=== PATIENT | female | born 1935 | race Caucasian/White ===

== ENCOUNTER → 2017-07-17 07:54 | Outpatient (CLI) | payer MEDICARE, OTHER, SELFPAY ==
[2017-07-17 09:22] LABS: AST(SGOT) 15 U/L (15-37); Alanine Aminotransfer ALT/SGPT 23 U/L (13-56); Albumin, Serum 3.5 g/dL (3.2-5.0); Alkaline Phosphatase 97 U/L (45-117); Bilirubin, Direct 0.11 mg/dL (0.00-0.30); Cholesterol 141 mg/dL (200); Globulin 4.2 g/dL (2.2-4.2); High Density Lipoprotein 44 mg/dL; Protein, Total 7.7 g/dL (6.4-8.2); Triglycerides 117 mg/dL; Very Low Density Lipoprotein 23 mg/dL (5-40)
== END ==
PROVIDERS: Family Provider Family Medicine; PCP Family Medicine; Visit Provider Internal Medicine Cardiovascular Disease
DX: E78.5 Hyperlipidemia, unspecified (principal); Z79.899 Other long term (current) drug therapy
CPT/HCPCS: 36415; 80061; 80076

== ENCOUNTER → 2018-01-14 09:11 | Outpatient (CLI) | payer MEDICARE, OTHER, SELFPAY ==
[2018-01-14 10:32] LABS: AST(SGOT) 14 U/L (15-37); Alanine Aminotransfer ALT/SGPT 19 U/L (13-56); Albumin, Serum 3.7 g/dL (3.2-5.0); Alkaline Phosphatase 87 U/L (45-117); Bilirubin, Direct 0.21 mg/dL (0.00-0.30); Cholesterol 135 mg/dL (200); Globulin 3.9 g/dL (2.2-4.2); High Density Lipoprotein 46 mg/dL; Protein, Total 7.6 g/dL (6.4-8.2); Triglycerides 104 mg/dL; Very Low Density Lipoprotein 21 mg/dL (5-40)
== END ==
PROVIDERS: Family Provider Family Medicine; PCP Family Medicine; Visit Provider Internal Medicine Cardiovascular Disease
DX: E78.5 Hyperlipidemia, unspecified (principal); Z79.899 Other long term (current) drug therapy
CPT/HCPCS: 36415; 80061; 80076

== ENCOUNTER → 2018-08-29 11:03 | Outpatient (CLI) | payer MEDICARE, SELFPAY ==
[2018-01-23 13:56] VITALS: BMI 26.5
[2018-08-29 12:27] LABS: AST(SGOT) 18 U/L (15-37); Alanine Aminotransfer ALT/SGPT 23 U/L (13-56); Albumin, Serum 3.7 g/dL (3.2-5.0); Alkaline Phosphatase 97 U/L (45-117); Bilirubin, Direct 0.11 mg/dL (0.00-0.30); Cholesterol 150 mg/dL (200); Globulin 4.1 g/dL (2.2-4.2); High Density Lipoprotein 47 mg/dL; Protein, Total 7.8 g/dL (6.4-8.2); Triglycerides 168 mg/dL; Very Low Density Lipoprotein 34 mg/dL (5-40)
== END ==
PROVIDERS: Family Provider Family Medicine; PCP Family Medicine; Referring Provider Internal Medicine Cardiovascular Disease; Visit Provider Internal Medicine Cardiovascular Disease
DX: E78.5 Hyperlipidemia, unspecified (principal)
CPT/HCPCS: 36415; 80061; 80076

== ENCOUNTER → 2019-02-07 10:40 | Outpatient (CLI) | payer MEDICARE, SELFPAY ==
[2018-10-07 07:50] VITALS: BMI 26.9
[2019-02-07 10:51] LABS: Bacteria 0 SEEN /hpf (None Seen); Mucous, Urine 0 SEEN /hpf (<or=2+); Red Blood Cells-Urine 0 SEEN /hpf (0-5); White Blood Cells 0 SEEN /hpf (0-5)
[2019-02-07 11:32] LABS: Color, Urine Yellow (Yellow); Glucose, Dipstick Normal (Normal); Ketone-Dipstick Negative (Negative); Leukocyte Esterase-Dipstick 100 /ul (Negative); Nitrite-Dipstick Negative (Negative); Occult Blood-Urine Negative /ul (Negative); Protein-Dipstick Negative (Negative); Urine Bilirubin Dipstick Negative (Negative); Urine Clarity Clear (Clear); Urine Urobilinogen Normal (Normal)
[2019-02-07 11:33] LABS: Hemoglobin 11.4 g/dL (12.0-15.0); Mean Corp Hgb Conc 32.6 g/dL (32-36); Mean Corpuscular Hgb 30.2 pg (27.0-32.0); Mean Corpuscular Volume 92.8 fL (81-99); Mean Platelet Vol. 9.6 fl (6.2-12.0); Platelet Count 281 K/mm3 (150-450); RBC Distribution Width CV 13.6 % (11.6-14.6); RBC Distribution Width SD 46.6 fl (35.1-43.9); Red Blood Count 3.77 M/mm3 (4.2-5.4); White Blood Count 6.1 K/mm3 (4.4-11.0)
[2019-02-07 11:39] LABS: Squamous Epithelial Cells - UA 0-5 SEEN /hpf (5-10)
[2019-02-07 11:50] LABS: Microalbumin,Random Urine 18.8 mg/L (NO RANGE EST.)
[2019-02-07 12:16] LABS: Hemoglobin A1c 6.5 % (4.2-6.3)
[2019-02-07 12:19] LABS: ALB/GLOB Ratio 0.9 RATIO (0.9-2.4); AST(SGOT) 15 U/L (15-37); Alanine Aminotransfer ALT/SGPT 18 U/L (13-56); Albumin, Serum 3.5 g/dL (3.2-5.0); Alkaline Phosphatase 93 U/L (45-117); Anion Gap 7 (5-15); BUN 11 mg/dL (7-18); BUN/Creat Ratio 11.9 RATIO (10-20); Calcium,Total 9.3 mg/dL (8.5-10.1); Chloride 105 mmol/L (98-107); Cholesterol 137 mg/dL (200); Creatinine, Serum 0.93 mg/dL (0.55-1.02); EST Glomerular Filtration Rate 61 mL/min (>60); Est Glom Filt Rate - Afr Amer 74 mL/min (>60); Glucose 105 mg/dL (74-106); High Density Lipoprotein 41 mg/dL; Potassium 4.1 mmol/L (3.5-5.1); Protein, Total 7.5 g/dL (6.4-8.2); Sodium Level 141 mmol/L (136-145); Thyroid Stim Hormone (TSH) 3.07 uIU/mL (0.358-3.74); Triglycerides 124 mg/dL; Very Low Density Lipoprotein 25 mg/dL (5-40)
== END ==
PROVIDERS: Family Provider Family Medicine; PCP Family Medicine; Referring Provider Student in an Organized Health Care Education/Training Program; Visit Provider Student in an Organized Health Care Education/Training Program
DX: E11.9 Type 2 diabetes mellitus without complications (principal); E78.5 Hyperlipidemia, unspecified
CPT/HCPCS: 36415; 80053; 80061; 81001; 82043; 82570; 83036; 84443; 85027

== ENCOUNTER → 2020-08-04 09:51 | Outpatient (CLI) | payer MEDICARE, SELFPAY ==
[2019-11-05 11:07] VITALS: BMI 25.6
--- NOTE | 2020-08-04 09:54 | ART_ITS ---
Reason For Study: Claudication Procedure A bilateral lower extremity continuous wave Doppler with analog waveform analysis,segmental pressures,and ankle brachial indexes without exercise. Left Segmental Pressures Left brachial= 141mmHg. Left posterior tibial artery = 185mmHg. Left dorsalis pedis artery = 187mmHg. Left digit = 96 mmHg. The left dorsalis pedis waveforms are triphasic. The left posterior tibial artery waveforms are triphasic. Right Segmental Pressures Right brachial= 140mmHg. Right posterior tibial artery = 181mmHg. Right dorsalis pedis artery = 180mmHg. Right digit = 94 mmHg. The right dorsalis pedis waveforms are triphasic. The right posterior tibial artery waveforms are triphasic. Indices The right ankle brachial index by the dorsalis pedis is 1.28. The right ankle brachial index by the posterior tibial artery is 1.28. The right digital-brachial index is 0.67. The left ankle brachial index by the dorsalis pedis is 1.33. The left ankle brachial index by the posterior tibial artery is 1.31. The left digital-brachial index is 0.68. Interpretation Summary Triphasic Doppler waveforms are noted at ankle level bilaterally. Pulse-volume recordings appear satisfactory at all levels bilaterally, including low-thigh, calf, ankle, and digital levels. Resting ankle-brachial indices are normal bilaterally. Digital-brachial indices are mildly diminished bilaterally. Arterial flow appears normal at ankle level bilaterally. There is evidence of mild, distal, small- vessel arterial occlusive disease at digital level bilaterally. Ordering Physician: Chuck Killian Referring Physician: Chuck Killian Performed By: Yuridia Bonilla RVT
== END ==
PROVIDERS: PCP Student in an Organized Health Care Education/Training Program; Referring Provider Student in an Organized Health Care Education/Training Program; Visit Provider Student in an Organized Health Care Education/Training Program
DX: I73.9 Peripheral vascular disease, unspecified (principal)
CPT/HCPCS: 93923

== ENCOUNTER 2023-05-02 14:35 | Emergency (ER) | payer MEDICARE, SELFPAY ==
[2023-05-02 14:36] VITALS: PULSE 67; RESP 18; TEMP 36; O2SAT 95; BMI 28.8
--- NOTE | 2023-05-02 14:59 | EKG12_ITS ---
Test Reason : Blood Pressure : / mmHG Vent. Rate : 066 BPM Atrial Rate : 066 BPM P-R Int : 190 ms QRS Dur : 144 ms QT Int : 432 ms P-R-T Axes : 054 -34 064 degrees QTc Int : 452 ms Normal sinus rhythm Left axis deviation Left bundle branch block Abnormal ECG Confirmed by WISAM EUGENE, BROCK ([id number]), general expeditor SHANTEL FUENTES ([id number]) on 05/03/2023 9:33:43 AM Referred By: HARRIETT Confirmed By:BROCK JOEL MD
[2023-05-02 15:13] LABS: Absolute Lymphocyte Count 3.07 X10^3/uL (0.83-4.51); Absolute Neutrophil Count 4.9 X10^3/uL (2.0-7.7); Basophil# 0.06 X10^3/uL; Basophil% 0.7 % (0-1); Eosinophil# 0.12 X10^3/uL; Eosinophils% 1.4 % (0-5); Hematocrit 33.5 % (37-47); Hemoglobin 10.4 g/dL (12.0-15.0); Lymphocyte # 3.07 X10^3/ul (0.83-4.51); Lymphocyte % 35.2 % (19-41); Mean Corpuscular Volume 93.3 fL (81-99); Mean Platelet Vol. 9.6 fl (6.2-12.0); Monocyte# 0.53 X10^3/uL; Monocyte% 6.1 % (0-10); NRBC Flagged by Analyzer 0 % (0-5); Neutrophil % 56.3 % (47-70); Platelet Count 400 K/mm3 (150-450); RBC Distribution Width CV 13.9 % (11.6-14.6); RBC Distribution Width SD 47.5 fl (35.1-43.9); Red Blood Count 3.59 M/mm3 (4.2-5.4); White Blood Count 8.7 K/mm3 (4.4-11.0)
--- NOTE | 2023-05-02 15:17 | EDS_ITS ---
HPI History of Present Illness Chief Complaint: Syncope Detail of Chief Complaint: Syncopal episode Informant: patient Onset/Context/Timing Onset: Hours Context: Sudden Onset Timing: Intermittent Quality: Passed out Location: Sitting at home Current Severity: Gone Maximum Severity: Moderate Worsened by: Head mild abdominal distention/discomfort prior to this happening Relieved by: Nothing Associated Symptoms Associated Symptoms: Sense of warmth Narrative Narrative: Patient is an 87-year-old woman with history of chronic anemia, atherosclerotic heart disease with stent placement, essential hypertension, hyperlipidemia and history of left bundle branch block who presents after syncopal episode. She was sitting when this occurred. She denied headache, visual, ocular auditory symptoms. She denies trouble with speech or swallowing. She denied chest discomfort. She denies shortness of breath. She denies nausea or vomiting. She denied paresthesia, anesthesia or motor weakness upper or lower extremity. She denied problems with balance. She denies black or maroon-colored stool. She denies fever, chills or night sweats. Prior similar symptoms: No Recent Illness/Hospitalization: No PFSH PFSH Medical History Abdominal aortic atherosclerosis Anxiety Atherosclerosis Atherosclerotic heart disease of [place] coronary artery without angina pectoris Back pain Bilateral leg weakness Bulging lumbar disc Chronic kidney disease, stage 3 Chronic low back pain Chronic neck pain CKD stage 3 secondary to diabetes Colonic stricture Constipation Coronary artery disease Cyst of skin Degenerative arthritis of lumbar spine Degenerative joint disease of left hip Dextroscoliosis of lumbar spine Diabetic neuropathy Diarrhea Diverticulosis of colon Elevated TSH Essential (primary) hypertension Eye pain GERD (gastroesophageal reflux disease) Hyperlipidemia Hypertension goal BP (blood pressure) < 150/90 Insomnia Intention tremor Intermittent claudication Iron deficiency anemia Left bundle branch block Left hip pain Leg pain Lumbar degenerative disc disease Lumbar facet arthropathy Microalbuminuria Microalbuminuric diabetic nephropathy Nausea Neck pain Neuropathy of thigh Normocytic anemia Old inferior wall myocardial infarction Overactive bladder Pancreatic cyst Pars defect of lumbar spine Pars defect with spondylolisthesis Peripheral edema Peripheral vascular disease Radiculopathy of arm Recurrent headache Restless leg Right foot pain Scarring of lung Scoliosis Secondary hyperparathyroidism Skin cancer Skin cancer of face Suprapubic mass Systolic ejection murmur Tremor of both hands Type 2 diabetes mellitus Vitamin D deficiency Weakness Weight loss Widened pulse pressure Home Medications aspirin 81 mg tablet,delayed release (Adult Low Dose Aspirin) 81 mg PO DAILY 10/07/18 [History Last Taken Unknown] cholecalciferol (vitamin D3) 50 mcg (2,000 unit) capsule 50 mcg PO DAILY 08/18/20 [History Last Taken Unknown] oxybutynin chloride 5 mg tablet 5 mg PO DAILY 08/18/20 [History Last Taken Unknown] gabapentin 300 mg capsule 300 mg PO TID 05/17/22 [History Last Taken Unknown] pravastatin 40 mg tablet 40 mg PO QHS #90 tabs 07/05/22 [Rx Last Taken Unknown] amlodipine 10 mg tablet 10 mg PO DAILY awaiting mail order RX, pt is out. #30 tabs 07/09/22 [Rx Last Taken Unknown] cyclobenzaprine 10 mg tablet 10 mg PO TID PRN muscle spasm 11/14/22 [History Last Taken Unknown] famotidine 40 mg tablet 40 mg PO BID PRN 11/20/22 [History Last Taken Unknown] pramipexole 0.5 mg tablet 0.5 mg PO QHS 11/20/22 [History Last Taken Unknown] trazodone 100 mg tablet 100 mg PO QHS PRN 11/20/22 [History Last Taken Unknown] metoprolol tartrate 25 mg tablet 25 mg PO BID #180 tabs 12/14/22 [Rx Last Taken Unknown] ramipril 10 mg capsule 10 mg PO DAILY #90 caps 04/29/23 [Rx Last Taken Unknown] Allergy/AdvReac Type Severity Reaction Status Date / Time acetaminophen Allergy NEEDS Verified 03/04/23 14:07 [From [facility] with Codeine] FOLLOW-UP codeine Allergy Other Verified 03/04/23 14:07 latex Allergy NEEDS Verified 03/04/23 14:07 FOLLOW-UP meperidine Allergy NEEDS Verified 03/04/23 14:07 FOLLOW-UP metoclopramide HCl Allergy Other Verified 03/04/23 14:07 [From Reglan] morphine Allergy Itching Verified 03/04/23 14:07 Penicillins [PCN] Allergy Hives Verified 03/04/23 14:07 prednisone Allergy Other Verified 03/04/23 14:07 ropinirole HCl [From Requip] Allergy Other Verified 03/04/23 14:07 shrimp Allergy NEEDS Verified 03/04/23 14:07 FOLLOW-UP amoxicillin AdvReac Other Verified 03/04/23 14:07 diazepam [From Valium] AdvReac Other Verified 03/04/23 14:07 pregabalin [From Lyrica] AdvReac Somnolence Verified 03/04/23 14:07 HCL Allergy NEEDS Uncoded 03/04/23 14:07 FOLLOW-UP Family History Father , age 62 Sudden cardiac CAD (coronary artery disease) Myocardial infarction Heart disease Son Heart disease Myocardial infarction Surgical History H/O heart surgery H/O: hysterectomy History of breast biopsy History of carpal tunnel repair History of colonoscopy History of coronary artery stent placement (06/23/99) History of endoscopy History of eye surgery History of left heart catheterization (08/17/03) History of partial colectomy History of surgical removal of skin lesion Hx of cholecystectomy Social History (Updated 05/02/23 @ 15:[address] Ashok Benz MD) household members: children Smoking Status: Never smoker alcohol intake: never substance use type: does not use caffeine: No ROS ROS ED Constitutional Constitutional ED: Denies chills, fever(s), subjective, sweats or weight loss Eyes Eyes: Denies blurry vision, change in vision or diplopia ENT ENT ED: Denies ear pain, rhinorrhea or sore throat Cardiovascular Cardiovascular: Denies chest pain, palpitations or racing heartbeat Respiratory/Chest Respiratory/Chest: Denies cough, dyspnea or dyspnea on exertion Gastrointestinal Gastrointestinal: Denies abdominal pain, constipation, nausea or vomiting Genitourinary Genitourinary ED: Denies dysuria, hematuria or urinary frequency Musculoskeletal Musculoskeletal: Denies arthralgias, back pain, myalgias or neck pain Integumentary Denies rash Neurologic Neurologic: Denies headache(s), paresthesias or weakness Psychiatric Psychiatric: Denies anxiety or depression Endocrine Endocrinology: Denies cold intolerance or heat intolerance Hematologic/Lymphatic Hematologic/Lymphatic: Reports systems reviewed and no addt'l complaints, except as documented EXAM Physical Exam Const Vital Signs: 05/02/23 14:36 05/02/23 14:36 05/02/23 14:36 Temperature 96.8 F L Temperature Source Temporal Pulse Rate 67 Respiratory Rate 18 Respiratory Effort Normal Respiratory Depth Normal Respiratory Pattern Normal Normal Pulse Ox 95 Oxygen Delivery Method Room Air Room Air Positive well nourished and well developed General Appearance ED: well developed and NAD; Negative for cyanotic, diaphoretic or pallor HEENT Reports moist mucous membranes HEENT Narrative: Head is atraumatic and normocephalic. Ears are normal. Nares are patent. Posterior pharynx is normal. Uvula is midline. There is no deviation tongue with protrusion. Eyes PERRL and EOMs intact bilaterally Eyes Narrative: There is no nystagmus. General Eye ED: Negative for pale conjunctiva or scleral icterus Neck no lymphadenopathy, supple and no JVD Chest Wall inspection of chest normal and palpation of chest normal Resp normal respiratory effort and clear to auscultation bilaterally Cardio regular rate, regular rhythm, S1 normal heart sound, S2 normal heart sound and no murmurs GI normal to inspection, nondistended, normoactive bowel sounds, non-tender, non- distended and no masses; Negative for hepatosplenomegaly Auscultation: normoactive bowel sounds Palpation: soft Back/Spine no CVA tenderness Thoracic Spine / Upper Back: Negative for thoracic spinal tenderness Lumbar Spine / Lower Back: Negative for lumbar spinal tenderness Extremity normal to inspection General Extremety ED: Negative for edema or tenderness General Extremity: Negative for edema Neuro oriented x3, CN's II-XII intact bilaterally and no sensory deficits noted Sensorium / Orientation: alert Motor Exam: strength 5/5 throughout Psych mental status grossly normal Mood & Affect: Negative for anxious or tearful Skin no rashes or lesions noted, no wounds and skin turgor normal General Skin Exam: Negative for jaundice or pallor MDM MDM MDM Narrative Medical decision making narrative: Diagnosis is cardiac dysrhythmia, vasovagal syncopal episode, orthostatic hypotension, GI bleed. History & Record Review Additional record(s) reviewed:: Prior outpatient record, Prior ED visit and Prior labs Lab Data Attestation: I reviewed the patient's lab results. Lab results narrative: CBC reveals mild anemia and patient is at baseline. Based about parables creatinine 1.19 which is an improvement from prior. Glucose is 198 with a normal CO2 and anion gap Labs: Laboratory Results - last 24 hr 05/02/23 14:42 WBC 8.7 RBC 3.59 L Hgb 10.4 L Hct 33.5 L MCV 93.3 MCH 29.0 MCHC 31.0 L RDW Std Deviation 47.5 H RDW Coeff of Franky 13.9 Plt Count 400 MPV 9.6 Immature Gran % (Auto) 0.300 Neut % (Auto) 56.3 Lymph % (Auto) 35.2 [place] % (Auto) 6.1 Eos % (Auto) 1.4 Baso % (Auto) 0.7 Absolute Neuts (auto) 4.9 Absolute Lymphs (auto) 3.07 Nucleated RBC % 0 Sodium 135 L Potassium 4.3 Chloride 103 Carbon Dioxide 30.0 Anion Gap 2 L BUN 16 Creatinine 1.19 H Estim Creat Clear Calc 26.34 Est GFR (MDRD) Af Amer 55 L Est GFR (MDRD) Non-Af 46 L BUN/Creatinine Ratio 13.4 Glucose 198 H Calcium 9.6 EKG Initial EKG: Attestation: I personally reviewed and interpreted this EKG as follows: Interpretation: Sinus Rhythm (Sinus rhythm rate of 66. There is left bundle branch block with left axis. HI interval is 190 ms. Cures duration 144 ms. QT duration 432 ms. There is no acute ischemic changes noted.) Discharge Plan Triage Chief Complaint: Syncope Other Complaint: Fall ED Provider: Ashok Benz Dx/Rx/DC Orders Clinical Impression: Syncope, vasovagal, Left bundle branch block, Atherosclerotic heart disease of [place] coronary artery without angina pectoris, Hyperlipidemia, Anemia, chronic disease, Essential (primary) hypertension Instructions: ED Fainting, Vagal Reaction Prescriptions: No Action aspirin [Adult Low Dose Aspirin] 81 mg tablet,delayed release (DR/EC) 81 mg PO DAILY oxybutynin chloride 5 mg tablet 5 mg PO DAILY cholecalciferol (vitamin D3) 50 mcg (2,000 unit) capsule 50 mcg PO DAILY gabapentin 300 mg capsule 300 mg PO TID cyclobenzaprine 10 mg tablet 10 mg PO TID PRN (Reason: muscle spasm) famotidine 40 mg tablet 40 mg PO BID PRN pramipexole 0.5 mg tablet 0.5 mg PO QHS trazodone 100 mg tablet 100 mg PO QHS PRN pravastatin 40 mg tablet 40 mg PO QHS Qty: 90 3RF amlodipine 10 mg tablet 10 mg PO DAILY Qty: 30 0RF metoprolol tartrate 25 mg tablet 25 mg PO BID Qty: 180 3RF ramipril 10 mg capsule 10 mg PO DAILY Qty: 90 3RF Primary Care Provider: Keshawn Koehler Referrals: Keshawn Koehler DO [Primary Care Provider] - 3-5 Days Disposition Disposition: Home, Self Care
[2023-05-02 15:24] LABS: Anion Gap 2 (5-15); BUN 16 mg/dL (7-18); BUN/Creat Ratio 13.4 RATIO (10-20); Calcium,Total 9.6 mg/dL (8.5-10.1); Chloride 103 mmol/L (98-107); Creatinine, Serum 1.19 mg/dL (0.55-1.02); EST Glomerular Filtration Rate 46 mL/min (>60); Est Glom Filt Rate - Afr Amer 55 mL/min (>60); Estimated Creatinine Clearance 26.34 ml/min; Glucose 198 mg/dL (74-106); Potassium 4.3 mmol/L (3.5-5.1); Sodium Level 135 mmol/L (136-145)
[2023-05-02 15:50] VITALS: BP 126/78; PULSE 64; RESP 14; TEMP 36.4; O2SAT 99
== END 2023-05-02 15:51 | disposition home or self-care (01) ==
PROVIDERS: Emergency Provider Emergency Medicine; PCP Student in an Organized Health Care Education/Training Program; Visit Provider Emergency Medicine
DX: R55 Syncope and collapse (principal); E11.22 Type 2 diabetes mellitus with diabetic chronic kidney disease; E11.40 Type 2 diabetes mellitus with diabetic neuropathy, unspecified; N18.30 Chronic kidney disease, stage 3 unspecified; I12.9 Hypertensive chronic kidney disease with stage 1 through stage 4 chronic kidney disease, or unspecified chronic kidney disease; I25.10 Atherosclerotic heart disease of native coronary artery without angina pectoris; E78.5 Hyperlipidemia, unspecified; D63.8 Anemia in other chronic diseases classified elsewhere; R14.0 Abdominal distension (gaseous); I44.7 Left bundle-branch block, unspecified; R05.9 Cough, unspecified; Z79.82 Long term (current) use of aspirin; Z79.899 Other long term (current) drug therapy; Z95.5 Presence of coronary angioplasty implant and graft
CPT/HCPCS: 80048; 85025; 93005; 99285

== ENCOUNTER 2024-02-06 07:10 | Inpatient (IN) | payer MEDICARE, SELFPAY ==
[2024-02-06] VITALS (22 sets, daily range): BP systolic 112–196; BP diastolic 30–108; PULSE 39–110; RESP 11–20; TEMP 36.2–36.6; O2SAT 86–100; BMI 13.8
--- NOTE | 2024-02-06 07:20 | EKG12_ITS ---
Test Reason : GEN ILLNESS Blood Pressure : / mmHG Vent. Rate : 065 BPM Atrial Rate : 000 BPM P-R Int : 000 ms QRS Dur : 140 ms QT Int : 426 ms P-R-T Axes : 000 019 144 degrees QTc Int : 443 ms ATRIAL TACHYCARDIA WITH VARIABLE BLOCK Non-specific intra-ventricular conduction block T wave abnormality, consider lateral ischemia Abnormal ECG Confirmed by WISAM EUGENE, BROCK ([id number]), newspaper editor SHANTEL FUENTES ([id number]) on 02/10/2024 6:52:35 AM Referred By: CLIF Confirmed By:BROCK JOEL MD
--- NOTE | 2024-02-06 07:20 | RAD_ITS ---
STUDY: X-RAY CHEST REASON FOR EXAM: Female, 88 years old. Hypertension. TECHNIQUE: Single AP portable view of the chest. COMPARISON: Comparison is made with prior study dated April 04, 2017. FINDINGS: Stable mild increased interstitial markings more prominent at the lung bases suggestive of scarring. There is no demonstrated pleural abnormality. Normal size heart. Normal mediastinum and [place]. Normal visualized pulmonary arteries. There is atherosclerotic calcification of the aortic arch with tortuosity. There are diffuse degenerative changes of the visualized thoracic spine. There is degenerative osteoarthritis of the bilateral shoulders. There is no demonstrated abnormality of the visualized soft tissue structures of the upper abdomen. RAD/Chest 1 View (Portable) IMPRESSION: Findings suggest minimal scarring. No acute infiltrate is seen. Electronically Signed: Manan Weston MD at 8:27 EDT ,
[2024-02-06 08:16] LABS: Absolute Neutrophil Count 6.1 X10^3/uL (2.0-7.7); Basophil# 0.04 X10^3/uL; Basophil% 0.3 % (0-1); Eosinophil# 0.04 X10^3/uL; Eosinophils% 0.3 % (0-5); Hemoglobin 11.4 g/dL (12.0-15.0); Lymphocyte % 42.1 % (19-41); Mean Corp Hgb Conc 33.5 g/dL (32-36); Mean Corpuscular Hgb 29.9 pg (27.0-32.0); Mean Corpuscular Volume 89.2 fL (81-99); Mean Platelet Vol. 9.3 fl (6.2-12.0); Monocyte# 0.77 X10^3/uL; Monocyte% 6.4 % (0-10); NRBC Flagged by Analyzer 0 % (0-5); Neutrophil # 6.14 X10^3/uL (2.7-7.7); Neutrophil % 50.7 % (47-70); POSITIVE DIFFERENTIAL YES; Platelet Count 268 K/mm3 (150-450); RBC Distribution Width CV 13.5 % (11.6-14.6); RBC Distribution Width SD 44.5 fl (35.1-43.9); Red Blood Count 3.81 M/mm3 (4.2-5.4); White Blood Count 12.1 K/mm3 (4.4-11.0)
--- NOTE | 2024-02-06 08:21 | EDS_ITS ---
HPI History of Present Illness Chief Complaint: Hypertension Narrative Narrative: Patient is a 88-year-old female with past medical history of intermittent claudication, type 2 diabetes, suprapubic mass, peripheral vascular disease, restless leg syndrome, neuropathy, hypertension, GERD, CAD, CKD who presented to the emergency department the chief complaint of high blood pressure and not feeling well. Patient states that her back and legs last night were bothering her and states that she noted that her blood pressure was high last night and then this morning again prompting her to come here for further evaluation management. Patient states that she did take a half of her pain pill medication that she is prescribed that did not help with her pain. Patient states that she has no other complaints. [facility] Medical History Systolic ejection murmur Scoliosis Intermittent claudication Degenerative arthritis of lumbar spine Bulging lumbar disc Widened pulse pressure Weight loss Weakness Vitamin D deficiency Type 2 diabetes mellitus Tremor of both hands Suprapubic mass Skin cancer of face Skin cancer Secondary hyperparathyroidism Scarring of lung Right foot pain Restless leg Recurrent headache Radiculopathy of arm Peripheral vascular disease Peripheral edema Pars defect with spondylolisthesis Pars defect of lumbar spine Pancreatic cyst Overactive bladder Normocytic anemia Neuropathy of thigh Neck pain Nausea Microalbuminuric diabetic nephropathy Microalbuminuria Lumbar facet arthropathy Lumbar degenerative disc disease Leg pain Left hip pain Iron deficiency anemia Intention tremor Insomnia Hypertension goal BP (blood pressure) < 150/90 GERD (gastroesophageal reflux disease) Eye pain Elevated TSH Diverticulosis of colon Diarrhea Diabetic neuropathy Dextroscoliosis of lumbar spine Degenerative joint disease of left hip Cyst of skin Constipation Colonic stricture CKD stage 3 secondary to diabetes Chronic neck pain Chronic low back pain Chronic kidney disease, stage 3 Coronary artery disease Bilateral leg weakness Back pain Atherosclerosis Anxiety Abdominal aortic atherosclerosis Old inferior wall myocardial infarction Essential (primary) hypertension Hyperlipidemia Atherosclerotic heart disease of [place] coronary artery without angina pectoris Left bundle branch block Home Medications ?Medication ?Instructions ?Recorded ?Last Taken ?Type aspirin 81 mg tablet,delayed 81 mg PO DAILY heart health 10/07/18 Unknown History release (Adult Low Dose Aspirin) cholecalciferol (vitamin D3) 50 50 mcg PO DAILY supplement 08/18/20 Unknown History mcg (2,000 unit) capsule oxybutynin chloride 5 mg tablet 5 mg PO DAILY overactive bladder 08/18/20 Unknown History pramipexole 0.5 mg tablet 0.5 mg PO QHS tremors 11/20/22 Unknown History trazodone 100 mg tablet 100 mg PO QHS PRN sleep 11/20/22 Unknown History ramipril 10 mg capsule 10 mg PO DAILY blood pressure #90 04/29/23 Unknown Rx caps amlodipine 5 mg tablet 5 mg PO DAILY blood pressure #90 08/20/23 Unknown Rx tabs famotidine 40 mg tablet 40 mg PO BID PRN gerd 08/20/23 Unknown History metoprolol tartrate 25 mg tablet 25 mg PO BID blood pressure #180 08/20/23 02/06/24 Rx tabs pravastatin 40 mg tablet 40 mg PO QHS cholesterol 08/20/23 02/05/24 History gabapentin 300 mg capsule 300 mg PO TID neuropathy #90 caps 12/25/23 02/06/24 Rx cyanocobalamin (vitamin B-12) 500 500 mcg PO DAILY supplement 02/06/24 Unknown History mcg tablet Allergy/AdvReac Type Severity Reaction Status Date / Time acetaminophen (From [facility] Allergy NEEDS Verified 12/25/23 15:42 with Codeine) FOLLOW-UP codeine Allergy Other Verified 12/25/23 15:42 latex Allergy NEEDS Verified 12/25/23 15:42 FOLLOW-UP meperidine Allergy NEEDS Verified 12/25/23 15:42 FOLLOW-UP metoclopramide HCl (From Allergy Other Verified 12/25/23 15:42 Reglan) morphine Allergy Itching Verified 12/25/23 15:42 Penicillins (PCN) Allergy Hives Verified 12/25/23 15:42 prednisone Allergy Other Verified 12/25/23 15:42 ropinirole HCl (From Requip) Allergy Other Verified 12/25/23 15:42 shrimp Allergy NEEDS Verified 12/25/23 15:42 FOLLOW-UP amoxicillin AdvReac Other Verified 12/25/23 15:42 diazepam (From Valium) AdvReac Other Verified 12/25/23 15:42 pregabalin (From Lyrica) AdvReac Somnolence Verified 12/25/23 15:42 HCL Allergy NEEDS Uncoded 12/25/23 15:42 FOLLOW-UP Family History Father , age 62 Sudden cardiac CAD (coronary artery disease) Myocardial infarction Heart disease Son Heart disease Myocardial infarction Surgical History History of surgical removal of skin lesion History of breast biopsy History of colonoscopy History of endoscopy History of eye surgery History of carpal tunnel repair History of partial colectomy Hx of cholecystectomy H/O heart surgery H/O: hysterectomy History of left heart catheterization (08/17/03) History of coronary artery stent placement (06/23/99) Social History household members: children Smoking Status: Never smoker alcohol intake: never substance use type: does not use caffeine: No ROS ROS ED ROS Narrative Constitutional: Denies any fevers, chills, headaches, lightheadedness, dizziness Eyes: Denies changes double vision blurry vision Cardiovascular: Denies chest pain or palpitations Respiratory: Denies coughing wheezing shortness of breath Abdomen: Denies abdominal pain nausea vomit diarrhea : Denies any urinary symptoms Neurological: Denies numbness, weakness, tingling states that she has a chronic shake in her bilateral upper extremities from her neuropathy Musculoskeletal: States that she has chronic back pain Skin: Denies rashes or lesions EXAM Physical Exam Narrative Exam Narrative: General: Patient was lying in bed rest comfortably did not appear to be in acute distress Head: Atraumatic, normocephalic Eyes: PERRL bilateral, EOMI bilateral, no conjunctival injection noted Neck: Soft, supple, trachea midline Cardiovascular: Regular rate and rhythm no murmurs gallops rubs noted Respiratory: Clear to auscultation bilaterally no rales rhonchi or wheeze noted Abdomen: Soft, nondistended, nontender to palpation, bowel sounds present x 4 Extremities: +4/5 strength noted in the bilateral upper and lower extremities, radial pulses +2/4 in the bilateral upper extremities, no pedal edema on exam Neurological: Patient following commands knew that she was at [facility] years 2023. NIH is 0 GCS 15 Skin: Warm, dry, intact Const Vital Signs: 02/06/24 07:11 02/06/24 07:11 02/06/24 07:11 Temperature 98 F Temperature Source Temporal Pulse Rate 77 80 Respiratory Rate 14 14 Respiratory Effort Normal Non-Labored Respiratory Pattern Normal Blood Pressure 194/58 H 196/68 H Blood Pressure Mean 103 110 Pulse Ox 98 100 Oxygen Delivery Method Room Air Room Air 02/06/24 09:11 Temperature Temperature Source Pulse Rate Respiratory Rate Respiratory Effort Respiratory Pattern Blood Pressure 160/100 H Blood Pressure Mean 120 Pulse Ox Oxygen Delivery Method MDM MDM MDM Narrative Medical decision making narrative: Patient is a 88-year-old female who presented to the emergency department chief complaint of hypertension and generalized not feeling well. Patient will have a workup performed here on the differential diagnose includes but not limited to ACS, hypertensive emergency, essential hypertension, chronic pain. Once workup is obtained reviewed she will be reevaluated. Patient CBC showed a white blood cell count of 12,000, hemoglobin is 11.4, platelet count was noted to be normal at 268. Patient sodium was noted 134, creatinine was 1.19 she has underlying chronic kidney disease this is around her baseline according to previous blood draws. Patient's glucose noted be normal 194. Patient's AST and ALT were 32 and 33 respectively. Patient's troponin was notably 19 with a delta troponin of 21. Patient's EKG showed a heart rate of 65 bpm was read as atrial fibrillation however there are P waves noted therefore this is sinus bradycardia with possibly PVCs. Patient urinalysis still pending. Patient's chest x-ray was reviewed as well which showed no acute cardiopulmonary processes this was reviewed by radiologist and independently by myself. The patient was noted to be come more bradycardic while here I had a repeat EKG and showed a heart rate of 40 bpm with P waves once again however I am concerned about heart block therefore I sent this to the director of community center Dr. Lang who reviewed the images I sent him and called him back and notified me that he believes that she is in heart block and needs a pacemaker. I called and discussed case for admission with hospitalist Dr. Morris as well as family numbers at bedside she will be made n.p.o. They are agreeable with this plan all quadrant concerns answered who accept patient for admission. Patient was notified she will be admitted for further evaluation management Lab Data Labs: Laboratory Results - last 24 hr 02/06/24 08:01 WBC 12.1 H RBC 3.81 L Hgb 11.4 L Hct 34.0 L MCV 89.2 MCH 29.9 MCHC 33.5 RDW Std Deviation 44.5 H RDW Coeff of Franky 13.5 Plt Count 268 MPV 9.3 Immature Gran % (Auto) 0.200 Neut % (Auto) 50.7 Lymph % (Auto) 42.1 H [place] % (Auto) 6.4 Eos % (Auto) 0.3 Baso % (Auto) 0.3 Absolute Neuts (auto) 6.1 Absolute Lymphs (auto) 5.10 H Nucleated RBC % 0 Sodium 134 L Potassium 4.6 Chloride 103 Carbon Dioxide 25.0 Anion Gap 6 BUN 22 H Creatinine 1.19 H Est GFR (MDRD) Af Amer 55 L Est GFR (MDRD) Non-Af 45 L BUN/Creatinine Ratio 18.5 Glucose 195 H Calcium 9.8 Total Bilirubin 0.80 AST 32 ALT 33 Alkaline Phosphatase 129 H Troponin I High Sens 19 Total Protein 7.6 Albumin 3.3 Globulin 4.3 H Albumin/Globulin Ratio 0.8 L Radiography Diagnostic Testing: Clinical Impression(s) from Imaging Studies Chest X-Ray 02/06/24 07:20 IMPRESSION: Findings suggest minimal scarring. No acute infiltrate is seen. Electronically Signed: Manan Weston MD at 8:27 EDT , Discharge Plan Triage Chief Complaint: Hypertension ED Provider: Roger Coronado Dx/Rx/DC Orders Clinical Impression: Bradycardia, AV heart block Prescriptions: No Action aspirin [Adult Low Dose Aspirin] 81 mg tablet,delayed release (DR/EC) 81 mg PO DAILY oxybutynin chloride 5 mg tablet 5 mg PO DAILY cholecalciferol (vitamin D3) 50 mcg (2,000 unit) capsule 50 mcg PO DAILY pramipexole 0.5 mg tablet 0.5 mg PO QHS famotidine 40 mg tablet 40 mg PO BID PRN (Reason: gerd ) pravastatin 40 mg tablet 40 mg PO QHS amlodipine 5 mg tablet 5 mg PO DAILY Qty: 90 3RF metoprolol tartrate 25 mg tablet 25 mg PO BID Qty: 180 3RF gabapentin 300 mg capsule 300 mg PO TID Qty: 90 0RF trazodone 100 mg tablet 100 mg PO QHS PRN (Reason: sleep ) cyanocobalamin (vitamin B-12) 500 mcg tablet 500 mcg PO DAILY ramipril 10 mg capsule 10 mg PO DAILY Qty: 90 3RF Primary Care Provider: Care Physician,No Primary Referrals: Care Physician,No Primary [Primary Care Provider] - Print Language: Kinyarwanda Disposition Disposition: Acute Care Hospital [facility]
[2024-02-06 08:37] LABS: Differential Indicated SCAN CRITERIA MET
[2024-02-06 08:39] LABS: ALB/GLOB Ratio 0.8 RATIO (0.9-2.4); AST(SGOT) 32 U/L (15-37); Alanine Aminotransfer ALT/SGPT 33 U/L (13-56); Albumin, Serum 3.3 g/dL (3.2-5.0); Alkaline Phosphatase 129 U/L (45-117); Anion Gap 6 (5-15); BUN 22 mg/dL (7-18); BUN/Creat Ratio 18.5 RATIO (10-20); Calcium,Total 9.8 mg/dL (8.5-10.1); Chloride 103 mmol/L (98-107); Creatinine, Serum 1.19 mg/dL (0.55-1.02); EST Glomerular Filtration Rate 45 mL/min (>60); Est Glom Filt Rate - Afr Amer 55 mL/min (>60); Globulin 4.3 g/dL (2.2-4.2); Glucose 195 mg/dL (74-106); Potassium 4.6 mmol/L (3.5-5.1); Protein, Total 7.6 g/dL (6.4-8.2); Sodium Level 134 mmol/L (136-145); Troponin-I HS 19 pg/mL (3.0-54.0)
--- NOTE | 2024-02-06 10:20 | EKG12_ITS ---
Test Reason : REPEAT EKG Blood Pressure : / mmHG Vent. Rate : 040 BPM Atrial Rate : 040 BPM P-R Int : 234 ms QRS Dur : 142 ms QT Int : 466 ms P-R-T Axes : 067 041 107 degrees QTc Int : 379 ms Critical Test Result: Low HR AV DISSOCIATION Left bundle branch block Abnormal ECG Confirmed by WISAM EUGENE, BROCK ([id number]), editor news SHANTEL FUENTES ([id number]) on 02/10/2024 6:53:42 AM Referred By: CLIF Confirmed By:BROCK JOEL MD
[2024-02-06] MEDS: Ondansetron ODT 4 MG Tablet PO (10:38)
[2024-02-06] MEDS: oxyCODONE 5 MG Tablet PO (10:38)
--- NOTE | 2024-02-06 10:39 | ED.RN ---
pt states to this rn while ambulating to restroom my blood pressure was high this morning so i took my meds... i am only supposed to take it once a day but i needed it. pt originally in the 70s HR but noted to become bradycardic in the 40s.
[2024-02-06 10:57] LABS: Troponin-I HS 21 pg/mL (3.0-54.0)
[2024-02-06 11:02] LABS: Differential Comment SCANNED; Platelet Estimate ADEQUATE (ADEQ); Red Cell Morphology NORM C+C NORMAL (NORM C&C)
[2024-02-06 11:24] LABS: Bacteria 0 SEEN /hpf (None Seen); Mucous, Urine 0 SEEN /hpf (<or=2+); Red Blood Cells-Urine 0 SEEN /hpf (0-5)
[2024-02-06 11:26] LABS: Color, Urine Yellow (Yellow); Glucose, Dipstick Normal (Normal); Ketone-Dipstick Negative (Negative); Leukocyte Esterase-Dipstick 100 /ul (Negative); Nitrite-Dipstick Negative (Negative); Occult Blood-Urine Negative /ul (Negative); Protein-Dipstick 30 mg/dl (Negative); Urine Bilirubin Dipstick Negative (Negative); Urine Clarity Sl. Cloudy (Clear); Urine Urobilinogen Normal (Normal)
[2024-02-06 11:32] LABS: Squamous Epithelial Cells - UA 0-5 SEEN /hpf (5-10); White Blood Cells 10-25 SEEN /hpf (0-5)
--- NOTE | 2024-02-06 11:39 | CON.PCM.CA_ITS ---
Assessment & Plan Assessment/Plan (1) AV heart block: PLAN: She does have what appears to be AV dissociated rhythm. She has an underlying left bundle branch block. My recommendation at this time will be to consider her for permanent pacemaker implantation and depending on the findings further recommendations will be made. (2) History of coronary artery stent placement: PLAN: She does have a history of coronary disease status post angioplasty and stent placement. At this time I would not suspect that we make any changes. (3) Essential (primary) hypertension: PLAN: Her blood pressure appears to be elevated at this particular time probably related to her AV dissociated rhythm. We will continue to follow it up. Thank you for allowing me to participate in the care of your patient. Please don't hesitate to call if any issues arise. HPI Consult Data Date of Consult: 02/06/24 HPI Narrative HPI Narrative: NASH ASTORGA, is a 88 F who presents to the emergency room complaining of weakness this morning after taking her blood pressure pill. She does have a history of hypertension, hyperlipidemia, coronary artery disease status post PCI of the right coronary artery remotely. She has been seen in the office and has been stable in the past. In the emergency room she was evaluated and she had an abnormal cardiac rhythm and cardiology was asked to render an opinion. It appears that she is in A-V dissociation. Her heart rate occasionally goes to the low 40s. [facility] Medical History Systolic ejection murmur Scoliosis Intermittent claudication Degenerative arthritis of lumbar spine Bulging lumbar disc Widened pulse pressure Weight loss Weakness Vitamin D deficiency Type 2 diabetes mellitus Tremor of both hands Suprapubic mass Skin cancer of face Skin cancer Secondary hyperparathyroidism Scarring of lung Right foot pain Restless leg Recurrent headache Radiculopathy of arm Peripheral vascular disease Peripheral edema Pars defect with spondylolisthesis Pars defect of lumbar spine Pancreatic cyst Overactive bladder Normocytic anemia Neuropathy of thigh Neck pain Nausea Microalbuminuric diabetic nephropathy Microalbuminuria Lumbar facet arthropathy Lumbar degenerative disc disease Leg pain Left hip pain Iron deficiency anemia Intention tremor Insomnia Hypertension goal BP (blood pressure) < 150/90 GERD (gastroesophageal reflux disease) Eye pain Elevated TSH Diverticulosis of colon Diarrhea Diabetic neuropathy Dextroscoliosis of lumbar spine Degenerative joint disease of left hip Cyst of skin Constipation Colonic stricture CKD stage 3 secondary to diabetes Chronic neck pain Chronic low back pain Chronic kidney disease, stage 3 Coronary artery disease Bilateral leg weakness Back pain Atherosclerosis Anxiety Abdominal aortic atherosclerosis Old inferior wall myocardial infarction Essential (primary) hypertension Hyperlipidemia Atherosclerotic heart disease of [place] coronary artery without angina pectoris Left bundle branch block Home Medications ?Medication ?Instructions ?Recorded ?Last Taken ?Type aspirin 81 mg tablet,delayed 81 mg PO DAILY heart health 10/07/18 Unknown History release (Adult Low Dose Aspirin) cholecalciferol (vitamin D3) 50 50 mcg PO DAILY supplement 08/18/20 Unknown History mcg (2,000 unit) capsule oxybutynin chloride 5 mg tablet 5 mg PO DAILY overactive bladder 08/18/20 Unknown History pramipexole 0.5 mg tablet 0.5 mg PO QHS tremors 11/20/22 Unknown History trazodone 100 mg tablet 100 mg PO QHS PRN sleep 11/20/22 Unknown History ramipril 10 mg capsule 10 mg PO DAILY blood pressure #90 04/29/23 Unknown Rx caps amlodipine 5 mg tablet 5 mg PO DAILY blood pressure #90 08/20/23 Unknown Rx tabs famotidine 40 mg tablet 40 mg PO BID PRN gerd 08/20/23 Unknown History metoprolol tartrate 25 mg tablet 25 mg PO BID blood pressure #180 08/20/23 02/06/24 Rx tabs pravastatin 40 mg tablet 40 mg PO QHS cholesterol 08/20/23 02/05/24 History gabapentin 300 mg capsule 300 mg PO TID neuropathy #90 caps 12/25/23 02/06/24 Rx cyanocobalamin (vitamin B-12) 500 500 mcg PO DAILY supplement 02/06/24 Unknown History mcg tablet Allergy/AdvReac Type Severity Reaction Status Date / Time acetaminophen (From [facility] Allergy NEEDS Verified 12/25/23 15:42 with Codeine) FOLLOW-UP codeine Allergy Other Verified 12/25/23 15:42 latex Allergy NEEDS Verified 12/25/23 15:42 FOLLOW-UP meperidine Allergy NEEDS Verified 12/25/23 15:42 FOLLOW-UP metoclopramide HCl (From Allergy Other Verified 12/25/23 15:42 Reglan) morphine Allergy Itching Verified 12/25/23 15:42 Penicillins (PCN) Allergy Hives Verified 12/25/23 15:42 prednisone Allergy Other Verified 12/25/23 15:42 ropinirole HCl (From Requip) Allergy Other Verified 12/25/23 15:42 shrimp Allergy NEEDS Verified 12/25/23 15:42 FOLLOW-UP amoxicillin AdvReac Other Verified 12/25/23 15:42 diazepam (From Valium) AdvReac Other Verified 12/25/23 15:42 pregabalin (From Lyrica) AdvReac Somnolence Verified 12/25/23 15:42 HCL Allergy NEEDS Uncoded 12/25/23 15:42 FOLLOW-UP Family History Father , age 62 Sudden cardiac CAD (coronary artery disease) Myocardial infarction Heart disease Son Heart disease Myocardial infarction Surgical History History of surgical removal of skin lesion History of breast biopsy History of colonoscopy History of endoscopy History of eye surgery History of carpal tunnel repair History of partial colectomy Hx of cholecystectomy H/O heart surgery H/O: hysterectomy History of left heart catheterization (08/17/03) History of coronary artery stent placement (06/23/99) Social History household members: children Smoking Status: Never smoker alcohol intake: never substance use type: does not use caffeine: No ROS Constitutional Constitutional: Denies fever(s) or weight loss Eyes Eyes: Reports systems reviewed and no addt'l complaints, except as documented ENT HEENT: Reports systems reviewed and no addt'l complaints, except as documented Cardiovascular Cardiovascular: Reports dyspnea at rest and dyspnea on exertion; Denies chest pain at rest, chest pain with activity, edema, palpitations or paroxysmal nocturnal dyspnea Respiratory/Chest Respiratory/Chest: Denies dyspnea on exertion, productive cough, shortness of breath at rest or shortness of breath with exertion Gastrointestinal Gastrointestinal: Denies change in bowel habits, nausea, vomiting or weight changes Genitourinary Genitourinary: Denies difficulty urinating Musculoskeletal Musculoskeletal: Denies joint stiffness or muscle weakness Integumentary Integumentary: Denies lesions Neurologic Neurologic: Denies dizziness or syncope Psychiatric Psychiatric: Denies anxiety Endocrine Endocrinology: Denies excessive sweating or fatigue Hematologic/Lymphatic Hematologic/Lymphatic: Denies anemia Allergic/Immunologic Allergic/Immunologic: Denies seasonal rhinorrhea Risk Stratification Risk Stratification Applicable: No Objective Data Vital Signs: Vital Signs Temp Pulse Resp BP Pulse Ox O2 Del Method 97.8 F 47 L 19 H 150/51 H 94 Room Air 02/06/24 11:00 02/06/24 11:00 02/06/24 11:00 02/06/24 11:00 02/06/24 11:00 02/06/24 07:11 Oxygen Delivery Method Room Air Lab / Micro Data 02/06/24 08:01 02/06/24 08:01 Labs: Laboratory Results - last 24 hr 02/06/24 08:01: WBC 12.1 H, RBC 3.81 L, Hgb 11.4 L, Hct 34.0 L, MCV 89.2, MCH 29.9, MCHC 33.5, RDW Std Deviation 44.5 H, RDW Coeff of Franky 13.5, Plt Count 268, MPV 9.3, Immature Gran % (Auto) 0.200, Neut % (Auto) 50.7, Lymph % (Auto) 42.1 H , [place] % (Auto) 6.4, Eos % (Auto) 0.3, Baso % (Auto) 0.3, Absolute Neuts (auto) 6.1, Absolute Lymphs (auto) 5.10 H, Nucleated RBC % 0, Differential Comment SCANNED, Platelet Estimate ADEQUATE, RBC Morphology NORM C+C, Sodium 134 L, Potassium 4.6, Chloride 103, Carbon Dioxide 25.0, Anion Gap 6, BUN 22 H, C reatinine 1.19 H, Est GFR (MDRD) Af Amer 55 L, Est GFR (MDRD) Non-Af 45 L, BUN/Creatinine Ratio 18.5, Glucose 195 H, Calcium 9.8, Total Bilirubin 0.80, AST 32, ALT 33, Alkaline Phosphatase 129 H, Troponin I High Sens 19, Total Protein 7.6, Albumin 3.3, Globulin 4.3 H, Albumin/Globulin Ratio 0.8 L 02/06/24 10:32: Troponin I High Sens 21 02/06/24 11:20: Urine Color Yellow, Urine Clarity Sl. Cloudy, Urine pH 6.0, Ur Specific [place] 1.010, Urine Protein 30 H, Urine Glucose (UA) Normal, Urine Ketones Negative, Urine Occult Blood Negative, Urine Nitrite Negative, Urine Bilirubin Negative, Urine Urobilinogen Normal, Ur Leukocyte Esterase 100 H, Urine RBC 0 SEEN, Urine WBC 10-25 SEEN, Ur Squamous Epith Cells 0-5 SEEN, Urine Bacteria 0 SEEN, Urine Mucus 0 SEEN Cardiology Labs/Tests 02/06/24 08:01: WBC 12.1 H, RBC 3.81 L, Hgb 11.4 L, Hct 34.0 L, MCV 89.2, MCH 29.9, MCHC 33.5, Plt Count 268, MPV 9.3, Immature Gran % (Auto) 0.200, Neut % (Auto) 50.7, Lymph % (Auto) 42.1 H, [place] % (Auto) 6.4, Eos % (Auto) 0.3, Baso % (Auto) 0.3, Absolute Neuts (auto) 6.1, Nucleated RBC % 0, Sodium 134 L, Potassium 4.6, Chloride 103, Carbon Dioxide 25.0, Anion Gap 6, BUN 22 H, C reatinine 1.19 H, Est GFR (MDRD) Af Amer 55 L, Est GFR (MDRD) Non-Af 45 L, BUN/Creatinine Ratio 18.5, Glucose 195 H, Calcium 9.8, Total Bilirubin 0.80 02/06/24 11:20: Urine Color Yellow, Urine Clarity Sl. Cloudy, Urine pH 6.0, Ur Specific [place] 1.010, Urine Protein 30 H, Urine Glucose (UA) Normal, Urine Ketones Negative, Urine Occult Blood Negative, Urine Nitrite Negative, Urine Bilirubin Negative, Urine Urobilinogen Normal, Ur Leukocyte Esterase 100 H, Urine RBC 0 SEEN, Urine WBC 10-25 SEEN Rhythm: EKG: ECHO: Stress Test: Cardiac Cath: PCI: CT Surgery: Holter monitor: EPS: PPM: CXR: Chest CT Scan: Radiography Diagnostic Testing: Radiology Impression Chest X-Ray 02/06/24 07:20 IMPRESSION: Findings suggest minimal scarring. No acute infiltrate is seen. Electronically Signed: Manan Weston MD at 8:27 EDT ,
[2024-02-06 11:42] LABS: Magnesium 2.5 mg/dL (1.6-2.6); Phosphorus 3.1 mg/dL (2.5-4.9)
--- NOTE | 2024-02-06 12:36 | HP.PCM.HOS_ITS ---
HPI - General General Date of Admission: 02/06/24 Date of Service: 02/06/24 Chief Complaint: Generalized weakness and fatigue for 2 to 3 weeks HPI Narrative NASH ASTORGA, is a 88 F came to ED with multiple complaints. She said she feels so tired and weak that she does not want to move. She has not gone out of her home for a long time. Dyspnea on exertion. Her other complaints were she could not sleep all night, her legs were restless and jumping. She also has high blood pressure at home. She had not moved bowel for 3 to 4 days. Earlier she went to [facility] and she said they do not accept her insurance [employer] therefore discharged her. In ED, her BP was high 194/58 x 2 and heart rate was in 70s. During the ED course, her heart rate decreased. First EKG at 727 showed second-degree with every third P wave not conducted then A-V dissociation with complete heart block. At times, her heart rate is below 40 partnered. Patient denies history of slow heartbeat, syncope, dizziness but she had nausea yesterday but no vomiting. No chest pain pressure or tightness. No headache. Philosophy Faculty was consulted and patient is going for permanent pacemaker. [facility] Medical History Systolic ejection murmur Scoliosis Intermittent claudication Degenerative arthritis of lumbar spine Bulging lumbar disc Widened pulse pressure Weight loss Weakness Vitamin D deficiency Type 2 diabetes mellitus Tremor of both hands Suprapubic mass Skin cancer of face Skin cancer Secondary hyperparathyroidism Scarring of lung Right foot pain Restless leg Recurrent headache Radiculopathy of arm Peripheral vascular disease Peripheral edema Pars defect with spondylolisthesis Pars defect of lumbar spine Pancreatic cyst Overactive bladder Normocytic anemia Neuropathy of thigh Neck pain Nausea Microalbuminuric diabetic nephropathy Microalbuminuria Lumbar facet arthropathy Lumbar degenerative disc disease Leg pain Left hip pain Iron deficiency anemia Intention tremor Insomnia Hypertension goal BP (blood pressure) < 150/90 GERD (gastroesophageal reflux disease) Eye pain Elevated TSH Diverticulosis of colon Diarrhea Diabetic neuropathy Dextroscoliosis of lumbar spine Degenerative joint disease of left hip Cyst of skin Constipation Colonic stricture CKD stage 3 secondary to diabetes Chronic neck pain Chronic low back pain Chronic kidney disease, stage 3 Coronary artery disease Bilateral leg weakness Back pain Atherosclerosis Anxiety Abdominal aortic atherosclerosis Old inferior wall myocardial infarction Essential (primary) hypertension Hyperlipidemia Atherosclerotic heart disease of [place] coronary artery without angina pectoris Left bundle branch block Home Medications ?Medication ?Instructions ?Recorded ?Last Taken ?Type aspirin 81 mg tablet,delayed 81 mg PO DAILY heart health 10/07/18 Unknown History release (Adult Low Dose Aspirin) cholecalciferol (vitamin D3) 50 50 mcg PO DAILY supplement 08/18/20 Unknown History mcg (2,000 unit) capsule oxybutynin chloride 5 mg tablet 5 mg PO DAILY overactive bladder 08/18/20 Unknown History pramipexole 0.5 mg tablet 0.5 mg PO QHS tremors 11/20/22 Unknown History trazodone 100 mg tablet 100 mg PO QHS PRN sleep 11/20/22 Unknown History ramipril 10 mg capsule 10 mg PO DAILY blood pressure #90 04/29/23 Unknown Rx caps amlodipine 5 mg tablet 5 mg PO DAILY blood pressure #90 08/20/23 Unknown Rx tabs famotidine 40 mg tablet 40 mg PO BID PRN gerd 08/20/23 Unknown History metoprolol tartrate 25 mg tablet 25 mg PO BID blood pressure #180 08/20/23 02/06/24 Rx tabs pravastatin 40 mg tablet 40 mg PO QHS cholesterol 08/20/23 02/05/24 History gabapentin 300 mg capsule 300 mg PO TID neuropathy #90 caps 12/25/23 02/06/24 Rx cyanocobalamin (vitamin B-12) 500 500 mcg PO DAILY supplement 02/06/24 Unknown History mcg tablet Allergy/AdvReac Type Severity Reaction Status Date / Time acetaminophen (From [facility] Allergy NEEDS Verified 12/25/23 15:42 with Codeine) FOLLOW-UP codeine Allergy Other Verified 12/25/23 15:42 latex Allergy NEEDS Verified 12/25/23 15:42 FOLLOW-UP meperidine Allergy NEEDS Verified 12/25/23 15:42 FOLLOW-UP metoclopramide HCl (From Allergy Other Verified 12/25/23 15:42 Reglan) morphine Allergy Itching Verified 12/25/23 15:42 Penicillins (PCN) Allergy Hives Verified 12/25/23 15:42 prednisone Allergy Other Verified 12/25/23 15:42 ropinirole HCl (From Requip) Allergy Other Verified 12/25/23 15:42 shrimp Allergy NEEDS Verified 12/25/23 15:42 FOLLOW-UP amoxicillin AdvReac Other Verified 12/25/23 15:42 diazepam (From Valium) AdvReac Other Verified 12/25/23 15:42 pregabalin (From Lyrica) AdvReac Somnolence Verified 12/25/23 15:42 HCL Allergy NEEDS Uncoded 12/25/23 15:42 FOLLOW-UP Family History Father , age 62 Sudden cardiac CAD (coronary artery disease) Myocardial infarction Heart disease Son Heart disease Myocardial infarction Surgical History History of surgical removal of skin lesion History of breast biopsy History of colonoscopy History of endoscopy History of eye surgery History of carpal tunnel repair History of partial colectomy Hx of cholecystectomy H/O heart surgery H/O: hysterectomy History of left heart catheterization (08/17/03) History of coronary artery stent placement (06/23/99) Social History household members: children Smoking Status: Never smoker alcohol intake: never substance use type: does not use caffeine: No ROS ROS Narrative Constitutional: Reports fatigue and weakness. No fever. HEENT: Reports systems reviewed and no addt'l complaints, except as documented Respiratory/Chest: No acute shortness of breath or respiratory distress or wheezing. I described in HPI CVS: As described in HPI Gastrointestinal: Nausea. Denies coffee ground emesis, hematemesis or vomiting. Constipation. Genitourinary: Denies burning urination or new urinary tract symptoms Musculoskeletal: Not very ambulatory. Stays within the home. Denies acute joint pain or limited range of motion. No acute injury Neurologic: Denies seizure-like symptoms. Chronic peripheral neuropathy. skin: No ulcer. No rash Endocrinology: Reports systems reviewed and no addt'l complaints, except as documented Hematologic/Lymphatic: Reports systems reviewed and no addt'l complaints, except as documented Rest 14 ROS are negative except as mentioned in HPI Vital Signs Vital Signs Vital Signs: 02/06/24 07:11 02/06/24 07:11 02/06/24 07:11 Temperature 98 F Temperature Source Temporal Pulse Rate 77 80 Respiratory Rate 14 14 Respiratory Effort Normal Non-Labored Respiratory Pattern Normal Blood Pressure 194/58 H 196/68 H Blood Pressure Mean 103 110 Pulse Ox 98 100 Oxygen Delivery Method Room Air Room Air 02/06/24 09:11 02/06/24 11:00 Temperature 97.8 F Temperature Source Pulse Rate 47 L Respiratory Rate 19 H Respiratory Effort Respiratory Pattern Blood Pressure 160/100 H 150/51 H Blood Pressure Mean 120 84 Pulse Ox 94 Oxygen Delivery Method Physical Exam Narrative General: Alert, Oriented x3, Cooperative HEENT: Atraumatic, PERRLA, EOMI, Normocephalic Oral: Oral mucosa dry. Feeling thirsty. No Gingival or Mucosal Lesions/ Ulcerations Neck: Supple, No JVD, Negative Carotid Bruits Chest wall/Lungs: Air entry diminished in bilateral lung bases. No crepitation/rhonchi Cardiovascular: Severe bradycardia, sinus rhythm. Systolic ejection murmur. Abdomen: Bowel Sounds Present, Soft, Non Tender, Non-Distended : No dysuria. No renal angle tenderness. No suprapubic tenderness. Extremities: No edema, Capillary Refill Less than 3 Seconds Skin: No rashes, No breakdown Musculoskeletal: Degenerative arthritis of hips and knee joints. Mild muscle atrophy of extremities. No Tenderness to Palpation of Joints or Extremities Neurological: Cranial nerves II-XII grossly intact, DTR 2+/4. No acute focal neurological deficit. Psych/Mental Status: Flat affect. Results Lab / Micro Data 02/06/24 08:01 02/06/24 08:01 Labs: Laboratory Results - last 24 hr 02/06/24 08:01: WBC 12.1 H, RBC 3.81 L, Hgb 11.4 L, Hct 34.0 L, MCV 89.2, MCH 29.9, MCHC 33.5, RDW Std Deviation 44.5 H, RDW Coeff of Franky 13.5, Plt Count 268, MPV 9.3, Immature Gran % (Auto) 0.200, Neut % (Auto) 50.7, Lymph % (Auto) 42.1 H , Ashley % (Auto) 6.4, Eos % (Auto) 0.3, Baso % (Auto) 0.3, Absolute Neuts (auto) 6.1, Absolute Lymphs (auto) 5.10 H, Nucleated RBC % 0, Differential Comment SCANNED, Platelet Estimate ADEQUATE, RBC Morphology NORM C+C, Sodium 134 L, Potassium 4.6, Chloride 103, Carbon Dioxide 25.0, Anion Gap 6, BUN 22 H, C reatinine 1.19 H, Est GFR (MDRD) Af Amer 55 L, Est GFR (MDRD) Non-Af 45 L, BUN/Creatinine Ratio 18.5, Glucose 195 H, Calcium 9.8, Total Bilirubin 0.80, AST 32, ALT 33, Alkaline Phosphatase 129 H, Troponin I High Sens 19, Total Protein 7.6, Albumin 3.3, Globulin 4.3 H, Albumin/Globulin Ratio 0.8 L 02/06/24 10:32: Phosphorus 3.1, Magnesium 2.5, Troponin I High Sens 21 02/06/24 11:20: Urine Color Yellow, Urine Clarity Sl. Cloudy, Urine pH 6.0, Ur Specific [place] 1.010, Urine Protein 30 H, Urine Glucose (UA) Normal, Urine Ketones Negative, Urine Occult Blood Negative, Urine Nitrite Negative, Urine Bilirubin Negative, Urine Urobilinogen Normal, Ur Leukocyte Esterase 100 H, Urine RBC 0 SEEN, Urine WBC 10-25 SEEN, Ur Squamous Epith Cells 0-5 SEEN, Urine Bacteria 0 SEEN, Urine Mucus 0 SEEN Imaging Radiology Impression Chest X-Ray 02/06/24 07:20 IMPRESSION: Findings suggest minimal scarring. No acute infiltrate is seen. Electronically Signed: Manan Weston MD at 8:27 EDT , Assessment & Plan Assessment/Plan (1) AV heart block: (2) Bradycardia: PLAN: Plan This is a 88-year-old female came to ED for generalized weakness fatigue not able to sleep and high blood pressure. Twelve-lead EKG shows severe bradycardia as mentioned below. 1. Severe bradycardia with AV heart block/third-degree AV block: Twelve-lead EKGs reviewed. EKG shows severe bradycardia with 40/min, A-V dissociation consistent with the daily AV block. Chronic LBBB. Philosophy Faculty consulted. Plan for permanent pacemaker at 2 PM. Electrolytes potassium magnesium and phosphorus in normal range. No beta-payton or other heart block medications. 2. CAD status post stent and chronic LBBB: Troponin normal. Patient had MT and stent long time ago. Has been stable so far. No acute chest pain/pressure or tightness or shortness of breath. 3. Hypertension: Blood pressure was very high about 194 in ED. Most recent 160/100. IV enalapril 1.25 mg every 6 hourly as needed for SBP more than 180 mmHg. IV hydralazine as needed ordered. On amlodipine 5 mg at home, increased to 10 mg daily. 3. Constipation: Stool softener/laxative ordered. 4. Chronic iron deficiency anemia and anemia of chronic disease: Follows Dr. Goodrich. She also has increased IgM monoclonal gammopathy. 5. Dyslipidemia: Fasting profile ordered for tomorrow AM 6. DVT prophylaxis: Lovenox 40 mill subcu daily from tomorrow a.m. as patient is going for procedure today. Bilateral SCDs 7. Chronic fatigue due to degenerative arthritis, anemia and heart block: PT and OT ordered Living will/advanced directive/end of life care: Patient does have living will or advanced directive. Her son is POA. After discussion of benefits/risks procedures involved with full code, DNR CC arrest and DNR CC, the patient opted for DNR CC arrest with no intubation Patient doesn't want artificial life support including intubation, tube feed, ventilator and/chest compression, central venous catheter, vasopressor and DC shock if needed Total time spent in [id number] encounter in discussion of advanced directive 17 minutes. Laboratory Results 02/06/24 08:01: WBC 12.1 H, RBC 3.81 L, Hgb 11.4 L, Hct 34.0 L, MCV 89.2, MCH 29.9, MCHC 33.5, RDW Std Deviation 44.5 H, RDW Coeff of Franky 13.5, Plt Count 268, MPV 9.3, Immature Gran % (Auto) 0.200, Neut % (Auto) 50.7, Lymph % (Auto) 42.1 H , Ashley % (Auto) 6.4, Eos % (Auto) 0.3, Baso % (Auto) 0.3, Absolute Neuts (auto) 6.1, Absolute Lymphs (auto) 5.10 H, Nucleated RBC % 0, Differential Comment SCANNED, Platelet Estimate ADEQUATE, RBC Morphology NORM C+C, Sodium 134 L, Potassium 4.6, Chloride 103, Carbon Dioxide 25.0, Anion Gap 6, BUN 22 H, C reatinine 1.19 H, Est GFR (MDRD) Af Amer 55 L, Est GFR (MDRD) Non-Af 45 L, BUN/Creatinine Ratio 18.5, Glucose 195 H, Calcium 9.8, Total Bilirubin 0.80, AST 32, ALT 33, Alkaline Phosphatase 129 H, Troponin I High Sens 19, Total Protein 7.6, Albumin 3.3, Globulin 4.3 H, Albumin/Globulin Ratio 0.8 L 02/06/24 10:32: Phosphorus 3.1, Magnesium 2.5, Troponin I High Sens 21 02/06/24 11:20: Urine Color Yellow, Urine Clarity Sl. Cloudy, Urine pH 6.0, Ur Specific [place] 1.010, Urine Protein 30 H, Urine Glucose (UA) Normal, Urine Ketones Negative, Urine Occult Blood Negative, Urine Nitrite Negative, Urine Bilirubin Negative, Urine Urobilinogen Normal, Ur Leukocyte Esterase 100 H, Urine RBC 0 SEEN, Urine WBC 10-25 SEEN, Ur Squamous Epith Cells 0-5 SEEN, Urine Bacteria 0 SEEN, Urine Mucus 0 SEEN Charges/Coding Visit Charges Inpatient E&M: 00409 Init Hosp L3 Procedures Hospitalists Procedures: 82026 Advncd Care Plan 30 Min
--- NOTE | 2024-02-06 13:06 | ED.RN ---
Per pharmacy, research laboratory manager to administer antibiotics.
--- NOTE | 2024-02-06 15:29 | CL.IE_ITS ---
Patient: NASH ASTORGA Study Date: 02/06/2024 Performing: Don Lang MD : [id number] Age: 88 Gender: female PROCEDURES PERFORMED LP04-([id number])INITIAL PACER INSERT+DUAL LEADS INDICATIONS complete heart block PROCEDURE DETAILS The patient was brought to the Catheterization Lab in the postabsorptive nonsedated state. Informed consent was obtained prior to the procedure. Local anesthetic was given subcutaneously to the left subclavian region with Lidocaine 2%. Access was achieved and a guidewire was advanced into the left subclavian vein. Incision was made to the left subclavicular area. A peel-away sheath was inserted into the left subclavian vein. PPM ventricular lead was inserted / positioned to right ventricular septal wall. PPM ventricular lead testing performed. PPM ventricular lead testing performed. A peel-away sheath was inserted into the left subclavian vein. PPM atrial lead was inserted / positioned to the right atrial appendage. PPM atrial lead testing performed. The Atrial and ventricular lead sutured in place with 2-0 Silk. PPM generator was attached to the lead(s) and inserted into the pocket. PPM generator was then interrogated by the cnc mill programmer. Device pocket was irrigated with antibiotic. Subcutaneous closure was completed with 3-0 Vicryl. Skin closure was completed with 4-0 Vicryl. Instrument, sponge, and needle counts were noted to be normal. The patient tolerated the procedure well. Estimated Blood Loss: 15 ml's IMPLANTED / EX-PLANTED DEVICES IMPLANTED DEVICE(S): PPM Ventricular lead - Shipping Checker: [employer], Model # Ingevity + 7841 , Serial # [id number] PPM Ventricular lead - Shipping Checker: [employer], Model # Ingevity + 7840, Serial # [id number] PPM Generator - Shipping Checker: [employer], Model # [employer] MRI DR Model L111 , Serial # [id number] DEVICE PARAMETERS ATRIAL LEAD PARAMETERS: P wave- 5.3 (mV) Current- 1.1 (mA) threshold- 3.5 (V) impedence- 756 (OHMS) VENTRICULAR LEAD PARAMETERS: R wave- 16.3 (mV) Current- 0.9 (mA) impedence- 859 (OHMS) DEVICE PARAMETERS: DDD Lower rate- 60 Upper rate- 110 CONCLUSIONS / RECOMMENDATIONS Device Conclusions: Successful implantation of a dual chamber pacemaker Device Recommendations: Follow up with Primary Care Physician PROCEDURE MEDICATIONS Versed 1 mg IV Oxygen: 2 L/min via nasal cannula Antibiotic given in appropriate timeframe. Benadryl 25 mg IV @ 02/06/2024 14:07:45 Clindamycin 900 mg IV 02/06/2024 14:07:37 Solu-medrol 125 mg IV 02/06/2024 14:35:18 Signed By Don Lang MD On 02/06/2024 15:28:35 Don Lang MD
--- NOTE | 2024-02-06 16:35 | ECHOD_ITS ---
Reason For Study: Arrhythmia Procedure This was a 2D Doppler, Color Flow transthoracic echocardiogram. Patient scanned sitting upright due to recent pacemaker placement. Exam performed portable in patient room. Left Ventricle Normal LV size. Left ventricular systolic function is normal. The left ventricular ejection fraction is 50 %. Paced septal motion. No regional wall motion abnormalities noted. Right Ventricle Normal RV size. ICD or pacer leads identified within the right ventricle. Normal systolic function. Atria Normal left atrium. Normal right atrium. Mitral Valve Normal mitral valve. Mild (1+) eccentric mitral valve insufficiency. Tricuspid Valve Normal tricuspid valve. Mild (1+) tricuspid valve insufficiency. Pulmonary artery systolic pressure is 40 mmHg. Aortic Valve Trisinus/trileaflet aortic valve. Mild (1+) aortic valve insufficiency. Pulmonic Valve Normal pulmonic valve. Great Vessels Normal aortic root. The pulmonary artery is normal size. Normal inferior vena cava. Pericardium/Pleural Epicardial fat. MMode/2D Measurements & Calculations LVIDd: 4.1 cm IVSd: 1.2 cm LVOT diam: 1.9 cm LVIDs: 3.1 cm LVPWd: 1.2 cm LVOT area: 2.8 cm2 RVDd: 2.7 cm FS: 24.3 % LA dimension: 2.9 cm LAV(MOD-bp): 35.2 ml LA A4 area: 13.0 cm2 LAV(MOD-bp) Indexed: 27.2 ml/m2 LAV(MOD-sp2): 38.9 ml LAV(MOD-sp4): 24.7 ml TAPSE: 2.0 cm RA A4 area: 11.3 cm2 Time Measurements MV dec time: 0.17 sec Doppler Measurements & Calculations MV E max eamon: 55.8 cm/sec Lat Peak E' Eamon: 5.4 cm/sec Med Peak E' Eamon: 5.9 cm/sec MV A max eamon: 104.2 cm/sec E/E' lat: 10.3 E/E' med: 9.5 MV E/A: 0.54 MV V2 max: 133.1 cm/sec MV P1/2t max eamon: 83.8 cm/sec Ao V2 max: 117.6 cm/sec MV max P.1 mmHg MV P1/2t: 59.9 msec Ao max P.5 mmHg MV V2 mean: 75.3 cm/sec MV dec slope: 409.6 cm/sec2 Ao V2 mean: 78.9 cm/sec MV mean P.7 mmHg Ao mean P.9 mmHg MV V2 VTI: 22.3 cm MVA(P1/2t): 3.7 cm2 Ao V2 VTI: 23.1 cm MVA(VTI): 2.7 cm2 AV (velocity ratio): 0.91 GERONIMO(I,D): 2.6 cm2 GERONIMO(V,D): 2.7 cm2 AI max eamon: 330.3 cm/sec LV V1 max: 112.7 cm/sec SV(LVOT): 59.7 ml AI max P.6 mmHg LV V1 max P.1 mmHg LV V1 mean P.7 mmHg AI dec slope: 159.8 cm/sec2 LV V1 mean: 74.8 cm/sec AI P1/2t: 605.3 msec LV V1 VTI: 21.0 cm PA V2 max: 154.9 cm/sec PI end-d eamon: 103.6 cm/sec TR max eamon: 297.2 cm/sec PA max PG (full): 4.5 mmHg TR max P.3 mmHg ECHO/Echo Complete Interpretation Summary Normal LV size. Left ventricular systolic function is normal. The left ventricular ejection fraction is 50 %. Pulmonary artery systolic pressure is 40 mmHg. Paced septal motion. Mild (1+) aortic valve insufficiency. Mild (1+) tricuspid valve insufficiency. Ordering Physician: Fred John Performed By: Venkat Collado and Student
[2024-02-06 17:00] LABS: BNP,B-Type NATRIURETIC PEPTIDE 209.2 pg/mL (0-100)
[2024-02-06 18:17] LABS: Troponin-I HS 210 pg/mL (3.0-54.0)
[2024-02-06] MEDS: CLINDAMYCIN IRRIGATION (18:35)
[2024-02-06] MEDS: [UNRECOGNIZED DRUG - OTHER] IRRIGATION (18:35)
[2024-02-06] MEDS: Clindamycin 900 MG/50 ML BAG 75 MG IV (18:38)
[2024-02-06] MEDS: Gabapentin 300 MG Capsule PO ×2 (18:46→20:42)
[2024-02-06] MEDS: amLODIPine 10 MG Tablet PO (18:46)
[2024-02-06] MEDS: Pramipexole Di-HCl 0.5 MG Tablet PO (20:42)
[2024-02-06] MEDS: Atorvastatin Calcium 40 MG Tablet PO (20:42)
[2024-02-06] MEDS: Metoprolol Tartrate 25 MG Tablet PO (20:43)
[2024-02-07 03:00] VITALS: BP 134/60; PULSE 75; RESP 18; TEMP 36; O2SAT 92
[2024-02-07] MEDS: Gabapentin 300 MG Capsule PO ×2 (05:08→14:58)
--- NOTE | 2024-02-07 05:55 | RAD_ITS ---
EXAM: XR CHEST, 3 VIEWS CLINICAL INDICATION: Post permanant ICD/Pacemaker -- inspiration/expiration. Arms Down. Wet read to MD Post permanant ICD/Pacemaker -- inspiration/expiration. Arms Down. Wet read to MD TECHNIQUE: Frontal, lateral and one additional view of the chest. COMPARISON: Chest x-ray 02/06/2024 and 03/16/2012 FINDINGS: LUNGS AND PLEURAL SPACES: Lungs are underexpanded on both inspiratory and expiratory views. There is mild bilateral basilar atelectasis. There is mild diffuse interstitial prominence, which appears to be chronic. There is no visualized pulmonary consolidation. No pneumothorax. No effusion. HEART: Unremarkable. Cardiac silhouette not enlarged. MEDIASTINUM: Central airways and mediastinal contour are unremarkable. BONES/JOINTS: There are multilevel degenerative changes in the visualized spine. No acute fracture. SOFT TISSUES: Unremarkable. VASCULATURE: There is atherosclerotic calcification of the aortic arch. TUBES, LINES AND DEVICES: There is an atrioventricular pacemaker. RAD/Chest 3 View IMPRESSION: 1. Mild chronic interstitial changes. No visualized acute pulmonary infiltrate. No visualized pneumothorax. 2. Pacemaker. Electronically Signed: Alton Soriano MD at 5:43 EDT Reading Location ID and State: [facility] / [place] , Service support ,
--- NOTE | 2024-02-07 05:55 | EKG12_ITS ---
Test Reason : AM EKG Blood Pressure : / mmHG Vent. Rate : 071 BPM Atrial Rate : 071 BPM P-R Int : 190 ms QRS Dur : 164 ms QT Int : 458 ms P-R-T Axes : 050 -70 082 degrees QTc Int : 497 ms Atrial-sensed ventricular-paced rhythm Abnormal ECG When compared with ECG of 06-FEB-2024 10:27, MANUAL COMPARISON REQUIRED, DATA IS UNCONFIRMED Confirmed by WISAM EUGENE, BROCK ([id number]), associate entertainment editor CLYDE RUIZ ([id number]) on 02/10/2024 8:26:51 AM Referred By: KERRI Confirmed By:BROCK JOEL MD
[2024-02-07 06:18] LABS: Basophil# 0.03 X10^3/uL; Basophil% 0.3 % (0-1); Eosinophil# 0.04 X10^3/uL; Eosinophils% 0.4 % (0-5); Hematocrit 35.5 % (37-47); Hemoglobin 11.4 g/dL (12.0-15.0); Lymphocyte % 32.6 % (19-41); Mean Corp Hgb Conc 32.1 g/dL (32-36); Mean Corpuscular Hgb 29.2 pg (27.0-32.0); Monocyte# 0.77 X10^3/uL; Monocyte% 7.6 % (0-10); NRBC Flagged by Analyzer 0 % (0-5); Neutrophil # 5.95 X10^3/uL (2.7-7.7); Neutrophil % 58.8 % (47-70); Platelet Count 268 K/mm3 (150-450); RBC Distribution Width SD 46.6 fl (35.1-43.9); White Blood Count 10.1 K/mm3 (4.4-11.0)
[2024-02-07 09:00] VITALS: BP 128/71; PULSE 79; RESP 16; TEMP 36.7; O2SAT 92
[2024-02-07 10:21] LABS: Anion Gap 6 (5-15); BUN 24 mg/dL (7-18); BUN/Creat Ratio 21.1 RATIO (10-20); Calcium,Total 9.8 mg/dL (8.5-10.1); Chloride 105 mmol/L (98-107); Cholesterol 141 mg/dL (200); Creatinine, Serum 1.14 mg/dL (0.55-1.02); EST Glomerular Filtration Rate 48 mL/min (>60); Est Glom Filt Rate - Afr Amer 58 mL/min (>60); Estimated Creatinine Clearance 19.17 ml/min; Glucose 161 mg/dL (74-106); High Density Lipoprotein 42 mg/dL; Potassium 4.5 mmol/L (3.5-5.1); Sodium Level 135 mmol/L (136-145); Triglycerides 99 mg/dL; Very Low Density Lipoprotein 20 mg/dL (5-40)
[2024-02-07] MEDS: Enoxaparin 40 MG/0.4 ML Syringe SC (10:41)
[2024-02-07] MEDS: Aspirin E.C. 81 MG Tablet PO (10:41)
[2024-02-07 10:42] VITALS: PULSE 79
[2024-02-07] MEDS: Metoprolol Tartrate 25 MG Tablet PO (10:42)
--- NOTE | 2024-02-07 11:13 | DCINST_ITS ---
Discharge Instructions Diet Discharge Diet: 2000 mg Sodium Diet Activity Discharge Activity: Return to Normal Activity Weight Bearing Status: Weight bearing as tolerated Dressing / Incision Call your doctor if you observe: Fever of 101 or Higher, Coldness, Increased Pain, Numbness or Tingling, Change in Color, Inability to urinate, Inability to have a bowel movement, Shortness of breath, Dizziness, Fainting spells, Swelling in the ankles, Chest pain, Prolonged hiccupping, Increased palpitations (irregular heartbeat) and Calf discomfort Follow Up Care When: IN 2 WEEKS Test Results: Test results from this visit will be discussed in further detail at your follow- up appointment, if applicable. Discharge Plan Admission Admit Date/Time: 02/06/24 11:14 Primary Reason for Your Visit: Complete heart block/A-V dissociation Attending Provider: Fred John Primary Care Provider: Care Physician,Daniella Primary Consulting Providers: Don Lang; Osmel Morris Discharge Orders/Prescriptions Prescriptions: Continued aspirin [Adult Low Dose Aspirin] 81 mg tablet,delayed release (DR/EC) 81 mg PO DAILY oxybutynin chloride 5 mg tablet 5 mg PO DAILY cholecalciferol (vitamin D3) 50 mcg (2,000 unit) capsule 50 mcg PO DAILY pramipexole 0.5 mg tablet 0.5 mg PO QHS famotidine 40 mg tablet 40 mg PO BID PRN (Reason: gerd ) pravastatin 40 mg tablet 40 mg PO QHS amlodipine 5 mg tablet 5 mg PO DAILY Qty: 90 3RF gabapentin 300 mg capsule 300 mg PO TID Qty: 90 0RF trazodone 100 mg tablet 100 mg PO QHS PRN (Reason: sleep ) cyanocobalamin (vitamin B-12) 500 mcg tablet 500 mcg PO DAILY ramipril 10 mg capsule 10 mg PO DAILY Qty: 90 3RF Changed metoprolol tartrate 25 mg tablet 50 mg PO BID Qty: 180 3RF Referrals / Follow Up: Don Lang MD [Med Staff - Active Staff] - 02/13/24 11:00 am Care Physician,No Primary [Primary Care Provider] - Maura Vasques NP, REGISTRATION SCHEDULING SPECIALIST-C [Non-Staff -Ordering Privileges] - 03/16/24 10:00 am (PLEASE ARRIVE 15 MINUTES BEFORE YOUR APPOINTMENT TIME. ) Disposition Disposition (needs filled in before D/C Order can be placed): Home, Self Care
--- NOTE | 2024-02-07 12:16 | CASEMGMT ---
RN DEEPTI Assessment Face to Face with patient for initial transition planning/care coordination assessment. RN CM introduced self and role at [facility], pt voices understanding. Pt is A&Ox4 and is resting comfortably in bed and is calm. Care providers, pharmacy, and demographics verified. Admitting dx: Bradycardia/ 2ND HB LACE Strata: 2 PCP: Pt is not established with a PCP at this time. however, she has her first PCP appt with Dr. Berger on 02/26. Specialists: M[facility] ([facility]) Preferred Pharmacy: [facility] Insurance: [facility] Prescription Benefit: Yes LNOK: Sheryl Westfall (Daughter), Ever Abernathy (), Miranda Abernathy (Kristi) Living Arrangements: Pt lives with her daughter Miranda in a ranch style home with a basement and 2 steps to enter ADLs/IADLs: States ind Transportation: Self, family. Denies concerns DME: BGM and supplies. Cane. FWW. Sling (pt has a pacer placed yesterday 02/05) HHC/SNF: Denies Hx Pt?s goal: Home Plan: Pt plans to DC home once medically ready. Pt states that she would like HHC. However, the pt is not established with a doctor who would follow the HH orders. PT/OT is pending at this time. CM to follow up with the pt subsequently. Report given to STONE ENGRAVER CM. Rory Maynard RN, CM
--- NOTE | 2024-02-07 12:20 | DS.PCM_ITS ---
Providers Date of Admission: 02/06/24 Date of Discharge: 02/07/24 Primary Care Physician: Daniella Primary Care Phys Consultations 02/06/24 16:35 Consult: Cardiology Routine Consulting Provider: Don Lang Reason for Consult: bradycardia, 2nd degree EMERGENT Consult: No MD Notified: Yes Date Notified: 02/06/24 Time Notified: 11:23 Method of Notification: ED Physician Initiated Reason For Visit: BRADYCARDIA/2ND HB Diagnosis Discharge Diagnosis (1) AV heart block: Status: Acute Code(s): I44.30 - Unspecified atrioventricular block (2) Bradycardia: Status: Acute Code(s): R00.1 - Bradycardia, unspecified Plan This is a 88-year-old female came to ED for generalized weakness fatigue not able to sleep and high blood pressure. Twelve-lead EKG shows severe bradycardia as mentioned below. 1. Severe bradycardia with AV heart block/third-degree AV block: Twelve-lead EKGs reviewed. EKG shows severe bradycardia with 40/min, A-V dissociation consistent with the daily AV block. Chronic LBBB. Clerical Receptionist consulted. Plan for permanent pacemaker at 2 PM. Electrolytes potassium magnesium and phosphorus in normal range. No beta-payton or other heart block medications. 02/06: compliance monitor reviewed. Well captured pacemaker rhythm. Patient had dual-chamber permanent pacemaker yesterday on 02/05. Subsequently patient heart rate went up 110 and was restarted on 25 twice daily yesterday night. Patient was seen by vector control specialist and advised to increase metoprolol 50 mg twice daily and follow-up with Dr. Lang in the office as scheduled. 2. CAD status post stent and chronic LBBB: Troponin normal. Patient had DE and stent long time ago. Has been stable so far. No acute chest pain/pressure or tightness or shortness of breath. 3. Hypertension: Blood pressure was very high about 194 in ED. Most recent 160/100. IV enalapril 1.25 mg every 6 hourly as needed for SBP more than 180 mmHg. IV hydralazine as needed ordered. On amlodipine 5 mg at home, increased to 10 mg daily. 02/06: Blood pressure is in normal range 128/71 actually lower than her expected blood pressure as per her age. It was in 150s to 160s yesterday evening. Continue home antihypertensive medications. 3. Constipation: Stool softener/laxative ordered. 4. Chronic iron deficiency anemia and anemia of chronic disease: Follows Dr. Goodrich. She also has increased IgM monoclonal gammopathy. 5. Dyslipidemia: Fasting profile ordered was done and shows LDL 79, TG 99 total cholesterol 141 normal 88. TSH 2.9. 6. DVT prophylaxis: Lovenox 40 mg subcu daily from tomorrow a.m. as patient is going for procedure today. Bilateral SCDs 7. Chronic fatigue due to degenerative arthritis, anemia and heart block: PT and OT ordered Discharge medication reconciliation done. Discharge follow-up instructions completed. Discharge process discussed with the patient and all questions were answered to patient's satisfaction. Follow with PCP in 1 to 2 weeks Total time spent, exact 35 minutes on discharge meds reconciliation, examination, coordination of care with nurses and ancillary staff, review of imaging and blood test and discussion with the patient on follow-up instructions. Living will/advanced directive/end of life care: Patient does have living will or advanced directive. Her son is POA. After discussion of benefits/risks procedures involved with full code, DNR CC arrest and DNR CC, the patient opted for DNR CC arrest with no intubation Patient doesn't want artificial life support including intubation, tube feed, ventilator and/chest compression, central venous catheter, vasopressor and DC shock if needed Laboratory Results 02/06/24 08:01: B-Natriuretic Peptide 209.2 H 02/06/24 17:06: Troponin I High Sens 210 H* 02/07/24 05:29: WBC 10.1, RBC 3.90 L, Hgb 11.4 L, Hct 35.5 L, MCV 91.0, MCH 29.2, MCHC 32.1, RDW Std Deviation 46.6 H, RDW Coeff of Franky 14.0, Plt Count 268, MPV 10.0, Immature Gran % (Auto) 0.300, Neut % (Auto) 58.8, Lymph % (Auto) 32.6, [place] % (Auto) 7.6, Eos % (Auto) 0.4, Baso % (Auto) 0.3, Absolute Neuts (auto) 6.0, Absolute Lymphs (auto) 3.30, Nucleated RBC % 0, Sodium 135 L, Potassium 4.5, Chloride 105, Carbon Dioxide 24.0, Anion Gap 6, BUN 24 H, Creatinine 1.14 H , Estim Creat Clear Calc 19.17, Est GFR (MDRD) Af Amer 58 L, Est GFR (MDRD) Non- Af 48 L, BUN/Creatinine Ratio 21.1 H, Glucose 161 H, Calcium 9.8, Triglycerides 99, Cholesterol 141, LDL Cholesterol 79, VLDL Cholesterol 20, HDL Cholesterol 42, TSH 2.950 Clinical Impression(s) from Imaging Studies Chest X-Ray 02/06/24 07:20 IMPRESSION: Findings suggest minimal scarring. No acute infiltrate is seen. Electronically Signed: Manan Weston MD at 8:27 EDT , Chest X-Ray 02/07/24 05:55 IMPRESSION: 1. Mild chronic interstitial changes. No visualized acute pulmonary infiltrate. No visualized pneumothorax. Medications at Discharge Home Medications aspirin 81 mg tablet,delayed release (Adult Low Dose Aspirin) 81 mg PO DAILY [facility] 10/07/18 cholecalciferol (vitamin D3) 50 mcg (2,000 unit) capsule 50 mcg PO DAILY supplement 08/18/20 oxybutynin chloride 5 mg tablet 5 mg PO DAILY overactive bladder 08/18/20 pramipexole 0.5 mg tablet 0.5 mg PO QHS tremors 11/20/22 trazodone 100 mg tablet 100 mg PO QHS PRN sleep 11/20/22 ramipril 10 mg capsule 10 mg PO DAILY blood pressure #90 caps 04/29/23 amlodipine 5 mg tablet 5 mg PO DAILY blood pressure #90 tabs 08/20/23 famotidine 40 mg tablet 40 mg PO BID PRN gerd 08/20/23 pravastatin 40 mg tablet 40 mg PO QHS cholesterol 08/20/23 gabapentin 300 mg capsule 300 mg PO TID neuropathy #90 caps 12/25/23 cyanocobalamin (vitamin B-12) 500 mcg tablet 500 mcg PO DAILY supplement 02/06/24 metoprolol tartrate 25 mg tablet 50 mg (2 x 25 mg) PO BID blood pressure #180 tabs 02/07/24 Weight / BMI Weight Weight: 78 lb 7.753 oz Body Mass Index (BMI) 13.8 ABG / Lab / Microbiology Data 02/07/24 05:29 02/07/24 05:29 Laboratory: Laboratory Results - last 24 hr 02/06/24 08:01: B-Natriuretic Peptide 209.2 H 02/06/24 17:06: Troponin I High Sens 210 H* 02/07/24 05:29: WBC 10.1, RBC 3.90 L, Hgb 11.4 L, Hct 35.5 L, MCV 91.0, MCH 29.2, MCHC 32.1, RDW Std Deviation 46.6 H, RDW Coeff of Franky 14.0, Plt Count 268, MPV 10.0, Immature Gran % (Auto) 0.300, Neut % (Auto) 58.8, Lymph % (Auto) 32.6, [place] % (Auto) 7.6, Eos % (Auto) 0.4, Baso % (Auto) 0.3, Absolute Neuts (auto) 6.0, Absolute Lymphs (auto) 3.30, Nucleated RBC % 0, Sodium 135 L, Potassium 4.5, Chloride 105, Carbon Dioxide 24.0, Anion Gap 6, BUN 24 H, Creatinine 1.14 H , Estim Creat Clear Calc 19.17, Est GFR (MDRD) Af Amer 58 L, Est GFR (MDRD) Non- Af 48 L, BUN/Creatinine Ratio 21.1 H, Glucose 161 H, Calcium 9.8, Triglycerides 99, Cholesterol 141, LDL Cholesterol 79, VLDL Cholesterol 20, HDL Cholesterol 42, TSH 2.950 Radiography Diagnostic Testing: Radiology Impression Chest X-Ray 02/07/24 05:55 IMPRESSION: 1. Mild chronic interstitial changes. No visualized acute pulmonary infiltrate. No visualized pneumothorax. 2. Pacemaker. Electronically Signed: Alton Soriano MD at 5:43 EDT Reading Location ID and State: [facility] / [place] , Service support , D/C Instructions Discharge Diet: 2000 mg Sodium Diet Weight Bearing Status: Weight bearing as tolerated Call your doctor if you observe: Fever of 101 or Higher, Coldness, Increased Pain, Numbness or Tingling, Change in Color, Inability to urinate, Inability to have a bowel movement, Shortness of breath, Dizziness, Fainting spells, Swelling in the ankles, Chest pain, Prolonged hiccupping, Increased palpitations (irregular heartbeat) and Calf discomfort When: IN 2 WEEKS Meaningful Use Info Meaningful Use Meaningful Use Diagnoses (Choose all that apply): None applicable Ischemic Stroke Statin Dosing Therapy Reference: STATIN DOSE THERAPY REFERENCE: * Patients > 75 years receive moderate or high dose statin therapy. * Patients 75 years or YOUNGER should receive HIGH intensity statin dose unless contraindicated. You will be required to document reason for non-treatment if statin daily dose does not meet guidelines. HIGH DOSE STATIN THERAPY DAILY Atorvastatin > than or = to 40 mg Rosuvastatin > than or = to 20 mg Amlodipine + Atorvastatin > than or = to 2.5/40 mg Ezetimibe + Simvastatin 10/80 mg Simvastatin 80mg Discharge Plan Admission Admit Date/Time: 02/06/24 11:14 Primary Reason for Your Visit: Complete heart block/A-V dissociation Attending Provider: Fred John Primary Care Provider: Care Physician,Daniella Primary Consulting Providers: Don Lang; Osmel Morris Discharge Orders/Prescriptions Prescriptions: Continued aspirin [Adult Low Dose Aspirin] 81 mg tablet,delayed release (DR/EC) 81 mg PO DAILY oxybutynin chloride 5 mg tablet 5 mg PO DAILY cholecalciferol (vitamin D3) 50 mcg (2,000 unit) capsule 50 mcg PO DAILY pramipexole 0.5 mg tablet 0.5 mg PO QHS famotidine 40 mg tablet 40 mg PO BID PRN (Reason: gerd ) pravastatin 40 mg tablet 40 mg PO QHS amlodipine 5 mg tablet 5 mg PO DAILY Qty: 90 3RF gabapentin 300 mg capsule 300 mg PO TID Qty: 90 0RF trazodone 100 mg tablet 100 mg PO QHS PRN (Reason: sleep ) cyanocobalamin (vitamin B-12) 500 mcg tablet 500 mcg PO DAILY ramipril 10 mg capsule 10 mg PO DAILY Qty: 90 3RF Changed metoprolol tartrate 25 mg tablet 50 mg PO BID Qty: 180 3RF Referrals / Follow Up: Don Lang MD [Med Staff - Active Staff] - 02/13/24 11:00 am Care Physician,No Primary [Primary Care Provider] - Maura Vasques SCU[employer] DIVING INSTRUCTOR, LUIS ANTONIO-C [Non-Staff -Ordering Privileges] - 10/14/24 10:00 am (PLEASE ARRIVE 15 MINUTES BEFORE YOUR APPOINTMENT TIME. ) Disposition Disposition (needs filled in before D/C Order can be placed): Home, Self Care Charges/Coding Visit Charges Inpatient E&M: 79963 Disch Hosp >30min
--- NOTE | 2024-02-07 14:31 | CASEMGMT ---
Therapy working with patient at this time. Patient did well and did recommend additional therapy at discharge. BONIFACIO TATUM updated patient that HHC cannot be setup without PCP and offered outpatient therapy. Patient declined outpatient therapy, therapy states they will provide exercises for patient at discharge. BONIFACIO TATUM informed patient once she attends new PCP appt on 02/26, they are able to setup HHC if she would still like HHC. Patient voiced understanding, grandson at bedside. Patient denied further needs or help at discharge.
[2024-02-07 15:00] VITALS: BP 130/68; PULSE 81; RESP 16; TEMP 36.6; O2SAT 92
--- NOTE | 2024-02-07 15:13 | CHAPLAIN ---
Type of Pastoral Visit _x__ Initial Visit ___ Follow-up Visit ___ On-call Visit ___ General Patient Visit ___ Spiritual Assessment ___ Family Conference ___ Bereavement ___ Rapid Response ___ Code Blue ___ Other (describe below) Pastoral Care Referral From _x__ Patient ___ Family ___ Nurse ___ Physician ___ Rn New Grad ___ Manager Package ___ Other (describe below) Sacrament/Intervention _x__ Active listening ___ Anointing ___ Druze ___ Bereavement ___ Communion ___ Taylor exploration ___ ___ Life review _x__ Prayer ___ Reconciliation ___ Sacrament of Sick _x__ Supportive presence ___ Wedding ___ Other (describe below) Pastoral Comments patient states that she is doing well and is just waiting for the doctor to decide if she can go home; grandson is with her and the patient brags on him and how helpful he is to her; pt says that she has no worries but would accept a prayer
== END 2024-02-07 16:00 | disposition home or self-care (01) | DRG 242 ==
LOC: ED 11:30 → CLSP 15:35 → PCU 16:13 → CLSP 16:36 → PCU 16:37
PROVIDERS: Admitting Provider Internal Medicine; Emergency Provider Emergency Medicine; Visit Provider Internal Medicine
DX: I44.2 Atrioventricular block, complete (principal); E43 Unspecified severe protein-calorie malnutrition; Z68.1 Body mass index [BMI] 19.9 or less, adult; D63.8 Anemia in other chronic diseases classified elsewhere; K21.9 Gastro-esophageal reflux disease without esophagitis; D47.2 Monoclonal gammopathy; D50.9 Iron deficiency anemia, unspecified; E11.22 Type 2 diabetes mellitus with diabetic chronic kidney disease; N18.30 Chronic kidney disease, stage 3 unspecified; I12.9 Hypertensive chronic kidney disease with stage 1 through stage 4 chronic kidney disease, or unspecified chronic kidney disease; G25.81 Restless legs syndrome; E11.40 Type 2 diabetes mellitus with diabetic neuropathy, unspecified; E11.51 Type 2 diabetes mellitus with diabetic peripheral angiopathy without gangrene; I25.10 Atherosclerotic heart disease of native coronary artery without angina pectoris; E78.5 Hyperlipidemia, unspecified; K59.00 Constipation, unspecified; M19.90 Unspecified osteoarthritis, unspecified site; R00.1 Bradycardia, unspecified; I16.0 Hypertensive urgency; Z66 Do not resuscitate; R53.82 Chronic fatigue, unspecified; Z95.0 Presence of cardiac pacemaker; Z95.5 Presence of coronary angioplasty implant and graft; Z79.899 Other long term (current) drug therapy
CPT/HCPCS: 33208; 36415; 71045; 71047; 80048; 80053; 80061; 81001; 83735; 83880; 84100; 84443; 84484; 85025; 93005; 93306; 97162; 97166; 99152; 99153; 99284; J7030; J7050; Q9957; A4216; C1894

== ENCOUNTER 2024-02-13 23:05 | Observation (INO) | payer MEDICARE, SELFPAY ==
[2024-02-13 23:06] VITALS: BP 188/70; PULSE 87; RESP 17; TEMP 36.8; O2SAT 93
[2024-02-13 23:19] VITALS: BP 182/62; PULSE 81; RESP 20; O2SAT 96
--- NOTE | 2024-02-13 23:57 | EKG12_ITS ---
Test Reason : DYSRHYTHMIA Blood Pressure : / mmHG Vent. Rate : 087 BPM Atrial Rate : 086 BPM P-R Int : 000 ms QRS Dur : 166 ms QT Int : 416 ms P-R-T Axes : 000 -72 085 degrees QTc Int : 500 ms Ventricular-paced rhythm Abnormal ECG Possible Normal Sinus Rhythm with First Degree AV Block and ventricular pacer tracking atrial rate Confirmed by Chuck Shelton ([id number]), rewrite editor CLYDE RUIZ ([id number]) on 02/18/2024 6:44:15 AM Referred By: TRA Confirmed By:Chuck Shelton
--- NOTE | 2024-02-13 23:59 | EDS_ITS ---
HPI History of Present Illness Chief Complaint: Hypertension Informant: patient and family Narrative Narrative: Patient is an 88-year-old female with history of hypertension, coronary artery disease, left bundle branch block, AV disassociation with recent pacemaker placed 1 week ago presenting with generalized weakness. Patient states that she checked her blood pressure this evening and was between 170 980 systolic. She spoke to cardiology on-call, Dr. Lang, who recommended she take an additional metoprolol. Patient did not realize that when she was discharged she is post to increase her metoprolol from 25 mg twice daily to 50 mg twice daily. She states she did take her regular dose today. She notes that since being home from the hospital she just been feeling very weak. She has had some lightheadedness today. She notes she is also a mild cough today. She denies any chest pain, shortness of breath or difficulty breathing. Daughter notes has been having a hard time sleeping. She states has been chronic trouble with her bladder and did have some constipation on the hospital but has had a bowel movement since being home. She notes today she has had some increased reflux symptoms and burning all day. Called EMS tonight and they recommend she come to the ER for further evaluation. Patient states she feels cold but states she always feels cold. No other acute complaints at this time. [facility] Medical History Systolic ejection murmur Scoliosis Intermittent claudication Degenerative arthritis of lumbar spine Bulging lumbar disc Widened pulse pressure Weight loss Weakness Vitamin D deficiency Type 2 diabetes mellitus Tremor of both hands Suprapubic mass Skin cancer of face Skin cancer Secondary hyperparathyroidism Scarring of lung Right foot pain Restless leg Recurrent headache Radiculopathy of arm Peripheral vascular disease Peripheral edema Pars defect with spondylolisthesis Pars defect of lumbar spine Pancreatic cyst Overactive bladder Normocytic anemia Neuropathy of thigh Neck pain Nausea Microalbuminuric diabetic nephropathy Microalbuminuria Lumbar facet arthropathy Lumbar degenerative disc disease Leg pain Left hip pain Iron deficiency anemia Intention tremor Insomnia Hypertension goal BP (blood pressure) < 150/90 GERD (gastroesophageal reflux disease) Eye pain Elevated TSH Diverticulosis of colon Diarrhea Diabetic neuropathy Dextroscoliosis of lumbar spine Degenerative joint disease of left hip Cyst of skin Constipation Colonic stricture CKD stage 3 secondary to diabetes Chronic neck pain Chronic low back pain Chronic kidney disease, stage 3 Coronary artery disease Bilateral leg weakness Back pain Atherosclerosis Anxiety Abdominal aortic atherosclerosis Old inferior wall myocardial infarction Essential (primary) hypertension Hyperlipidemia Atherosclerotic heart disease of [place] coronary artery without angina pectoris Left bundle branch block Home Medications ?Medication ?Instructions ?Recorded ?Last Taken ?Type aspirin 81 mg tablet,delayed 81 mg PO DAILY [facility] 10/07/18 Unknown History release (Adult Low Dose Aspirin) cholecalciferol (vitamin D3) 50 50 mcg PO DAILY supplement 08/18/20 Unknown History mcg (2,000 unit) capsule oxybutynin chloride 5 mg tablet 5 mg PO DAILY overactive bladder 08/18/20 Unknown History pramipexole 0.5 mg tablet 0.5 mg PO QHS tremors 11/20/22 Unknown History trazodone 100 mg tablet 100 mg PO QHS PRN sleep 11/20/22 Unknown History ramipril 10 mg capsule 10 mg PO DAILY blood pressure #90 04/29/23 Unknown Rx caps amlodipine 5 mg tablet 5 mg PO DAILY blood pressure #90 08/20/23 Unknown Rx tabs famotidine 40 mg tablet 40 mg PO BID PRN gerd 08/20/23 Unknown History pravastatin 40 mg tablet 40 mg PO QHS cholesterol 08/20/23 02/05/24 History gabapentin 300 mg capsule 300 mg PO TID neuropathy #90 caps 12/25/23 02/06/24 Rx cyanocobalamin (vitamin B-12) 500 500 mcg PO DAILY supplement 02/06/24 Unknown History mcg tablet metoprolol tartrate 25 mg tablet 50 mg (2 x 25 mg) PO BID blood 02/07/24 02/06/24 Rx pressure #180 tabs polyethylene glycol 3350 17 17 g PO DAILY #238 grams 02/07/24 Unknown Rx gram/dose oral powder (Miralax) sennosides 8.6 mg-docusate sodium 2 tab-cap (2 x 8.6-50 mg) PO BID 02/07/24 Unknown Rx 50 mg tablet (Senna-S) PRN constipation #30 tabs Allergy/AdvReac Type Severity Reaction Status Date / Time acetaminophen (From [employer] Allergy NEEDS Verified 02/13/24 23:06 with Codeine) FOLLOW-UP codeine Allergy Other Verified 02/13/24 23:06 latex Allergy NEEDS Verified 02/13/24 23:06 FOLLOW-UP meperidine Allergy NEEDS Verified 02/13/24 23:06 FOLLOW-UP metoclopramide HCl (From Allergy Other Verified 02/13/24 23:06 Reglan) morphine Allergy Itching Verified 02/13/24 23:06 Penicillins (PCN) Allergy Hives Verified 02/13/24 23:06 prednisone Allergy Other Verified 02/13/24 23:06 ropinirole HCl (From Requip) Allergy Other Verified 02/13/24 23:06 shrimp Allergy NEEDS Verified 02/13/24 23:06 FOLLOW-UP amoxicillin AdvReac Other Verified 02/13/24 23:06 diazepam (From Valium) AdvReac Other Verified 02/13/24 23:06 pregabalin (From Lyrica) AdvReac Somnolence Verified 02/13/24 23:06 HCL Allergy NEEDS Uncoded 12/25/23 15:42 FOLLOW-UP Family History Father , age 62 Sudden cardiac CAD (coronary artery disease) Myocardial infarction Heart disease Son Heart disease Myocardial infarction Surgical History History of surgical removal of skin lesion History of breast biopsy History of colonoscopy History of endoscopy History of eye surgery History of carpal tunnel repair History of partial colectomy Hx of cholecystectomy H/O heart surgery H/O: hysterectomy History of left heart catheterization (08/17/03) History of coronary artery stent placement (06/23/99) Social History household members: children Smoking Status: Never smoker alcohol intake: never substance use type: does not use caffeine: No ROS ROS ED Constitutional Constitutional ED: Reports chills and other Details: Generalized weakness ; Denies fever(s) Eyes Eyes: Denies change in vision Cardiovascular Cardiovascular: Denies chest pain Respiratory/Chest Respiratory/Chest: Reports cough; Denies dyspnea Gastrointestinal Gastrointestinal: Reports constipation and other Details: Reports increased acid reflux today ; Denies abdominal pain, nausea or vomiting Musculoskeletal Musculoskeletal: Denies arthralgias or myalgias Integumentary Denies rash Neurologic Neurologic: Reports weakness; Denies headache(s) or paresthesias Hematologic/Lymphatic Hematologic/Lymphatic: Denies easy bleeding or easy bruising EXAM Physical Exam Const Vital Signs: 02/13/24 23:06 02/13/24 23:09 02/13/24 23:19 Temperature 98.2 F Temperature Source Oral Pulse Rate 87 81 Respiratory Rate 17 20 H Respiratory Effort Normal Respiratory Pattern Normal Blood Pressure 188/70 H 182/62 H Blood Pressure Mean 109 102 Pulse Ox 93 96 Oxygen Delivery Method Room Air Room Air Positive well nourished and well developed General Appearance ED: well developed and NAD HEENT Reports dry mucous membranes Mouth ED: Yes dry mucous membranes Mouth: dry mucous membranes Eyes PERRL Neck supple Chest Wall palpation of chest normal Chest Narrative: Healing incision from recent pacemaker placement of the left anterior chest wall. No active bleeding or drainage. No surrounding erythema. Resp normal respiratory effort and clear to auscultation bilaterally Auscultation: Negative for rhonchi or wheezes Cardio regular rate and regular rhythm GI normal to inspection, nondistended, normoactive bowel sounds, non-tender and non-distended Extremity normal to inspection General Extremety ED: Negative for edema or tenderness General Extremity: Negative for edema Neuro oriented x3 Sensorium / Orientation: alert Motor Exam: general weakness Psych mental status grossly normal Skin no rashes or lesions noted and no wounds Discharge Plan Triage Chief Complaint: Hypertension ED Provider: Mai Medina Dx/Rx/DC Orders Prescriptions: No Action aspirin [Adult Low Dose Aspirin] 81 mg tablet,delayed release (DR/EC) 81 mg PO DAILY oxybutynin chloride 5 mg tablet 5 mg PO DAILY cholecalciferol (vitamin D3) 50 mcg (2,000 unit) capsule 50 mcg PO DAILY pramipexole 0.5 mg tablet 0.5 mg PO QHS famotidine 40 mg tablet 40 mg PO BID PRN (Reason: gerd ) pravastatin 40 mg tablet 40 mg PO QHS amlodipine 5 mg tablet 5 mg PO DAILY Qty: 90 3RF gabapentin 300 mg capsule 300 mg PO TID Qty: 90 0RF trazodone 100 mg tablet 100 mg PO QHS PRN (Reason: sleep ) cyanocobalamin (vitamin B-12) 500 mcg tablet 500 mcg PO DAILY metoprolol tartrate 25 mg tablet 50 mg PO BID Qty: 180 3RF sennosides-docusate sodium [Senna-S] 8.6-50 mg tablet 2 tab-cap PO BID PRN (Reason: constipation) Qty: 30 2RF polyethylene glycol 3350 [Miralax] 17 gram/dose powder 17 g PO DAILY Qty: 238 0RF ramipril 10 mg capsule 10 mg PO DAILY Qty: 90 3RF Primary Care Provider: Care Physician,No Primary Referrals: Care Physician,No Primary [Primary Care Provider] - Print Language: Spanish
[2024-02-14] VITALS (25 sets, daily range): BP systolic 131–188; BP diastolic 46–170; PULSE 70–102; RESP 15–22; TEMP 36.3–36.8; O2SAT 93–98; BMI 24.1
--- NOTE | 2024-02-14 | RAD_ITS ---
EXAM: XR CHEST, 2 VIEWS CLINICAL INDICATION: WEAKNESS TECHNIQUE: Frontal and lateral views of the chest. COMPARISON: February 07, 2024 FINDINGS: LUNGS AND PLEURAL SPACES: Unremarkable. No consolidation. No pleural effusions or pneumothorax. HEART: Unremarkable. Cardiac silhouette not enlarged. MEDIASTINUM: Central airways and mediastinal contour are unremarkable. BONES/JOINTS: Diffuse osteopenia. Degenerative changes of the spine. Degenerative changes of the spine and acromioclavicular joints. No acute fracture. SOFT TISSUES: Unremarkable. VASCULATURE: Atherosclerotic calcifications of the nonenlarged thoracic aortic arch. TUBES, LINES AND DEVICES: Left-sided AICD/pacer with intact wires/leads. RAD/Chest PA and Lateral IMPRESSION: No acute disease. Electronically Signed: John Espinoza MD at 1:06 EDT ,
[2024-02-14] MEDS: 0.9% Normal Saline (500mL Bag) 500 ML 999 ML IV (00:09)
[2024-02-14 00:12] LABS: Mucous, Urine 0 SEEN /hpf (<or=2+); Red Blood Cells-Urine 0 SEEN /hpf (0-5); Squamous Epithelial Cells - UA 0 SEEN /hpf (5-10)
[2024-02-14 00:17] LABS: Color, Urine Yellow (Yellow); Glucose, Dipstick 50 mg/dl (Normal); Ketone-Dipstick Negative (Negative); Leukocyte Esterase-Dipstick 25 /ul (Negative); Nitrite-Dipstick Negative (Negative); Occult Blood-Urine Negative /ul (Negative); Protein-Dipstick 30 mg/dl (Negative); Urine Bilirubin Dipstick Negative (Negative); Urine Clarity Clear (Clear); Urine Urobilinogen Normal (Normal)
[2024-02-14 00:32] LABS: Absolute Lymphocyte Count 4.83 X10^3/uL (0.83-4.51); Absolute Neutrophil Count 5.5 X10^3/uL (2.0-7.7); Basophil# 0.05 X10^3/uL; Basophil% 0.4 % (0-1); Eosinophil# 0.21 X10^3/uL; Eosinophils% 1.8 % (0-5); Hemoglobin 11.9 g/dL (12.0-15.0); Lymphocyte # 4.83 X10^3/ul (0.83-4.51); Lymphocyte % 41.6 % (19-41); Mean Corp Hgb Conc 33.1 g/dL (32-36); Mean Corpuscular Hgb 30.1 pg (27.0-32.0); Mean Corpuscular Volume 90.9 fL (81-99); Mean Platelet Vol. 10.7 fl (6.2-12.0); Monocyte# 1.01 X10^3/uL; Monocyte% 8.7 % (0-10); NRBC Flagged by Analyzer 0 % (0-5); Neutrophil # 5.47 X10^3/uL (2.7-7.7); Neutrophil % 47.2 % (47-70); Platelet Count 306 K/mm3 (150-450); RBC Distribution Width CV 13.7 % (11.6-14.6); RBC Distribution Width SD 45.8 fl (35.1-43.9); Red Blood Count 3.96 M/mm3 (4.2-5.4); White Blood Count 11.6 K/mm3 (4.4-11.0)
[2024-02-14 00:33] LABS: Anion Gap 7 (5-15); BUN 24 mg/dL (7-18); Calcium,Total 10.2 mg/dL (8.5-10.1); Chloride 101 mmol/L (98-107); Creatinine, Serum 1.26 mg/dL (0.55-1.02); EST Glomerular Filtration Rate 43 mL/min (>60); Est Glom Filt Rate - Afr Amer 52 mL/min (>60); Glucose 202 mg/dL (74-106); Potassium 4.3 mmol/L (3.5-5.1); Sodium Level 133 mmol/L (136-145); Troponin-I HS 13 pg/mL (3.0-54.0)
[2024-02-14 00:48] LABS: Bacteria RARE /hpf (None Seen); White Blood Cells 25-50 SEEN /hpf (0-5)
[2024-02-14] MEDS: Labetalol (Prefilled) 20 MG/4 ML 10 MG IV (03:17)
--- NOTE | 2024-02-14 03:34 | HP.PCM.HOS_ITS ---
[facility] - General General Date of Admission: 02/14/24 Date of Service: 02/14/24 Chief Complaint: Elevated Blood Pressure, Generalized Weakness and Insomnia. HPI Narrative NASH ASTORGA, is a 88 F with a past medical history of essential hypertension, hyperlipidemia, DM-2; of unknown control, diabetic neuropathy, CKD; stage III, CAD; s/p inferior wall [place] with RCA SHARMILA (1999), history of LBBB; s/p PPM last week by Dr. Lang of [facility], dextroscoliosis & DDD; of lumbar spine with Chronic Back Pain, history of intermittent claudication, PVD, RLS, intention tremor of both hands, overactive bladder, CATALINO, GERD, generalized anxiety and chronic insomnia who presents to [facility] ER complaining of elevated blood pressure in the ~170 mmHg systolic range, generalized weakness and chronic insomnia. Ms. Astorga reports her symptoms began a few days ago with her blood pressure being uncontrolled in the 170-180 mmHg systolic range so she contacted her dividend clerk who instructed her to increase her dose of Metoprolol from 25 mg BID up to 50 mg PO BID. Unfortunately, she did not actually increase her Metoprolol as instructed until late in the evening on 02/13/2024 with her blood pressure remaining elevated so she activated EMS. She also admits to associated generalized weakness that has persisted since she was discharged from the hospital along with intermittent lightheadedness, mild nonproductive cough and heartburn with inability to sleep. She denies related fever, chills, nausea, vomiting, chest pain, palpitations or SOB. In the ER she was given one dose of IV Labetalol to decrease her blood pressure into the ~140 mmHg systolic range with a UA positive for early signs of Acute Cystitis; without hematuria with Leukocytosis of 11.6K present on admission and she was then admitted to the PCU under observation status for ongoing care for a stay that is expected to be less than 2 midnights. [facility] Medical History Systolic ejection murmur Scoliosis Intermittent claudication Degenerative arthritis of lumbar spine Bulging lumbar disc Widened pulse pressure Weight loss Weakness Vitamin D deficiency Type 2 diabetes mellitus Tremor of both hands Suprapubic mass Skin cancer of face Skin cancer Secondary hyperparathyroidism Scarring of lung Right foot pain Restless leg Recurrent headache Radiculopathy of arm Peripheral vascular disease Peripheral edema Pars defect with spondylolisthesis Pars defect of lumbar spine Pancreatic cyst Overactive bladder Normocytic anemia Neuropathy of thigh Neck pain Nausea Microalbuminuric diabetic nephropathy Microalbuminuria Lumbar facet arthropathy Lumbar degenerative disc disease Leg pain Left hip pain Iron deficiency anemia Intention tremor Insomnia Hypertension goal BP (blood pressure) < 150/90 GERD (gastroesophageal reflux disease) Eye pain Elevated TSH Diverticulosis of colon Diarrhea Diabetic neuropathy Dextroscoliosis of lumbar spine Degenerative joint disease of left hip Cyst of skin Constipation Colonic stricture CKD stage 3 secondary to diabetes Chronic neck pain Chronic low back pain Chronic kidney disease, stage 3 Coronary artery disease Bilateral leg weakness Back pain Atherosclerosis Anxiety Abdominal aortic atherosclerosis Old inferior wall myocardial infarction Essential (primary) hypertension Hyperlipidemia Atherosclerotic heart disease of [place] coronary artery without angina pectoris Left bundle branch block Home Medications ?Medication ?Instructions ?Recorded ?Last Taken ?Type aspirin 81 mg tablet,delayed 81 mg PO DAILY heart health 10/07/18 Unknown History release (Adult Low Dose Aspirin) cholecalciferol (vitamin D3) 50 50 mcg PO DAILY supplement 08/18/20 Unknown History mcg (2,000 unit) capsule oxybutynin chloride 5 mg tablet 5 mg PO DAILY overactive bladder 08/18/20 Unknown History pramipexole 0.5 mg tablet 0.5 mg PO QHS tremors 11/20/22 Unknown History trazodone 100 mg tablet 100 mg PO QHS PRN sleep 11/20/22 Unknown History ramipril 10 mg capsule 10 mg PO DAILY blood pressure #90 04/29/23 Unknown Rx caps amlodipine 5 mg tablet 5 mg PO DAILY blood pressure #90 08/20/23 Unknown Rx tabs famotidine 40 mg tablet 40 mg PO BID PRN gerd 08/20/23 Unknown History pravastatin 40 mg tablet 40 mg PO QHS cholesterol 08/20/23 02/05/24 History gabapentin 300 mg capsule 300 mg PO TID neuropathy #90 caps 12/25/23 02/06/24 Rx cyanocobalamin (vitamin B-12) 500 500 mcg PO DAILY supplement 02/06/24 Unknown History mcg tablet metoprolol tartrate 25 mg tablet 50 mg (2 x 25 mg) PO BID blood 02/07/24 02/06/24 Rx pressure #180 tabs polyethylene glycol 3350 17 17 g PO DAILY #238 grams 02/07/24 Unknown Rx gram/dose oral powder (Miralax) sennosides 8.6 mg-docusate sodium 2 tab-cap (2 x 8.6-50 mg) PO BID 02/07/24 Unknown Rx 50 mg tablet (Senna-S) PRN constipation #30 tabs nystatin 100,000 unit/gram topical 1 applic topical BID 02/14/24 Unknown History cream nystatin 100,000 unit/gram topical 1 applic topical BID 02/14/24 Unknown History powder (Nyamyc) Allergy/AdvReac Type Severity Reaction Status Date / Time acetaminophen (From [facility] Allergy NEEDS Verified 02/13/24 23:06 with Codeine) FOLLOW-UP codeine Allergy Other Verified 02/13/24 23:06 latex Allergy NEEDS Verified 02/13/24 23:06 FOLLOW-UP meperidine Allergy NEEDS Verified 02/13/24 23:06 FOLLOW-UP metoclopramide HCl (From Allergy Other Verified 02/13/24 23:06 Reglan) morphine Allergy Itching Verified 02/13/24 23:06 Penicillins (PCN) Allergy Hives Verified 02/13/24 23:06 prednisone Allergy Other Verified 02/13/24 23:06 ropinirole HCl (From Requip) Allergy Other Verified 02/13/24 23:06 shrimp Allergy NEEDS Verified 02/13/24 23:06 FOLLOW-UP amoxicillin AdvReac Other Verified 02/13/24 23:06 diazepam (From Valium) AdvReac Other Verified 02/13/24 23:06 pregabalin (From Lyrica) AdvReac Somnolence Verified 02/13/24 23:06 HCL Allergy NEEDS Uncoded 12/25/23 15:42 FOLLOW-UP Family History Father , age 62 Sudden cardiac CAD (coronary artery disease) Myocardial infarction Heart disease Son Heart disease Myocardial infarction Surgical History History of surgical removal of skin lesion History of breast biopsy History of colonoscopy History of endoscopy History of eye surgery History of carpal tunnel repair History of partial colectomy Hx of cholecystectomy H/O heart surgery H/O: hysterectomy History of left heart catheterization (08/17/03) History of coronary artery stent placement (06/23/99) Social History (Updated 02/14/24 @ 05:09 by Bridgette Chiu) household members: children housing: house current occupational status: retired Smoking Status: Never smoker alcohol intake: never substance use type: does not use caffeine: No ROS ROS Narrative Review of Systems: Constitutional: Patient admits to chills and generalized weakness. She denies fever. Eyes: Patient denies changes in vision or discharge from eyes. ENT: Patient denies runny nose, sore throat or ear pain. Resp: Patient denies SOB or cough. CV: Patient admits to mild chest pain but she denies palpitations or heart racing. GI: Patient admits to heartburn and constipation. : Patient denies dysuria, hematuria or urinary hesitancy/frequency. MSK: Patient admits to generalized weakness but she denies arthralgias or myalgias. Skin: Patient has no evidence of jaundice. Psych: Patient denies symptoms of uncontrolled depression or anxiety. Neuro: Patient denies headache, paresthesias or focal neurologic deficits. Allergy: Patient denies lip swelling or tongue swelling. Hematology: Patient denies easy bleeding or easy bruisability. Endocrinology: Patient denies polyuria, polydipsia or polyphagia. 14 point ROS otherwise negative except for positives noted above in HPI. Vital Signs Vital Signs Vital Signs: 02/13/24 23:06 02/13/24 23:09 02/13/24 23:19 Temperature 98.2 F Temperature Source Oral Pulse Rate 87 81 Respiratory Rate 17 20 H Respiratory Effort Normal Respiratory Pattern Normal Blood Pressure 188/70 H 182/62 H Blood Pressure Mean 109 102 Pulse Ox 93 96 Oxygen Delivery Method Room Air Room Air 02/14/24 00:24 02/14/24 00:30 02/14/24 00:31 Temperature Temperature Source Pulse Rate 85 Respiratory Rate 18 Respiratory Effort Respiratory Pattern Blood Pressure 181/66 H Blood Pressure Mean 99 Pulse Ox 96 94 Oxygen Delivery Method 02/14/24 00:45 02/14/24 01:00 02/14/24 01:15 Temperature Temperature Source Pulse Rate 82 84 90 Respiratory Rate 18 19 H 15 Respiratory Effort Respiratory Pattern Blood Pressure 166/56 H 176/73 H 184/72 H Blood Pressure Mean 89 104 105 Pulse Ox 93 95 Oxygen Delivery Method Room Air Room Air 02/14/24 01:30 02/14/24 01:45 02/14/24 02:00 Temperature Temperature Source Pulse Rate 87 89 91 Respiratory Rate 18 17 20 H Respiratory Effort Respiratory Pattern Blood Pressure 170/149 H 164/61 H 172/71 H Blood Pressure Mean 158 88 100 Pulse Ox 94 94 94 Oxygen Delivery Method Room Air 02/14/24 02:15 02/14/24 02:16 02/14/24 02:30 Temperature Temperature Source Pulse Rate 90 91 89 Respiratory Rate 19 H 20 H 16 Respiratory Effort Respiratory Pattern Blood Pressure 185/69 H 162/76 H Blood Pressure Mean 103 95 Pulse Ox 94 94 95 Oxygen Delivery Method Room Air Room Air 02/14/24 02:45 02/14/24 02:46 02/14/24 03:00 Temperature Temperature Source Pulse Rate 102 H 91 91 Respiratory Rate 22 H 20 H 16 Respiratory Effort Respiratory Pattern Blood Pressure 188/170 H Blood Pressure Mean 178 Pulse Ox 95 96 95 Oxygen Delivery Method Room Air 02/14/24 03:15 02/14/24 03:22 Temperature 98.2 F Temperature Source Pulse Rate 87 89 Respiratory Rate 16 16 Respiratory Effort Respiratory Pattern Blood Pressure 155/63 H 141/67 H Blood Pressure Mean 93 91 Pulse Ox 95 94 Oxygen Delivery Method Physical Exam Const alert, oriented x3, no apparent distress, average body habitus and healthy appearing General Appearance: cooperative HEENT normocephalic, head/scalp atraumatic, hearing grossly normal bilaterally and moist oral mucous membranes Eyes PERRL and EOMs intact bilaterally Neck no lymphadenopathy and supple Resp normal respiratory effort, no retractions, no use of accessory muscles and clear to auscultation bilaterally Cardio regular rate and regular rhythm GI normal to inspection, nondistended, normoactive bowel sounds, soft to palpation, non-tender and non-distended Extremity normal to inspection, full ROM and no clubbing, cyanosis or edema Skin Skin Narrative: Patient has no evidence of rash, abscess and jaundice. Neuro oriented x3, CN's II-XII intact bilaterally, moves all extremities and no focal motor deficits Sensorium / Orientation: awake, alert, oriented to person, oriented to place and oriented to time Speech: speech normal Psych affect normal Results Medical Records Data Attestation: I reviewed the patient's medical records Lab / Micro Data Attestation: I reviewed the patient's lab results. 02/13/24 23:21 02/13/24 23:21 Labs: Laboratory Results - last 24 hr 02/13/24 23:21: WBC 11.6 H, RBC 3.96 L, Hgb 11.9 L, Hct 36.0 L, MCV 90.9, MCH 30.1, MCHC 33.1, RDW Std Deviation 45.8 H, RDW Coeff of [place] 13.7, Plt Count 306, MPV 10.7, Immature Gran % (Auto) 0.300, Neut % (Auto) 47.2, Lymph % (Auto) 41.6 H, [place] % (Auto) 8.7, Eos % (Auto) 1.8, Baso % (Auto) 0.4, Absolute Neuts (auto) 5.5, Absolute Lymphs (auto) 4.83 H, Nucleated RBC % 0, Sodium 133 L, Potassium 4.3, Chloride 101, Carbon Dioxide 25.0, Anion Gap 7, BUN 24 H, Creatinine 1.26 H , Est GFR (MDRD) Af Amer 52 L, Est GFR (MDRD) Non-Af 43 L, BUN/Creatinine Ratio 19.0, Glucose 202 H, Calcium 10.2 H, Troponin I High Sens 13 02/14/24 00:05: Urine Color Yellow, Urine Clarity Clear, Urine pH 7.0, Ur Specific [place] 1.010, Urine Protein 30 H, Urine Glucose (UA) 50 H, Urine Ketones Negative, Urine Occult Blood Negative, Urine Nitrite Negative, Urine Bilirubin Negative, Urine Urobilinogen Normal, Ur Leukocyte Esterase 25 H, Urine RBC 0 SEEN, Urine WBC 25-50 SEEN, Ur Squamous Epith Cells 0 SEEN, Urine Bacteria RARE, Urine Mucus 0 SEEN Micro: Microbiology 02/14/24 00:09 Mucosa - Nose SARS-CoV-2, Influenza & RSV (PCR) - Final Imaging Radiology Impression Chest X-Ray 02/14/24 00:00 IMPRESSION: No acute disease. Electronically Signed: John Espinoza MD at 1:06 EDT , Assessment & Plan Assessment/Plan (1) Uncontrolled hypertension: (2) Acute cystitis without hematuria: (3) Generalized weakness: (4) History of pacemaker: PLAN: Plan 1. Uncontrolled Hypertension with systolic blood pressure ~180 mmHg present on admission after delay in increasing dose of Metoprolol - Admit to PCU under observation status. Increase Metoprolol to recommended increased dose and monitor for improvement. 2. Acute Cystitis; without hematuria with Leukocytosis of 11.6K present on admission complicating #1 - Start Levaquin IV daily and await culture and sensitivity data. Give Tylenol prn for pain or fever. 3. Generalized Weakness, Malaise, heightened Generalized Anxiety and Chronic Insomnia attributable to #1 & #2 - Continue supportive care as outlined above and monitor for improvement. Otherwise, we will consult PT/OT and Case Management to consult and treat on-rounds in the AM for further recommendation with help appreciated in advance. 4. History of LBBB; s/p PPM last week by Dr. Lang of [facility] adding to the medical complexity of #1 - #3 - Noted. 5. Hyperlipidemia - Resume statin. 6. DM-2; of unknown control and diabetic neuropathy - ADA diet. FSBS q. AC/HS plus SSI. 7. CKD; stage III - Stable. 8. CAD; s/p inferior wall [place] with RCA SHARMILA (1999) - Noted. 9. Dextroscoliosis & DDD; of lumbar spine with Chronic Back Pain - Give Tylenol prn. 10. History of intermittent claudication - Stable. 11. PVD - Noted. 12. RLS - Resume Pramipexole as previous. 13. Intention tremor of both hands - Noted. 14. Overactive bladder - Stable. 15. CATALINO - Stable. 16. GERD - Continue H2-payton. 17. DVT prophylaxis - Lovenox 30 mg sq daily. Total time: Approximately 70 minutes. Charges/Coding Visit Charges OBSV E&M: 23991 Observ/hosp same date L2
[2024-02-14] MEDS: levoFLOXacin IV 500 MG/100 ML BAG 100 MG IV (05:37)
[2024-02-14] MEDS: Gabapentin 300 MG Capsule PO ×3 (05:40→21:48)
[2024-02-14] MEDS: Oxybutynin 5 MG Tablet PO (08:31)
[2024-02-14] MEDS: Aspirin E.C. 81 MG Tablet PO (08:32)
[2024-02-14] MEDS: Metoprolol Tartrate 50 MG Tablet PO ×2 (08:32→21:48)
[2024-02-14] MEDS: Ramipril 10 MG Capsule PO (08:32)
[2024-02-14] MEDS: Polyethylene Glycol 3350 17 GM PACKET PO (08:32)
[2024-02-14] MEDS: Cholecalciferol (VIT D3) 25 MCG TABLET (1,000 UNITS) 50 MCG PO (08:33)
[2024-02-14] MEDS: amLODIPine 5 MG Tablet PO (08:33)
[2024-02-14] MEDS: Cyanocobalamin 500 MCG Tablet PO (08:33)
[2024-02-14] MEDS: Nystatin Ointment 1 APPLIC TOPICAL ×2 (08:33→21:52)
--- NOTE | 2024-02-14 09:42 | PCM.PN.HOSP ---
Reason for Visit Reason for Visit: Diagnoses Essential (primary) hypertension (02/14/24) Acute cystitis without hematuria (02/14/24) Weakness (02/14/24) Presence of cardiac pacemaker (02/14/24) Subjective Subjective having pain going down both legs. States that she has been using oxycodone which she had a prescription filled in October 2022. States that she has been pressing out the pills over that time using perhaps a half or quarter tab to keep her pain under control. Objective Data Objective Data Vital Signs: Vital Signs Temp Pulse Resp BP Pulse Ox O2 Del Method 36.3 C L 88 16 143/63 H 98 Room Air 02/14/24 08:29 02/14/24 08:32 02/14/24 08:29 02/14/24 08:32 02/14/24 08:29 02/14/24 08:29 Oxygen Delivery Method Room Air Weight: 61.9 kg Body Mass Index (BMI) 24.1 Intake & Output: Intake and Output for Last 24 Hours 02/12/24 02/13/24 02/14/24 23:59 23:59 23:59 Intake Total 600 / 600 Balance 600 / 600 Lab / Micro Data 02/13/24 23:21 02/13/24 23:21 Labs: Laboratory Results - last 24 hr 02/13/24 23:21: WBC 11.6 H, RBC 3.96 L, Hgb 11.9 L, Hct 36.0 L, MCV 90.9, MCH 30.1, MCHC 33.1, RDW Std Deviation 45.8 H, RDW Coeff of Franky 13.7, Plt Count 306, MPV 10.7, Immature Gran % (Auto) 0.300, Neut % (Auto) 47.2, Lymph % (Auto) 41.6 H, [place] % (Auto) 8.7, Eos % (Auto) 1.8, Baso % (Auto) 0.4, Absolute Neuts (auto) 5.5, Absolute Lymphs (auto) 4.83 H, Nucleated RBC % 0, Sodium 133 L, Potassium 4.3, Chloride 101, Carbon Dioxide 25.0, Anion Gap 7, BUN 24 H, Creatinine 1.26 H, Est GFR (MDRD) Af Amer 52 L, Est GFR (MDRD) Non-Af 43 L, BUN/Creatinine Ratio 19.0, Glucose 202 H, Calcium 10.2 H, Troponin I High Sens 13 02/14/24 00:05: Urine Color Yellow, Urine Clarity Clear, Urine pH 7.0, Ur Specific [place] 1.010, Urine Protein 30 H, Urine Glucose (UA) 50 H, Urine Ketones Negative, Urine Occult Blood Negative, Urine Nitrite Negative, Urine Bilirubin Negative, Urine Urobilinogen Normal, Ur Leukocyte Esterase 25 H, Urine RBC 0 SEEN, Urine WBC 25-50 SEEN, Ur Squamous Epith Cells 0 SEEN, Urine Bacteria RARE, Urine Mucus 0 SEEN Micro: Microbiology 02/14/24 00:09 Mucosa - Nose SARS-CoV-2, Influenza & RSV (PCR) - Final Radiography Diagnostic Testing: Radiology Impression Chest X-Ray 02/14/24 00:00 IMPRESSION: No acute disease. Electronically Signed: John Espinoza MD at 1:06 EDT Reading Location ID and State: [address] [place] [address] Tel , Service support , Physical Exam Const alert and no apparent distress HEENT head/scalp atraumatic and moist oral mucous membranes Resp normal respiratory effort, no retractions, no use of accessory muscles and clear to auscultation bilaterally Cardio regular rate, regular rhythm, S1 normal heart sound and S2 normal heart sound GI normal to inspection, nondistended, normoactive bowel sounds, soft to palpation, non-tender and non-distended Assessment & Plan Assessment/Plan (1) Uncontrolled hypertension: (2) Acute cystitis without hematuria: (3) Generalized weakness: (4) History of pacemaker: PLAN: Plan Hypertension, accelerated Improved overall. Continue with amlodipine 5 mg, metoprolol tartrate 50 mg twice daily ramipril 10 mg daily. Abnormal urinalysis Urinalysis is rather benign. 25 leuk esterase and only 25-50 white blood cells. Rare bacteria noted. Started on levofloxacin, but will discontinue for now and observe.. Back pain Chronic Has been using a prescription for oxycodone that she had filled in October 2022 where she received 120 tablets at that time. Sounds radicular per her description. Will restart oxycodone. Patient has numerous medication allergies listed (whether these are true allergies is uncertain) Debility PT OT evaluate and treat Chronic additions History of LBBB; s/p PPM last week Hyperlipidemia: Continue with statin DM-2: of unknown control and diabetic neuropathy - ADA diet. FSBS q. AC/HS plus SSI. VTE prophylaxis held given current observation status Charges/Coding Procedures Hospitalists Procedures: Other Procedure - See Report (Nonbillable rounding as patient was admitted after midnight.)
[2024-02-14] MEDS: oxyCODONE 5 MG Tablet PO (12:03)
[2024-02-14] MEDS: Insulin Lispro 100 UNIT/ML INSULN.PEN SC ×2 (12:20→16:54)
[2024-02-14 13:20] LABS: Bedside Glucose 174 mg/dL (74-106)
[2024-02-14] MEDS: Famotidine 20 MG Tablet PO (14:38)
[2024-02-14] MEDS: Senna/Docusate Sodium 1 Tablet 2 TABLET PO (14:38)
--- NOTE | 2024-02-14 15:04 | CASEMGMT ---
BONIFACIO CM to pt room at this time to discuss DC planning. Pt daughters at bedside. This RN CM reviewed how the pt did with therapy, however the pt states that she does not need or want HHC or OP therapy and states that she feel safe discharging home with her daughters once she is medically ready. Pt states that she has a walker and cane at home. Pt states that her daughters drive her. Pt states that she has a new PCP that she will be seeing on Saturday. Pt is aware that if she changes her mind about OP Tx or HHC that she can get this set up through her PCP. Pt states understanding and denies further questions or concerns at this time.
--- NOTE | 2024-02-14 15:10 | CASEMGMT ---
Met with patient to complete RODRIGUEZ form. RODRIGUEZ form explained to patient who voiced understanding and signed form. Original form placed in pt?s chart and copy provided to patient. Jacki Kwan, Discharge Planning Asst
[2024-02-14 18:06] LABS: Bedside Glucose 195 mg/dL (74-106)
[2024-02-14] MEDS: Pramipexole Di-HCl 0.5 MG Tablet PO (21:48)
[2024-02-14] MEDS: Pravastatin 40 MG Tablet PO (21:48)
[2024-02-14] MEDS: traZODone 100 MG Tablet PO (21:52)
[2024-02-14] MEDS: 0.9% Saline Lock 10 ML Syringe IV (21:52)
[2024-02-14 22:01] LABS: Bedside Glucose 216 mg/dL (74-106)
[2024-02-15 04:06] VITALS: BP 130/48; PULSE 70; RESP 18; TEMP 36.6; O2SAT 95
[2024-02-15] MEDS: Senna/Docusate Sodium 1 Tablet 2 TABLET PO (06:04)
[2024-02-15] MEDS: Gabapentin 300 MG Capsule PO ×2 (06:04→13:35)
[2024-02-15] MEDS: oxyCODONE 5 MG Tablet PO (06:08)
[2024-02-15] MEDS: Insulin Lispro 100 UNIT/ML INSULN.PEN SC ×2 (06:09→11:28)
[2024-02-15 06:24] LABS: Bedside Glucose 158 mg/dL (74-106)
--- NOTE | 2024-02-15 08:06 | PN.HOSP_ITS ---
Reason for Visit Reason for Visit: Diagnoses Essential (primary) hypertension (02/14/24) Acute cystitis without hematuria (02/14/24) Weakness (02/14/24) Presence of cardiac pacemaker (02/14/24) Subjective Subjective Feeling better. Objective Data Objective Data Vital Signs: Vital Signs Temp Pulse Resp BP Pulse Ox O2 Del Method 36.6 C 70 18 130/48 H 95 Room Air 02/15/24 04:06 02/15/24 04:06 02/15/24 04:06 02/15/24 04:06 02/15/24 04:06 02/15/24 07:56 Oxygen Delivery Method Room Air Weight: 61.9 kg Body Mass Index (BMI) 24.1 Intake & Output: Intake and Output for Last 24 Hours 02/13/24 02/14/24 02/15/24 23:59 23:59 23:59 Intake Total 1400 / 1400 250 / 250 Balance 1400 / 1400 250 / 250 Lab / Micro Data 02/13/24 23:21 02/13/24 23:21 Labs: Laboratory Results - last 24 hr 02/14/24 12:16: POC Glucose 174 H 02/14/24 16:53: POC Glucose 195 H 02/14/24 21:39: POC Glucose 216 H 02/15/24 06:02: POC Glucose 158 H Micro: Microbiology 02/14/24 00:09 Mucosa - Nose SARS-CoV-2, Influenza & RSV (PCR) - Final Physical Exam Const alert and no apparent distress HEENT head/scalp atraumatic and moist oral mucous membranes Resp normal respiratory effort and no retractions Cardio regular rate, regular rhythm, S1 normal heart sound and S2 normal heart sound GI normal to inspection, nondistended, normoactive bowel sounds and soft to palpation Neuro oriented x3 Sensorium / Orientation: awake and alert Assessment & Plan Assessment/Plan (1) Uncontrolled hypertension: (2) Acute cystitis without hematuria: (3) Generalized weakness: (4) History of pacemaker: PLAN: Plan Hypertension, accelerated * Improved overall. Continue with amlodipine 5 mg, metoprolol tartrate 50 mg twice daily ramipril 10 mg daily. Abnormal urinalysis * Urinalysis is rather benign. 25 leuk esterase and only 25-50 white blood cells. Rare bacteria noted. Started on levofloxacin, but will discontinue for now and observe.. Back pain * Chronic * Has been using a prescription for oxycodone that she had filled in October 2022 where she received 120 tablets at that time. * Sounds radicular per her description. Will restart oxycodone. Patient has numerous medication allergies listed (whether these are true allergies is uncertain) Debility * Patient not interested in senior living facility. Though is open to home health care. Chronic additions * History of LBBB; s/p PPM last week * Hyperlipidemia: Continue with statin * DM-2: of unknown control and diabetic neuropathy - ADA diet. FSBS q. AC/HS plus SSI. VTE prophylaxis held given current observation status
[2024-02-15 08:52] VITALS: BP 123/48; PULSE 75; RESP 14; TEMP 36.3; O2SAT 93
[2024-02-15 08:54] VITALS: PULSE 75
[2024-02-15] MEDS: Cholecalciferol (VIT D3) 25 MCG TABLET (1,000 UNITS) 50 MCG PO (08:54)
[2024-02-15] MEDS: Metoprolol Tartrate 50 MG Tablet PO (08:54)
[2024-02-15] MEDS: Ramipril 10 MG Capsule PO (08:54)
[2024-02-15] MEDS: amLODIPine 5 MG Tablet PO (08:54)
[2024-02-15] MEDS: Oxybutynin 5 MG Tablet PO (08:55)
[2024-02-15] MEDS: Polyethylene Glycol 3350 17 GM PACKET PO (08:55)
[2024-02-15] MEDS: Aspirin E.C. 81 MG Tablet PO (08:55)
[2024-02-15] MEDS: Nystatin Ointment 1 APPLIC TOPICAL (08:55)
[2024-02-15] MEDS: Cyanocobalamin 500 MCG Tablet PO (08:55)
[2024-02-15 11:26] VITALS: BP 112/56; PULSE 66; RESP 16; TEMP 36.6; O2SAT 92
[2024-02-15 11:48] LABS: Bedside Glucose 165 mg/dL (74-106)
--- NOTE | 2024-02-15 12:42 | PCM.DC.SUM ---
Providers Date of Admission: 02/14/24 Primary Care Physician: No Primary Care Phys Reason For Visit: UNCONTROLLED HTN UTI W/O HEMATURIA & GENERALIZED Diagnosis Discharge Diagnosis (1) Uncontrolled hypertension: Status: Acute Code(s): I10 - Essential (primary) hypertension (2) Acute cystitis without hematuria: Status: Acute Code(s): N30.00 - Acute cystitis without hematuria (3) Generalized weakness: Status: Acute Code(s): R53.1 - Weakness (4) History of pacemaker: Status: Acute Code(s): Z95.0 - Presence of cardiac pacemaker Plan Hypertension, accelerated Improved overall. Continue with amlodipine 5 mg, metoprolol tartrate 50 mg twice daily ramipril 10 mg daily. Abnormal urinalysis Urinalysis is rather benign. 25 leuk esterase and only 25-50 white blood cells. Rare bacteria noted. Started on levofloxacin, but will discontinue for now and observe.. Back pain Acute on chronic. Patient will have short course of oxycodone. Has been using a prescription for oxycodone that she had filled in October 2022 where she received 120 tablets at that time. Debility Patient not interested in long term facility. Though is open to home health care. Chronic additions History of LBBB; s/p PPM last week Hyperlipidemia: Continue with statin DM-2: of unknown control and diabetic neuropathy - ADA diet. FSBS q. AC/HS plus SSI. VTE prophylaxis held given current observation status Medications at Discharge Home Medications aspirin 81 mg tablet,delayed release (Adult Low Dose Aspirin) 81 mg PO DAILY [facility] 10/07/18 cholecalciferol (vitamin D3) 50 mcg (2,000 unit) capsule 50 mcg PO DAILY supplement 08/18/20 oxybutynin chloride 5 mg tablet 5 mg PO DAILY overactive bladder 08/18/20 pramipexole 0.5 mg tablet 0.5 mg PO QHS tremors 11/20/22 trazodone 100 mg tablet 100 mg PO QHS PRN sleep 11/20/22 ramipril 10 mg capsule 10 mg PO DAILY blood pressure #90 caps 04/29/23 amlodipine 5 mg tablet 5 mg PO DAILY blood pressure #90 tabs 08/20/23 famotidine 40 mg tablet 40 mg PO BID PRN gerd 08/20/23 pravastatin 40 mg tablet 40 mg PO QHS cholesterol 08/20/23 gabapentin 300 mg capsule 300 mg PO TID neuropathy #90 caps 12/25/23 cyanocobalamin (vitamin B-12) 500 mcg tablet 500 mcg PO DAILY supplement 02/06/24 metoprolol tartrate 25 mg tablet 50 mg (2 x 25 mg) PO BID blood pressure #180 tabs 02/07/24 polyethylene glycol 3350 17 gram/dose oral powder (Miralax) 17 g PO DAILY #238 grams 02/07/24 sennosides 8.6 mg-docusate sodium 50 mg tablet (Senna-S) 2 tab-cap (2 x 8.6-50 mg) PO BID PRN constipation #30 tabs 02/07/24 nystatin 100,000 unit/gram topical cream 1 applic topical BID 02/14/24 oxycodone 5 mg tablet 5 mg PO Q6H PRN PRN Pain Score 6-10 Or Pre Pt/Ot 3 days #12 tabs 02/15/24 Weight / BMI Weight Weight: 61.9 kg Body Mass Index (BMI) 24.1 ABG / Lab / Microbiology Data 02/13/24 23:21 02/13/24 23:21 Laboratory: Laboratory Results - last 24 hr 02/14/24 12:16: POC Glucose 174 H 02/14/24 16:53: POC Glucose 195 H 02/14/24 21:39: POC Glucose 216 H 02/15/24 06:02: POC Glucose 158 H 02/15/24 11:26: POC Glucose 165 H Microbiology: Microbiology 02/14/24 00:09 Mucosa - Nose SARS-CoV-2, Influenza & RSV (PCR) - Final D/C Instructions Discharge Diet: No restrictions Meaningful Use Info Meaningful Use Meaningful Use Diagnoses (Choose all that apply): None applicable Ischemic Stroke Statin Dosing Therapy Reference: STATIN DOSE THERAPY REFERENCE: * Patients > 75 years receive moderate or high dose statin therapy. * Patients 75 years or YOUNGER should receive HIGH intensity statin dose unless contraindicated. You will be required to document reason for non-treatment if statin daily dose does not meet guidelines. HIGH DOSE STATIN THERAPY DAILY Atorvastatin > than or = to 40 mg Rosuvastatin > than or = to 20 mg Amlodipine + Atorvastatin > than or = to 2.5/40 mg Ezetimibe + Simvastatin 10/80 mg Simvastatin 80mg Discharge Plan Admission Admit Date/Time: 02/14/24 04:13 Primary Reason for Your Visit: Debility. Back pain Attending Provider: Rusty Tijerina Primary Care Provider: Care Physician,No Primary Consulting Providers: Osmel Rodriguez Instructions Additional Instructions / Restrictions: Follow up with pain management. Discharge Orders/Prescriptions Prescriptions: New oxycodone 5 mg Tablet 5 mg PO Q6H PRN PRN (Reason: Pain Score 6-10 Or Pre Pt/Ot) 3 Days Qty: 12 0RF Continued aspirin [Adult Low Dose Aspirin] 81 mg tablet,delayed release (DR/EC) 81 mg PO DAILY oxybutynin chloride 5 mg tablet 5 mg PO DAILY cholecalciferol (vitamin D3) 50 mcg (2,000 unit) capsule 50 mcg PO DAILY pramipexole 0.5 mg tablet 0.5 mg PO QHS famotidine 40 mg tablet 40 mg PO BID PRN (Reason: gerd ) pravastatin 40 mg tablet 40 mg PO QHS amlodipine 5 mg tablet 5 mg PO DAILY Qty: 90 3RF gabapentin 300 mg capsule 300 mg PO TID Qty: 90 0RF trazodone 100 mg tablet 100 mg PO QHS PRN (Reason: sleep ) nystatin 100,000 unit/gram cream 1 applic topical BID cyanocobalamin (vitamin B-12) 500 mcg tablet 500 mcg PO DAILY metoprolol tartrate 25 mg tablet 50 mg PO BID Qty: 180 3RF sennosides-docusate sodium [Senna-S] 8.6-50 mg tablet 2 tab-cap PO BID PRN (Reason: constipation) Qty: 30 2RF polyethylene glycol 3350 [Miralax] 17 gram/dose powder 17 g PO DAILY Qty: 238 0RF ramipril 10 mg capsule 10 mg PO DAILY Qty: 90 3RF Discontinued nystatin [Nyamyc] 100,000 unit/gram powder 1 applic topical BID Referrals / Follow Up: Care Physician,No Primary [Primary Care Provider] - Disposition Disposition (needs filled in before D/C Order can be placed): Home Health Service Charges/Coding Visit Charges Inpatient E&M: 83682 Disch Hosp
== END 2024-02-15 12:48 | disposition home health service (06) ==
LOC: ED 02-14 03:52 → PCU 02-14 03:57
PROVIDERS: Admitting Provider Internal Medicine; Emergency Provider Emergency Medicine
DX: I12.9 Hypertensive chronic kidney disease with stage 1 through stage 4 chronic kidney disease, or unspecified chronic kidney disease (principal); E11.51 Type 2 diabetes mellitus with diabetic peripheral angiopathy without gangrene; E11.40 Type 2 diabetes mellitus with diabetic neuropathy, unspecified; E11.22 Type 2 diabetes mellitus with diabetic chronic kidney disease; N18.30 Chronic kidney disease, stage 3 unspecified; M41.9 Scoliosis, unspecified; E78.5 Hyperlipidemia, unspecified; K21.9 Gastro-esophageal reflux disease without esophagitis; Z95.0 Presence of cardiac pacemaker; I25.10 Atherosclerotic heart disease of native coronary artery without angina pectoris; N30.00 Acute cystitis without hematuria; G47.00 Insomnia, unspecified; G89.29 Other chronic pain; M51.36 Other intervertebral disc degeneration, lumbar region; R53.81 Other malaise; Z79.899 Other long term (current) drug therapy; R53.1 Weakness; Z79.82 Long term (current) use of aspirin
CPT/HCPCS: 71046; 80048; 81001; 82962; 84484; 85025; 87631; 93005; 96361; 96365; 96366; 96375; 97162; 97166; 97802; 99221; 99285; J7030; J7040; A4216; G0378

== ENCOUNTER → 2024-03-06 | Outpatient (CLI) | payer MEDICARE, SELFPAY ==
--- NOTE | 2024-03-06 11:29 | BD_ITS ---
STUDY: DUAL ENERGY X-RAY ABSORPTIOMETRY / DXA REASON FOR EXAM: Female, 88 years old. Post Menopausal TECHNIQUE: Bone Mineral Density (BMD) measurements of lumbar spine and bilateral hips were obtained. COMPARISON: Comparison is made with prior study of April 19, 2016. FINDINGS: Lumbar Spine (L1-L4): g/cm2 (0.930) / T-score (-1.1) / Z-score (1.8) Findings are suggestive of osteopenia with a low fracture risk. Left Femur Total: g/cm2 (0.609) / T-score (-2.7) / Z-score (-0.4) Left Femoral Neck: g/cm2 (0.549) / T-score (-2.7) / Z-score (-0.2) Right Femur Total: g/cm2 (0.667) / T-score (-2.3) / Z-score (0.1) Right Femoral Neck: g/cm2 (0.521) / T-score (-3.0) / Z-score (-0.4) The T-Scores on the most recent prior examination were: Lumbar Spine (L1-L4): There has been worsening of bone density since the previous examination. Left Femur Total: which represents a worsening of 15.7%. Right Femur Total: which represents a worsening of 10%. BD/Dexa Bone Density Study IMPRESSION: The patient is considered osteoporotic as outlined below according to World [place] Organization (WHO) criteria with a high fracture risk. There has been worsening of bone density since the previous examination. Reference Information: The T-score is the number of standard deviations above or below the standard which is normal for young adults at their peak bone mineral density. The World Health Organization (WHO) interprets the T-scores as follows: Above -1 Normal bone density Between -1 and -2.5 Osteopenia Equal to / or below -2.5 Osteoporosis As a practical clinical guideline, osteopenia may be graded as follows: Mild -1 through -1.5 Moderate -1.6 through -2.0 Severe -2.1 through -2.4 The Z-score is the number of standard deviations above or below age-matched controls. A Z-score of less than -1.5 would be considered abnormal. References: 1. NIH Osteoporosis and Related Bone Diseases www osteo.org 2. International Society for Clinical Densitometry www iscd.org 3. National Osteoporosis Foundation www nof.org Electronically Signed: Manan Weston MD at 12:30 EDT ,
== END | disposition home or self-care (01) ==
LOC: OPBD 11:12
PROVIDERS: PCP Internal Medicine; Referring Provider Internal Medicine; Visit Provider Internal Medicine
DX: Z13.820 Encounter for screening for osteoporosis (principal); Z78.0 Asymptomatic menopausal state
CPT/HCPCS: 77080

== ENCOUNTER 2024-04-19 11:41 | Emergency (ER) | payer MEDICARE, SELFPAY ==
[2024-04-19 11:42] VITALS: BP 167/145; PULSE 60; RESP 18; TEMP 36.8; O2SAT 99; BMI 23.2
--- NOTE | 2024-04-19 11:56 | EDS_ITS ---
HPI HPI - GI History of Present Illness Chief Complaint: Diarrhea Informant: patient and family Nausea/Vomiting/Emesis GI Symptom: Negative for Nausea or Vomiting Diarrhea/Melena/Hematochezia GI Symptom: Positive for Diarrhea; Negative for Melena or Hematochezia Onset: Today and Yesterday Stool Quality: Positive for Loose Severity: Mild Associated Symptoms Associated Symptoms: Negative for Dysuria, Frequency, Hematuria or Urgency Narrative Narrative: 88-year-old female history of diabetes, heart block, pacemaker, chronic kidney disease, CAD prior appendectomy, cholecystectomy and hysterectomy. States she has had diarrhea both yesterday and today about 2-3 episodes per day. No fever. No vomiting. No abdominal pain. No dysuria. She lives at home with another family member. Neither of them have been around the imbalances been sick lately. She denies any melena or gross blood. She was on an antibiotic within the last month due to a dog bite but since she did not have diarrhea at that time. Prior similar symptoms: Yes Recent Illness/Hospitalization: Yes PFSH [facility] Medical History History of complete heart block Postmenopausal History of pacemaker Pacemaker Systolic ejection murmur Scoliosis Intermittent claudication Degenerative arthritis of lumbar spine Bulging lumbar disc Widened pulse pressure Weight loss Weakness Vitamin D deficiency Type 2 diabetes mellitus Tremor of both hands Suprapubic mass Skin cancer of face Skin cancer Secondary hyperparathyroidism Scarring of lung Right foot pain Restless leg Recurrent headache Radiculopathy of arm Peripheral vascular disease Peripheral edema Pars defect with spondylolisthesis Pars defect of lumbar spine Pancreatic cyst Overactive bladder Normocytic anemia Neuropathy of thigh Neck pain Nausea Microalbuminuric diabetic nephropathy Microalbuminuria Lumbar facet arthropathy Lumbar degenerative disc disease Leg pain Left hip pain Iron deficiency anemia Intention tremor Insomnia Hypertension goal BP (blood pressure) < 150/90 GERD (gastroesophageal reflux disease) Eye pain Elevated TSH Diverticulosis of colon Diarrhea Diabetic neuropathy Dextroscoliosis of lumbar spine Degenerative joint disease of left hip Cyst of skin Constipation Colonic stricture CKD stage 3 secondary to diabetes Chronic neck pain Chronic low back pain Chronic kidney disease, stage 3 Coronary artery disease Bilateral leg weakness Back pain Atherosclerosis Anxiety Abdominal aortic atherosclerosis Old inferior wall myocardial infarction Essential (primary) hypertension Hyperlipidemia Atherosclerotic heart disease of [place] coronary artery without angina pectoris Left bundle branch block Home Medications ?Medication ?Instructions ?Recorded ?Last Taken ?Type famotidine 40 mg tablet 40 mg PO BID PRN gerd 08/20/23 Unknown History polyethylene glycol 3350 17 17 g PO DAILY #238 grams 02/07/24 Unknown Rx gram/dose oral powder (Miralax) sennosides 8.6 mg-docusate sodium 2 tab-cap (2 x 8.6-50 mg) PO BID 02/07/24 Unknown Rx 50 mg tablet (Senna-S) PRN constipation #30 tabs nystatin 100,000 unit/gram topical 1 applic topical BID 02/14/24 Unknown History cream oxycodone 5 mg tablet 5 mg PO Q6H PRN PRN Pain Score 02/15/24 Unknown Rx 6-10 Or Pre Pt/Ot 3 days #12 tabs amlodipine 5 mg tablet 5 mg PO DAILY blood pressure #90 02/17/24 Unknown Rx tabs aspirin 81 mg tablet,delayed 81 mg PO DAILY heart health #90 02/17/24 Unknown Rx release (Adult Low Dose Aspirin) tabs blood sugar diagnostic (Accu-Chek #100 ea 02/17/24 Unknown Rx Guide test strips) blood-glucose meter (Accu-Chek #1 ea 02/17/24 Unknown Rx Guide Glucose Meter) lancets 26 gauge (CareTouch Safety #100 ea 02/17/24 Unknown Rx Lancets) metoprolol tartrate 25 mg tablet 50 mg (2 x 25 mg) PO BID blood 02/17/24 Unknown Rx pressure #180 tabs oxybutynin chloride 5 mg tablet 5 mg PO DAILY overactive bladder 02/17/24 Unknown Rx #90 tabs pramipexole 0.5 mg tablet 0.5 mg PO QHS tremors #90 tabs 02/17/24 Unknown Rx pravastatin 40 mg tablet 40 mg PO QHS cholesterol #90 tabs 02/17/24 Unknown Rx ramipril 10 mg capsule 10 mg PO DAILY blood pressure #90 02/17/24 Unknown Rx caps trazodone 100 mg tablet 100 mg PO QHS PRN sleep #90 tabs 02/17/24 Unknown Rx omeprazole 40 mg capsule,delayed 40 mg PO QDAY #90 caps 02/27/24 Unknown Rx release cholecalciferol (vitamin D3) 50 50 mcg PO DAILY supplement #90 03/11/24 Unknown Rx mcg (2,000 unit) capsule caps cyanocobalamin (vitamin B-12) 500 500 mcg PO DAILY supplement #90 03/11/24 Unknown Rx mcg tablet tabs gabapentin 300 mg capsule 300 mg PO TID neuropathy 3 months 03/19/24 Unknown Rx #270 caps alogliptin 6.25 mg tablet 6.25 mg PO QAM #30 tabs 04/17/24 Unknown Rx Allergy/AdvReac Type Severity Reaction Status Date / Time acetaminophen (From [employer] Allergy NEEDS Verified 04/19/24 11:42 with Codeine) FOLLOW-UP codeine Allergy Other Verified 04/19/24 11:42 latex Allergy NEEDS Verified 04/19/24 11:42 FOLLOW-UP meperidine Allergy NEEDS Verified 04/19/24 11:42 FOLLOW-UP metoclopramide HCl (From Allergy Other Verified 04/19/24 11:42 Reglan) morphine Allergy Itching Verified 04/19/24 11:42 Penicillins (PCN) Allergy Hives Verified 04/19/24 11:42 prednisone Allergy Other Verified 04/19/24 11:42 ropinirole HCl (From Requip) Allergy Other Verified 04/19/24 11:42 shrimp Allergy NEEDS Verified 04/19/24 11:42 FOLLOW-UP amoxicillin AdvReac Other Verified 04/19/24 11:42 diazepam (From Valium) AdvReac Other Verified 04/19/24 11:42 pregabalin (From Lyrica) AdvReac Somnolence Verified 04/19/24 11:42 Family History Father , age 62 Sudden cardiac CAD (coronary artery disease) Myocardial infarction Heart disease Son Heart disease Myocardial infarction Surgical History History of surgical removal of skin lesion History of breast biopsy History of colonoscopy History of endoscopy History of eye surgery History of carpal tunnel repair History of partial colectomy Hx of cholecystectomy H/O heart surgery H/O: hysterectomy History of left heart catheterization (08/17/03) History of coronary artery stent placement (06/23/99) Social History adopted: No household members: children housing: house current occupational status: retired Smoking Status: Never smoker alcohol intake: never substance use type: does not use caffeine: No ROS ROS ED ROS Narrative Diarrhea. Constitutional Constitutional ED: Denies chills or fever(s) ENT ENT ED: Denies ear pain Cardiovascular Cardiovascular: Denies chest pain Respiratory/Chest Respiratory/Chest: Denies cough or dyspnea Gastrointestinal Gastrointestinal: Reports diarrhea; Denies abdominal pain, constipation, melena, nausea or vomiting Genitourinary Genitourinary ED: Denies dysuria or hematuria Musculoskeletal Musculoskeletal: Denies arthralgias Integumentary Denies abscess Neurologic Neurologic: Denies headache(s) Psychiatric Psychiatric: Denies anxiety Endocrine Endocrinology: Denies polydipsia Hematologic/Lymphatic Hematologic/Lymphatic: Denies easy bleeding Allergic/Immunologic Allergic/Immunologic ED: Denies mouth swelling, tongue swelling or urticaria EXAM Physical Exam Narrative Exam Narrative: Well-appearing 88-year-old female. Vital signs stable afebrile. She does not look septic toxic any distress. Initial blood pressure 167 and 145 out of be rechecked. She is afebrile. H EENT exam pupils round reactive light. Moist rings members. Neck nontender no lymphadenopathy. Lungs clear to auscultation bilaterally. Heart regular rate and rhythm rate about 60 no murmur. Chest wall and ribs nontender. Left-sided pacemaker. Abdomen soft, nontender, nondistended, normal bowel sounds without peritoneal signs. Moving all 4 extremities. Nontender no edema. No deformity. Normal range of motion. Normal strength. Back nontender. Neurologically patient is awake alert no f ocal motor deficits. Answering questions and following commands. Const Vital Signs: 04/19/24 11:42 Temperature 98.3 F Temperature Source Oral Pulse Rate 60 Respiratory Rate 18 Blood Pressure 167/145 H Blood Pressure Mean 152 Pulse Ox 99 Oxygen Delivery Method Room Air Positive well nourished and well developed; Negative for obese, cachectic, contractures or unkempt General Appearance ED: well developed and NAD; Negative for unkempt, cachectic, contractures or pallor Nutritional Appearance: Negative for cachectic or obese HEENT Reports moist mucous membranes normocephalic and atraumatic; Negative for trauma Eyes PERRL and EOMs intact bilaterally General Eye ED: Negative for pale conjunctiva or scleral icterus Neck no lymphadenopathy and supple General: Negative for tenderness Carotids: Negative for other Lymph Lymphatic: Negative for other Resp normal respiratory effort and clear to auscultation bilaterally Effort and Inspection: Negative for respiratory distress Auscultation: Negative for rales, rhonchi, wheezes or diminished lung sounds Cardio regular rate, regular rhythm, S1 normal heart sound, S2 normal heart sound and no murmurs Rate: Negative for bradycardia or tachycardic Rhythm: Negative for abnormal rhythm GI non-tender, non-distended and no masses Inspection: Negative for abdominal distention Auscultation: normoactive bowel sounds Palpation: soft; Negative for tender, guarding, hernia, mass, pulsatile mass or rebound tenderness present Back/Spine no CVA tenderness General Back: Negative for CVA tenderness Cervical Spine: Negative for cervical spine tenderness Thoracic Spine / Upper Back: Negative for thoracic spinal tenderness Lumbar Spine / Lower Back: Negative for lumbar spinal tenderness Extremity full ROM General Extremety ED: Negative for edema or tenderness General Extremity: Negative for edema Neuro CN's II-XII intact bilaterally and moves all extremities Sensorium / Orientation: alert, oriented to person, oriented to place and oriented to time; Negative for orientation impaired, confused, lethargic or stuporous Motor Exam: strength 5/5 throughout Psych mental status grossly normal and thought process normal Appearance: Negative for unkempt Attitude: No agitated Mood & Affect: Negative for depressed, anxious or tearful Skin no wounds General Skin Exam: Negative for jaundice or pallor Lesions: no lesions Rashes: no rashes Trauma: Negative for abrasion Nails: Negative for discolored MDM MDM MDM Narrative Medical decision making narrative: 88-year-old female with 2 days of diarrhea about 3 episodes per day. Clinically does not look bad. Screening labs and she will be given half a liter normal saline bolus. Repeat exam patient doing well at 1:53 PM. We discussed all of her test results which are her baseline. Patient cannot remain discharged home. Fluids and rest. Increase diet slowly. If diarrhea not improving start Imodium. If diarrhea not improving follow-up with her doctor if much worse return to the emergency department. She and family are comfortable with the plan. History & Record Review Discussion w/independent historian: Patient and Family Additional record(s) reviewed:: Prior inpatient record, Prior outpatient record, Prior ED visit and Prior labs Lab Data Attestation: I reviewed the patient's lab results. Lab results narrative: Chemistries show gap of 5. BUN and creatinine 22 and 1.23. Glucose 128. Liver enzymes normal. CBC shows white count of 14. H&H 11.5 and 35.7. Platelets 295. Consistent with prior blood counts. Labs: Laboratory Results - last 24 hr 04/19/24 12:06 WBC 14.0 H RBC 3.89 L Hgb 11.5 L Hct 35.7 L MCV 91.8 MCH 29.6 MCHC 32.2 RDW Std Deviation 48.4 H RDW Coeff of Franky 14.4 Plt Count 295 MPV 9.8 Immature Gran % (Auto) 0.300 Neut % (Auto) 69.1 Lymph % (Auto) 25.0 [place] % (Auto) 4.9 Eos % (Auto) 0.6 Baso % (Auto) 0.1 Absolute Neuts (auto) 9.7 H Absolute Lymphs (auto) 3.50 Nucleated RBC % 0 Sodium 137 Potassium 4.3 Chloride 107 Carbon Dioxide 25.0 Anion Gap 5 BUN 22 H Creatinine 1.23 H Estim Creat Clear Calc 26.15 Est GFR (MDRD) Af Amer 53 L Est GFR (MDRD) Non-Af 44 L BUN/Creatinine Ratio 17.9 Glucose 128 H Calcium 9.5 Total Bilirubin 0.80 AST 26 ALT 20 Alkaline Phosphatase 93 Total Protein 8.2 Albumin 3.8 Globulin 4.4 H Albumin/Globulin Ratio 0.9 Discharge Plan Triage Chief Complaint: Diarrhea ED Provider: Micky Alcala Dx/Rx/DC Orders Clinical Impression: Diarrhea, Viral syndrome Instructions: ED Diarrhea, Viral (Adult) Prescriptions: No Action famotidine 40 mg tablet 40 mg PO BID PRN (Reason: gerd ) omeprazole 40 mg capsule,delayed release(DR/EC) 40 mg PO QDAY Qty: 90 1RF Rx Instructions: Take 30 minutes before breakfast pramipexole 0.5 mg tablet 0.5 mg PO QHS Qty: 90 0RF ramipril 10 mg capsule 10 mg PO DAILY Qty: 90 3RF amlodipine 5 mg tablet 5 mg PO DAILY Qty: 90 3RF metoprolol tartrate 25 mg tablet 50 mg PO BID Qty: 180 0RF pravastatin 40 mg tablet 40 mg PO QHS Qty: 90 0RF oxybutynin chloride 5 mg tablet 5 mg PO DAILY Qty: 90 0RF trazodone 100 mg tablet 100 mg PO QHS PRN (Reason: sleep ) Qty: 90 0RF (DME) blood-glucose meter [[facility]u-Chek Guide Glucose Meter] [facility] See Rx Instructions .Route Qty: 1 0RF Rx Instructions: As directed (DME) lancets [CareTouch Safety Lancets] 26 gauge misc See Rx Instructions .Route Qty: 100 0RF Rx Instructions: Check blood glucose once per day in the am (DME) Accu-Chek Guide test strips Strip See Rx Instructions .Route Qty: 100 0RF Rx Instructions: check blood glucose once a day in the am aspirin [Adult Low Dose Aspirin] 81 mg tablet,delayed release (DR/EC) 81 mg PO DAILY Qty: 90 0RF gabapentin 300 mg capsule 300 mg PO TID 90 Days Qty: 270 1RF Rx Instructions: 600 mg in the morning, 300 mg in the afternoon, 600 mg at night nystatin 100,000 unit/gram cream 1 applic topical BID oxycodone 5 mg Tablet 5 mg PO Q6H PRN PRN (Reason: Pain Score 6-10 Or Pre Pt/Ot) 3 Days Qty: 12 0RF sennosides-docusate sodium [Senna-S] 8.6-50 mg tablet 2 tab-cap PO BID PRN (Reason: constipation) Qty: 30 2RF polyethylene glycol 3350 [Miralax] 17 gram/dose powder 17 g PO DAILY Qty: 238 0RF cholecalciferol (vitamin D3) 50 mcg (2,000 unit) capsule 50 mcg PO DAILY Qty: 90 1RF cyanocobalamin (vitamin B-12) 500 mcg tablet 500 mcg PO DAILY Qty: 90 1RF alogliptin 6.25 mg tablet 6.25 mg PO QAM Qty: 30 1RF Primary Care Provider: Tita Berger Referrals: Tita Berger MD [Primary Care Provider] - 3-5 Days if not improving Activity Restrictions/Additional Instructions: Plenty of fluids and rest. Increase your water intake, 7-Up and Gatorade. Slowly increase your diet as tolerated. Start with yogurt some soup and increase from there. Follow-up with your doctor if not improving. If the diarrhea continues you can start using Imodium. If you are feeling worse and it is getting worse or you have an 10+ episodes of diarrhea a day. Return to the emergency department. Print Language: [place] Disposition Disposition: Home, Self Care
[2024-04-19 12:18] LABS: Absolute Neutrophil Count 9.7 X10^3/uL (2.0-7.7); Basophil# 0.02 X10^3/uL; Basophil% 0.1 % (0-1); Eosinophil# 0.08 X10^3/uL; Eosinophils% 0.6 % (0-5); Hematocrit 35.7 % (37-47); Hemoglobin 11.5 g/dL (12.0-15.0); Mean Corp Hgb Conc 32.2 g/dL (32-36); Mean Corpuscular Hgb 29.6 pg (27.0-32.0); Mean Corpuscular Volume 91.8 fL (81-99); Mean Platelet Vol. 9.8 fl (6.2-12.0); Monocyte# 0.69 X10^3/uL; Monocyte% 4.9 % (0-10); NRBC Flagged by Analyzer 0 % (0-5); Neutrophil # 9.66 X10^3/uL (2.7-7.7); Neutrophil % 69.1 % (47-70); Platelet Count 295 K/mm3 (150-450); RBC Distribution Width CV 14.4 % (11.6-14.6); RBC Distribution Width SD 48.4 fl (35.1-43.9); Red Blood Count 3.89 M/mm3 (4.2-5.4)
[2024-04-19] MEDS: 0.9% Normal Saline (500mL Bag) 500 ML 999 ML IV (12:25)
[2024-04-19 13:22] LABS: ALB/GLOB Ratio 0.9 RATIO (0.9-2.4); AST(SGOT) 26 U/L (15-37); Alanine Aminotransfer ALT/SGPT 20 U/L (13-56); Albumin, Serum 3.8 g/dL (3.2-5.0); Alkaline Phosphatase 93 U/L (45-117); Anion Gap 5 (5-15); BUN 22 mg/dL (7-18); BUN/Creat Ratio 17.9 RATIO (10-20); Calcium,Total 9.5 mg/dL (8.5-10.1); Chloride 107 mmol/L (98-107); Creatinine, Serum 1.23 mg/dL (0.55-1.02); EST Glomerular Filtration Rate 44 mL/min (>60); Est Glom Filt Rate - Afr Amer 53 mL/min (>60); Estimated Creatinine Clearance 26.15 ml/min; Globulin 4.4 g/dL (2.2-4.2); Glucose 128 mg/dL (74-106); Potassium 4.3 mmol/L (3.5-5.1); Protein, Total 8.2 g/dL (6.4-8.2); Sodium Level 137 mmol/L (136-145)
[2024-04-19 13:55] VITALS: BP 154/78; PULSE 77; RESP 18; TEMP 36.8; O2SAT 97
== END 2024-04-19 14:04 | disposition home or self-care (01) ==
PROVIDERS: Emergency Provider Emergency Medicine; PCP Internal Medicine; Visit Provider Emergency Medicine
DX: B34.9 Viral infection, unspecified (principal); E11.22 Type 2 diabetes mellitus with diabetic chronic kidney disease; E11.40 Type 2 diabetes mellitus with diabetic neuropathy, unspecified; N18.30 Chronic kidney disease, stage 3 unspecified; R19.7 Diarrhea, unspecified; I25.10 Atherosclerotic heart disease of native coronary artery without angina pectoris; E78.5 Hyperlipidemia, unspecified; I12.9 Hypertensive chronic kidney disease with stage 1 through stage 4 chronic kidney disease, or unspecified chronic kidney disease; I25.2 Old myocardial infarction; Z95.5 Presence of coronary angioplasty implant and graft; Z79.82 Long term (current) use of aspirin; Z79.84 Long term (current) use of oral hypoglycemic drugs; Z79.899 Other long term (current) drug therapy
CPT/HCPCS: 80053; 85025; 99283

== ENCOUNTER 2024-07-24 10:12 | Observation (INO) | payer MEDICARE, SELFPAY ==
[2024-07-24] VITALS (11 sets, daily range): BP systolic 168–199; BP diastolic 53–99; PULSE 70–84; RESP 14–20; TEMP 36.6–38; O2SAT 90–97; BMI 25.5
--- NOTE | 2024-07-24 10:27 | EKG12_ITS ---
Test Reason : Blood Pressure : */* mmHG Vent. Rate : 76 BPM Atrial Rate : 76 BPM P-R Int : 236 ms QRS Dur : 140 ms QT Int : 380 ms P-R-T Axes : 65 -39 110 degrees QTcB Int : 427 ms Sinus rhythm with 1st degree A-V block Left axis deviation Left bundle branch block Abnormal ECG Confirmed by Chuck Shelton ([id number]), editor newspaper SHANTEL FUENTES ([id number]) on 07/27/2024 9:51:45 AM Referred By: Harshal Raymond Confirmed By: Chuck Shelton
--- NOTE | 2024-07-24 10:28 | EX.ED.DYSGE1 ---
HPI History of Present Illness Chief Complaint: Weakness Informant: patient, family and EMS Narrative Narrative: 89-year-old female presenting for generalized weakness. She states she has been like this all week, which is 4 or 5 days, but worse today to the point where she had trouble getting up due to weakness although she states she was able. She has not been confused. She has had a cough, family states that she complained of some trouble breathing yesterday but the patient denies having any trouble breathing. She has had a mild sore throat. She denies any vomiting diarrhea abdominal pain or chest pain. She admits that she feels weaker today than she has for the rest of the week. [facility] Medical History Osteoporosis History of complete heart block Postmenopausal History of pacemaker Pacemaker Systolic ejection murmur Scoliosis Intermittent claudication Degenerative arthritis of lumbar spine Bulging lumbar disc Widened pulse pressure Weight loss Weakness Vitamin D deficiency Type 2 diabetes mellitus Tremor of both hands Suprapubic mass Skin cancer of face Skin cancer Secondary hyperparathyroidism Scarring of lung Right foot pain Restless leg Recurrent headache Radiculopathy of arm Peripheral vascular disease Peripheral edema Pars defect with spondylolisthesis Pars defect of lumbar spine Pancreatic cyst Overactive bladder Normocytic anemia Neuropathy of thigh Neck pain Nausea Microalbuminuric diabetic nephropathy Microalbuminuria Lumbar facet arthropathy Lumbar degenerative disc disease Leg pain Left hip pain Iron deficiency anemia Intention tremor Insomnia Hypertension goal BP (blood pressure) < 150/90 GERD (gastroesophageal reflux disease) Eye pain Elevated TSH Diverticulosis of colon Diarrhea Diabetic neuropathy Dextroscoliosis of lumbar spine Degenerative joint disease of left hip Cyst of skin Constipation Colonic stricture CKD stage 3 secondary to diabetes Chronic neck pain Chronic low back pain Chronic kidney disease, stage 3 Coronary artery disease Bilateral leg weakness Back pain Atherosclerosis Anxiety Abdominal aortic atherosclerosis Old inferior wall myocardial infarction Essential (primary) hypertension Hyperlipidemia Atherosclerotic heart disease of [place] coronary artery without angina pectoris Left bundle branch block Home Medications ?Medication ?Instructions ?Recorded ?Last Taken ?Type famotidine 40 mg tablet 40 mg PO BID PRN gerd 08/20/23 Unknown History Held on 02/17/24. Instructions: pt states not sure if taking polyethylene glycol 3350 17 17 g PO DAILY #238 grams 02/07/24 Unknown Rx gram/dose oral powder (Miralax) sennosides 8.6 mg-docusate sodium 2 tab-cap (2 x 8.6-50 mg) PO BID 02/07/24 Unknown Rx 50 mg tablet (Senna-S) PRN constipation #30 tabs nystatin 100,000 unit/gram topical 1 applic topical BID 02/14/24 Unknown History cream oxycodone 5 mg tablet 5 mg PO Q6H PRN PRN Pain Score 02/15/24 Unknown Rx 6-10 Or Pre Pt/Ot 3 days #12 tabs aspirin 81 mg tablet,delayed 81 mg PO DAILY heart health #90 02/17/24 Unknown Rx release (Adult Low Dose Aspirin) tabs omeprazole 40 mg capsule,delayed 40 mg PO QDAY #90 caps 02/27/24 Unknown Rx release cholecalciferol (vitamin D3) 50 50 mcg PO DAILY supplement #90 03/11/24 Unknown Rx mcg (2,000 unit) capsule caps cyanocobalamin (vitamin B-12) 500 500 mcg PO DAILY supplement #90 03/11/24 Unknown Rx mcg tablet tabs gabapentin 300 mg capsule 300 mg PO TID neuropathy 3 months 03/19/24 Unknown Rx #270 caps blood sugar diagnostic (Accu-Chek #100 ea 04/27/24 Unknown Rx Guide test strips) blood-glucose meter (Accu-Chek #1 ea 04/27/24 Unknown Rx Guide Glucose Meter) pramipexole 0.5 mg tablet 0.5 mg PO QHS tremors #90 tabs 05/22/24 Unknown Rx denosumab 60 mg/mL subcutaneous 60 mg subcut [id number] #1 mL 05/29/24 Unknown Rx syringe (Prolia) glimepiride 1 mg tablet 1 mg PO QAM #90 tabs 06/15/24 Unknown Rx pravastatin 40 mg tablet 40 mg PO QHS cholesterol #90 tabs 06/15/24 Unknown Rx trazodone 100 mg tablet 100 mg PO QHS PRN sleep #90 tabs 06/15/24 Unknown Rx lancets 26 gauge (CareTouch Safety #100 ea 07/07/24 Unknown Rx Lancets) amlodipine 5 mg tablet 5 mg PO DAILY blood pressure #90 07/22/24 Unknown Rx tabs metoprolol tartrate 25 mg tablet 50 mg (2 x 25 mg) PO BID blood 07/22/24 Unknown Rx pressure #180 tabs oxybutynin chloride 5 mg tablet 5 mg PO DAILY overactive bladder 07/22/24 Unknown Rx #90 tabs ramipril 10 mg capsule 10 mg PO DAILY blood pressure #90 07/22/24 Unknown Rx caps Allergy/AdvReac Type Severity Reaction Status Date / Time acetaminophen (From [facility] Allergy NEEDS Verified 07/24/24 10:12 with Codeine) FOLLOW-UP codeine Allergy Other Verified 07/24/24 10:12 latex Allergy NEEDS Verified 07/24/24 10:12 FOLLOW-UP meperidine Allergy NEEDS Verified 07/24/24 10:12 FOLLOW-UP metoclopramide HCl (From Allergy Other Verified 07/24/24 10:12 Reglan) morphine Allergy Itching Verified 07/24/24 10:12 Penicillins (PCN) Allergy Hives Verified 07/24/24 10:12 prednisone Allergy Other Verified 07/24/24 10:12 ropinirole HCl (From Requip) Allergy Other Verified 07/24/24 10:12 shrimp Allergy NEEDS Verified 07/24/24 10:12 FOLLOW-UP amoxicillin AdvReac Other Verified 07/24/24 10:12 diazepam (From Valium) AdvReac Other Verified 07/24/24 10:12 pregabalin (From Lyrica) AdvReac Somnolence Verified 07/24/24 10:12 Family History Father , age 62 Sudden cardiac CAD (coronary artery disease) Myocardial infarction Heart disease Son Heart disease Myocardial infarction Surgical History History of surgical removal of skin lesion History of breast biopsy History of colonoscopy History of endoscopy History of eye surgery History of carpal tunnel repair History of partial colectomy Hx of cholecystectomy H/O heart surgery H/O: hysterectomy History of left heart catheterization (08/17/03) History of coronary artery stent placement (06/23/99) Social History adopted: No household members: children housing: house current occupational status: retired Smoking Status: Never smoker alcohol intake: never substance use type: does not use caffeine: No ROS ROS ED Constitutional Constitutional ED: Reports as per HPI, fatigue and weakness; Denies chills or fever(s) Eyes Eyes: Denies change in vision or diplopia ENT ENT ED: Reports sore throat; Denies ear pain Cardiovascular Cardiovascular: Denies chest pain or palpitations Respiratory/Chest Respiratory/Chest: Reports cough and other Details: Possible dyspnea see HPI; denies currently Gastrointestinal Gastrointestinal: Denies abdominal pain, diarrhea, nausea or vomiting Genitourinary Genitourinary ED: Denies dysuria or hematuria Musculoskeletal Musculoskeletal: Denies back pain or neck pain Integumentary Denies abscess or rash Neurologic Neurologic: Denies headache(s), paresthesias or weakness Psychiatric Psychiatric: Denies anxiety or suicidal thoughts EXAM Physical Exam Const Vital Signs: 07/24/24 10:12 07/24/24 10:12 07/24/24 11:38 Temperature 98 F Temperature Source Temporal Pulse Rate 72 70 Respiratory Rate 14 14 Respiratory Effort Normal Non-Labored Blood Pressure 196/64 H 199/71 H Blood Pressure Mean 108 113 Pulse Ox 95 96 Oxygen Delivery Method Room Air Room Air 07/24/24 12:23 Temperature Temperature Source Pulse Rate 84 Respiratory Rate 20 H Respiratory Effort Blood Pressure 182/99 H Blood Pressure Mean 126 Pulse Ox 91 Oxygen Delivery Method Room Air Positive well nourished and well developed Constitutional Narrative: Keenly alert no distress follows commands. Nonfocal neurologic exam. General Appearance ED: well developed and NAD HEENT Reports moist mucous membranes normocephalic and atraumatic Eyes PERRL and EOMs intact bilaterally Neck full ROM and supple Resp normal respiratory effort and clear to auscultation bilaterally Cardio regular rate and regular rhythm Heart Sounds: murmur systolic II/ soft left sternal border GI non-tender and non-distended Auscultation: normoactive bowel sounds Palpation: soft Back/Spine no CVA tenderness General Back: other FROM Extremity normal to inspection General Extremety ED: Negative for edema, pulses abnormal or tenderness General Extremity: Negative for edema or pulses abnormal Neuro oriented x3, CN's II-XII intact bilaterally and no sensory deficits noted Neuro Narrative: Oriented, except states the year is 1924 instead 2024. Is redirectable. Sensorium / Orientation: awake and alert Motor Exam: general weakness Skin no rashes or lesions noted and no wounds MDM MDM MDM Narrative Medical decision making narrative: Patient's workup is consistent with positive COVID swab and everything else is basically unremarkable. Urine shows no infection. Chest x-ray 1 view shows no acute pneumonia on my interpretation radiology in agreement. Her EKG shows a stable left bundle branch block, her troponin is within normal limits. She states she is too weak and ill to go home family is in agreement they are having trouble caring for this morning. She is asking for admission to the hospital. I am going to have nursing place her on some oxygen as she is 90-91% on room air. Lab Data Attestation: I reviewed the patient's lab results. Labs: Laboratory Results - last 24 hr 07/24/24 07/24/24 10:37 11:30 WBC 9.9 RBC 3.64 L Hgb 11.0 L Hct 33.6 L MCV 92.3 MCH 30.2 MCHC 32.7 RDW Std Deviation 50.7 H RDW Coeff of Franky 15.0 H Plt Count 233 MPV 9.9 Immature Gran % (Auto) 0.300 Neut % (Auto) 42.4 L Lymph % (Auto) 47.5 H [place] % (Auto) 9.5 Eos % (Auto) 0.1 Baso % (Auto) 0.2 Absolute Neuts (auto) 4.2 Absolute Lymphs (auto) 4.69 H Nucleated RBC % 0 Sodium 133 L Potassium 4.4 Chloride 100 Carbon Dioxide 22.0 Anion Gap 11 BUN 15 Creatinine 1.05 H Est GFR (MDRD) Af Amer 64 Est GFR (MDRD) Non-Af 52 L BUN/Creatinine Ratio 14.3 Glucose 94 Calcium 9.5 Total Bilirubin 0.70 AST 40 H ALT 33 Alkaline Phosphatase 109 Troponin I High Sens 39 Total Protein 7.9 Albumin 3.4 Globulin 4.5 H Albumin/Globulin Ratio 0.8 L Urine Color Yellow Urine Clarity Clear Urine pH 8.0 Ur Specific [place] 1.010 Urine Protein 100 H Urine Glucose (UA) Normal Urine Ketones Negative Urine Occult Blood 25 H Urine Nitrite Negative Urine Bilirubin Negative Urine Urobilinogen Normal Ur Leukocyte Esterase 25 H Urine RBC 0-5 SEEN Urine WBC 0-5 SEEN Ur Squamous Epith Cells 0-5 SEEN Urine Bacteria 0 SEEN Urine Mucus 0 SEEN Radiography Diagnostic Testing: Clinical Impression(s) from Imaging Studies Chest X-Ray 07/24/24 11:00 IMPRESSION: Mild increased markings at the lung bases. This is suggestive of scarring. Reading Location: [place] [id number] Rhythm Strip Rate: 75 Ectopy: None EKG Initial EKG: Attestation: I personally reviewed and interpreted this EKG as follows: Interpretation: Sinus Rhythm, No Acute Injury Pattern and LBBB Management Discussion w/another healthcare provider: Hospitalist Discharge Plan Dx/Rx/DC Orders Clinical Impression: COVID-19, Generalized weakness Disposition Disposition: Acute Care Hospital [facility]
[2024-07-24 10:46] LABS: Absolute Lymphocyte Count 4.69 X10^3/uL (0.83-4.51); Absolute Neutrophil Count 4.2 X10^3/uL (2.0-7.7); Basophil# 0.02 X10^3/uL; Basophil% 0.2 % (0-1); Eosinophil# 0.01 X10^3/uL; Eosinophils% 0.1 % (0-5); Hematocrit 33.6 % (37-47); Lymphocyte # 4.69 X10^3/ul (0.83-4.51); Lymphocyte % 47.5 % (19-41); Mean Corp Hgb Conc 32.7 g/dL (32-36); Mean Corpuscular Hgb 30.2 pg (27.0-32.0); Mean Corpuscular Volume 92.3 fL (81-99); Mean Platelet Vol. 9.9 fl (6.2-12.0); Monocyte# 0.94 X10^3/uL; Monocyte% 9.5 % (0-10); NRBC Flagged by Analyzer 0 % (0-5); Neutrophil # 4.19 X10^3/uL (2.7-7.7); Neutrophil % 42.4 % (47-70); Platelet Count 233 K/mm3 (150-450); RBC Distribution Width SD 50.7 fl (35.1-43.9); Red Blood Count 3.64 M/mm3 (4.2-5.4); White Blood Count 9.9 K/mm3 (4.4-11.0)
--- NOTE | 2024-07-24 11:00 | RAD_ITS ---
PROCEDURE: CHEST 1 VIEW (PORTABLE) REASON FOR EXAM: Weakness, cough and shortness of breath. TECHNIQUE: Single frontal image including the chest and abdomen. COMPARISON: Comparison is made with prior study dated February 14, 2024. FINDINGS: EKG electrodes are seen. Stable mild increased markings at the lung bases suggestive of bibasilar scarring. A left-sided dual-chamber pacemaker is seen. The heart measures upper limits of normal. Atherosclerotic calcification of the aortic arch. Degenerative changes of the thoracic spine. No radiopaque foreign body is identified. RAD/Chest 1 View (Portable) IMPRESSION: Mild increased markings at the lung bases. This is suggestive of scarring. Reading Location: [facility]
[2024-07-24 11:08] LABS: ALB/GLOB Ratio 0.8 RATIO (0.9-2.4); AST(SGOT) 40 U/L (15-37); Alanine Aminotransfer ALT/SGPT 33 U/L (13-56); Albumin, Serum 3.4 g/dL (3.2-5.0); Alkaline Phosphatase 109 U/L (45-117); Anion Gap 11 (5-15); BUN 15 mg/dL (7-18); BUN/Creat Ratio 14.3 RATIO (10-20); Calcium,Total 9.5 mg/dL (8.5-10.1); Chloride 100 mmol/L (98-107); Creatinine, Serum 1.05 mg/dL (0.55-1.02); EST Glomerular Filtration Rate 52 mL/min (>60); Est Glom Filt Rate - Afr Amer 64 mL/min (>60); Globulin 4.5 g/dL (2.2-4.2); Glucose 94 mg/dL (74-106); Potassium 4.4 mmol/L (3.5-5.1); Protein, Total 7.9 g/dL (6.4-8.2); Sodium Level 133 mmol/L (136-145); Troponin-I HS 39 pg/mL (3.0-54.0)
[2024-07-24 11:34] LABS: Bacteria 0 SEEN /hpf (None Seen); Mucous, Urine 0 SEEN /hpf (<or=2+)
[2024-07-24] MEDS: 0.9% Normal Saline (500mL Bag) 500 ML 1000 ML IV (11:37)
[2024-07-24 11:49] LABS: Color, Urine Yellow (Yellow); Glucose, Dipstick Normal (Normal); Ketone-Dipstick Negative (Negative); Leukocyte Esterase-Dipstick 25 /ul (Negative); Nitrite-Dipstick Negative (Negative); Occult Blood-Urine 25 /ul (Negative); Protein-Dipstick 100 mg/dl (Negative); Urine Bilirubin Dipstick Negative (Negative); Urine Clarity Clear (Clear); Urine Urobilinogen Normal (Normal)
[2024-07-24 12:04] LABS: Red Blood Cells-Urine 0-5 SEEN /hpf (0-5); Squamous Epithelial Cells - UA 0-5 SEEN /hpf (5-10); White Blood Cells 0-5 SEEN /hpf (0-5)
--- NOTE | 2024-07-24 12:44 | HP.PCM_ITS ---
HPI - General General Date of Admission: 07/24/24 Date of Service: 07/24/24 Chief Complaint: weakness HPI Narrative NASH ASTORGA, is a 89 F with a PMH as outlined who presents via the ED on 07/24/2024 with a complaint of generalised weakness which had bene going on for about 4-5 days prior to admission.S he had an associated cough but denied any shortness of breath. She denied any nausea, vomiting, palpitations, dizziness or any other symptoms. Review of systems is otherwise negative. Vitals on admission were BP of 178/82, WA of 82, RR of 17 and temp of 98.4F. She was saturating at 94% on room air. CBC shwoed wbc of 9.9, Hb of 11 and platelets of 233. Chemistry showed sodium of 133, potassium of 4.4 and cr of 1.05. Urinalysis showed no evidence of UTI. CXR showed mild increased markings at the lung basis suggestive of scarring. She is being admitted to managed for debility due to COVID 19 infection. [facility] Medical History Osteoporosis History of complete heart block Postmenopausal History of pacemaker Pacemaker Systolic ejection murmur Scoliosis Intermittent claudication Degenerative arthritis of lumbar spine Bulging lumbar disc Widened pulse pressure Weight loss Weakness Vitamin D deficiency Type 2 diabetes mellitus Tremor of both hands Suprapubic mass Skin cancer of face Skin cancer Secondary hyperparathyroidism Scarring of lung Right foot pain Restless leg Recurrent headache Radiculopathy of arm Peripheral vascular disease Peripheral edema Pars defect with spondylolisthesis Pars defect of lumbar spine Pancreatic cyst Overactive bladder Normocytic anemia Neuropathy of thigh Neck pain Nausea Microalbuminuric diabetic nephropathy Microalbuminuria Lumbar facet arthropathy Lumbar degenerative disc disease Leg pain Left hip pain Iron deficiency anemia Intention tremor Insomnia Hypertension goal BP (blood pressure) < 150/90 GERD (gastroesophageal reflux disease) Eye pain Elevated TSH Diverticulosis of colon Diarrhea Diabetic neuropathy Dextroscoliosis of lumbar spine Degenerative joint disease of left hip Cyst of skin Constipation Colonic stricture CKD stage 3 secondary to diabetes Chronic neck pain Chronic low back pain Chronic kidney disease, stage 3 Coronary artery disease Bilateral leg weakness Back pain Atherosclerosis Anxiety Abdominal aortic atherosclerosis Old inferior wall myocardial infarction Essential (primary) hypertension Hyperlipidemia Atherosclerotic heart disease of [place] coronary artery without angina pectoris Left bundle branch block Home Medications ?Medication ?Instructions ?Recorded ?Last Taken ?Type famotidine 40 mg tablet 40 mg PO BID PRN gerd Unknown History Held on 07/24/24. Instructions: . aspirin 81 mg tablet,delayed 81 mg PO DAILY heart heal th #90 02/17/24 Unknown Rx release (Adult Low Dose Aspirin) tabs omeprazole 40 mg capsule,delayed 40 mg PO QDAY #90 cap s 02/27/24 Unknown Rx release cholecalciferol (vitamin D3) 50 50 mcg PO DAILY supple ment #90 03/11/24 Unknown Rx mcg (2,000 unit) capsule caps cyanocobalamin (vitamin B-12) 500 500 mcg PO DAILY sup plement #90 03/11/24 Unknown Rx mcg tablet tabs blood sugar diagnostic (Accu-Chek #100 ea 04/27/24 Unk nown Rx Guide test strips) blood-glucose meter (Accu-Chek #1 ea 04/27/24 Unknown Rx Guide Glucose Meter) pramipexole 0.5 mg tablet 0.5 mg PO QHS tremors #90 t abs 05/22/24 Unknown Rx denosumab 60 mg/mL subcutaneous 60 mg subcut [id number] #1 mL 05/29/24 Unknown Rx syringe (Prolia) glimepiride 1 mg tablet 1 mg PO QAM #90 tabs 5 Unknown Rx pravastatin 40 mg tablet 40 mg PO QHS cholesterol #9 0 tabs 06/15/24 Unknown Rx trazodone 100 mg tablet 100 mg PO QHS PRN sleep #90 tabs 06/15/24 Unknown Rx lancets 26 gauge (CareTouch Safety #100 ea 07/07/24 Un known Rx Lancets) amlodipine 5 mg tablet 5 mg PO DAILY blood pressure #90 07/22/24 Unknown Rx tabs metoprolol tartrate 25 mg tablet 50 mg (2 x 25 mg) PO BID blood 07/22/24 Unknown Rx pressure #180 tabs oxybutynin chloride 5 mg tablet 5 mg PO DAILY overacti ve bladder 07/22/24 Unknown Rx #90 tabs ramipril 10 mg capsule 10 mg PO DAILY blood pressur e #90 07/22/24 Unknown Rx caps gabapentin 300 mg capsule 300 mg PO TID neuropathy Unknown History lancets (Accu-Chek Softclix 07/24/24 Unknown History Lancets) Allergy/AdvReac Type Severity Reaction Status Date / Time acetaminophen (From [facility] Allergy NEEDS Verified 07/24/24 10:12 with Codeine) FOLLOW-UP codeine Allergy Other Verified 07/24/24 10:12 latex Allergy NEEDS Verified 07/24/24 10:12 FOLLOW-UP meperidine Allergy NEEDS Verified 07/24/24 10:12 FOLLOW-UP metoclopramide HCl (From Allergy Other Verified 07/24/24 10:12 Reglan) morphine Allergy Itching Verified 07/24/24 10:12 Penicillins (PCN) Allergy Hives Verified 07/24/24 10:12 prednisone Allergy Other Verified 07/24/24 10:12 ropinirole HCl (From Requip) Allergy Other Verified 07/24/24 10:12 shrimp Allergy NEEDS Verified 07/24/24 10:12 FOLLOW-UP amoxicillin AdvReac Other Verified 07/24/24 10:12 diazepam (From Valium) AdvReac Other Verified 07/24/24 10:12 pregabalin (From Lyrica) AdvReac Somnolence Verified 07/24/24 10:12 Family History Father , age 62 Sudden cardiac CAD (coronary artery disease) Myocardial infarction Heart disease Son Heart disease Myocardial infarction Surgical History History of surgical removal of skin lesion History of breast biopsy History of colonoscopy History of endoscopy History of eye surgery History of carpal tunnel repair History of partial colectomy Hx of cholecystectomy H/O heart surgery H/O: hysterectomy History of left heart catheterization (08/17/03) History of coronary artery stent placement (06/23/99) Social History adopted: No household members: children housing: house current occupational status: retired Smoking Status: Never smoker alcohol intake: never substance use type: does not use caffeine: No ROS Constitutional Constitutional: Reports fatigue, malaise and weakness; Denies anorexia, change in weight, chills or fever(s) Eyes Eyes: Denies change in vision ENT HEENT: Denies dysphagia, headache(s) or sore throat Cardiovascular Cardiovascular: Denies chest pain, edema, orthopnea, palpitations, paroxysmal nocturnal dyspnea or syncope Respiratory/Chest Respiratory/Chest: Reports cough and shortness of breath at rest; Denies shortness of breath with exertion or wheezing Gastrointestinal Gastrointestinal: Denies abdominal pain, constipation, nausea or vomiting Genitourinary Genitourinary: Denies dysuria or nocturia Musculoskeletal Musculoskeletal: Denies muscle weakness Neurologic Neurologic: Denies confusion, dizziness, focal weakness, headache(s), numbness or seizures Psychiatric Psychiatric: Denies anxiety or depression Vital Signs Vital Signs Vital Signs: 07/24/24 10:12 07/24/24 10:12 07/24/24 11:38 Temperature 98 F Temperature Source Temporal Pulse Rate 72 70 Respiratory Rate 14 14 Respiratory Effort Normal Non-Labored Blood Pressure 196/64 H 199/71 H Blood Pressure Mean 108 113 Pulse Ox 95 96 Oxygen Delivery Method Room Air Room Air 07/24/24 12:23 Temperature Temperature Source Pulse Rate 84 Respiratory Rate 20 H Respiratory Effort Blood Pressure 182/99 H Blood Pressure Mean 126 Pulse Ox 91 Oxygen Delivery Method Room Air Weight Weight: 144 lb 6.444 oz Body Mass Index (BMI) 25.5 Physical Exam Const alert, oriented x3, no apparent distress and well nourished General Appearance: cooperative and well developed HEENT normocephalic, head/scalp atraumatic, moist oral mucous membranes and oropharynx normal Eyes PERRL and EOMs intact bilaterally Neck no lymphadenopathy and supple Lymph Lymphatic: no lymphadenopathy noted Resp Resp Narrative: mildly diminished breath sounds bibasally, no wheezes or crackles. On room air. Cardio regular rate, regular rhythm, S1 normal heart sound, S2 normal heart sound and no murmurs GI normal to inspection, nondistended, normoactive bowel sounds, soft to palpation, non-tender and non-distended Extremity normal capillary refill, no clubbing, cyanosis or edema and no calf tenderness General Extremity: no tenderness to palpation of joints or extremities Skin General Skin Exam: no breakdown Neuro CN's II-XII intact bilaterally, no focal motor deficits and no sensory deficits noted Motor Exam: general weakness Psych thought process normal and cooperative Appearance: appropriate Results Lab / Micro Data 07/24/24 10:37 07/24/24 10:37 Labs: Laboratory Results - last 24 hr 07/24/24 10:37: WBC 9.9, RBC 3.64 L, Hgb 11.0 L, Hct 33.6 L, MCV 92.3, MCH 30.2, MCHC 32.7, RDW Std Deviation 50.7 H, RDW Coeff of Franky 15.0 H, Plt Count 233, MPV 9.9, Immature Gran % (Auto) 0.300, Neut % (Auto) 42.4 L, Lymph % (Auto) 47.5 H, [place] % (Auto) 9.5, Eos % (Auto) 0.1, Baso % (Auto) 0.2, Absolute Neuts (auto) 4.2, Absolute Lymphs (auto) 4.69 H, Nucleated RBC % 0, Sodium 133 L, Potassium 4.4, Chloride 100, Carbon Dioxide 22.0, Anion Gap 11, BUN 15, Creatinine 1.05 H, Est GFR (MDRD) Af Amer 64, Est GFR (MDRD) Non-Af 52 L, BUN/Creatinine Ratio 14.3, Glucose 94, Calcium 9.5, Total Bilirubin 0.70, AST 40 H, ALT 33, Alkaline Phosphatase 109, Troponin I High Sens 39, Total Protein 7.9, Albumin 3.4, G lobulin 4.5 H, Albumin/Globulin Ratio 0.8 L 07/24/24 11:30: Urine Color Yellow, Urine Clarity Clear, Urine pH 8.0, Ur Specific [place] 1.010, Urine Protein 100 H, Urine Glucose (UA) Normal, Urine Ketones Negative, Urine Occult Blood 25 H, Urine Nitrite Negative, Urine Bilirubin Negative, Urine Urobilinogen Normal, Ur Leukocyte Esterase 25 H, Urine RBC 0-5 SEEN, Urine WBC 0-5 SEEN, Ur Squamous Epith Cells 0-5 SEEN, Urine Bacteria 0 SEEN, Urine Mucus 0 SEEN Micro: Microbiology 07/24/24 10:58 Mucosa - Nose SARS-CoV-2, Influenza & RSV (PCR) - Final SARS-CoV-2 (COVID 19 PCR) Rhythm Strip Rate: 75 Ectopy: None Imaging Radiology Impression Chest X-Ray 07/24/24 11:00 IMPRESSION: Mild increased markings at the lung bases. This is suggestive of scarring. [facility] Assessment & Plan Assessment/Plan (1) COVID-19: (2) Generalized weakness: PLAN: Plan #Debility and weakness due to COVID 19 infection * admitted with a complaint of weakness. * tested positive for COVID. Flu and RSV tests negative * breathing treatment with bronchodilators * start on PO dexamethasone 6mg daily * titrate oxygen to maintain sats >90% * PT/OT consult * fall precautions * # Hypertension: On amlodipine and metoprolol as well as ramipril #Osteoporosis: On denosumab shots every 6 monthly. #Hyperlipidemia: On pravastatin #TYpe 2 diabetes mellitus * on glimepiride. * ISS. Accuchecks ACHS #History of tremors: Pramipexole DVT prophylaxis: Lovenox CODE STATUS: DNR CCA no intubation * Patient counseled extensively about different types of CODE STATUS including full code, DNR CCA and DNR CCA. Patient elects to be DNRCCA no intubation. Total [id number]-mo-emko time 16 minutes. Charges/Coding Visit Charges Inpatient E&M: 79378 Init Hosp L3 Procedures Hospitalists Procedures: 50719 Advncd Care Plan 30 Min
[2024-07-24] MEDS: Gabapentin 300 MG Capsule PO (21:55)
[2024-07-24] MEDS: Pravastatin 40 MG Tablet PO (21:55)
[2024-07-24] MEDS: Metoprolol Tartrate 50 MG Tablet PO (21:55)
[2024-07-24] MEDS: Pramipexole Di-HCl 0.5 MG Tablet PO (21:55)
[2024-07-24] MEDS: 0.9% Saline Lock 10 ML Syringe IV (21:56)
[2024-07-24] MEDS: traZODone 100 MG Tablet PO (22:13)
[2024-07-25] VITALS (8 sets, daily range): BP systolic 113–126; BP diastolic 41–89; PULSE 60–83; RESP 16–20; TEMP 36.5–37.2; O2SAT 92–98
[2024-07-25] MEDS: Ondansetron 4 MG/2 ML Vial IV (00:37)
[2024-07-25] MEDS: 0.9% Saline Lock 10 ML Syringe IV (00:37)
[2024-07-25 01:09] LABS: Bedside Glucose 117 mg/dL (74-106)
[2024-07-25] MEDS: Gabapentin 300 MG Capsule PO ×3 (06:39→23:31)
[2024-07-25 07:19] LABS: Absolute Lymphocyte Count 2.79 X10^3/uL (0.83-4.51); Absolute Neutrophil Count 3.3 X10^3/uL (2.0-7.7); Basophil# 0.02 X10^3/uL; Basophil% 0.3 % (0-1); Eosinophil# 0.11 X10^3/uL; Eosinophils% 1.6 % (0-5); Hematocrit 33.6 % (37-47); Hemoglobin 11.3 g/dL (12.0-15.0); Lymphocyte # 2.79 X10^3/ul (0.83-4.51); Mean Corp Hgb Conc 33.6 g/dL (32-36); Mean Corpuscular Hgb 30.5 pg (27.0-32.0); Mean Corpuscular Volume 90.6 fL (81-99); Mean Platelet Vol. 9.8 fl (6.2-12.0); Monocyte# 0.58 X10^3/uL; Monocyte% 8.5 % (0-10); NRBC Flagged by Analyzer 0 % (0-5); Neutrophil # 3.27 X10^3/uL (2.7-7.7); Neutrophil % 48.2 % (47-70); Platelet Count 212 K/mm3 (150-450); RBC Distribution Width CV 14.7 % (11.6-14.6); RBC Distribution Width SD 49.3 fl (35.1-43.9); Red Blood Count 3.71 M/mm3 (4.2-5.4); White Blood Count 6.8 K/mm3 (4.4-11.0)
[2024-07-25 07:25] LABS: Bedside Glucose 102 mg/dL (74-106)
[2024-07-25 07:50] LABS: Anion Gap 9 (5-15); BUN 23 mg/dL (7-18); Chloride 99 mmol/L (98-107); Creatinine, Serum 1.21 mg/dL (0.55-1.02); EST Glomerular Filtration Rate 45 mL/min (>60); Est Glom Filt Rate - Afr Amer 54 mL/min (>60); Estimated Creatinine Clearance 28.68 ml/min; Glucose 118 mg/dL (74-106); Potassium 4.3 mmol/L (3.5-5.1); Sodium Level 130 mmol/L (136-145)
[2024-07-25] MEDS: Aspirin E.C. 81 MG Tablet PO (09:26)
[2024-07-25] MEDS: dexAMETHasone 4 MG Tablet 6 MG PO (09:26)
[2024-07-25] MEDS: Cholecalciferol (VIT D3) 25 MCG TABLET (1,000 UNITS) 50 MCG PO (09:26)
[2024-07-25] MEDS: Oxybutynin 5 MG Tablet PO (09:26)
[2024-07-25] MEDS: Glimepiride 1 MG Tablet PO (09:26)
[2024-07-25] MEDS: Ramipril 10 MG Capsule PO (09:26)
[2024-07-25] MEDS: Cyanocobalamin 500 MCG Tablet PO (09:27)
[2024-07-25] MEDS: Pantoprazole Sodium 40 MG Tablet PO (09:27)
[2024-07-25] MEDS: Enoxaparin 40 MG/0.4 ML Syringe SC (09:27)
[2024-07-25] MEDS: amLODIPine 5 MG Tablet PO (09:27)
[2024-07-25] MEDS: Metoprolol Tartrate 50 MG Tablet PO ×2 (09:27→23:30)
[2024-07-25] MEDS: Phenol/Sodium Phenolate 180ML 3 SPRAY MUCOUS MEM ×2 (10:41→15:11)
[2024-07-25 11:14] LABS: Bedside Glucose 107 mg/dL (74-106)
--- NOTE | 2024-07-25 12:25 | PN_ITS ---
Subjective Subjective Patient seen and examined. She was lying comfortably in bed. She denied any cough, chest pain, palpitations, dizziness, nausea, vomiting or any other symptoms. REview of systems is otherwise negative. She remains on room air. Objective Data Objective Data Vital Signs: Vital Signs Temp Pulse Resp BP Pulse Ox O2 Del Method O2 Flow Rate 98.6 F 60 18 120/44 L 93 Room Air 2 07/25/24 09:22 07/25/24 09:27 07/25/24 09:22 07/25/24 09:22 07/25/24 09:22 07/25/24 09:26 07/25/24 00:41 Oxygen Flow Rate (L/min) 2 Oxygen Delivery Method Room Air Weight: 144 lb 6.444 oz Body Mass Index (BMI) 25.5 Intake & Output: Intake and Output for Last 24 Hours 07/23/24 07/24/24 07/25/24 23:59 23:59 23:59 Intake Total 500 / 500 Output Total 220 / 220 Balance 500 / 480 -220 / -220 Lab / Micro Data 07/25/24 07:10 07/25/24 07:10 Labs: Laboratory Results - last 24 hr 07/24/24 22:15: POC Glucose 117 H 07/25/24 06:45: POC Glucose 102 07/25/24 07:10: WBC 6.8, RBC 3.71 L, Hgb 11.3 L, Hct 33.6 L, MCV 90.6, MCH 30.5, MCHC 33.6, RDW Std Deviation 49.3 H, RDW Coeff of Franky 14.7 H, Plt Count 212, MPV 9.8, Immature Gran % (Auto) 0.400, Neut % (Auto) 48.2, Lymph % (Auto) 41.0, Collin % (Auto) 8.5, Eos % (Auto) 1.6, Baso % (Auto) 0.3, Absolute Neuts (auto) 3.3, Absolute Lymphs (auto) 2.79, Nucleated RBC % 0, Sodium 130 L, Potassium 4.3, Chloride 99, Carbon Dioxide 23.0, Anion Gap 9, BUN 23 H, Creatinine 1.21 H, Estim Creat Clear Calc 28.68, Est GFR (MDRD) Af Amer 54 L, Est GFR (MDRD) Non-Af 45 L, BUN/Creatinine Ratio 19.0, Glucose 118 H, Calcium 9.0 07/25/24 10:46: POC Glucose 107 H Micro: Microbiology 07/24/24 10:58 Mucosa - Nose SARS-CoV-2, Influenza & RSV (PCR) - Final SARS-CoV-2 (COVID 19 PCR) Rhythm Strip Rate: 75 Ectopy: None Physical Exam Const alert, oriented x3 and no apparent distress Constitutional Narrative: frail General Appearance: cooperative HEENT normocephalic, head/scalp atraumatic, moist oral mucous membranes and oropharynx normal Eyes PERRL and EOMs intact bilaterally Neck no lymphadenopathy and supple Lymph Lymphatic: no lymphadenopathy noted Resp Resp Narrative: mildly diminished breath sounds bibasally, no wheezes or crackles. On room air. Cardio regular rate, regular rhythm, S1 normal heart sound, S2 normal heart sound and no murmurs GI normal to inspection, nondistended, normoactive bowel sounds, soft to palpation, non-tender and non-distended Extremity normal capillary refill, no clubbing, cyanosis or edema and no calf tenderness General Extremity: no tenderness to palpation of joints or extremities Skin General Skin Exam: no breakdown Neuro CN's II-XII intact bilaterally, no focal motor deficits and no sensory deficits noted Motor Exam: general weakness Psych thought process normal and cooperative Appearance: appropriate Assessment & Plan Assessment/Plan (1) COVID-19: (2) Generalized weakness: PLAN: Plan #Debility and weakness due to COVID 19 infection * admitted with a complaint of weakness. * tested positive for COVID. Flu and RSV tests negative * breathing treatment with bronchodilators * start on PO dexamethasone 6mg daily * titrate oxygen to maintain sats >90% * PT/OT consult * fall precautions * # Hypertension: On amlodipine and metoprolol as well as ramipril #Osteoporosis: On denosumab shots every 6 monthly. #Hyperlipidemia: On pravastatin #TYpe 2 diabetes mellitus * on glimepiride. * ISS. Accuchecks ACHS #History of tremors: Pramipexole DVT prophylaxis: Lovenox CODE STATUS: DNR CCA no intubation * Charges/Coding Visit Charges Inpatient E&M: 43535 Subs Hosp L2
--- NOTE | 2024-07-25 12:54 | CASEMGMT ---
BONIFACIO CM in to discuss RODRIGUEZ form with patient. RN CM explained RODRIGUEZ form, patient voiced understanding. Pt signed form and filed in chart. Pt provided with a copy of signed RODRIGUEZ form. Patient had no further questions or concerns at this time.
--- NOTE | 2024-07-25 13:33 | CASEMGMT ---
Addendum entered by Lali Santos 07/27/24 13:50: BONIFACIO TATUM called pt to inform of [facility] acceptance. Pt grateful and states she is still feeling weak. Denies additional questions at this time. Addendum entered by Lali Santos 07/27/24 13:45: BONIFACIO TATUM received a call from [facility] that they are able to accept patient and the SOC date is 07/29/24. Original Note: BONIFACIO TATUM into pt room, two daughters sitting at bedside. Pt in chair in no distress. BONIFACIO TATUM discussed therapy with patient, discussed [facility] services. Pt would like [facility] for SN, PT and OT. BONIFACIO TATUM placed order and sent referral to [facility]. Pt also discussed wanting private duty [facility], provided list to patient. Pt denies additional questions or concerns at this time.
[2024-07-25 16:14] LABS: Bedside Glucose 142 mg/dL (74-106)
[2024-07-25] MEDS: Pramipexole Di-HCl 0.5 MG Tablet PO (23:30)
[2024-07-25] MEDS: Pravastatin 40 MG Tablet PO (23:30)
[2024-07-25 23:55] LABS: Bedside Glucose 154 mg/dL (74-106)
[2024-07-26 02:30] VITALS: BP 124/48; PULSE 64; RESP 18; TEMP 36.7; O2SAT 92
[2024-07-26] MEDS: Gabapentin 300 MG Capsule PO ×2 (06:07→15:21)
[2024-07-26 06:29] LABS: Bedside Glucose 80 mg/dL (74-106)
[2024-07-26 06:51] LABS: Absolute Lymphocyte Count 2.67 X10^3/uL (0.83-4.51); Absolute Neutrophil Count 3.2 X10^3/uL (2.0-7.7); Hematocrit 32.3 % (37-47); Hemoglobin 10.7 g/dL (12.0-15.0); Lymphocyte # 2.67 X10^3/ul (0.83-4.51); Lymphocyte % 41.7 % (19-41); Mean Corp Hgb Conc 33.1 g/dL (32-36); Mean Corpuscular Hgb 30.1 pg (27.0-32.0); Mean Corpuscular Volume 90.7 fL (81-99); Mean Platelet Vol. 9.8 fl (6.2-12.0); Monocyte# 0.53 X10^3/uL; Monocyte% 8.3 % (0-10); NRBC Flagged by Analyzer 0 % (0-5); Neutrophil # 3.19 X10^3/uL (2.7-7.7); Neutrophil % 49.7 % (47-70); Platelet Count 221 K/mm3 (150-450); RBC Distribution Width CV 14.5 % (11.6-14.6); RBC Distribution Width SD 48.5 fl (35.1-43.9); Red Blood Count 3.56 M/mm3 (4.2-5.4); White Blood Count 6.4 K/mm3 (4.4-11.0)
[2024-07-26 07:30] LABS: Anion Gap 9 (5-15); BUN 49 mg/dL (7-18); BUN/Creat Ratio 24.4 RATIO (10-20); Calcium,Total 8.8 mg/dL (8.5-10.1); Chloride 100 mmol/L (98-107); Creatinine, Serum 2.01 mg/dL (0.55-1.02); EST Glomerular Filtration Rate 25 mL/min (>60); Est Glom Filt Rate - Afr Amer 30 mL/min (>60); Estimated Creatinine Clearance 17.27 ml/min; Glucose 77 mg/dL (74-106); Potassium 4.4 mmol/L (3.5-5.1); Sodium Level 131 mmol/L (136-145)
[2024-07-26 10:52] VITALS: BP 118/42; PULSE 63; RESP 18; TEMP 36.4; O2SAT 93
[2024-07-26] MEDS: Enoxaparin 40 MG/0.4 ML Syringe SC (10:58)
[2024-07-26 10:59] VITALS: PULSE 63
[2024-07-26] MEDS: Ramipril 10 MG Capsule PO (10:59)
[2024-07-26] MEDS: Cholecalciferol (VIT D3) 25 MCG TABLET (1,000 UNITS) 50 MCG PO (10:59)
[2024-07-26] MEDS: dexAMETHasone 4 MG Tablet 6 MG PO (10:59)
[2024-07-26] MEDS: Aspirin E.C. 81 MG Tablet PO (10:59)
[2024-07-26] MEDS: Metoprolol Tartrate 50 MG Tablet PO (10:59)
[2024-07-26] MEDS: Cyanocobalamin 500 MCG Tablet PO (11:00)
[2024-07-26] MEDS: Glimepiride 1 MG Tablet PO (11:00)
[2024-07-26] MEDS: Oxybutynin 5 MG Tablet PO (11:00)
[2024-07-26] MEDS: amLODIPine 5 MG Tablet PO (11:00)
[2024-07-26] MEDS: Pantoprazole Sodium 40 MG Tablet PO (11:00)
[2024-07-26 11:31] LABS: Bedside Glucose 118 mg/dL (74-106)
--- NOTE | 2024-07-26 15:18 | DS.PCM_ITS ---
Providers Date of Admission: 07/24/24 Date of Discharge: 07/26/24 Primary Care Physician: Dr. Tita Berger MD Reason For Visit: HYPOXIA, WEAKNESS DUE TO COVID Diagnosis Discharge Diagnosis (1) COVID-19: Status: Acute Code(s): U07.1 - COVID-19 (2) Generalized weakness: Status: Acute Code(s): R53.1 - Weakness Plan #Debility and weakness due to COVID 19 infection * admitted with a complaint of weakness. * tested positive for COVID. Flu and RSV tests negative * breathing treatment with bronchodilators * start on PO dexamethasone 6mg daily * titrate oxygen to maintain sats >90% * PT/OT consult * fall precautions * # Hypertension: On amlodipine and metoprolol as well as ramipril #Osteoporosis: On denosumab shots every 6 monthly. #Hyperlipidemia: On pravastatin #TYpe 2 diabetes mellitus * on glimepiride. * ISS. Accuchecks ACHS #History of tremors: Pramipexole DVT prophylaxis: Lovenox CODE STATUS: DNR CCA no intubation * Medications at Discharge Home Medications famotidine 40 mg tablet 40 mg PO BID PRN gerd 08/20/23 aspirin 81 mg tablet,delayed release (Adult Low Dose Aspirin) 81 mg PO DAILY heart health #90 tabs 02/17/24 omeprazole 40 mg capsule,delayed release 40 mg PO QDAY #90 caps 02/27/24 cholecalciferol (vitamin D3) 50 mcg (2,000 unit) capsule 50 mcg PO DAILY supplement #90 caps 03/11/24 cyanocobalamin (vitamin B-12) 500 mcg tablet 500 mcg PO DAILY supplement #90 tabs 03/11/24 blood sugar diagnostic (Accu-Chek Guide test strips) #100 ea 04/27/24 blood-glucose meter (Accu-Chek Guide Glucose Meter) #1 ea 04/27/24 pramipexole 0.5 mg tablet 0.5 mg PO QHS tremors #90 tabs 05/22/24 denosumab 60 mg/mL subcutaneous syringe (Prolia) 60 mg subcut [id number] #1 mL 05/29/24 glimepiride 1 mg tablet 1 mg PO QAM #90 tabs 06/15/24 pravastatin 40 mg tablet 40 mg PO QHS cholesterol #90 tabs 06/15/24 trazodone 100 mg tablet 100 mg PO QHS PRN sleep #90 tabs 06/15/24 lancets 26 gauge (CareTouch Safety Lancets) #100 ea 07/07/24 amlodipine 5 mg tablet 5 mg PO DAILY blood pressure #90 tabs 07/22/24 metoprolol tartrate 25 mg tablet 50 mg (2 x 25 mg) PO BID blood pressure #180 tabs 07/22/24 oxybutynin chloride 5 mg tablet 5 mg PO DAILY overactive bladder #90 tabs 07/22/24 ramipril 10 mg capsule 10 mg PO DAILY blood pressure #90 caps 07/22/24 gabapentin 300 mg capsule 300 mg PO TID neuropathy 07/24/24 lancets (Accu-Chek Softclix Lancets) 07/24/24 dexamethasone 6 mg tablet 6 mg PO DAILY #7 tabs 07/26/24 Hospital Course Operations None Procedures None Summary of Care Provided Minutes Spent on Discharge: 55 Hospital Course: NASH ASTORGA, is a 89 F with a PMH as outlined who presents via the ED on 07/24/2024 with a complaint of generalised weakness which had been going on for about 4-5 days prior to admission.S he had an associated cough but denied any shortness of breath. She denied any nausea, vomiting, palpitations, dizziness or any other symptoms. Review of systems was otherwise negative. Vitals on admission were BP of 178/82, GA of 82, RR of 17 and temp of 98.4F. She was saturating at 94% on room air. CBC showed wbc of 9.9, Hb of 11 and platelets of 233. Chemistry showed sodium of 133, potassium of 4.4 and cr of 1.05. Urinalysis showed no evidence of UTI. CXR showed mild increased markings at the lung basis suggestive of scarring. She was admitted to be managed for debility due to COVID 19 infection. She was started on p.o. dexamethasone and breathing treatments bronchodilators. Physical therapy worked with her. Patient felt much better subsequently and did well with physical therapy. She was receptive to having home health care. She was discharged home on 07/06/2024 on p.o. dexamethasone 6 mg daily for 7 days. She is to follow-up with her primary care doctor within 1 to 2 weeks. She was discharged home with home health. Patient seen and examined prior to discharge. She felt well and was eager to be discharged home. She had no complaints. Review of symptoms otherwise negative. Labs and vitals reviewed. Home medication reviewed and reconciled. Physical Exam Const alert, oriented x3, no apparent distress and well nourished Constitutional Narrative: frail General Appearance: cooperative, comfortable, well kempt and well developed Orientation / Consciousness: awake HEENT normocephalic, head/scalp atraumatic, hearing grossly normal bilaterally, moist oral mucous membranes and oropharynx normal Mouth: oral and palatal mucosa normal Eyes PERRL, EOMs intact bilaterally and conjunctivae normal Neck no lymphadenopathy, supple and no JVD Lymph Lymphatic: no lymphadenopathy noted Resp Resp Narrative: mildly diminished breath sounds bibasally, no wheezes or crackles. On room air. Cardio regular rate, regular rhythm, S1 normal heart sound, S2 normal heart sound and no murmurs GI normal to inspection, nondistended, normoactive bowel sounds, soft to palpation, non-tender and non-distended Extremity normal to inspection, full ROM, normal capillary refill, no clubbing, cyanosis or edema and no calf tenderness General Extremity: no tenderness to palpation of joints or extremities Skin no rashes or lesions noted General Skin Exam: no breakdown Neuro oriented x3, CN's II-XII intact bilaterally, moves all extremities, no focal motor deficits and no sensory deficits noted Sensorium / Orientation: awake and alert Motor Exam: strength 5/5 throughout and general weakness Psych thought process normal and cooperative Appearance: appropriate Weight / BMI Weight Weight: 144 lb 6.444 oz Body Mass Index (BMI) 25.5 ABG / Lab / Microbiology Data 07/26/24 06:10 07/26/24 06:10 Laboratory: Laboratory Results - last 24 hr 07/25/24 15:53: POC Glucose 142 H 07/25/24 23:35: POC Glucose 154 H 07/26/24 06:09: POC Glucose 80 07/26/24 06:10: WBC 6.4, RBC 3.56 L, Hgb 10.7 L, Hct 32.3 L, MCV 90.7, MCH 30.1, MCHC 33.1, RDW Std Deviation 48.5 H, RDW Coeff of Franky 14.5, Plt Count 221, MPV 9.8, Immature Gran % (Auto) 0.300, Neut % (Auto) 49.7, Lymph % (Auto) 41.7 H, [place] % (Auto) 8.3, Eos % (Auto) 0.0, Baso % (Auto) 0.0, Absolute Neuts (auto) 3.2, Absolute Lymphs (auto) 2.67, Nucleated RBC % 0, Sodium 131 L, Potassium 4.4, Chloride 100, Carbon Dioxide 22.0, Anion Gap 9, BUN 49 H, Creatinine 2.01 H , Estim Creat Clear Calc 17.27, Est GFR (MDRD) Af Amer 30 L, Est GFR (MDRD) Non- Af 25 L, BUN/Creatinine Ratio 24.4 H, Glucose 77, Calcium 8.8 07/26/24 10:56: POC Glucose 118 H Microbiology: Microbiology 07/24/24 10:58 Mucosa - Nose SARS-CoV-2, Influenza & RSV (PCR) - Final SARS-CoV-2 (COVID 19 PCR) D/C Instructions Discharge Diet: Low fat / Low cholesterol Discharge Activity: Return to Normal Activity Weight Bearing Status: Weight bearing as tolerated Call your doctor if you observe: Fever of 101 or Higher, Shortness of breath, Dizziness, Swelling in the ankles and Chest pain DC O2, CPAP, BIPAP Needs Home O2 Discharge instructions: No DC home with Oxygen: No Meaningful Use Info Meaningful Use Meaningful Use Diagnoses (Choose all that apply): None applicable Ischemic Stroke Statin Dosing Therapy Reference: STATIN DOSE THERAPY REFERENCE: * Patients > 75 years receive moderate or high dose statin therapy. * Patients 75 years or YOUNGER should receive HIGH intensity statin dose unless contraindicated. You will be required to document reason for non-treatment if statin daily dose does not meet guidelines. HIGH DOSE STATIN THERAPY DAILY Atorvastatin > than or = to 40 mg Rosuvastatin > than or = to 20 mg Amlodipine + Atorvastatin > than or = to 2.5/40 mg Ezetimibe + Simvastatin 10/80 mg Simvastatin 80mg Discharge Plan Admission Admit Date/Time: 07/24/24 13:03 Primary Reason for Your Visit: debility and weakness. covid Attending Provider: Harper Wang Primary Care Provider: Tita Berger Instructions Patient Instructions: Coronavirus Disease 2019 (COVID-19): Caring for Yourself or Others, ED Weakness (Uncertain Cause) Discharge Orders/Prescriptions Prescriptions: New dexamethasone 6 mg tablet 6 mg PO DAILY Qty: 7 0RF Continued famotidine 40 mg tablet 40 mg PO BID PRN (Reason: gerd ) omeprazole 40 mg capsule,delayed release(DR/EC) 40 mg PO QDAY Qty: 90 1RF Rx Instructions: Take 30 minutes before breakfast aspirin [Adult Low Dose Aspirin] 81 mg tablet,delayed release (DR/EC) 81 mg PO DAILY Qty: 90 0RF Prolia 60 mg/mL syringe 60 mg subcut [id number] Qty: 1 2RF (DME) lancets [Accu-Chek Softclix Lancets] [facility] [place]abap[place] 300 mg capsule 300 mg PO TID cholecalciferol (vitamin D3) 50 mcg (2,000 unit) capsule 50 mcg PO DAILY Qty: 90 1RF cyanocobalamin (vitamin B-12) 500 mcg tablet 500 mcg PO DAILY Qty: 90 1RF (DME) Accu-Chek Guide test strips Strip See Rx Instructions .Route Qty: 100 2RF Rx Instructions: check blood glucose once a day in the am (DME) blood-glucose meter [Accu-Chek Guide Glucose Meter] [facility] [place] .Route Qty: 1 0RF Rx Instructions: As directed pramipexole 0.5 mg tablet 0.5 mg PO QHS Qty: 90 1RF glimepiride 1 mg tablet 1 mg PO QAM Qty: 90 1RF trazodone 100 mg tablet 100 mg PO QHS PRN (Reason: sleep ) Qty: 90 0RF pravastatin 40 mg tablet 40 mg PO QHS Qty: 90 0RF (DME) lancets [CareTouch Safety Lancets] 26 [place] [facility] [place] Rx Instructions .Route Qty: 100 3RF Rx Instructions: Check blood glucose once per day in the am amlodipine 5 mg tablet 5 mg PO DAILY Qty: 90 0RF metoprolol tartrate 25 mg tablet 50 mg PO BID Qty: 180 1RF oxybutynin chloride 5 mg tablet 5 mg PO DAILY Qty: 90 0RF ramipril 10 mg capsule 10 mg PO DAILY Qty: 90 0RF Referrals / Follow Up: Tita Berger MD [Primary Care Provider] - Within 1 Week Disposition Disposition (needs filled in before D/C Order can be placed): Home Health Service Charges/Coding Visit Charges Inpatient E&M: 30471 Disch Hosp >30min
[2024-07-26 15:22] VITALS: BP 137/53; PULSE 61; RESP 18; TEMP 36.7; O2SAT 92
== END 2024-07-26 16:00 | disposition home health service (06) ==
LOC: ED 13:39 → MS3 14:13
PROVIDERS: Admitting Provider Student in an Organized Health Care Education/Training Program; Emergency Provider Emergency Medicine; PCP Internal Medicine; Referring Provider Emergency Medicine; Visit Provider Student in an Organized Health Care Education/Training Program
DX: U07.1 COVID-19 (principal); E11.40 Type 2 diabetes mellitus with diabetic neuropathy, unspecified; E11.22 Type 2 diabetes mellitus with diabetic chronic kidney disease; N18.30 Chronic kidney disease, stage 3 unspecified; I44.7 Left bundle-branch block, unspecified; R53.1 Weakness; Z79.84 Long term (current) use of oral hypoglycemic drugs; I25.10 Atherosclerotic heart disease of native coronary artery without angina pectoris; R09.02 Hypoxemia; E78.5 Hyperlipidemia, unspecified; R53.81 Other malaise; I12.9 Hypertensive chronic kidney disease with stage 1 through stage 4 chronic kidney disease, or unspecified chronic kidney disease; M81.0 Age-related osteoporosis without current pathological fracture; Z66 Do not resuscitate; Z79.899 Other long term (current) drug therapy; Z79.82 Long term (current) use of aspirin
CPT/HCPCS: 36415; 71045; 80048; 80053; 81001; 82962; 84484; 85025; 87631; 93005; 96361; 96372; 96374; 97162; 97165; 99221; 99285; A4216; G0378; J2405

== ENCOUNTER 2024-07-30 20:17 | Emergency (ER) | payer MEDICARE, SELFPAY ==
[2024-07-30] VITALS (7 sets, daily range): BP systolic 173–189; BP diastolic 56–64; PULSE 73–120; RESP 17–29; TEMP 36.8–37.3; O2SAT 94–97; BMI 25.1
[2024-07-30 20:50] LABS: Bedside Glucose 211 mg/dL (74-106)
[2024-07-30] MEDS: LORazepam 0.5 MG Tablet PO (21:09)
--- NOTE | 2024-07-30 22:33 | EX.ED.DYSGE1 ---
HPI History of Present Illness Chief Complaint: General Illness Detail of Chief Complaint: Presents because of restlessness Informant: patient and family Onset/Context/Timing Onset: Days Context: - (Worse today) Timing: Continuous Quality: Unable to remain still. Location: Generalized Current Severity: Moderate Maximum Severity: Moderate Worsened by: Nothing, history of restless leg syndrome Relieved by: Nothing Associated Symptoms Associated Symptoms: Nothing Narrative Narrative: Patient is a 89-year-old woman. She has history of generalized weakness, restless leg syndrome, debility, complete heart block with pacemaker, GERD, type 2 diabetes, degenerative arthritis of lumbar spine, IgA Gammopathy, coronary disease, essential primary hypertension, hyperlipidemia who presents because she cannot remain still. She states she is restless and anxious. She denies headache, double vision blurry vision loss of vision. Eyes ringers decreased hearing. No trouble speech or swallowing. Denies neck pain. She denies chest pain, shortness of breath, difficulty breathing. She denies pain with breathing. She denies abdominal pain, nausea, vomiting or diarrhea. She denies dysuria, frequency, urgency or hematuria. She denies myalgias or arthralgias. She denies rash. Prior similar symptoms: Yes (Per family) Recent Illness/Hospitalization: No PFSH PFSH Medical History Osteoporosis History of complete heart block Postmenopausal History of pacemaker Pacemaker Systolic ejection murmur Scoliosis Intermittent claudication Degenerative arthritis of lumbar spine Bulging lumbar disc Widened pulse pressure Weight loss Weakness Vitamin D deficiency Type 2 diabetes mellitus Tremor of both hands Suprapubic mass Skin cancer of face Skin cancer Secondary hyperparathyroidism Scarring of lung Right foot pain Restless leg Recurrent headache Radiculopathy of arm Peripheral vascular disease Peripheral edema Pars defect with spondylolisthesis Pars defect of lumbar spine Pancreatic cyst Overactive bladder Normocytic anemia Neuropathy of thigh Neck pain Nausea Microalbuminuric diabetic nephropathy Microalbuminuria Lumbar facet arthropathy Lumbar degenerative disc disease Leg pain Left hip pain Iron deficiency anemia Intention tremor Insomnia Hypertension goal BP (blood pressure) < 150/90 GERD (gastroesophageal reflux disease) Eye pain Elevated TSH Diverticulosis of colon Diarrhea Diabetic neuropathy Dextroscoliosis of lumbar spine Degenerative joint disease of left hip Cyst of skin Constipation Colonic stricture CKD stage 3 secondary to diabetes Chronic neck pain Chronic low back pain Chronic kidney disease, stage 3 Coronary artery disease Bilateral leg weakness Back pain Atherosclerosis Anxiety Abdominal aortic atherosclerosis Old inferior wall myocardial infarction Essential (primary) hypertension Hyperlipidemia Atherosclerotic heart disease of [place] coronary artery without angina pectoris Left bundle branch block Home Medications ?Medication ?Instructions ?Recorded ?Last Taken ?Type famotidine 40 mg tablet 40 mg PO BID PRN gerd 08/20/23 Unknown History aspirin 81 mg tablet,delayed 81 mg PO DAILY heart health #90 02/17/24 Unknown Rx release (Adult Low Dose Aspirin) tabs omeprazole 40 mg capsule,delayed 40 mg PO QDAY #90 caps 02/27/24 Unknown Rx release cholecalciferol (vitamin D3) 50 50 mcg PO DAILY supplement #90 03/11/24 Unknown Rx mcg (2,000 unit) capsule caps cyanocobalamin (vitamin B-12) 500 500 mcg PO DAILY supplement #90 03/11/24 Unknown Rx mcg tablet tabs blood sugar diagnostic (Accu-Chek #100 ea 04/27/24 Unknown Rx Guide test strips) blood-glucose meter (Accu-Chek #1 ea 04/27/24 Unknown Rx Guide Glucose Meter) pramipexole 0.5 mg tablet 0.5 mg PO QHS tremors #90 tabs 05/22/24 Unknown Rx denosumab 60 mg/mL subcutaneous 60 mg subcut [id number] #1 mL 05/29/24 Unknown Rx syringe (Prolia) glimepiride 1 mg tablet 1 mg PO QAM #90 tabs 06/15/24 Unknown Rx trazodone 100 mg tablet 100 mg PO QHS PRN sleep #90 tabs 06/15/24 Unknown Rx lancets 26 gauge (CareTouch Safety #100 ea 07/07/24 Unknown Rx Lancets) amlodipine 5 mg tablet 5 mg PO DAILY blood pressure #90 07/22/24 Unknown Rx tabs metoprolol tartrate 25 mg tablet 50 mg (2 x 25 mg) PO BID blood 07/22/24 Unknown Rx pressure #180 tabs oxybutynin chloride 5 mg tablet 5 mg PO DAILY overactive bladder 07/22/24 Unknown Rx #90 tabs ramipril 10 mg capsule 10 mg PO DAILY blood pressure #90 07/22/24 Unknown Rx caps gabapentin 300 mg capsule 300 mg PO TID neuropathy 07/24/24 Unknown History lancets (Accu-Chek Softclix 07/24/24 Unknown History Lancets) dexamethasone 6 mg tablet 6 mg PO DAILY #7 tabs 07/26/24 Unknown Rx Allergy/AdvReac Type Severity Reaction Status Date / Time acetaminophen (From [facility] Allergy NEEDS Verified 07/30/24 20:19 with Codeine) FOLLOW-UP codeine Allergy Other Verified 07/30/24 20:19 latex Allergy NEEDS Verified 07/30/24 20:19 FOLLOW-UP meperidine Allergy NEEDS Verified 07/30/24 20:19 FOLLOW-UP metoclopramide HCl (From Allergy Other Verified 07/30/24 20:19 Reglan) morphine Allergy Itching Verified 07/30/24 20:19 Penicillins (PCN) Allergy Hives Verified 07/30/24 20:19 prednisone Allergy Other Verified 07/30/24 20:19 ropinirole HCl (From Requip) Allergy Other Verified 07/30/24 20:19 shrimp Allergy NEEDS Verified 07/30/24 20:19 FOLLOW-UP amoxicillin AdvReac Other Verified 07/30/24 20:19 diazepam (From Valium) AdvReac Other Verified 07/30/24 20:19 pregabalin (From Lyrica) AdvReac Somnolence Verified 07/30/24 20:19 Family History Father , age 62 Sudden cardiac CAD (coronary artery disease) Myocardial infarction Heart disease Son Heart disease Myocardial infarction Surgical History History of surgical removal of skin lesion History of breast biopsy History of colonoscopy History of endoscopy History of eye surgery History of carpal tunnel repair History of partial colectomy Hx of cholecystectomy H/O heart surgery H/O: hysterectomy History of left heart catheterization (08/17/03) History of coronary artery stent placement (06/23/99) Social History adopted: No household members: children housing: house current occupational status: retired Smoking Status: Never smoker alcohol intake: never substance use type: does not use caffeine: No ROS ROS ED Constitutional Constitutional ED: Denies chills, fever(s), subjective or sweats Eyes Eyes: Denies blurry vision, change in vision or diplopia ENT ENT ED: Denies ear pain, rhinorrhea or sore throat Cardiovascular Cardiovascular: Denies chest pain, orthopnea, palpitations, paroxysmal nocturnal dyspnea or racing heartbeat Respiratory/Chest Respiratory/Chest: Denies cough, dyspnea, dyspnea on exertion, orthopnea or paroxysmal nocturnal dyspnea Gastrointestinal Gastrointestinal: Denies abdominal pain, constipation, nausea or vomiting Genitourinary Genitourinary ED: Denies dysuria, hematuria or urinary frequency Musculoskeletal Musculoskeletal: Denies arthralgias, back pain, myalgias or neck pain Integumentary Denies rash Neurologic Neurologic: Reports weakness; Denies headache(s) or paresthesias Psychiatric Psychiatric: Reports anxiety and depression; Denies suicidal ideation Endocrine Endocrinology: Denies cold intolerance or heat intolerance Hematologic/Lymphatic Hematologic/Lymphatic: Reports systems reviewed and no addt'l complaints, except as documented EXAM Physical Exam Const Vital Signs: 07/30/24 20:19 Temperature 99.1 F Temperature Source Temporal Pulse Rate 74 Respiratory Rate 18 Blood Pressure 189/56 H Blood Pressure Mean 100 Pulse Ox 94 Oxygen Delivery Method Room Air Vital signs are remarkable for widened pulse pressure and elevated systolic pressure. Positive well nourished and well developed Constitutional Narrative: Patient is fidgety. General Appearance ED: well developed; Negative for cyanotic or diaphoretic HEENT Reports moist mucous membranes HEENT Narrative: Head is atraumatic normocephalic. Ears normal. Nares patent. Uvula midline. No deviation of tongue with protrusion. Eyes PERRL and EOMs intact bilaterally General Eye ED: Negative for pale conjunctiva or scleral icterus Neck no lymphadenopathy, supple and no JVD Resp normal respiratory effort and clear to auscultation bilaterally Cardio regular rate, regular rhythm, S1 normal heart sound, S2 normal heart sound and no murmurs GI normal to inspection, nondistended, normoactive bowel sounds, non-tender, non-distended and no masses; Negative for hepatosplenomegaly Back/Spine no CVA tenderness Extremity normal to inspection General Extremety ED: Negative for edema or tenderness General Extremity: Negative for edema Neuro oriented x3, CN's II-XII intact bilaterally and no sensory deficits noted Neuro Narrative: Patient is difficult to understand because she is not wearing her dentures and her mouth is dry and she slurs her words. Sensorium / Orientation: alert Sensory Exam: No sensory level loss detected Motor Exam: strength 5/5 throughout Psych Mood & Affect: depressed MDM MDM MDM Narrative Medical decision making narrative: Patient has history of restless leg syndrome. Since he is diabetic we will obtain BGT to rule out hypoglycemia. Patient was given Ativan to see if this with make her less fidgety. When she was reassessed at 2231 she was less fidgety but now she is complaining of pain. In light of her allergies she was given Tylenol. One of the daughters is in the room now states she is always like this. In light of this she will be discharged to home History & Record Review Additional record(s) reviewed:: Prior inpatient record (She was admitted less than a week ago for COVID-19. She was admitted February 2024 for complicated urinary tract infection. Beginning of February 2024 she was admitted for heart block.) and Prior outpatient record (Office visit June 2024 for hypertension and GI for GERD) Lab Data Labs: Laboratory Results - last 24 hr 07/30/24 20:24 POC Glucose 211 H Discharge Plan Triage Chief Complaint: General Illness ED Provider: Ashok Benz Dx/Rx/DC Orders Clinical Impression: Motor restlessness, Debility, Atherosclerotic heart disease of [place] coronary artery without angina pectoris, Type 2 diabetes mellitus, Hyperlipidemia, Essential (primary) hypertension, History of pacemaker Instructions: RLS, RLS What to Do Prescriptions: No Action famotidine 40 mg tablet 40 mg PO BID PRN (Reason: gerd ) omeprazole 40 mg capsule,delayed release(DR/EC) 40 mg PO QDAY Qty: 90 1RF Rx Instructions: Take 30 minutes before breakfast aspirin [Adult Low Dose Aspirin] 81 mg tablet,delayed release (DR/EC) 81 mg PO DAILY Qty: 90 0RF Prolia 60 mg/mL syringe 60 mg subcut [id number] Qty: 1 2RF (DME) lancets [Accu-Chek Softclix Lancets] Misc MISCELLANEOUS gabapentin 300 mg capsule 300 mg PO TID dexamethasone 6 mg tablet 6 mg PO DAILY Qty: 7 0RF cholecalciferol (vitamin D3) 50 mcg (2,000 unit) capsule 50 mcg PO DAILY Qty: 90 1RF cyanocobalamin (vitamin B-12) 500 mcg tablet 500 mcg PO DAILY Qty: 90 1RF (DME) Accu-Chek Guide test strips Strip See Rx Instructions .Route Qty: 100 2RF Rx Instructions: check blood glucose once a day in the am (DME) blood-glucose meter [Accu-Chek Guide Glucose Meter] [facility] – [place], [place] See Rx Instructions .Route Qty: 1 0RF Rx Instructions: As directed pramipexole 0.5 mg tablet 0.5 mg PO QHS Qty: 90 1RF glimepiride 1 mg tablet 1 mg PO QAM Qty: 90 1RF trazodone 100 mg tablet 100 mg PO QHS PRN (Reason: sleep ) Qty: 90 0RF (DME) lancets [CareTouch Safety Lancets] [facility] See Rx Instructions .Route Qty: 100 3RF Rx Instructions: Check blood glucose once per day in the am amlodipine 5 mg tablet 5 mg PO DAILY Qty: 90 0RF metoprolol tartrate 25 mg tablet 50 mg PO BID Qty: 180 1RF oxybutynin chloride 5 mg tablet 5 mg PO DAILY Qty: 90 0RF ramipril 10 mg capsule 10 mg PO DAILY Qty: 90 0RF Primary Care Provider: Tita Berger Referrals: Tita Berger MD [Primary Care Provider] - 3-5 Days if not improving Print Language: Turkmen Disposition Disposition: Home, Self Care
--- NOTE | 2024-07-30 22:46 | ED.RN ---
2019 While triaging the pt,this nurse did not understand what the pt said and reiterated what was percieved and the pt's daughter got mad and stated what she said. The pt stated,That is my mean daughter. The daughter agreed.
== END 2024-07-30 23:00 | disposition home or self-care (01) ==
PROVIDERS: Emergency Provider Emergency Medicine; PCP Internal Medicine; Visit Provider Emergency Medicine
DX: R45.1 Restlessness and agitation (principal); E11.22 Type 2 diabetes mellitus with diabetic chronic kidney disease; N18.30 Chronic kidney disease, stage 3 unspecified; R53.81 Other malaise; I25.10 Atherosclerotic heart disease of native coronary artery without angina pectoris; E78.5 Hyperlipidemia, unspecified; I12.9 Hypertensive chronic kidney disease with stage 1 through stage 4 chronic kidney disease, or unspecified chronic kidney disease; K21.9 Gastro-esophageal reflux disease without esophagitis; Z95.0 Presence of cardiac pacemaker; Z79.899 Other long term (current) drug therapy; Z79.82 Long term (current) use of aspirin; Z79.84 Long term (current) use of oral hypoglycemic drugs; Z90.49 Acquired absence of other specified parts of digestive tract; Z90.710 Acquired absence of both cervix and uterus; Z95.5 Presence of coronary angioplasty implant and graft
CPT/HCPCS: 82962; 99283

== ENCOUNTER 2024-09-08 20:17 | Inpatient (IN) | payer MEDICARE, SELFPAY ==
[2024-09-08 20:18] VITALS: BP 190/43; PULSE 65; RESP 18; TEMP 36.6; O2SAT 97
[2024-09-08 20:20] VITALS: BMI 23.8
--- NOTE | 2024-09-08 20:56 | EX.ED.DYSGE1 ---
HPI <Dr. Sami Nick DO - Last Filed: 09/11/24 22:28> History of Present Illness Chief Complaint: [facility] <Dr. Sami Nick DO - Last Filed: 09/11/24 22:28> [facility] Medical History Hoarseness COVID-19 Osteoporosis History of complete heart block Postmenopausal History of pacemaker Pacemaker Systolic ejection murmur Scoliosis Intermittent claudication Degenerative arthritis of lumbar spine Bulging lumbar disc Widened pulse pressure Weight loss Weakness Vitamin D deficiency Type 2 diabetes mellitus Tremor of both hands Suprapubic mass Skin cancer of face Skin cancer Secondary hyperparathyroidism Scarring of lung Right foot pain Restless leg Recurrent headache Radiculopathy of arm Peripheral vascular disease Peripheral edema Pars defect with spondylolisthesis Pars defect of lumbar spine Pancreatic cyst Overactive bladder Normocytic anemia Neuropathy of thigh Neck pain Nausea Microalbuminuric diabetic nephropathy Microalbuminuria Lumbar facet arthropathy Lumbar degenerative disc disease Leg pain Left hip pain Iron deficiency anemia Intention tremor Insomnia Hypertension goal BP (blood pressure) < 150/90 GERD (gastroesophageal reflux disease) Eye pain Elevated TSH Diverticulosis of colon Diarrhea Diabetic neuropathy Dextroscoliosis of lumbar spine Degenerative joint disease of left hip Cyst of skin Constipation Colonic stricture CKD stage 3 secondary to diabetes Chronic neck pain Chronic low back pain Chronic kidney disease, stage 3 Coronary artery disease Bilateral leg weakness Back pain Atherosclerosis Anxiety Abdominal aortic atherosclerosis Old inferior wall myocardial infarction Essential (primary) hypertension Hyperlipidemia Atherosclerotic heart disease of [place] coronary artery without angina pectoris Left bundle branch block Home Medications ?Medication ?Instructions ?Recorded ?Last Taken ?Type famotidine 40 mg tablet 40 mg PO BID PRN gerd 08/20/23 Unknown History aspirin 81 mg tablet,delayed 81 mg PO DAILY heart health #90 02/17/24 Unknown Rx release (Adult Low Dose Aspirin) tabs blood-glucose meter (Accu-Chek #1 ea 04/27/24 Unknown Rx Guide Glucose Meter) pramipexole 0.5 mg tablet 0.5 mg PO QHS tremors #90 tabs 05/22/24 Unknown Rx denosumab 60 mg/mL subcutaneous 60 mg subcut [id number] #1 mL 05/29/24 Unknown Rx syringe (Prolia) glimepiride 1 mg tablet 1 mg PO QAM #90 tabs 06/15/24 Unknown Rx trazodone 100 mg tablet 100 mg PO QHS PRN sleep #90 tabs 06/15/24 Unknown Rx lancets 26 gauge (CareTouch Safety #100 ea 07/07/24 Unknown Rx Lancets) amlodipine 5 mg tablet 5 mg PO DAILY blood pressure #90 07/22/24 Unknown Rx tabs metoprolol tartrate 25 mg tablet 50 mg (2 x 25 mg) PO BID blood 07/22/24 Unknown Rx pressure #180 tabs oxybutynin chloride 5 mg tablet 5 mg PO DAILY overactive bladder 07/22/24 Unknown Rx #90 tabs ramipril 10 mg capsule 10 mg PO DAILY blood pressure #90 07/22/24 Unknown Rx caps lancets (Accu-Chek Softclix 07/24/24 Unknown History Lancets) blood sugar diagnostic (Accu-Chek #100 ea 08/27/24 Unknown Rx Guide test strips) pravastatin 40 mg tablet 40 mg PO QHS #90 tabs 09/03/24 Unknown Rx cholecalciferol (vitamin D3) 50 50 mcg PO DAILY 09/08/24 Unknown History mcg (2,000 unit) tablet amitriptyline 10 mg tablet 10 mg PO DAILY #14 tabs 09/10/24 Unknown Rx ciprofloxacin HCl 250 mg tablet 250 mg PO BID #4 tabs 09/10/24 Unknown Rx (Cipro) gabapentin 300 mg capsule 300 mg PO TID neuropathy #270 caps 09/11/24 Unknown Rx Allergy/AdvReac Type Severity Reaction Status Date / Time codeine Allergy Other Verified 09/08/24 20:21 latex Allergy NEEDS Verified 09/08/24 20:21 FOLLOW-UP meperidine Allergy NEEDS Verified 09/08/24 20:21 FOLLOW-UP metoclopramide HCl (From Allergy Other Verified 09/08/24 20:21 Reglan) morphine Allergy Itching Verified 09/08/24 20:21 Penicillins (PCN) Allergy Hives Verified 09/08/24 20:21 prednisone Allergy Other Verified 09/08/24 20:21 ropinirole HCl (From Requip) Allergy Other Verified 09/08/24 20:21 shrimp Allergy NEEDS Verified 09/08/24 20:21 FOLLOW-UP amoxicillin AdvReac Other Verified 09/08/24 20:21 diazepam (From Valium) AdvReac Other Verified 09/08/24 20:21 pregabalin (From Lyrica) AdvReac Somnolence Verified 09/08/24 20:21 Family History Father , age 62 Sudden cardiac CAD (coronary artery disease) Myocardial infarction Heart disease Son Heart disease Myocardial infarction Surgical History History of surgical removal of skin lesion History of breast biopsy History of colonoscopy History of endoscopy History of eye surgery History of carpal tunnel repair History of partial colectomy Hx of cholecystectomy H/O heart surgery H/O: hysterectomy History of left heart catheterization (08/17/03) History of coronary artery stent placement (06/23/99) Social History adopted: No household members: children housing: house current occupational status: retired Smoking Status: Never smoker alcohol intake: never substance use type: does not use caffeine: No EXAM <Dr. Sami Nick DO - Last Filed: 09/11/24 22:28> Physical Exam Const Vital Signs: 09/08/24 20:18 09/08/24 22:17 09/09/24 00:00 Temperature 97.8 F Temperature Source Oral Pulse Rate 65 65 67 Respiratory Rate 18 19 H 19 H Blood Pressure 190/43 H 169/54 H 160/51 H Blood Pressure Mean 92 92 87 Pulse Ox 97 97 97 Oxygen Delivery Method Room Air Room Air Room Air 09/09/24 00:28 09/09/24 00:29 Temperature 97.9 F 97.9 F Temperature Source Oral Pulse Rate 70 70 Respiratory Rate 21 H 18 Blood Pressure 160/51 H 157/63 H Blood Pressure Mean 87 94 Pulse Ox 94 93 Oxygen Delivery Method Room Air <Dr. Ashok Benz MD - Last Filed: 09/09/24 01:22> Physical Exam Const Vital Signs: 09/08/24 20:18 09/08/24 22:17 09/09/24 00:00 Temperature 97.8 F Temperature Source Oral Pulse Rate 65 65 67 Respiratory Rate 18 19 H 19 H Blood Pressure 190/43 H 169/54 H 160/51 H Blood Pressure Mean 92 92 87 Pulse Ox 97 97 97 Oxygen Delivery Method Room Air Room Air Room Air 09/09/24 00:28 09/09/24 00:29 Temperature 97.9 F 97.9 F Temperature Source Oral Pulse Rate 70 70 Respiratory Rate 21 H 18 Blood Pressure 160/51 H 157/63 H Blood Pressure Mean 87 94 Pulse Ox 94 93 Oxygen Delivery Method Room Air [facility] <Dr. Sami Nick, DO - Last Filed: 09/11/24 22:28> [facility] Narrative Medical decision making narrative: HISTORY OF PRESENT ILLNESS: Chief complaint: Difficulty speaking 89-year-old female history of complete heart block status post pacemaker, GERD, type 2 diabetes, CAD, hypertension, hyperlipidemia they are concerned about patient's speech. No for last 2 weeks has had speech difficulties. Difficulty with expression. Difficulty with comprehension. They note her last known well was on around 08/25/2024 no falls or trauma noted. Patient also infers she may have stomach cancer. She states her head no when asked if she has chest pain or shortness of breath. REVIEW OF SYSTEMS: Pertinent positives: Speech difficulty, abdominal discomfort Pertinent negatives: Headache, chest pain PHYSICAL EXAM: Nursing triage notes reviewed, Vital signs reviewed Constitutional: please see [facility] HENT: MMM Eyes: Pupils equal round and reactive to light, Extraocular muscles intact Neck: No stridor, no JVD, full neck ROM Lungs: Clear to auscultation, No wheezing or rales. No increased work of breathing, no conversational dyspnea, no accessory muscle use, no nasal flaring. No respiratory distress noted Heart: Regular rate and rhythm, No murmurs, No rubs and No gallops, 2+ distal pulses (radial, femoral, posterior tibial) in all extremities Abdomen: Soft, there is no tenderness, rigidity, rebound or guarding, no obvious peritoneal signs, no palpable pulsatile abdominal masses, no auscultated abdominal bruit : No CVAT Extremities: No edema Neuro: Alert, follows commands, answers month and age, has dysmetric bilateral upper extremities, has dysarthria and aphasia. No obvious facial drooping. NIH of 5. Skin: No rash or lesions noted MEDICAL DECISION MAKING: Chief Complaint: please see [facility] External records reviewed: Reviewed prior imaging studies Factors affecting care: as per [facility] Social determinants of health: none History obtained from others: none Consults: none [facility] Narrative: The patient was hypertensive with a blood pressure 190/43 otherwise hemodynamically stable afebrile and nontoxic-appearing. Exam with dysarthria. Dysmetria. NIH of 5 for dysmetria, dysarthria and aphasia. Her last known well was greater than 24 hours prior to arrival which makes her not a candidate for TNK or thrombectomy. I considered the following differential diagnosis: ICH, mass, CVA, intra-abdominal mass. I obtained a broad lab and imaging workup to further elucidate etiology of the patient's complaints. Given concern for GI show did obtain a CT scan abdomen pelvis as well as her usual CVA workup ALL IMAGES (IF OBTAINED) HAVE BEEN PERSONALLY REVIEWED AND INTERPRETED BY MYSELF. EKG with normal sinus and rate of 68, left exudation, left bundle branch block, no obvious similar morphology to previous EKG from July 2024 CBC with leukocytosis suggestive of systemic inflammation, no anemia or thrombocytopenia Urinalysis consistent with UTI with nitrates, leuk esterase CT scan of the brain, CT of the head and neck, CT scan of the abdomen pelvis pending Serum alcohol negative CMP with hemolyzed potassium, no KRYSTIAN, no hepatobiliary pathology Signed out to Dr. Benz pending imaging and admission. The patient and/or family, caregivers express understanding. The patient and/or family, caregivers agrees with the plan. Shared decision making: I will have a discussion with the patient and or visitors regarding risk/benefits of further testing or admission. They will be made aware of of the risk/benefits inherent in this decision they will be given the opportunity to voice understanding. Total critical care time today provided was at least 0 minutes. This excludes separately billable procedures. Critical care time (if documented) is secondary to the patient having high probability of clinically significant/life threatening deterioration in the patient's condition which required my urgent intervention. Impression: 1. Subacute CVA 2. UTI 3. Hypertension Dispo: Admit after CT scans This note was generated with [employer] dictation software. It may contain incorrect words, spelling, and punctuation that were not noted in review of the chart prior to signing. Lab Data Labs: Laboratory Results - last 24 hr 09/08/24 09/08/24 21:11 21:20 WBC 11.7 H RBC 4.00 L Hgb 12.2 Hct 36.4 L MCV 91.0 MCH 30.5 MCHC 33.5 RDW Std Deviation 48.1 H RDW Coeff of Franky 14.3 Plt Count 305 MPV 9.7 Sodium 134 Potassium 5.9 H Chloride 101 Carbon Dioxide 17.4 L Anion Gap 15 BUN 21 H Creatinine 1.15 Estim Creat Clear Calc 27.43 L Est GFR (MDRD) Non-Af 46 L BUN/Creatinine Ratio 18.2 Glucose 127 H Calcium 9.9 Total Bilirubin 0.51 AST 44 H ALT 14 Alkaline Phosphatase 97 Total Protein 8.0 Albumin 4.2 Globulin 3.8 Albumin/Globulin Ratio 1.1 Urine Color Straw Urine Clarity Clear Urine pH 6.5 Ur Specific [place] 1.010 Urine Protein 30 H Urine Glucose (UA) Normal Urine Ketones Negative Urine Occult Blood 10 H Urine Nitrite Positive H Urine Bilirubin Negative Urine Urobilinogen Normal Ur Leukocyte Esterase 100 H Ethyl Alcohol < 10.1 Radiography Diagnostic Testing: Clinical Impression(s) from Imaging Studies Chest X-Ray 09/08/24 21:31 IMPRESSION: No Acute Findings. Reading Location: [facility] Abdomen/Pelvis CT 09/08/24 22:00 IMPRESSION: No acute findings in the abdomen and pelvis. Large colonic stool. Reading Location: [facility] Head/Neck CTA 09/08/24 22:00 IMPRESSION: Atherosclerotic calcification of the anterior and posterior intracranial circulation without hemodynamically significant stenosis. 20% right and 10% left ICA stenosis by NASCET criteria. Reading Location: [facility] <Dr. Ashok Benz MD - Last Filed: 09/09/24 01:22> [facility] Lab Data Attestation: I reviewed the patient's lab results. Lab results narrative: White count is slightly elevated 11.7 thousand. Urinalysis is positive for leukoesterase and nitrites. Micro apparently is pending. Electrolyte panel is unremarkable. Alcohol is less than 10.1. Labs: Laboratory Results - last 24 hr 09/08/24 09/08/24 21:11 21:20 WBC 11.7 H RBC 4.00 L Hgb 12.2 Hct 36.4 L MCV 91.0 MCH 30.5 MCHC 33.5 RDW Std Deviation 48.1 H RDW Coeff of Franky 14.3 Plt Count 305 MPV 9.7 Sodium 134 Potassium 5.9 H Chloride 101 Carbon Dioxide 17.4 L Anion Gap 15 BUN 21 H Creatinine 1.15 Estim Creat Clear Calc 27.43 L Est GFR (MDRD) Non-Af 46 L BUN/Creatinine Ratio 18.2 Glucose 127 H Calcium 9.9 Total Bilirubin 0.51 AST 44 H ALT 14 Alkaline Phosphatase 97 Total Protein 8.0 Albumin 4.2 Globulin 3.8 Albumin/Globulin Ratio 1.1 Urine Color Straw Urine Clarity Clear Urine pH 6.5 Ur Specific [place] 1.010 Urine Protein 30 H Urine Glucose (UA) Normal Urine Ketones Negative Urine Occult Blood 10 H Urine Nitrite Positive H Urine Bilirubin Negative Urine Urobilinogen Normal Ur Leukocyte Esterase 100 H Ethyl Alcohol < 10.1 Radiography Diagnostic Testing: Clinical Impression(s) from Imaging Studies Chest X-Ray 09/08/24 21:31 IMPRESSION: No Acute Findings. Reading Location[facility] [place] Abdomen/Pelvis CT 09/08/24 22:00 IMPRESSION: No acute findings in the abdomen and pelvis. Large colonic stool. Reading Location[facility] Head/Neck CTA 09/08/24 22:00 IMPRESSION: Atherosclerotic calcification of the anterior and posterior intracranial circulation without hemodynamically significant stenosis. 20% right and 10% left ICA stenosis by NASCET criteria. Reading Location: [facility] [place] CT of the head neck reveals no acute abnormality. Radiologist noted sequelae of prior left lentiform nucleus and patchy supratentorial hypodensity, nonspecific, but likely secondary to chronic microvascular ischemia. CT of the abdomen pelvis reveals no acute findings per my review and the interpretation by radiologist. Management Discussion w/another healthcare provider: Hospitalist (Spoke with hospitalist at approximately 0115. Patient will be a full admit to PCU.) Discharge Plan Dx/Rx/DC Orders Clinical Impression: Cerebrovascular accident (CVA) involving left cerebral hemisphere, GERD (gastroesophageal reflux disease), Hyperlipidemia, Urinary tract infection, Elevated blood pressure reading with diagnosis of hypertension, High anion gap metabolic acidosis Disposition Disposition: Acute Care Hospital [facility] Discharge Date/Time: 09/09/24 02:13
--- NOTE | 2024-09-08 20:59 | EKG12_ITS ---
Test Reason : DYSRHYTHMIA Blood Pressure : */* mmHG Vent. Rate : 68 BPM Atrial Rate : 68 BPM P-R Int : 200 ms QRS Dur : 142 ms QT Int : 408 ms P-R-T Axes : 37 -24 170 degrees QTcB Int : 433 ms Normal sinus rhythm Left bundle branch block Abnormal ECG Confirmed by WISAM EUGENE, BROCK ([id number]), newspaper editor managing CLYDE RUIZ ([id number]) on 09/10/2024 8:34:35 AM Referred By: Confirmed By: BROCK JOEL MD
[2024-09-08 21:26] LABS: Color, Urine Straw (Yellow); Glucose, Dipstick Normal (Normal); Ketone-Dipstick Negative (Negative); Leukocyte Esterase-Dipstick 100 /ul (Negative); Nitrite-Dipstick Positive (Negative); Occult Blood-Urine 10 /ul (Negative); Protein-Dipstick 30 mg/dl (Negative); Urine Bilirubin Dipstick Negative (Negative); Urine Clarity Clear (Clear); Urine Urobilinogen Normal (Normal); Urine pH 6.5 (5.0 - 8.0)
[2024-09-08 21:30] LABS: Hematocrit 36.4 % (37-47); Hemoglobin 12.2 g/dL (12.0-15.0); Mean Corp Hgb Conc 33.5 g/dL (32-36); Mean Corpuscular Hgb 30.5 pg (27.0-32.0); Mean Platelet Vol. 9.7 fl (6.2-12.0); Platelet Count 305 K/mm3 (150-450); RBC Distribution Width CV 14.3 % (11.6-14.6); RBC Distribution Width SD 48.1 fl (35.1-43.9); White Blood Count 11.7 K/mm3 (4.4-11.0)
--- NOTE | 2024-09-08 21:31 | RAD_ITS ---
PROCEDURE: CHEST 1 VIEW (PORTABLE) 09/08/2024 REASON FOR EXAM: DIFFICULTY WITH SPEECH TECHNIQUE: Frontal view of the chest. COMPARISON: 07/24/2024 FINDINGS: Hardware: Stable left-sided ICD. Heart: The heart size is normal. Atherosclerotic calcification of the aortic arch. Lungs: Mild bibasilar atelectasis. No focal consolidation. No pneumothorax. No pleural effusion. Bones: Degenerative changes are identified within the thoracic spine. Other: RAD/Chest 1 View (Portable) IMPRESSION: No Acute Findings. [facility]
[2024-09-08 21:46] LABS: Alcohol, Blood (Medical)-Serum < 10.1 mg/dL (<=10.0)
[2024-09-08 21:50] LABS: ALB/GLOB Ratio 1.1 RATIO (0.9-2.4); AST(SGOT) 44 U/L (<=31); Alanine Aminotransfer ALT/SGPT 14 U/L (<=34); Albumin, Serum 4.2 g/dL (3.4-4.8); Alkaline Phosphatase 97 U/L (35-104); Anion Gap 15 (5-15); BUN 21 mg/dL (4-19); BUN/Creat Ratio 18.2 RATIO (10-20); Calcium,Total 9.9 mg/dL (7.6-11.0); Carbon Dioxide 17.4 mmol/L (21.0-32.0); Chloride 101 mmol/L (98-108); Creatinine, Serum 1.15 mg/dL (0.70-1.20); EST Glomerular Filtration Rate 46 (>60); Estimated Creatinine Clearance 27.43 ml/min (50-250); Globulin 3.8 g/dL (2.2-4.2); Glucose 127 mg/dL (70-99); Potassium 5.9 mmol/L (3.3-5.1); Sodium Level 134 mmol/L (133-145); Total Bilirubin 0.51 mg/dL (0.00-1.30)
--- NOTE | 2024-09-08 22:00 | CT_ITS ---
PROCEDURE: ABDOMEN/PELVIS W IV CONT ONLY 09/08/2024 REASON FOR EXAM: ABDOMINAL PAIN/FULLNESS TECHNIQUE: Abdomen and pelvis CT with intravenous contrast. Coronal and Sagittal reconstruction series were provided. PATIENT PREPARATION: Per protocol ORAL CONTRAST TYPE: None. AMOUNT: mL CONTRAST: Omnipaque 350 VOLUME: 100 mL Not Provided Gauge IV One or more dose reduction techniques were used (e.g., Automated exposure control, adjustment of the mA and/or kV according to patient size, use of iterative reconstruction technique. COMPARISON: None FINDINGS: Lung bases: Bibasilar atelectasis. Mild cardiomegaly. Severe coronary artery calcifications. Liver: Normal size. No mass. Gallbladder: No intrahepatic ductal dilation. Common bile duct measures 12 mm. Status post cholecystectomy. Spleen: Normal size. Pancreas: Normal size without evidence of mass surrounding inflammation or ductal dilation. Adrenals: Unremarkable Kidneys: Right inferior pole simple cysts. No calculi or hydronephrosis. Bladder: Unremarkable Reproductive Organs: No pelvic mass. Bowel: Small hiatal hernia. The stomach is otherwise unremarkable. Postoperative changes partial bowel resection with colocolic anastomosis. No bowel dilation or wall thickening. Large amount of colonic stool. Appendix: The appendix is not identified. There is no inflammatory process identified in the right lower quadrant to suggest appendicitis. Lymph nodes: No suspicious lymph node enlargement. Vasculature: Severe diffuse diffuse atherosclerotic calcifications are noted. Peritoneum / Retroperitoneum: No ascites. No pneumoperitoneum. Bones: Degenerative changes of the spine. Grade 1 anterolisthesis L5 on S1 and bilateral L5-S1 pars defect. Moderate L2 compression deformity. CT/Abdomen/Pelvis W IV Cont ONLY IMPRESSION: No acute findings in the abdomen and pelvis. Large colonic stool. Reading [facility]
--- NOTE | 2024-09-08 22:00 | CT_ITS ---
PROCEDURE: CTA HEAD AND NECK W/ CONTRAST 09/08/2024 REASON FOR EXAM: DIFFICULTY SPEAKING TECHNIQUE: CTA imaging of the head and neck from the aortic arch to the skull vertex with intravenous contrast. Coronal and Sagittal reconstruction series were provided. 3D, 3D post processing, 3D reconstructions, Maximum intensity projection (MIPs) Volume rendering and Shaded surface rendering was provided. CONTRAST: Omnipaque 350 VOLUME: 100 mL Not Provided Gauge IV One or more dose reduction techniques were used (e.g., Automated exposure control, adjustment of the mA and/or kV according to patient size, use of iterative reconstruction technique). # of known CTs in the past 12 months: 0 # of known Cardiac Nuclear Medicine Studies in the past 12 months: 0 COMPARISON: None FINDINGS: Aortic Arch: Atherosclerotic calcification of the aortic arch without hemodynamically significant stenosis Brachiocephalic and Subclavians: Diffuse atherosclerotic calcification of the proximal brachiocephalic vessels, without hemodynamically significant stenosis. RIGHT Carotid: Right CCA: Mild calcified and soft plaque. Right ICA: Retropharyngeal course of the right ICA. [id number] atherosclerotic calcification most prominent at the bifurcation with resultant luminal narrowing Maximum stenosis (NASCET): 20 % Right ECA: Unremarkable. LEFT Carotid: Left CCA: Mild calcified and soft plaque. Left ICA: Retropharyngeal course of the right ICA. Mild atherosclerotic calcification without hemodynamically significant stenosis Maximum stenosis (NASCET): 10 % Left ECA: Unremarkable. Vertebrals: Codominant. Arise from the subclavians. Both vertebrals form the basilar. RIGHT Vertebral: Unremarkable. LEFT Vertebral: Unremarkable. Anatomy: [place] anatomy is normal. Aneurysm or avm: No intracranial aneurysms or large vascular malformations are identified. Anterior cerebral arteries: Unremarkable: Middle cerebral arteries: Atherosclerotic calcification of the bilateral carotid siphons, without hemodynamically significant stenosis. Basilar artery: Unremarkable. Posterior cerebral arteries: Unremarkable. Other major branches of the posterior circulation: Unremarkable. Major venous structures: Unremarkable. Other findings: Neck: Several thyroid lobe low-attenuation nodules, the largest in the right thyroid lobe measures 10 mm. Lungs: Lung apices are clear. Bones: Moderate degenerative changes of the thoracic spine. CT/CTA Head AND Neck W/ Contrast IMPRESSION: Atherosclerotic calcification of the anterior and posterior intracranial circul ation without hemodynamically significant stenosis. 20% right and 10% left ICA stenosis by NASCET criteria. Reading Location: [facility]
[2024-09-08 22:17] VITALS: BP 169/54; PULSE 65; RESP 19; O2SAT 97
[2024-09-08] MEDS: Ciprofloxacin 400 MG/200 ML BAG 200 MG IV (23:24)
[2024-09-09] VITALS (16 sets, daily range): BP systolic 142–193; BP diastolic 48–102; PULSE 61–80; RESP 14–21; TEMP 36.2–36.8; O2SAT 92–98; BMI 23.3
[2024-09-09] MEDS: Pramipexole Di-HCl 0.5 MG Tablet PO ×2 (01:15→21:08)
--- NOTE | 2024-09-09 01:15 | PCM.HP.STD ---
[facility] - General General Date of Admission: 09/09/24 Date of Service: 09/09/24 Chief Complaint: Expressive Aphasia and Dysmetria. [facility] Narrative NASH ASTORGA, is a 89 F with a past medical history of essential hypertension; on amlodipine, metoprolol and ramipril, hyperlipidemia; on pravastatin, DM-2; of unknown control on glimepiride, diabetic neuropathy, history of CAD; s/p inferior wall SC with subsequent proximal RCA stent (1999) on baby aspirin daily, history of CHB; s/p PPM (02/2024), history of syncope, CKD; stage IIIa, history of IgA gammopathy, anemia of chronic disease, history of COVID-19, history of vitamin D deficiency; on replacement, history of intention tremor, RLS; on pramipexole, depression; on trazodone, history of skin cancer of the face; s/p excision, history of suprapubic mass, OAB; on oxybutynin, remote history of hysterectomy (1973), history of colonic diverticulosis, history of colonic stricture; s/p partial colectomy (2006), history of cholecystectomy (2004), GERD; on famotidine twice daily as needed, osteoporosis; on denosumab and OA; history of dextroscoliosis and DDD of the lumbar spine with chronic back pain who presents to [facility] ER complaining of difficulty speaking. Ms. Astorga is not a fully-reliable historian but she reports her symptoms began approximately 1 week prior to admission with the apparent sudden onset of expressive aphasia and dysmetria. Her family informed initial ER provider that she was last known well on August 25, 2024 with no falls or trauma noted. She admits to abdominal pain but is obviously having difficulty expressing herself and comprehending speech at this time. In the ER she was diagnosed with suspected Subacute CVA; causing her to have persistent dysmetria and dysarthria for the past ~7 days complicated by Leukocytosis of 11.7 K present on admission with a corresponding UA suggestive of Acute Cystitis; without hematuria compounded by laboratory evidence of Hyperkalemia of 5.9 mmol/L present on admission with nonenhanced CT of the brain demonstrated no evidence of acute infarct, ICH or extra-axial collection but positive for sequela of prior Left lentiform nucleus with patchy hypodensity, nonspecific but likely secondary to chronic microvascular ischemia with mild generalized volume loss along with CT scan of the abdomen and pelvis with IV contrast that revealed no acute findings in the abdomen or pelvis with large colonic stool. She was then admitted to the PCU for ongoing care for a stay that is expected to extend beyond 2 midnights. [facility], LATER [facility] Medical History Hoarseness COVID-19 Osteoporosis History of complete heart block Postmenopausal History of pacemaker Pacemaker Systolic ejection murmur Scoliosis Intermittent claudication Degenerative arthritis of lumbar spine Bulging lumbar disc Widened pulse pressure Weight loss Weakness Vitamin D deficiency Type 2 diabetes mellitus Tremor of both hands Suprapubic mass Skin cancer of face Skin cancer Secondary hyperparathyroidism Scarring of lung Right foot pain Restless leg Recurrent headache Radiculopathy of arm Peripheral vascular disease Peripheral edema Pars defect with spondylolisthesis Pars defect of lumbar spine Pancreatic cyst Overactive bladder Normocytic anemia Neuropathy of thigh Neck pain Nausea Microalbuminuric diabetic nephropathy Microalbuminuria Lumbar facet arthropathy Lumbar degenerative disc disease Leg pain Left hip pain Iron deficiency anemia Intention tremor Insomnia Hypertension goal BP (blood pressure) < 150/90 GERD (gastroesophageal reflux disease) Eye pain Elevated TSH Diverticulosis of colon Diarrhea Diabetic neuropathy Dextroscoliosis of lumbar spine Degenerative joint disease of left hip Cyst of skin Constipation Colonic stricture CKD stage 3 secondary to diabetes Chronic neck pain Chronic low back pain Chronic kidney disease, stage 3 Coronary artery disease Bilateral leg weakness Back pain Atherosclerosis Anxiety Abdominal aortic atherosclerosis Old inferior wall myocardial infarction Essential (primary) hypertension Hyperlipidemia Atherosclerotic heart disease of [place] coronary artery without angina pectoris Left bundle branch block Home Medications ?Medication ?Instructions ?Recorded ?Last Taken ?Type famotidine 40 mg tablet 40 mg PO BID PRN gerd 08/20/23 Unknown History aspirin 81 mg tablet,delayed 81 mg PO DAILY heart health #90 02/17/24 Unknown Rx release (Adult Low Dose Aspirin) tabs cyanocobalamin (vitamin B-12) 500 500 mcg PO DAILY supplement #90 03/11/24 Unknown Rx mcg tablet tabs blood-glucose meter (Accu-Chek #1 ea 04/27/24 Unknown Rx Guide Glucose Meter) pramipexole 0.5 mg tablet 0.5 mg PO QHS tremors #90 tabs 05/22/24 Unknown Rx denosumab 60 mg/mL subcutaneous 60 mg subcut [id number] #1 mL 05/29/24 Unknown Rx syringe (Prolia) glimepiride 1 mg tablet 1 mg PO QAM #90 tabs 06/15/24 Unknown Rx trazodone 100 mg tablet 100 mg PO QHS PRN sleep #90 tabs 06/15/24 Unknown Rx lancets 26 gauge (CareTouch Safety #100 ea 07/07/24 Unknown Rx Lancets) amlodipine 5 mg tablet 5 mg PO DAILY blood pressure #90 07/22/24 Unknown Rx tabs metoprolol tartrate 25 mg tablet 50 mg (2 x 25 mg) PO BID blood 07/22/24 Unknown Rx pressure #180 tabs oxybutynin chloride 5 mg tablet 5 mg PO DAILY overactive bladder 07/22/24 Unknown Rx #90 tabs ramipril 10 mg capsule 10 mg PO DAILY blood pressure #90 07/22/24 Unknown Rx caps lancets (Accu-Chek Softclix 07/24/24 Unknown History Lancets) cholecalciferol (vitamin D3) 50 50 mcg PO DAILY supplement #90 08/25/24 Unknown Rx mcg (2,000 unit) capsule caps blood sugar diagnostic (Accu-Chek #100 ea 08/27/24 Unknown Rx Guide test strips) pravastatin 40 mg tablet 40 mg PO QHS #90 tabs 09/03/24 Unknown Rx cholecalciferol (vitamin D3) 50 50 mcg PO DAILY 09/08/24 Unknown History mcg (2,000 unit) tablet gabapentin 300 mg capsule 300 mg PO DAILY neuropathy 09/08/24 Unknown History Allergy/AdvReac Type Severity Reaction Status Date / Time codeine Allergy Other Verified 09/08/24 20:21 latex Allergy NEEDS Verified 09/08/24 20:21 FOLLOW-UP meperidine Allergy NEEDS Verified 09/08/24 20:21 FOLLOW-UP metoclopramide HCl (From Allergy Other Verified 09/08/24 20:21 Reglan) morphine Allergy Itching Verified 09/08/24 20:21 Penicillins (PCN) Allergy Hives Verified 09/08/24 20:21 prednisone Allergy Other Verified 09/08/24 20:21 ropinirole HCl (From Requip) Allergy Other Verified 09/08/24 20:21 shrimp Allergy NEEDS Verified 09/08/24 20:21 FOLLOW-UP amoxicillin AdvReac Other Verified 09/08/24 20:21 diazepam (From Valium) AdvReac Other Verified 09/08/24 20:21 pregabalin (From Lyrica) AdvReac Somnolence Verified 09/08/24 20:21 Family History Father , age 62 Sudden cardiac CAD (coronary artery disease) Myocardial infarction Heart disease Son Heart disease Myocardial infarction Surgical History History of surgical removal of skin lesion History of breast biopsy History of colonoscopy History of endoscopy History of eye surgery History of carpal tunnel repair History of partial colectomy Hx of cholecystectomy H/O heart surgery H/O: hysterectomy History of left heart catheterization (08/17/03) History of coronary artery stent placement (06/23/99) Social History adopted: No household members: children housing: house current occupational status: retired Smoking Status: Never smoker alcohol intake: never substance use type: does not use caffeine: No ROS ROS Narrative Full review of systems was not possible due to patient's dysarthria and confusion. Vital Signs Vital Signs Vital Signs: 09/08/24 20:18 09/08/24 22:17 09/09/24 00:00 Temperature 97.8 F Temperature Source Oral Pulse Rate 65 65 67 Respiratory Rate 18 19 H 19 H Blood Pressure 190/43 H 169/54 H 160/51 H Blood Pressure Mean 92 92 87 Pulse Ox 97 97 97 Oxygen Delivery Method Room Air Room Air Room Air 09/09/24 00:28 09/09/24 00:29 Temperature 97.9 F 97.9 F Temperature Source Oral Pulse Rate 70 70 Respiratory Rate 21 H 18 Blood Pressure 160/51 H 157/63 H Blood Pressure Mean 87 94 Pulse Ox 94 93 Oxygen Delivery Method Room Air Weight Weight: 134 lb 7.712 oz Body Mass Index (BMI) 23.8 Physical Exam Const alert Results Medical Records Data Attestation: I reviewed the patient's medical records Lab / Micro Data Attestation: I reviewed the patient's lab results. 09/08/24 21:20 09/08/24 21:20 Labs: Laboratory Results - last 24 hr 09/08/24 21:11: Urine Color Straw, Urine Clarity Clear, Urine pH 6.5, Ur Specific [place] 1.010, Urine Protein 30 H, Urine Glucose (UA) Normal, Urine Ketones Negative, Urine Occult Blood 10 H, Urine Nitrite Positive H, Urine Bilirubin Negative, Urine Urobilinogen Normal, Ur Leukocyte Esterase 100 H 09/08/24 21:20: WBC 11.7 H, RBC 4.00 L, Hgb 12.2, Hct 36.4 L, MCV 91.0, MCH 30.5, MCHC 33.5, RDW Std Deviation 48.1 H, RDW Coeff of Franky 14.3, Plt Count 305, MPV 9.7, Sodium 134, Potassium 5.9 H, Chloride 101, Carbon Dioxide 17.4 L, Anion Gap 15, BUN 21 H, Creatinine 1.15, Estim Creat Clear Calc 27.43 L, Est GFR (MDRD) Non-Af 46 L, BUN/Creatinine Ratio 18.2, Glucose 127 H, Calcium 9.9, Total Bilirubin 0.51, AST 44 H, ALT 14, Alkaline Phosphatase 97, Total Protein 8.0, Albumin 4.2, Globulin 3.8, Albumin/Globulin Ratio 1.1, Ethyl Alcohol < 10.1 Imaging Radiology Impression Chest X-Ray 09/08/24 21:31 IMPRESSION: No Acute Findings. Reading Location: [facility] Abdomen/Pelvis CT 09/08/24 22:00 IMPRESSION: No acute findings in the abdomen and pelvis. Large colonic stool. Reading Location: [facility] Head/Neck CTA 09/08/24 22:00 IMPRESSION: Atherosclerotic calcification of the anterior and posterior intracranial circulation without hemodynamically significant stenosis. 20% right and 10% left ICA stenosis by NASCET criteria. Reading Location: [facility] Assessment & Plan Assessment/Plan (1) Cerebrovascular accident (CVA) involving left cerebral hemisphere: (2) Acute cystitis without hematuria: (3) Leukocytosis: QUALIFIERS: Leukocytosis type: unspecified Qualified Code(s): D72.829 - Elevated white blood cell count, unspecified (4) Hyperkalemia: (5) Abdominal pain: QUALIFIERS: Abdominal location: unspecified location Qualified Code(s): R10.9 - Unspecified abdominal pain (6) Constipation: QUALIFIERS: Constipation type: unspecified constipation type Qualified Code(s): K59.00 - Constipation, unspecified (7) Type 2 diabetes mellitus: QUALIFIERS: Diabetes mellitus complication status: without complication Diabetes mellitus long term care administrator insulin use: without long term care administrator use Qualified Code(s): E11.9 - Type 2 diabetes mellitus without complications (8) Neuropathy: (9) Essential (primary) hypertension: (10) Hyperlipidemia: QUALIFIERS: Hyperlipidemia type: pure hypercholesterolemia Qualified Code(s): E78.00 - Pure hypercholesterolemia, unspecified; E78.0 - Pure hypercholesterolemia (11) Atherosclerotic heart disease of [place] coronary artery without angina pectoris: QUALIFIERS: [place] vs. transplanted heart: [place] heart Qualified Code(s): I25.10 - Atherosclerotic heart disease of [place] coronary artery without angina pectoris (12) Old inferior wall myocardial infarction: (13) History of coronary artery stent placement: PLAN: Plan 1. Subacute CVA; causing her to have persistent dysmetria and dysarthria for the past ~7 days - Admit to PCU. Continue baby aspirin and statin. Check MRI of the brain to evaluate for suspected subacute CVA. Check carotid Doppler to evaluate for stenosis. Check echocardiogram to evaluate LVEF. Check TSH, B12, folate, UDS and [place]. We will attempt to avoid potentially ELECTRONICS TEACHER-active agents. Finally, we will consult [facility] to see this patient with help appreciated in advance. 2. Leukocytosis of 11.7 K present on admission with a corresponding UA suggestive of Acute Cystitis; without hematuria complicating #1 - Continue IV ciprofloxacin begun in the ER and await culture and sensitivity data. Give acetaminophen LA as needed for pain or fever. 3. Hyperkalemia of 5.9 mmol/L present on admission compounding #1 & #2 - This issue was apparently not treated in the ER. Give gentle IV fluid, IV insulin, IV glucose and rectal Kayexalate plus recheck level in a.m. to follow trend of hopeful improvement. 4. Abdominal Pain with CT evidence of large colonic stool adding to the medical complexity of #1 - #3 - Give soaps suds enema to promote expression of bowel continence and then maintain on chronic regimen when patient is able to tolerate oral intake. 5. DM-2; of unknown control on glimepiride plus diabetic neuropathy adding to the burden of disease outlined from #1 - #4 - Keep NPO till formal swallowing study can be obtained. FSBS every 6 hours plus lowest-intensity SSI. Check hemoglobin A1c to objectively evaluate quality of diabetic control. 6. Essential hypertension; on amlodipine, metoprolol and ramipril - Hold scheduled antihypertensives until stroke definitively ruled out on MRI. 7. Hyperlipidemia; on pravastatin - Continue statin and check Lipid Profile in light of #1. 8. History of CAD; s/p inferior wall SC with subsequent proximal RCA stent (1999) on baby aspirin daily - Resume BASA daily. 9. History of CHB; s/p PPM (02/2024) - Noted. 10. History of syncope - Noted with no recent evidence of recurrence at this time. 11. CKD; stage IIIa - Stable with estimated GFR of 46 ml/min present on admission. 12. History of IgA gammopathy - Apparently stable at this time. 13. Anemia of chronic disease - Stable with hemoglobin of 12.2 g/dL and MCV of 91 fL present on admission. 14. History of COVID-19 - Noted. 15. History of vitamin D deficiency; on replacement - Check vitamin D levels this admission to ensure supplementation is adequate. 16. History of intention tremor - Stable. 17. RLS; on pramipexole - Resume pramipexole as previous. 18. Depression; on trazodone - Hold trazodone due to possible adverse drug interaction. 19. History of skin cancer of the face; s/p excision - Noted. 20. History of suprapubic mass - Noted with no mention of this on recent abdominal CT this admission. 21. OAB; on oxybutynin - Continue oxybutynin as before. 22. Remote history of hysterectomy (1973) - Noted for the sake of completeness. 23. History of colonic diverticulosis - Noted. 24. History of colonic stricture; s/p partial colectomy (2006) - Noted. 25. History of cholecystectomy (2004) - Noted. 26. GERD; on famotidine twice daily as needed - Because of possible delirium with this agent will be switched to PPI. 27. Osteoporosis; on denosumab - Stable. Restart denosumab as an outpatient. 28. OA; history of dextroscoliosis and DDD of the lumbar spine with chronic back pain - Give acetaminophen as needed for pain. 29. DVT prophylaxis - Heparin 5,000 units sq twice daily plus SCD's. Total time: Approximately (but not less than) 75 minutes. Charges/Coding Visit Charges Inpatient E&M: 16527 Init Hosp L3
--- NOTE | 2024-09-09 02:02 | ECHOD_ITS ---
Reason For Study Reason For Study: TIA/CVA Procedure This was a 2D Doppler, Color Flow transthoracic echocardiogram. Exam performed portable in patient room. Left Ventricle Normal LV size. Left ventricular systolic function is normal. The left ventricular ejection fraction is 60 %. Stage 1 diastolic dysfunction. No regional wall motion abnormalities noted. Right Ventricle Normal RV size. ICD or pacer leads identified within the right ventricle. Normal systolic function. Atria Normal left atrium. Normal right atrium. ICD or pacer leads identified within the right atrium. Mitral Valve Normal mitral valve. Mild-Moderate (1-2+) eccentric mitral valve insufficiency. Tricuspid Valve Normal tricuspid valve. Mild tricuspid valve insufficiency. Pulmonary artery systolic pressure is 35 mmHg. Aortic Valve Trisinus/trileaflet aortic valve. Mild (1+) aortic valve insufficiency. Pulmonic Valve Normal pulmonic valve. Mild (1+) pulmonic valve insufficiency. Great Vessels Normal aortic root. The pulmonary artery is normal size. Normal inferior vena cava. Pericardium/Pleural No pericardial effusion. MMode/2D Measurements & Calculations LVIDd: 4.1 cm IVSd: 1.3 cm Ao root diam: 3.3 cm LVIDs: 2.4 cm LVPWd: 1.1 cm RVDd: 3.8 cm FS: 42.1 % LAV(MOD-bp): 50.5 ml LA A4 area: 18.1 cm2 LA dimension(2D): 3.7 cm LAV(MOD-bp) Indexed: 31.2 ml/m2 LAV(MOD-sp2): 50.8 ml LAV(MOD-sp4): 47.0 ml RA A4 area: 13.9 cm2 Time Measurements MV dec time: 0.31 sec Doppler Measurements & Calculations MV E max eamon: 71.5 cm/sec Lat Peak E' Eamon: 8.3 cm/sec Med Peak E' Eamon: 6.8 cm/sec MV A max eamon: 111.3 cm/sec E/E' lat: 8.6 E/E' med: 10.6 MV E/A: 0.64 MV V2 max: 122.9 cm/sec MV P1/2t max eamon: 75.5 cm/sec Ao V2 max: 127.4 cm/sec MV max P.0 mmHg MV P1/2t: 97.7 msec Ao max P.5 mmHg MV V2 mean: 57.6 cm/sec MV dec slope: 226.2 cm/sec2 Ao V2 mean: 91.7 cm/sec MV mean P.6 mmHg Ao mean P.8 mmHg MV V2 VTI: 33.0 cm MVA(P1/2t): 2.3 cm2 Ao V2 VTI: 30.5 cm AV (velocity ratio): 0.81 AI max eamon: 374.4 cm/sec LV V1 max: 112.7 cm/sec MR max eamon: 546.6 cm/sec AI max P.1 mmHg LV V1 max P.1 mmHg MR max P.0 mmHg AI dec slope: 209.0 cm/sec2 LV V1 mean P.8 mmHg AI P1/2t: 524.8 msec LV V1 mean: 80.1 cm/sec LV V1 VTI: 24.7 cm TR max eamon: 283.4 cm/sec TR max P.1 mmHg ECHO/Echo Complete Interpretation Summary Normal LV size. Left ventricular systolic function is normal. The left ventricular ejection fraction is 60 %. Stage 1 diastolic dysfunction. Mild (1+) aortic valve insufficiency. Pulmonary artery systolic pressure is 35 mmHg. Ordering Physician: Osmel Rodriguez Performed By: Venkat Tejeda RCS
--- NOTE | 2024-09-09 02:02 | CDU_ITS ---
Reason For Study Reason For Study: Neuro symptoms Rt. Velocities/BP Lt. Velocities/BP Prox CCA 67.4/11.6 cm/sec. Prox CCA 103.5/9 cm/sec. Mid CCA 82.5/11.6 cm/sec. Mid CCA 117.4/6 cm/sec. Dist CCA 64.5/7.8 cm/sec. Dist CCA 108.3/9.7 cm/sec. Prox ICA 113.8/18.8 cm/sec. Prox ICA 84.3/12.2 cm/sec. Mid ICA 156.5/20.4 cm/sec. Mid ICA 88.2/15.9 cm/sec. Dist ICA 76.5/10.2 cm/sec. Dist ICA 79/9 cm/sec. Rt. ICA/CCA = 1.90. Lt. ICA/CCA = 0.75. Prox ECA 295.4 cm/sec. Prox ECA 165.3 cm/sec. Rt. Vert. 54.2/8 cm/sec. Lt. Vert. 66.7/7.7 cm/sec. Right Extracranial There is intimal thickening but no significant atherosclerotic plaque noted in the right common carotid artery. There is heterogeneous, irregular atherosclerotic plaque noted in the right internal carotid artery. There is heterogeneous, irregular atherosclerotic plaque noted in the right external carotid artery. Antegrade flow is noted in the right vertebral artery. Left Extracranial There is homogeneous, smooth atherosclerotic plaque noted in the left common carotid artery. Acoustic shadowing from structure noted in the soft tissue of the neck at area of CCA distal. There is heterogeneous, irregular atherosclerotic plaque noted in the left internal carotid artery. There is intimal thickening but no significant atherosclerotic plaque noted in the left external carotid artery. Antegrade flow is noted in the left vertebral artery. Procedure Carotid Duplex 32605. This is a Carotid Duplex examination using B-mode, color flow and specral Doppler. Exam performed in department. VL/Carotid Duplex Ultrasound Interpretation Summary Moderate (50-69%) stenosis right extracranial internal carotid. Mild (<50%) stenosis left extracranial internal carotid. Patent and antegrade vertebrals bilaterally. Acoustic shadowing from structure noted in the soft tissue of the neck at area of common carotid artery distal Ordering Physician: Osmel Rodriguez Referring Physician: Tita Berger Performed By: Yuridia Bonilla RVT
--- NOTE | 2024-09-09 02:02 | MRI_ITS ---
PROCEDURE: BRAIN WITHOUT CONTRAST 09/09/2024 REASON FOR EXAM: EVALUATE FOR CVA. TECHNIQUE: Brain MRI without intravenous contrast with additional dedicated imaging of the IACs. COMPARISON: CT brain and CTCA head and neck 09/08/2024 FINDINGS: TECHNIQUE: Multiplanar, multi-sequence MRI of brain was performed without and with IV contrast. FINDINGS: BRAIN/PARENCHYMA: No evidence of acute infarction or acute intracranial hemorrhage. There are subcortical and periventricular white matter FLAIR hyperintensities, likely related to chronic microvascular ischemic disease. Encephalomalacia and gliosis within the bilateral basal ganglia and bilateral cerebellar hemispheres, from prior infarcts. EXTRA-AXIAL SPACES: No abnormal extra-axial fluid collections. Patent basal cisterns and foramen magnum. MIDLINE SHIFT: None. VENTRICLES: No hydrocephalus. SCALP SOFT TISSUES & CALVARIUM: No significant abnormality. VISUALIZED SINUSES & MASTOIDS: No air-fluid levels in the paranasal sinuses. The mastoid air cells are clear. ARTERIAL FLOW VOIDS: Preserved major arterial flow voids indicating gross patency. MRI/Brain without Contrast IMPRESSION: 1. No acute intracranial abnormality; no acute infarct, intracranial hemorrhage or extra-axial collection. 2. 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 3. Chronic microvascular ischemia and involutional changes. Reading Location: [facility]
[2024-09-09 02:21] LABS: Blood Gas Specimen Type VEN; O2 Delivery Device Not entered; SITE Not entered; VBG BASE EXCESS 0 mmol/L (-1.0-3.5); VBG Bicarbonate 24 mmol/L (22-26); VBG PO2 59 mmHg (25-40); VBG SO2 91 % (50-70); VBG TCO2 25 mmol/L (23-33); VBG pCO2 35.3 mmHg (41-51); VBG pH 7.44 (7.32-7.42)
[2024-09-09] MEDS: Dextrose 10%-Water 250 ML 999 ML IV (03:19)
[2024-09-09] MEDS: Insulin Lispro 100 UNIT/ML VIAL (ADMELOG) IV (03:23)
[2024-09-09] MEDS: 0.9% Normal Saline (1000mL) 1,000 ML 50 ML IV (03:25)
[2024-09-09 04:12] LABS: Bedside Glucose 113 mg/dL (74-106)
[2024-09-09] MEDS: Gabapentin 300 MG Capsule PO ×2 (04:58→21:08)
[2024-09-09 06:23] LABS: Hemoglobin A1c 6.2 % (<=5.6)
[2024-09-09 06:44] LABS: Absolute Lymphocyte Count 4.16 X10^3/uL (0.83-4.51); Absolute Neutrophil Count 6.5 X10^3/uL (2.0-7.7); Basophil# 0.04 X10^3/uL; Basophil% 0.3 % (0-1); Eosinophil# 0.05 X10^3/uL; Eosinophils% 0.4 % (0-5); Hematocrit 30.1 % (37-47); Hemoglobin 10.1 g/dL (12.0-15.0); Lymphocyte # 4.16 X10^3/ul (0.83-4.51); Lymphocyte % 36.4 % (19-41); Mean Corp Hgb Conc 33.6 g/dL (32-36); Mean Corpuscular Hgb 30.1 pg (27.0-32.0); Mean Corpuscular Volume 89.9 fL (81-99); Monocyte# 0.65 X10^3/uL; Monocyte% 5.7 % (0-10); NRBC Flagged by Analyzer 0 % (0-5); Neutrophil # 6.48 X10^3/uL (2.7-7.7); Neutrophil % 56.8 % (47-70); Platelet Count 273 K/mm3 (150-450); RBC Distribution Width CV 14.5 % (11.6-14.6); RBC Distribution Width SD 47.8 fl (35.1-43.9); Red Blood Count 3.35 M/mm3 (4.2-5.4); White Blood Count 11.4 K/mm3 (4.4-11.0)
[2024-09-09 07:15] LABS: Vitamin B12 821 pg/mL (180-914)
--- NOTE | 2024-09-09 08:29 | PN.HOSP_ITS ---
Reason for Visit Reason for Visit: Diagnoses Elevated white blood cell count, unspecified (09/09/24) Type 2 diabetes mellitus without complications (09/09/24) Pure hypercholesterolemia (09/09/24) Pure hypercholesterolemia, unspecified (09/09/24) Hyperlipidemia, unspecified (09/09/24) Hyperkalemia (09/09/24) Polyneuropathy, unspecified (09/09/24) Essential (primary) hypertension (09/09/24) Atherosclerotic heart disease of [place] coronary artery without angina pectoris (09/09/24) Old myocardial infarction (09/09/24) Cerebral infarction, unspecified (09/09/24) Constipation, unspecified (09/09/24) Acute cystitis without hematuria (09/09/24) Unspecified abdominal pain (09/09/24) Presence of coronary angioplasty implant and graft (09/09/24) Objective Data Objective Data Vital Signs: Vital Signs Temp Pulse Resp BP Pulse Ox O2 Del Method 98.2 F 62 14 157/82 H 98 Room Air 09/09/24 03:00 09/09/24 03:00 09/09/24 03:00 09/09/24 03:00 09/09/24 03:00 09/09/24 03:00 Oxygen Delivery Method Room Air Weight: 59.7 kg Body Mass Index (BMI) 23.3 Intake & Output: Intake and Output for Last 24 Hours 09/07/24 09/08/24 09/09/24 23:59 23:59 23:59 Intake Total 325 / 325 Balance 325 / 325 Lab / Micro Data 09/09/24 06:16 09/08/24 21:20 Labs: Laboratory Results - last 24 hr 09/08/24 21:11: Urine Color Straw, Urine Clarity Clear, Urine pH 6.5, Ur Specific [place] 1.010, Urine Protein 30 H, Urine Glucose (UA) Normal, Urine Ketones Negative, Urine Occult Blood 10 H, Urine Nitrite Positive H, Urine Bilirubin Negative, Urine Urobilinogen Normal, Ur Leukocyte Esterase 100 H 09/08/24 21:20: WBC 11.7 H, RBC 4.00 L, Hgb 12.2, Hct 36.4 L, MCV 91.0, MCH 30.5, MCHC 33.5, RDW Std Deviation 48.1 H, RDW Coeff of Frank[place] 14.3, Plt Count 305, MPV 9.7, Sodium 134, Potassium 5.9 H, Chloride 101, Carbon Dioxide 17.4 L, Anion Gap 15, BUN 21 H, Creatinine 1.15, Estim Creat Clear Calc 27.43 L, Est GFR (MDRD) Non-Af 46 L, BUN/Creatinine Ratio 18.2, Glucose 127 H, Hemoglobin A1c 6.2, Calcium 9.9, Total Bilirubin 0.51, AST 44 H, ALT 14, Alkaline Phosphatase 97, Total Protein 8.0, Albumin 4.2, Globulin 3.8, Albumin/Globulin Ratio 1.1, T SH 4.240 H, Ethyl Alcohol < 10.1 09/09/24 03:53: POC Glucose 113 H 09/09/24 06:16: WBC 11.4 H, RBC 3.35 L, Hgb 10.1 L, Hct 30.1 L, MCV 89.9, MCH 30.1, MCHC 33.6, RDW Std Deviation 47.8 H, RDW Coeff of [place] 14.5, Plt Count 273, MPV 10.0, Immature Gran % (Auto) 0.400, Neut % (Auto) 56.8, Lymph % (Auto) 36.4, [place] % (Auto) 5.7, Eos % (Auto) 0.4, Baso % (Auto) 0.3, Absolute Neuts (auto) 6.5, Absolute Lymphs (auto) 4.16, Nucleated RBC % 0, Phosphorus 3.0, Magnesium 2.0, Vitamin B12 821, Serum Folate 11.70 ABG Data ABG results: ABG 09/09/24 02:17 Specimen Type BERTA Sample Site Not entered VBG pH 7.44 H VBG pO2 59 H VBG HCO3 24 VBG Total CO2 25 VBG O2 Sat (Calc) 91 H VBG Base Excess 0 POC Mix VBG pCO2 Pt Tmp 35.3 L O2 Delivery Device Not entered Radiography Diagnostic Testing: Radiology Impression Chest X-Ray 09/08/24 21:31 IMPRESSION: No Acute Findings. Reading Location: [facility] Abdomen/Pelvis CT 09/08/24 22:00 IMPRESSION: No acute findings in the abdomen and pelvis. Large colonic stool. Reading Location: [facility] Head/Neck CTA 09/08/24 22:00 IMPRESSION: Atherosclerotic calcification of the anterior and posterior intracranial circulation without hemodynamically significant stenosis. 20% right and 10% left ICA stenosis by NASCET criteria. Reading Location: [facility]
[2024-09-09 08:51] LABS: ALB/GLOB Ratio 1.3 RATIO (0.9-2.4); AST(SGOT) 21 U/L (<=31); Alanine Aminotransfer ALT/SGPT 9 U/L (<=34); Albumin, Serum 3.6 g/dL (3.4-4.8); Alkaline Phosphatase 78 U/L (35-104); Anion Gap 13 (5-15); BUN 18 mg/dL (4-19); BUN/Creat Ratio 16.9 RATIO (10-20); Calcium,Total 9.3 mg/dL (7.6-11.0); Carbon Dioxide 20.3 mmol/L (21.0-32.0); Chloride 103 mmol/L (98-108); Creatinine, Serum 1.05 mg/dL (0.70-1.20); EST Glomerular Filtration Rate 51 (>60); Estimated Creatinine Clearance 30.05 ml/min (50-250); Globulin 2.8 g/dL (2.2-4.2); Glucose 132 mg/dL (70-99); Protein, Total 6.3 g/dL (5.9-8.4); Sodium Level 136 mmol/L (133-145); Total Bilirubin 0.59 mg/dL (0.00-1.30)
[2024-09-09 09:48] LABS: Cholesterol 133 mg/dL (<=200); High Density Lipoprotein 45 mg/dL; Low Density Lipoprotein Calc. 72 mg/dL; Triglycerides 79 mg/dL; Very Low Density Lipoprotein 16 mg/dL (5-40); cholesterol:hdl ratio screen 2.96
[2024-09-09] MEDS: 0.9% Saline Lock 10 ML Syringe IV ×3 (09:54→23:24)
[2024-09-09] MEDS: Cholecalciferol (VIT D3) 25 MCG TABLET (1,000 UNITS) 50 MCG PO (10:36)
[2024-09-09] MEDS: Senna/Docusate Sodium 1 Tablet 2 TABLET PO ×2 (10:36→21:08)
[2024-09-09] MEDS: Oxybutynin 5 MG Tablet PO (10:36)
[2024-09-09] MEDS: Polyethylene Glycol 3350 17 GM PACKET PO (10:37)
[2024-09-09] MEDS: Aspirin E.C. 81 MG Tablet PO (10:37)
[2024-09-09] MEDS: Pantoprazole Sodium 40 MG Tablet PO (10:37)
[2024-09-09] MEDS: Heparin Injection (Vial) 5,000 UNIT/ML VIAL 5000 UNIT SC ×2 (10:37→21:09)
[2024-09-09] MEDS: Nystatin Powder 15gm Bottle 1 APPLIC TOPICAL ×2 (10:39→21:08)
--- NOTE | 2024-09-09 13:08 | CASEMGMT ---
BONIFACIO TATUM Assessment Face to Face with patient for initial transition planning/care coordination assessment. RN DEEPTI introduced self and role at [facility], pt voices understanding. Pt is A&Ox4 and is resting comfortably in the chair and is calm. Pt daughter (Miranda) and GS (Ever) at bedside. Care providers, pharmacy, and demographics verified. Admitting dx: Subacute CVS, UTI, and Hyperkalemia LACE Strata: 3 PCP: Ab Specialists: Denies Preferred Pharmacy: [facility] Insurance: [employer] [facility] Prescription Benefit: Yes LNOK: Sheryl Guevara (Daughter), Miranda Abernathy (Daughter), Miguel (Son), Ever Abernathy (GS) Living Arrangements: Pt lives with her daughter (Miranda) in a single story home with 2 steps to enter with a handrail ADLs/IADLs: Independent Transportation: Insurance, Son, daughter, GS. Denies concerns DME: Functioning [employer] with sufficient supplies. Rollator. Cane. Grab bars. Shower chair. HHC/SNF: History with [facility] in July Pt?s goal: Home Plan: Home, follow for HHC needs. PT reports that the pt is independent and does not require needs. However, pt states that she is interested and would like [facility] again (SN PT and OT). Pt declines wanting to review a list of local in-network HHC companies and would like to go through [facility] if she qualifies. CM to follow for a skillable need and homebound status. Pt declines further questions or concerns at this time. Report given to ENGRAVER LETTERING CM. Rory Maynard RN, CM
--- NOTE | 2024-09-09 17:52 | STROKE.CONS ---
Assessment and Plan: Stroke Assessment/Plan Subacute encephalopathy could be due to UTI. If no improvement with treatment, could consider normal pressure hydrocephalus given ventriculomegaly out of proportion to sulcal atrophy. I will place outpatient referral to [facility] and they can cancel if symptoms resolve with treatment of UTI. Low suspicion for stroke given negative MRI and nonfocal exam. HPI Consult Data Date of Consult: 09/09/24 HPI Narrative HPI Narrative: NASH ASTORGA, is a 89F w/ HTN/HLD/CAD, complete heart block w/ pacer, Dm2, CKD3, RLS. Presents 09/08/24 w/ expressive aphasia and dysmetria x 1 week, though there is some question of how long symptoms have truly been going on. LKW per family is 08/25/24. Also having abdominal pain. MRI negative for infarct but does have ventriculomegaly out of proportion to sulcal atrophy. CTA w/ mild bilateral ICA origin stenosis. LDL 72, A1c 6.2%. UA + UTI. Denies difficulty walking or urinary incontinence. [facility] Medical History Hoarseness COVID-19 Osteoporosis History of complete heart block Postmenopausal History of pacemaker Pacemaker Systolic ejection murmur Scoliosis Intermittent claudication Degenerative arthritis of lumbar spine Bulging lumbar disc Widened pulse pressure Weight loss Weakness Vitamin D deficiency Type 2 diabetes mellitus Tremor of both hands Suprapubic mass Skin cancer of face Skin cancer Secondary hyperparathyroidism Scarring of lung Right foot pain Restless leg Recurrent headache Radiculopathy of arm Peripheral vascular disease Peripheral edema Pars defect with spondylolisthesis Pars defect of lumbar spine Pancreatic cyst Overactive bladder Normocytic anemia Neuropathy of thigh Neck pain Nausea Microalbuminuric diabetic nephropathy Microalbuminuria Lumbar facet arthropathy Lumbar degenerative disc disease Leg pain Left hip pain Iron deficiency anemia Intention tremor Insomnia Hypertension goal BP (blood pressure) < 150/90 GERD (gastroesophageal reflux disease) Eye pain Elevated TSH Diverticulosis of colon Diarrhea Diabetic neuropathy Dextroscoliosis of lumbar spine Degenerative joint disease of left hip Cyst of skin Constipation Colonic stricture CKD stage 3 secondary to diabetes Chronic neck pain Chronic low back pain Chronic kidney disease, stage 3 Coronary artery disease Bilateral leg weakness Back pain Atherosclerosis Anxiety Abdominal aortic atherosclerosis Old inferior wall myocardial infarction Essential (primary) hypertension Hyperlipidemia Atherosclerotic heart disease of hughes coronary artery without angina pectoris Left bundle branch block Home Medications ?Medication ?Instructions ?Recorded ?Last Taken ?Type famotidine 40 mg tablet 40 mg PO BID PRN gerd 08/20/23 Unknown History aspirin 81 mg tablet,delayed 81 mg PO DAILY heart health #90 02/17/24 Unknown Rx release (Adult Low Dose Aspirin) tabs cyanocobalamin (vitamin B-12) 500 500 mcg PO DAILY supplement #90 03/11/24 Unknown Rx mcg tablet tabs blood-glucose meter (Accu-Chek #1 ea 04/27/24 Unknown Rx Guide Glucose Meter) pramipexole 0.5 mg tablet 0.5 mg PO QHS tremors #90 tabs 05/22/24 Unknown Rx denosumab 60 mg/mL subcutaneous 60 mg subcut [id number] #1 mL 05/29/24 Unknown Rx syringe (Prolia) glimepiride 1 mg tablet 1 mg PO QAM #90 tabs 06/15/24 Unknown Rx trazodone 100 mg tablet 100 mg PO QHS PRN sleep #90 tabs 06/15/24 Unknown Rx lancets 26 gauge (CareTouch Safety #100 ea 07/07/24 Unknown Rx Lancets) amlodipine 5 mg tablet 5 mg PO DAILY blood pressure #90 07/22/24 Unknown Rx tabs metoprolol tartrate 25 mg tablet 50 mg (2 x 25 mg) PO BID blood 07/22/24 Unknown Rx pressure #180 tabs oxybutynin chloride 5 mg tablet 5 mg PO DAILY overactive bladder 07/22/24 Unknown Rx #90 tabs ramipril 10 mg capsule 10 mg PO DAILY blood pressure #90 07/22/24 Unknown Rx caps lancets (Accu-Chek Softclix 07/24/24 Unknown History Lancets) cholecalciferol (vitamin D3) 50 50 mcg PO DAILY supplement #90 08/25/24 Unknown Rx mcg (2,000 unit) capsule caps blood sugar diagnostic (Accu-Chek #100 ea 08/27/24 Unknown Rx Guide test strips) pravastatin 40 mg tablet 40 mg PO QHS #90 tabs 09/03/24 Unknown Rx cholecalciferol (vitamin D3) 50 50 mcg PO DAILY 09/08/24 Unknown History mcg (2,000 unit) tablet gabapentin 300 mg capsule 300 mg PO DAILY neuropathy 09/08/24 Unknown History Allergy/AdvReac Type Severity Reaction Status Date / Time codeine Allergy Other Verified 09/08/24 20:21 latex Allergy NEEDS Verified 09/08/24 20:21 FOLLOW-UP meperidine Allergy NEEDS Verified 09/08/24 20:21 FOLLOW-UP metoclopramide HCl (From Allergy Other Verified 09/08/24 20:21 Reglan) morphine Allergy Itching Verified 09/08/24 20:21 Penicillins (PCN) Allergy Hives Verified 09/08/24 20:21 prednisone Allergy Other Verified 09/08/24 20:21 ropinirole HCl (From Requip) Allergy Other Verified 09/08/24 20:21 shrimp Allergy NEEDS Verified 09/08/24 20:21 FOLLOW-UP amoxicillin AdvReac Other Verified 09/08/24 20:21 diazepam (From Valium) AdvReac Other Verified 09/08/24 20:21 pregabalin (From Lyrica) AdvReac Somnolence Verified 09/08/24 20:21 Family History Father , age 62 Sudden cardiac CAD (coronary artery disease) Myocardial infarction Heart disease Son Heart disease Myocardial infarction Surgical History History of surgical removal of skin lesion History of breast biopsy History of colonoscopy History of endoscopy History of eye surgery History of carpal tunnel repair History of partial colectomy Hx of cholecystectomy H/O heart surgery H/O: hysterectomy History of left heart catheterization (08/17/03) History of coronary artery stent placement (06/23/99) Social History adopted: No household members: children housing: house current occupational status: retired Smoking Status: Never smoker alcohol intake: never substance use type: does not use caffeine: No Vital Signs Vital Signs Vital Signs: 09/08/24 20:18 09/08/24 22:17 09/09/24 00:00 Temperature 97.8 F Temperature Source Oral Pulse Rate 65 65 67 Respiratory Rate 18 19 H 19 H Respiratory Effort Respiratory Depth Respiratory Pattern Blood Pressure 190/43 H 169/54 H 160/51 H Blood Pressure Mean 92 92 87 Blood Pressure Source Blood Pressure Position Blood Pressure Location Pulse Ox 97 97 97 Oxygen Delivery Method Room Air Room Air Room Air 09/09/24 00:28 09/09/24 00:29 09/09/24 01:29 Temperature 97.9 F 97.9 F 97.9 F Temperature Source Oral Oral Pulse Rate 70 70 61 Respiratory Rate 21 H 18 18 Respiratory Effort Respiratory Depth Respiratory Pattern Blood Pressure 160/51 H 157/63 H 157/48 H Blood Pressure Mean 87 94 84 Blood Pressure Source Blood Pressure Position Blood Pressure Location Pulse Ox 94 93 98 Oxygen Delivery Method Room Air Room Air 09/09/24 02:00 09/09/24 02:47 09/09/24 03:00 Temperature 98 F 98.3 F 98.2 F Temperature Source Oral Oral Oral Pulse Rate 64 64 62 Respiratory Rate 20 H 14 14 Respiratory Effort Respiratory Depth Respiratory Pattern Blood Pressure 157/102 H 151/71 H 157/82 H Blood Pressure Mean 120 97 107 Blood Pressure Source Monitor Blood Pressure Position Semi-Fowlers Blood Pressure Location Right Arm Pulse Ox 97 97 98 Oxygen Delivery Method Room Air Room Air Room Air 09/09/24 07:37 09/09/24 10:00 09/09/24 10:00 Temperature 98.1 F Temperature Source Oral Pulse Rate 67 Respiratory Rate 17 Respiratory Effort Normal Non-Labored Respiratory Depth Normal Respiratory Pattern Normal Blood Pressure 142/53 H Blood Pressure Mean 82 Blood Pressure Source Monitor Blood Pressure Position Sitting Blood Pressure Location Left Arm Pulse Ox 94 96 Oxygen Delivery Method Room Air Room Air Room Air 09/09/24 14:00 09/09/24 15:00 09/09/24 15:10 Temperature 97.7 F L Temperature Source Oral Pulse Rate 68 80 77 Respiratory Rate 16 16 16 Respiratory Effort Respiratory Depth Respiratory Pattern Blood Pressure 173/58 H 183/61 H 178/56 H Blood Pressure Mean 96 101 96 Blood Pressure Source Monitor Monitor Monitor Blood Pressure Position Semi-Fowlers Supine Supine Blood Pressure Location Left Arm Right Arm Right Arm Pulse Ox 96 93 92 Oxygen Delivery Method Room Air Room Air Room Air 09/09/24 15:20 Temperature Temperature Source Pulse Rate 80 Respiratory Rate 16 Respiratory Effort Respiratory Depth Respiratory Pattern Blood Pressure 193/56 H Blood Pressure Mean 101 Blood Pressure Source Monitor Blood Pressure Position Supine Blood Pressure Location Right Arm Pulse Ox 92 Oxygen Delivery Method Room Air Weight Weight: 59.7 kg Body Mass Index (BMI) 23.3 EEG Results Procedure Details EEG Procedure Details: NASH ASTORGA is a 89 year old F with a past medical history of , who presents for evaluation of Electroencephalogram on DATE at TIME NIHSS NIHSS Nursing Documentation NIHSS Nursing Documentation: NIH Stroke Scale Start: 09/08/24 22:00 Freq: Status: Discharge Protocol: Activity Type Activity Date Activity User E-sign Co-sign Detail Recorded Client Recorded Date Recorded By Document 09/08/24 22:00 SH 0 09/09/24 00:46 SH 09/08/24 22:00 NIH Stroke Scale [NIHSS] A score of 0 is normal or asymptomatic . Total possible score is 42. Inpatient: RN or Physician to activate a stroke alert for onset of new stroke symptoms or with NIHSS increase >/= 3 points. Following change in neurological status, NIHSS will be performed per physician order or more frequently PRN. -1a. Level of Consciousness Alert; keenly responsive -1b. LOC Questions Answers BOTH questions correctly. -1c. LOC Commands Performs both tasks correctly . -2. Best Gaze Normal -3. Visual No visual loss -4. Facial Palsy Normal symmetrical movements -5a. Left Arm No drift; arm holds 90 (or 45 ) degrees for full 10 seconds -5b. Right Arm No drift; arm holds 90 (or 45 ) degrees for full 10 seconds -6a. Left Leg No drift; leg holds 30-degree position for full 5 seconds -6b. Right Leg No drift; leg holds 30-degree position for full 5 seconds -7. Limb Ataxia Absent -8. Sensory Normal; no sensory loss -9. Best Language Severe aphasia; -10. Dysarthria Severe dysarthria; -11. Extinction and Inattention No abnormality -Total 4 Query Text:A score of 0 is normal or asymptomatic. Total possible score is 42 . ED: Notify Physician for NIHSS increase by > / = 3 points. Inpatient: RN or Physician to activate a stroke alert for NIHSS increase of > / = 3 points. NIHSS: Ischemic Stroke/TIA Start: 09/09/24 02:32 Text: For ICU Patients: NIH sroke scale at Status: Complete presentation and every 2 hours or with change in RN caregiver Freq: [id number] Protocol: Activity Type Activity Date Activity User E-sign Co-sign Detail Recorded Client Recorded Date Recorded By Document 09/09/24 06:00 GW 0 09/09/24 06:02 GW 09/09/24 06:00 -1a. Level of Consciousness Alert; keenly responsive -1b. LOC Questions Answers BOTH questions correctly. -1c. LOC Commands Performs both tasks correctly . -2. Best Gaze Normal -3. Visual No visual loss -4. Facial Palsy Normal symmetrical movements -5a. Left Arm No drift; arm holds 90 (or 45 ) degrees for full 10 seconds -5b. Right Arm No drift; arm holds 90 (or 45 ) degrees for full 10 seconds -6a. Left Leg No drift; leg holds 30-degree position for full 5 seconds -6b. Right Leg No drift; leg holds 30-degree position for full 5 seconds -7. Limb Ataxia Absent -8. Sensory Normal; no sensory loss -9. Best Language Severe aphasia; -10. Dysarthria Severe dysarthria; -Total 4 Query Text:A score of 0 is normal or asymptomatic. Total possible score is 42 . ED: Notify Physician for NIHSS increase by > / = 3 points. Inpatient: RN or Physician to activate a stroke alert for NIHSS increase of > / = 3 points. Coma Scale [Assess] -Eye Opening Spontaneous -Motor Obeys Commands -Verbal Oriented [Total] -Coma Scale Total 15 NIHSS: Ischemic Stroke/TIA Start: 09/09/24 02:32 Text: For PCU Patients: NIH and Neuro Check every 4 Status: Active hours, PRN and with change in RN caregiver. Freq: [id number] Protocol: Activity Type Activity Date Activity User E-sign Co-sign Detail Recorded Client Recorded Date Recorded By Document 09/09/24 14:00 [id number] 09/09/24 14:10 09/09/24 14:00 NIH Stroke Scale [NIHSS] A score of 0 is normal or asymptomatic . Total possible score is 42. Inpatient: RN or Physician to activate a stroke alert for onset of new stroke symptoms or with NIHSS increase >/= 3 points. Following change in neurological status, NIHSS will be performed per physician order or more frequently PRN. -1a. Level of Consciousness Alert; keenly responsive -1b. LOC Questions Answers BOTH questions correctly. -1c. LOC Commands Performs both tasks correctly . -2. Best Gaze Normal -3. Visual No visual loss -4. Facial Palsy Normal symmetrical movements -5a. Left Arm No drift; arm holds 90 (or 45 ) degrees for full 10 seconds -5b. Right Arm No drift; arm holds 90 (or 45 ) degrees for full 10 seconds -6a. Left Leg No drift; leg holds 30-degree position for full 5 seconds -6b. Right Leg No drift; leg holds 30-degree position for full 5 seconds -7. Limb Ataxia Absent -8. Sensory Normal; no sensory loss -9. Best Language Mild-to- moderate aphasia; -10. Dysarthria Mild-to- moderate dysarthria; -11. Extinction and Inattention No abnormality -Total 2 Query Text:A score of 0 is normal or asymptomatic. Total possible score is 42 . ED: Notify Physician for NIHSS increase by > / = 3 points. Inpatient: RN or Physician to activate a stroke alert for NIHSS increase of > / = 3 points. Coma Scale [Assess] -Eye Opening Spontaneous -Motor Obeys Commands -Verbal Oriented [Total] -Coma Scale Total 15 Physical Exam Narrative Mild encephalopathy with word finding difficulty. No other focal neurological deficits. Walks with a walker, no magnetic gait. NIHSS 1 (aphasia) Lab / Micro Data 09/09/24 06:16 09/09/24 06:16 Labs: Laboratory Results - last 24 hr 09/08/24 21:11: Urine Color Straw, Urine Clarity Clear, Urine pH 6.5, Ur Specific [place] 1.010, Urine Protein 30 H, Urine Glucose (UA) Normal, Urine Ketones Negative, Urine Occult Blood 10 H, Urine Nitrite Positive H, Urine Bilirubin Negative, Urine Urobilinogen Normal, Ur Leukocyte Esterase 100 H 09/08/24 21:20: WBC 11.7 H, RBC 4.00 L, Hgb 12.2, Hct 36.4 L, MCV 91.0, MCH 30.5, MCHC 33.5, RDW Std Deviation 48.1 H, RDW Coeff of Franky 14.3, Plt Count 305, MPV 9.7, Sodium 134, Potassium 5.9 H, Chloride 101, Carbon Dioxide 17.4 L, Anion Gap 15, BUN 21 H, Creatinine 1.15, Estim Creat Clear Calc 27.43 L, Est GFR (MDRD) Non-Af 46 L, BUN/Creatinine Ratio 18.2, Glucose 127 H, Hemoglobin A1c 6.2, Calcium 9.9, Total Bilirubin 0.51, AST 44 H, ALT 14, Alkaline Phosphatase 97, Total Protein 8.0, Albumin 4.2, Globulin 3.8, Albumin/Globulin Ratio 1.1, TSH 4.240 H, Ethyl Alcohol < 10.1 09/09/24 03:53: POC Glucose 113 H 09/09/24 06:16: WBC 11.4 H, RBC 3.35 L, Hgb 10.1 L, Hct 30.1 L, MCV 89.9, MCH 30.1, MCHC 33.6, RDW Std Deviation 47.8 H, RDW Coeff of Franky 14.5, Plt Count 273, MPV 10.0, Immature Gran % (Auto) 0.400, Neut % (Auto) 56.8, Lymph % (Auto) 36.4, O'Brien % (Auto) 5.7, Eos % (Auto) 0.4, Baso % (Auto) 0.3, Absolute Neuts (auto) 6.5, Absolute Lymphs (auto) 4.16, Nucleated RBC % 0, Sodium 136, Potassium 4.0, Chloride 103, Carbon Dioxide 20.3 L, Anion Gap 13, BUN 18, Creatinine 1.05, Estim Creat Clear Calc 30.05 L, Est GFR (MDRD) Non-Af 51 L, BUN/Creatinine Ratio 16.9, Glucose 132 H, Calcium 9.3, Phosphorus 3.0, Magnesium 2.0, Total Bilirubin 0.59, AST 21, ALT 9, Alkaline Phosphatase 78, Total Protein 6.3, Albumin 3.6, Globulin 2.8, Albumin/Globulin Ratio 1.3, Triglycerides 79, Cholesterol 133, LDL Cholesterol, Calc 72, VLDL Cholesterol 16, HDL Cholesterol 45, Cholesterol/HDL Ratio 2.96, Vitamin B12 821, Serum Folate 11.70 Micro: Microbiology 09/08/24 21:11 Urine, Clean Catch Urine Culture - Preliminary Gram negative angel ABG Data ABG results: ABG 09/09/24 02:17 Specimen Type BERTA Sample Site Not entered VBG pH 7.44 H VBG pO2 59 H VBG HCO3 24 VBG Total CO2 25 VBG O2 Sat (Calc) 91 H VBG Base Excess 0 POC Mix VBG pCO2 Pt Tmp 35.3 L O2 Delivery Device Not entered Imaging Radiology Impression Chest X-Ray 09/08/24 21:31 IMPRESSION: No Acute Findings. Reading Location: [facility] Abdomen/Pelvis CT 09/08/24 22:00 IMPRESSION: No acute findings in the abdomen and pelvis. Large colonic stool. Reading Location: [facility] Head/Neck CTA 09/08/24 22:00 IMPRESSION: Atherosclerotic calcification of the anterior and posterior intracranial circulation without hemodynamically significant stenosis. 20% right and 10% left ICA stenosis by NASCET criteria. Reading Location: [facility] Brain MRI 09/09/24 02:02 IMPRESSION: 1. No acute intracranial abnormality; no acute infarct, intracranial hemorrhage or extra-axial collection. 2. 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 3. Chronic microvascular ischemia and involutional changes. Reading Location: [facility] Echocardiogram 09/09/24 02:02 Interpretation Summary Normal LV size. Left ventricular systolic function is normal. The left ventricular ejection fraction is 60 %. Stage 1 diastolic dysfunction. Mild (1+) aortic valve insufficiency. Pulmonary artery systolic pressure is 35 mmHg. Ordering Physician: Osmel Rodriguez Performed By: Venkat Tejeda RCS Active Medications Active Medications Active Medications: Current Medications Generic Name Dose Route Start Last Admin Trade Name Freq PRN Reason Stop Dose Admin Acetaminophen 650 mg 09/09/24 02:32 Acetaminophen 325 Mg Tablet PO Q6H PRN PRN Pain 1-10 Or Fever>99.6 Aspirin 81 mg 09/09/24 08:00 09/09/24 10:37 Aspirin E.C. 81 Mg Tablet PO 81 mg BREAKFAST MARGARITO Administration Cholecalciferol 50 mcg 09/09/24 10:00 09/09/24 10:36 Cholecalciferol (Vit D3) 25 Mcg Tablet (1,000 Units) PO 50 mcg DAILY MARGARITO Administration Cyanocobalamin 500 mcg 09/09/24 10:00 09/09/24 10:35 Cyanocobalamin 500 Mcg Tablet PO Not Given DAILY MARGARITO Gabapentin 300 mg 09/09/24 04:45 09/09/24 04:58 Gabapentin 300 Mg Capsule PO 300 mg DAILY MARGARITO Administration Heparin Sodium (Porcine) 5,000 unit 09/09/24 10:00 09/09/24 10:37 Heparin Injection (Vial) 5,000 Unit/Ml Vial SC 5,000 unit BID MARGARITO Administration Ciprofloxacin 400 mg in 200 mls @ 100 mls/hr 09/09/24 22:00 Cipro IV Q24H MARGARITO Sodium Chloride 100 mls @ 15 mls/hr 09/09/24 09:51 IV .Q6H40M PRN Saline Flush Sodium Chloride 100 mls @ 15 mls/hr 09/09/24 09:51 IV .Q6H40M PRN Additional IVPB Infusion Nystatin 1 applic 09/09/24 10:00 09/09/24 10:39 Nystatin Powder 15gm Bottle TOPICAL 1 applic BID MAGRARITO Administration Protocol Oxybutynin Chloride 5 mg 09/09/24 10:00 09/09/24 10:36 Oxybutynin 5 Mg Tablet PO 5 mg DAILY MARGARITO Administration Pantoprazole Sodium 40 mg 09/09/24 10:00 09/09/24 10:37 Pantoprazole Sodium 40 Mg Tablet PO 40 mg DAILY MARGARITO Administration Polyethylene Glycol 17 gm 09/09/24 10:00 09/09/24 10:37 Polyethylene Glycol 3350 17 Gm Packet PO 17 gm DAILY MARGARITO Administration Pramipexole Dihydrochloride 0.5 mg 09/09/24 22:00 Pramipexole Di-Hcl 0.5 Mg Tablet PO QHS MARGARITO Pravastatin Sodium 40 mg 09/09/24 22:00 Pravastatin 40 Mg Tablet PO QHS MARGARITO Senna/Docusate Sodium 2 tablet 09/09/24 10:00 09/09/24 10:36 Senna/Docusate Sodium 1 Tablet PO 2 tablet BID MARGARITO Administration Sodium Chloride 10 - 40 ml 09/09/24 09:51 09/09/24 09:54 0.9% Saline Lock 10 Ml Syringe IV 10 ml UD PRN Administration SALINE FLUSH
--- NOTE | 2024-09-09 18:55 | PN.HOSP_ITS ---
Hospitalist Note 89 WF who presented to the ED at [facility] early on 09/09/2024 with expressive aphasia and dysmetria. Sx started 1 week prior to presentation with sudden onset expressive aphasia and dysmetria. LKW was 08/25/24. VS on presentation showed 97.8, HR 65, RR 18, BP 190/43, SpO2 97%. CBC had a leukocytosis of 11.7. CMP showed a K of 5.9, sCr was 1.15. LFT's were unremarkable. UA was suggestive of infection. CXR was unremarkable. CT Abd/Pelvis showed a large colonic stool burden but no other acute findings. CTA head and neck Atherosclerotic calci fication of the anterior and posterior intracranial circulation without hemodynamically significant stenosis. 20% right and 10% left ICA stenosis. MRI was negative for acute infarcts but did show sequelae of multiple prior supratentorial and infratentorial infarcts with chronic microvascular ischemic changes. Her UA was consistent with infection and a urine culture was sent. She was started on antibiotics. Echocardiogram showed an EF of 60% with stage I diastolic dysfunction and pulmonary systolic pressure 35 mmHg. She was evaluated by neurology today and they felt that her subacute encephalopathy could be due to urinary tract infection however she has not improved with treatment we do need to consider normal pressure hydrocephalus given ventriculomegaly out of proportion to sulci atrophy and an outpatient referral was placed to the [facility]. Acute stroke is of low suspicion. PT/OT are following. Will follow and see how she is clinically tomorrow. If stable consider discharge.
[2024-09-09] MEDS: Pravastatin 40 MG Tablet PO (21:08)
[2024-09-09] MEDS: Ciprofloxacin 400 MG/200 ML BAG 100 MG IV (21:11)
[2024-09-09] MEDS: Morphine 2 MG/ML Syringe IV (23:23)
[2024-09-10 00:28] LABS: Bedside Glucose 108 mg/dL (74-106)
[2024-09-10 01:30] VITALS: BP 138/50; PULSE 70; RESP 16; TEMP 36.2; O2SAT 95
[2024-09-10 03:29] VITALS: BMI 23.3
[2024-09-10 05:08] VITALS: BP 151/73; PULSE 82; RESP 16; TEMP 36.1; O2SAT 95
[2024-09-10 09:08] VITALS: BP 127/67; PULSE 72; RESP 18; TEMP 36.5; O2SAT 95
[2024-09-10 09:16] VITALS: O2SAT 93
[2024-09-10] MEDS: Ondansetron 4 MG/2 ML Vial IV (09:41)
[2024-09-10] MEDS: 0.9% Saline Lock 10 ML Syringe IV (09:42)
[2024-09-10] MEDS: Aspirin E.C. 81 MG Tablet PO (09:46)
[2024-09-10] MEDS: Gabapentin 300 MG Capsule PO (09:47)
[2024-09-10] MEDS: Senna/Docusate Sodium 1 Tablet 2 TABLET PO (09:47)
[2024-09-10] MEDS: Cholecalciferol (VIT D3) 25 MCG TABLET (1,000 UNITS) 50 MCG PO (09:47)
[2024-09-10] MEDS: Oxybutynin 5 MG Tablet PO (09:47)
[2024-09-10] MEDS: Pantoprazole Sodium 40 MG Tablet PO (09:47)
[2024-09-10] MEDS: Heparin Injection (Vial) 5,000 UNIT/ML VIAL 5000 UNIT SC (09:48)
[2024-09-10] MEDS: Polyethylene Glycol 3350 17 GM PACKET PO (09:49)
[2024-09-10 14:05] VITALS: BMI 23.3
--- NOTE | 2024-09-10 14:11 | CHAPLAIN ---
Type of Pastoral Visit _x__ Initial Visit ___ Follow-up Visit ___ On-call Visit ___ General Patient Visit ___ Spiritual Assessment ___ Family Conference ___ Bereavement ___ Rapid Response ___ Code Blue ___ Other (describe below) Pastoral Care Referral From _x__ Patient ___ Family ___ Nurse ___ Physician ___ Edge Grinder ___ Workforce Management Manager ___ Other (describe below) Sacrament/Intervention __x_ Active listening ___ Anointing ___ Scientology ___ Bereavement ___ Communion ___ Taylor exploration ___ _x__ Life review ___ Prayer ___ Reconciliation ___ Sacrament of Sick ___ Supportive presence ___ Wedding ___ Other (describe below) Pastoral Comments patient and two sisters are in the room; pt admits that there are no direct answers to her health issues; however, pt might be going to a larger facility at some point to more checked out'; pt is welcoming of a prayer for support; pt expects to be discharged yet today
--- NOTE | 2024-09-10 14:47 | CASEMGMT ---
Addendum entered by Yuridia Clark 09/10/24 15:29: BONIFACIO TATUM received call back from [facility], start of care Saturday. BONIFACIO TATUM in to update patient and family regarding [facility] acceptance and start of care. Patient and family had no further questions or concerns. Original Note: BONIFACIO TATUM in to discuss discharge planning, family at bedside. ST recommending therapy at discharge. Patient states she would like [facility] an prefers [facility], declined list. Patient denies further needs or help at discharge. Patient had no further questions or concerns. BONIFACIO TATUM made referral to [facility], awaiting acceptance.
--- NOTE | 2024-09-10 15:00 | DS.PCM_ITS ---
Providers Date of Admission: 09/09/24 Date of Discharge: 09/10/24 Primary Care Physician: Dr. Tita Berger MD Consultations 09/09/24 02:32 Consult: Tele-Neurology Routine Consulting Provider: [facility] Reason for Consult: Acute Ischemic Stroke/TIA EMERGENT Consult: No MD Notified: Yes Date Notified: 09/09/24 Time Notified: 01:53 Method of Notification: ED Physician Initiated Method of Consult:: Telemedicine Nursing Unit Staff Notify [facility] of Tele-Neurology Consult: Yes Reason For Visit: SUBACUTE CVA, UTI & HYPERKALEMIA Diagnosis Discharge Diagnosis (1) Cerebrovascular accident (CVA) involving left cerebral hemisphere: Status: Acute Code(s): I63.9 - Cerebral infarction, unspecified (2) Acute cystitis without hematuria: Status: Acute Code(s): N30.00 - Acute cystitis without hematuria (3) Leukocytosis: Status: Acute Code(s): D72.829 - Elevated white blood cell count, unspecified Qualifiers: Leukocytosis type: unspecified Qualified Code(s): D72.829 - Elevated white blood cell count, unspecified (4) Hyperkalemia: Status: Acute Code(s): E87.5 - Hyperkalemia (5) Abdominal pain: Status: Acute Code(s): R10.9 - Unspecified abdominal pain Qualifiers: Abdominal location: unspecified location Qualified Code(s): R10.9 - Unspecified abdominal pain (6) Constipation: Status: Acute Code(s): K59.00 - Constipation, unspecified Qualifiers: Constipation type: unspecified constipation type Qualified Code(s): K 59.00 - Constipation, unspecified (7) Type 2 diabetes mellitus: Status: Chronic Code(s): E11.9 - Type 2 diabetes mellitus without complications Qualifiers: Diabetes mellitus [facility] insulin use: without termite treater helper use Diabetes mellitus complication status: without complication Qualified Code(s): E11.9 - Type 2 diabetes mellitus without complications (8) Neuropathy: Status: Chronic Code(s): G62.9 - Polyneuropathy, unspecified (9) Essential (primary) hypertension: Status: Chronic Code(s): I10 - Essential (primary) hypertension (10) Hyperlipidemia: Status: Chronic Code(s): E78.5 - Hyperlipidemia, unspecified Qualifiers: Hyperlipidemia type: pure hypercholesterolemia Qualified Code(s): E 78.00 - Pure hypercholesterolemia, unspecified; E78.0 - Pure hypercholesterolemia (11) Atherosclerotic heart disease of [place] coronary artery without angina pectoris: Status: Chronic Code(s): I25.10 - Atherosclerotic heart disease of [place] coronary artery without angina pectoris Qualifiers: [place] vs. 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 Code(s): I25.2 - Old myocardial infarction (13) History of coronary artery stent placement: Status: Resolved Code(s): Z95.5 - Presence of coronary angioplasty implant and graft Medications at Discharge Home Medications famotidine 40 mg tablet 40 mg PO BID PRN gerd 08/20/23 aspirin 81 mg tablet,delayed release (Adult Low Dose Aspirin) 81 mg PO DAILY heart health #90 tabs 02/17/24 blood-glucose meter (Accu-Chek Guide Glucose Meter) #1 ea 04/27/24 pramipexole 0.5 mg tablet 0.5 mg PO QHS tremors #90 tabs 05/22/24 denosumab 60 mg/mL subcutaneous syringe (Prolia) 60 mg subcut [id number] #1 mL 05/29/24 glimepiride 1 mg tablet 1 mg PO QAM #90 tabs 06/15/24 trazodone 100 mg tablet 100 mg PO QHS PRN sleep #90 tabs 06/15/24 lancets 26 gauge (CareTouch Safety Lancets) #100 ea 07/07/24 amlodipine 5 mg tablet 5 mg PO DAILY blood pressure #90 tabs 07/22/24 metoprolol tartrate 25 mg tablet 50 mg (2 x 25 mg) PO BID blood pressure #180 tabs 07/22/24 oxybutynin chloride 5 mg tablet 5 mg PO DAILY overactive bladder #90 tabs 07/22/24 ramipril 10 mg capsule 10 mg PO DAILY blood pressure #90 caps 07/22/24 lancets (Accu-Chek Softclix Lancets) 07/24/24 blood sugar diagnostic (Accu-Chek Guide test strips) #100 ea 08/27/24 pravastatin 40 mg tablet 40 mg PO QHS #90 tabs 09/03/24 cholecalciferol (vitamin D3) 50 mcg (2,000 unit) tablet 50 mcg PO DAILY 09/08/24 gabapentin 300 mg capsule 300 mg PO DAILY neuropathy 09/08/24 ciprofloxacin HCl 250 mg tablet (Cipro) 250 mg PO BID #4 tabs 09/10/24 Hospital Course Operations None Procedures EKG and - (Chest x-ray/CT abdomen pelvis/CTA head neck/MRI brain/carotid Dopplers) Summary of Care Provided Minutes Spent on Discharge: 38 Hospital Course: 89 WF who presented to the ED at [facility] early on 09/09/2024 with expressive aphasia and dysmetria. Sx started 1 week prior to presentation with sudden onset expressive aphasia and dysmetria. LKW was 08/25/24. VS on presentation showed 97.8, HR 65, RR 18, BP 190/43, SpO2 97%. CBC had a leukocytosis of 11.7. CMP showed a K of 5.9, sCr was 1.15. LFT's were unremarkable. UA was suggestive of infection. CXR was unremarkable. CT Abd/Pelvis showed a large colonic stool burden but no other acute findings. CTA head and neck Atherosclerotic calcification of the anterior and posterior intracranial circulation without hemodynamically significant stenosis. 20% right and 10% left ICA stenosis. MRI was negative for acute infarcts but did show sequelae of multiple prior supratentorial and infratentorial infarcts with chronic microvascular ischemic changes. Her UA was consistent with infection and a urine culture was sent. She was started on antibiotics. Echocardiogram showed an EF of 60% with stage I diastolic dysfunction and pulmonary systolic pressure 35 mmHg. Carotid duplex was ordered by the admitting physician and she was found to have moderate right stenosis and mild left stenosis. Given her age no further intervention or workup was recommended at this time. She is already on aspirin and a statin. She was evaluated by neurology today and they felt that her subacute encephalopathy could be due to urinary tract infection however she has not improved with treatment we do need to consider normal pressure hydrocephalus given ventriculomegaly out of proportion to sulci atrophy and an outpatient referral was placed to the [facility]. Acute stroke is of low suspicion. PT/OT are following and felt that she did not need ongoing physical Occupational Therapy at discharge however speech therapy was recommended to be ongoing. She was agreeable to home health care at the time of discharge for ongoing speech therapy. Her urine culture did show Klebsiella pneumonia UTI that was pansensitive. [place] counts were 25-50,000 however with patient being symptomatic we elected to treat her. Plan for at discharge was to complete antibiotic course with ciprofloxacin. Prescription to complete course was sent to local pharmacy. It was recommended by neurology that she follow-up at the [facility] clinic. They should be calling her with this appointment. I will go ahead and have her do this although she has improved some with treatment of her UTI. She should follow-up at the clinic as directed by them when they call and her primary care physician within the next week. Patient was discharged home in stable condition with home health care on 09/10/2024. Discharge diagnoses: Klebsiella pneumonia UTI Subacute encephalopathy-resolved Dysarthria/dysmetria-resolved Possible NPH Bilateral carotid artery stenosis DM-2 PVD Essential HTN HPL H/O Complete Heart Block Insomnia Overactive bladder Diabetic neuropathy osteoporosis Physical Exam Const alert, oriented x3, no apparent distress, average body habitus, no limitations and well nourished; Negative for healthy appearing Constitutional Narrative: Very pleasant, elderly, white female, sitting up in bed, appears comfortable, nontoxic General Appearance: cooperative, comfortable, well kempt and well developed Exam Limitations: no limitations Nutritional Appearance: thin HEENT normocephalic, head/scalp atraumatic and moist oral mucous membranes HEENT Narrative: Mallampati is 1, dentition is poor, no thrush, mild hearing Eyes conjunctivae normal Eyes Narrative: No scleral icterus Neck supple Neck Narrative: Trachea midline Resp normal respiratory effort, no retractions, no use of accessory muscles and clear to auscultation bilaterally Auscultation: Negative for rales, rhonchi or wheezes Cardio regular rate, regular rhythm, S1 normal heart sound, S2 normal heart sound, no murmurs, no rub, no gallops and no clicks GI normal to inspection, nondistended, normoactive bowel sounds, soft to palpation and non-tender Extremity no clubbing, cyanosis or edema Skin skin turgor normal and no jaundice Neuro oriented x3, moves all extremities and no focal motor deficits Speech: speech normal Psych affect normal Psych Narrative: Very pleasant Weight / BMI Weight Weight: 59.7 kg Body Mass Index (BMI) 23.3 ABG / Lab / Microbiology Data 09/09/24 06:16 09/09/24 06:16 Laboratory: Laboratory Results - last 24 hr 09/09/24 23:34: POC Glucose 108 H Microbiology: Microbiology 09/08/24 21:11 Urine, Clean Catch Urine Culture - Final Klebsiella pneumoniae sp pneum Radiography Diagnostic Testing: Radiology Impression Brain MRI 09/09/24 02:02 IMPRESSION: 1. No acute intracranial abnormality; no acute infarct, intracranial hemorrhage or extra-axial collection. 2. 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 3. Chronic microvascular ischemia and involutional changes. Reading [facility] Carotid Duplex 09/09/24 02:02 Interpretation Summary Moderate (50-69%) stenosis right extracranial internal carotid. Mild (<50%) stenosis left extracranial internal carotid. Patent and antegrade vertebrals bilaterally. Acoustic shadowing from structure noted in the soft tissue of the neck at area of common carotid artery distal Ordering Physician: Osmel Rodriguez Referring Physician: Tita Berger Performed By: Yuridia Bonilla RVT Echocardiogram 09/09/24 02:02 Interpretation Summary Normal LV size. Left ventricular systolic function is normal. The left ventricular ejection fraction is 60 %. Stage 1 diastolic dysfunction. Mild (1+) aortic valve insufficiency. Pulmonary artery systolic pressure is 35 mmHg. Ordering Physician: Osmel Rodriguez Performed By: Brodwolf, Venkat, RCS D/C Instructions Discharge Diet: Low fat / Low cholesterol Discharge Activity: Return to Normal Activity DC O2, CPAP, BIPAP Needs Home O2 Discharge instructions: No Meaningful Use Info Meaningful Use Meaningful Use Diagnoses (Choose all that apply): None applicable Ischemic Stroke Statin Dosing Therapy Reference: STATIN DOSE THERAPY REFERENCE: * Patients > 75 years receive moderate or high dose statin therapy. * Patients 75 years or YOUNGER should receive HIGH intensity statin dose unless contraindicated. You will be required to document reason for non-treatment if statin daily dose does not meet guidelines. HIGH DOSE STATIN THERAPY DAILY Atorvastatin > than or = to 40 mg Rosuvastatin > than or = to 20 mg Amlodipine + Atorvastatin > than or = to 2.5/40 mg Ezetimibe + Simvastatin 10/80 mg Simvastatin 80mg Discharge Plan Admission Admit Date/Time: 09/09/24 01:52 Primary Reason for Your Visit: Dysarthria/dysmetria Attending Provider: Nayana Dumont Primary Care Provider: Tita Berger Consulting Providers: Dylan Loredo; Chuy Man; Taylor Garcia; Teena Hidalgo; Camila Allen; Deejay Patino; Heidy Alvarado; Masoud Emanuel; Brayden Syed; Trav Cross; Adina Dominguez; Goldy Hager; Margret Saleem; Shawn Platt; Nancy Raymundo; Alistair Da Silva; Abe Vasquez; Ruben Paulino; Abida Dumont; Luis Floyd; Osmel Rodriguez Instructions Additional Instructions / Restrictions: 1. [facility] should call you to set up an appointment to be seen down at their normal pressure hydrocephalus clinic after discharge. 2. Please complete antibiotics as instructed 3. You were found to be quite constipated at the time of admission I suspect this may have been causing some of your abdominal pain. Please buy MiraLAX and take it daily at least. You can take it twice daily depending on your bowel function and goal is to have a bowel movement every other day if able. Discharge Orders/Prescriptions Prescriptions: New ciprofloxacin HCl [Cipro] 250 mg tablet 250 mg PO BID Qty: 4 0RF Continued famotidine 40 mg tablet 40 mg PO BID PRN (Reason: gerd ) aspirin [Adult Low Dose Aspirin] 81 mg tablet,delayed release (DR/EC) 81 mg PO DAILY Qty: 90 0RF Prolia 60 mg/mL syringe 60 mg subcut [id number] Qty: 1 2RF cholecalciferol (vitamin D3) 50 mcg (2,000 unit) tablet 50 mcg PO DAILY gabapentin 300 mg capsule 300 mg PO DAILY Patient Comments: per pt takes it 3x a day at home. (DME) lancets [Accu-Chek Softclix Lancets] Misc MISCELLANEOUS (DME) blood-glucose meter [Accu-Chek Guide Glucose Meter] Misc See Rx Instructions .Route Qty: 1 0RF Rx Instructions: As directed pramipexole 0.5 mg tablet 0.5 mg PO QHS Qty: 90 1RF glimepiride 1 mg tablet 1 mg PO QAM Qty: 90 1RF trazodone 100 mg tablet 100 mg PO QHS PRN (Reason: sleep ) Qty: 90 0RF (DME) lancets [CareTouch Safety Lancets] 26 gauge misc See Rx Instructions .Route Qty: 100 3RF Rx Instructions: Check blood glucose once per day in the am amlodipine 5 mg tablet 5 mg PO DAILY Qty: 90 0RF metoprolol tartrate 25 mg tablet 50 mg PO BID Qty: 180 1RF oxybutynin chloride 5 mg tablet 5 mg PO DAILY Qty: 90 0RF ramipril 10 mg capsule 10 mg PO DAILY Qty: 90 0RF (DME) Accu-Chek Guide test strips Strip See Rx Instructions .Route Qty: 100 2RF Rx Instructions: check blood glucose once a day in the am pravastatin 40 mg tablet 40 mg PO QHS Qty: 90 3RF Referrals / Follow Up: Tita Berger MD [Primary Care Provider] - Within 1 Week Disposition Disposition (needs filled in before D/C Order can be placed): Home Health Service Charges/Coding Visit Charges Inpatient E&M: 60290 Disch Hosp >30min
[2024-09-10 15:10] VITALS: BP 146/52; PULSE 73; RESP 17; TEMP 36.7; O2SAT 95
[2024-09-12 17:07] LABS: Vitamin D 1,25-Dihydroxy 28.6 pg/mL (24.8-81.5)
== END 2024-09-10 16:25 | disposition home health service (06) | DRG 690 ==
LOC: ED 09-09 00:35 → PCU 09-09 02:09
PROVIDERS: Admitting Provider Internal Medicine; Emergency Provider Emergency Medicine; PCP Internal Medicine; Visit Provider Internal Medicine
DX: N30.00 Acute cystitis without hematuria (principal); G93.40 Encephalopathy, unspecified; G91.2 (Idiopathic) normal pressure hydrocephalus; R47.01 Aphasia; D63.1 Anemia in chronic kidney disease; E11.51 Type 2 diabetes mellitus with diabetic peripheral angiopathy without gangrene; N18.31 Chronic kidney disease, stage 3a; I12.9 Hypertensive chronic kidney disease with stage 1 through stage 4 chronic kidney disease, or unspecified chronic kidney disease; F32.A Depression, unspecified; I65.23 Occlusion and stenosis of bilateral carotid arteries; G25.81 Restless legs syndrome; G93.89 Other specified disorders of brain; E11.22 Type 2 diabetes mellitus with diabetic chronic kidney disease; E78.00 Pure hypercholesterolemia, unspecified; I25.10 Atherosclerotic heart disease of native coronary artery without angina pectoris; E11.42 Type 2 diabetes mellitus with diabetic polyneuropathy; K59.00 Constipation, unspecified; E87.5 Hyperkalemia; I25.2 Old myocardial infarction; E55.9 Vitamin D deficiency, unspecified; K21.9 Gastro-esophageal reflux disease without esophagitis; M81.0 Age-related osteoporosis without current pathological fracture; B96.1 Klebsiella pneumoniae [K. pneumoniae] as the cause of diseases classified elsewhere; N32.81 Overactive bladder; G47.00 Insomnia, unspecified; R27.8 Other lack of coordination; R47.1 Dysarthria and anarthria; Z90.49 Acquired absence of other specified parts of digestive tract; Z95.0 Presence of cardiac pacemaker; Z95.5 Presence of coronary angioplasty implant and graft; Z79.82 Long term (current) use of aspirin; Z79.84 Long term (current) use of oral hypoglycemic drugs; Z79.899 Other long term (current) drug therapy; Z86.79 Personal history of other diseases of the circulatory system; Z86.16 Personal history of COVID-19
CPT/HCPCS: 36415; 70496; 70498; 70551; 71045; 74177; 80053; 80061; 81002; 82077; 82607; 82652; 82746; 82803; 82962; 83036; 83735; 84100; 84443; 85025; 85027; 87077; 87086; 87088; 87186; 92523; 92610; 93005; 93306; 93880; 94762; 97162; 97166; 97535; 97802; 99285; Q9967; A4216; J0744; J2405

== ENCOUNTER → 2024-09-17 | Outpatient (CLI) | payer MEDICARE, SELFPAY ==
[2024-09-17 15:30] LABS: Erythrocyte Sedimentation Rate 24 mm/hr (0-30)
[2024-09-17 15:32] LABS: Absolute Lymphocyte Count 4.88 X10^3/uL (0.83-4.51); Absolute Neutrophil Count 4.7 X10^3/uL (2.0-7.7); Basophil# 0.05 X10^3/uL; Basophil% 0.5 % (0-1); Eosinophil# 0.12 X10^3/uL; Eosinophils% 1.1 % (0-5); Hematocrit 35.1 % (37-47); Hemoglobin 11.8 g/dL (12.0-15.0); Lymphocyte # 4.88 X10^3/ul (0.83-4.51); Lymphocyte % 46.6 % (19-41); Mean Corp Hgb Conc 33.6 g/dL (32-36); Mean Corpuscular Hgb 30.6 pg (27.0-32.0); Mean Corpuscular Volume 90.9 fL (81-99); Mean Platelet Vol. 10.4 fl (6.2-12.0); Monocyte# 0.72 X10^3/uL; Monocyte% 6.9 % (0-10); NRBC Flagged by Analyzer 0 % (0-5); Neutrophil # 4.68 X10^3/uL (2.7-7.7); Neutrophil % 44.6 % (47-70); Platelet Count 339 K/mm3 (150-450); RBC Distribution Width CV 14.5 % (11.6-14.6); RBC Distribution Width SD 47.9 fl (35.1-43.9); Red Blood Count 3.86 M/mm3 (4.2-5.4); White Blood Count 10.5 K/mm3 (4.4-11.0)
[2024-09-17 16:15] LABS: CRP 8.12 mg/L (0.0-3.0)
== END | disposition home or self-care (01) ==
LOC: BIMLAB 14:10
PROVIDERS: PCP Internal Medicine; Visit Provider Physician Assistant
DX: R47.01 Aphasia (principal)
CPT/HCPCS: 36415; 85025; 85652; 86140

== ENCOUNTER → 2024-09-21 | Outpatient (CLI) | payer MEDICARE, SELFPAY | END | disposition home or self-care (01) | LOC: LABSPEC 15:34 | PROVIDERS: PCP Internal Medicine; Referring Provider Physician Assistant; Visit Provider Physician Assistant | DX: N39.0 Urinary tract infection, site not specified (principal) | CPT/HCPCS: 87086; 87088 ==

== ENCOUNTER 2024-10-02 13:42 | Observation (INO) | payer MEDICARE, SELFPAY ==
[2024-10-02] VITALS (13 sets, daily range): BP systolic 128–154; BP diastolic 47–78; PULSE 75–112; RESP 16–27; TEMP 36.2–37; O2SAT 85–100; BMI 55.4; BMI 23.2; BMI 24.0
--- NOTE | 2024-10-02 13:44 | CT_ITS ---
PROCEDURE: STROKE BRAIN/HEAD WITHOUT CONT (CTBR.ST), 10/02/2024 REASON FOR EXAM: NEURO DEFICIT, ACUTE, STROKE SUSPECTED COMPARISON: 09/09/2024 TECHNIQUE: CT head was performed without IV contrast. Multiplanar reformats were generated. RADIATION DOSE SUMMARY: CTDlvol: 47.06 mGy DLP: 872.68 mGycm One or more dose reduction techniques were used (e.g., Automated exposure control, adjustment of the mA and/or kV according to patient size, use of iterative reconstruction technique). FINDINGS: Cerebrum: No visible acute hemorrhage, definite acute territorial infarct, or visible mass. Similar moderate to severe cerebral volume loss and mild patchy supratentorial presumed chronic microvascular ischemic changes. Similar remote lacunar infarct in the LEFT basal ganglia/LEFT frontal centrum semiovale. Old infarct in the RIGHT frontal lowery radiata. Cerebellum/brainstem: No visible acute infarct. Remote RIGHT cerebellar infarct. Additional tiny RIGHT cerebellar infarcts seen on previous MRI not visible.. Note slight limitation due to beam hardening artifact. Ventricles/extra-axial spaces: 3rd and lateral ventriculomegaly appears slightly disproportionate to the degree of volume loss with relative sulcal effacement at the vertex.. Paranasal sinuses/mastoid air cells: Similar opacification of posterior RIGHT ethmoid air cell. Scalp/calvarium: Hyperostosis frontalis. Other: Partially empty sella, can be a normal variant or may be seen in the setting of idiopathic intracranial hypertension amongst other etiologies.. Intracranial atherosclerosis. Bilateral cataract surgery. CT/STROKE Brain/Head without Cont IMPRESSION: 1. No visible acute intracranial findings. If there is persistent concern for a n acute intracranial process, consider MRI. 2. Similar findings which are nonspecific but can be seen in the setting of com municating/normal pressure hydrocephalus given the appropriate clinical context. 3. Similar mild paranasal sinus disease. 4. Additional description as above. Red Alert: #1 above The critical information above was relayed directly by me by telephone to Giana booker MD on 10/02/2024 at 12:12 pm with readback verification. Reading Location: [id number]
--- NOTE | 2024-10-02 13:44 | EKG12_ITS ---
Test Reason : POSS STROKE Blood Pressure : */* mmHG Vent. Rate : 93 BPM Atrial Rate : 122 BPM P-R Int : * ms QRS Dur : 160 ms QT Int : 428 ms P-R-T Axes : * -73 76 degrees QTcB Int : 532 ms Ventricular-paced rhythm Abnormal ECG Confirmed by WISAM EUGENE, BROCK ([id number]), supervising editor trailer CLYDE RUIZ ([id number]) on 10/09/2024 12:41:29 PM Referred By: Goldy Powell Confirmed By: BROCK JOEL MD
--- NOTE | 2024-10-02 13:50 | CT_ITS ---
PROCEDURE: STROKE CTA HEAD AND NECK W/CON 10/02/2024 REASON FOR EXAM: LEFT FACIAL DROOP TECHNIQUE: CTA head and neck was performed with IV contrast. Multiplanar reformats as well as MIP and 3D reconstructions were generated. CONTRAST: Isovue 370 VOLUME: 100mL RADIATION DOSE SUMMARY: CTDlvol: 9.49+ 26.19 mGy DLP: 892.7 mGycm One or more dose reduction techniques were used (e.g., Automated exposure control, adjustment of the mA and/or kV according to patient size, use of iterative reconstruction technique). COMPARISON: 09/09/2024 FINDINGS: Note the exam is optimized for evaluation of the head and major cervical/intracranial arterial vasculature rather than the remaining soft tissues. CTA NECK: Aortic Arch: Atherosclerosis. Brachiocephalic and subclavians: Mild 20% stenosis along the proximal LEFT subclavian. RIGHT Carotid: Right CCA: 20% stenosis distally and in the carotid bulb. Right ICA: 30% stenosis in at the origin. Right ECA: Similar severe roughly 70-80% stenosis at the origin. LEFT Carotid: Left CCA: Patent. Tortuous. Left ICA: Patent. Retropharyngeal course. Left ECA: Patent. Vertebrals: Slight RIGHT dominance. Arise from the subclavians. Both vertebrals form the basilar. RIGHT Vertebral: Patent. LEFT Vertebral: Patent. CTA HEAD: Slight limitation related to venous contamination. Anterior circulation: Nonobstructing atherosclerosis. Posterior circulation: Patent. RIGHT AICA nonvisualized. Diminutive bilateral P1 segments with dominant posterior communicating arteries. Venous structures: Grossly unremarkable within limits of nondedicated technique. Other: Enlargement of the central pulmonary arteries may suggest pulmonary arterial hypertension.. Cervical spondylosis. Demineralization. Mild apical pleural/parenchymal scarring. Chronic granulomatous disease in the chest. Thyroid nodules up to 12 mm on the RIGHT. Partially imaged LEFT chest wall presumed pacer/defibrillator CT/STROKE CTA Head AND Neck W/Con IMPRESSION: 1. Similar severe stenosis at the RIGHT ECA origin otherwise no high-grade sten osis or large vessel occlusion identified. 2. Additional description as above. Reading Location: [id number]
--- NOTE | 2024-10-02 13:54 | EX.ED.DYSGE1 ---
HPI <EMI Trujillo - Last Filed: 10/02/24 15:58> History of Present Illness Chief Complaint: Stroke Alert Narrative Narrative: 89-year-old female with PMH of HTN, HLD, DM2, CVA, complete heart block status post pacemaker presents with left facial droop and inability to speak that family noted at 8 AM. She lives at home with her daughter and normally speaks and ambulates with a walker. Last known well was 8 PM last night. Daughter checked her this morning and she is awake but not speaking and has a left facial droop and left arm weakness. She is on aspirin 81 mg. No blood thinners. PFSH <EMI Trujillo - Last Filed: 10/02/24 15:58> [facility] Medical History Cerebrovascular accident (CVA) involving left cerebral hemisphere Neuropathy Hoarseness COVID-19 Osteoporosis History of complete heart block Postmenopausal History of pacemaker Pacemaker Systolic ejection murmur Scoliosis Intermittent claudication Degenerative arthritis of lumbar spine Bulging lumbar disc Widened pulse pressure Weight loss Weakness Vitamin D deficiency Type 2 diabetes mellitus Tremor of both hands Suprapubic mass Skin cancer of face Skin cancer Secondary hyperparathyroidism Scarring of lung Right foot pain Restless leg Recurrent headache Radiculopathy of arm Peripheral vascular disease Peripheral edema Pars defect with spondylolisthesis Pars defect of lumbar spine Pancreatic cyst Overactive bladder Normocytic anemia Neuropathy of thigh Neck pain Nausea Microalbuminuric diabetic nephropathy Microalbuminuria Lumbar facet arthropathy Lumbar degenerative disc disease Leg pain Left hip pain Iron deficiency anemia Intention tremor Insomnia Hypertension goal BP (blood pressure) < 150/90 GERD (gastroesophageal reflux disease) Eye pain Elevated TSH Diverticulosis of colon Diarrhea Diabetic neuropathy Dextroscoliosis of lumbar spine Degenerative joint disease of left hip Cyst of skin Constipation Colonic stricture CKD stage 3 secondary to diabetes Chronic neck pain Chronic low back pain Chronic kidney disease, stage 3 Coronary artery disease Bilateral leg weakness Back pain Atherosclerosis Anxiety Abdominal aortic atherosclerosis Old inferior wall myocardial infarction Essential (primary) hypertension Hyperlipidemia Atherosclerotic heart disease of [place] coronary artery without angina pectoris Left bundle branch block Home Medications ?Medication ?Instructions ?Recorded ?Last Taken ?Type famotidine 40 mg tablet 40 mg PO DAILY gerd 08/20/23 10/02/24 History aspirin 81 mg tablet,delayed 81 mg PO DAILY [facility] #90 02/17/24 10/02/24 Rx release (Adult Low Dose Aspirin) tabs blood-glucose meter (Accu-Chek #1 ea 04/27/24 Unknown Rx Guide Glucose Meter) pramipexole 0.5 mg tablet 0.5 mg PO QHS tremors #90 tabs 05/22/24 10/01/24 Rx glimepiride 1 mg tablet 1 mg PO QAM #90 tabs 06/15/24 10/02/24 Rx trazodone 100 mg tablet 100 mg PO QHS PRN sleep #90 tabs 06/15/24 10/01/24 Rx lancets 26 gauge (CareTouch Safety #100 ea 07/07/24 Unknown Rx Lancets) metoprolol tartrate 25 mg tablet 50 mg (2 x 25 mg) PO BID blood 07/22/24 Unknown Rx pressure #180 tabs oxybutynin chloride 5 mg tablet 5 mg PO DAILY overactive bladder 07/22/24 Unknown Rx #90 tabs ramipril 10 mg capsule 10 mg PO DAILY blood pressure #90 07/22/24 10/02/24 Rx caps lancets (Accu-Chek Softclix 07/24/24 Unknown History Lancets) blood sugar diagnostic (Accu-Chek #100 ea 08/27/24 Unknown Rx Guide test strips) cholecalciferol (vitamin D3) 50 50 mcg PO DAILY 09/08/24 Unknown History mcg (2,000 unit) tablet amitriptyline 10 mg tablet 10 mg PO DAILY #14 tabs 09/10/24 10/02/24 Rx gabapentin 300 mg capsule 300 mg PO TID neuropathy #270 caps 09/11/24 10/02/24 Rx pravastatin 40 mg tablet 40 mg PO QHS #90 tabs 09/28/24 Unknown Rx amlodipine 5 mg tablet 5 mg PO DAILY blood pressure 10/02/24 10/02/24 History Allergy/AdvReac Type Severity Reaction Status Date / Time codeine Allergy Other Verified 10/02/24 13:48 latex Allergy NEEDS Verified 10/02/24 13:48 FOLLOW-UP meperidine Allergy NEEDS Verified 10/02/24 13:48 FOLLOW-UP metoclopramide HCl (From Allergy Other Verified 10/02/24 13:48 Reglan) morphine Allergy Itching Verified 10/02/24 13:48 Penicillins (PCN) Allergy Hives Verified 10/02/24 13:48 prednisone Allergy Other Verified 10/02/24 13:48 ropinirole HCl (From Requip) Allergy Other Verified 10/02/24 13:48 shrimp Allergy NEEDS Verified 10/02/24 13:48 FOLLOW-UP amoxicillin AdvReac Other Verified 10/02/24 13:48 diazepam (From Valium) AdvReac Other Verified 10/02/24 13:48 pregabalin (From Lyrica) AdvReac Somnolence Verified 10/02/24 13:48 Family History Father , age 62 Sudden cardiac CAD (coronary artery disease) Myocardial infarction Heart disease Son Heart disease Myocardial infarction Surgical History History of surgical removal of skin lesion History of breast biopsy History of colonoscopy History of endoscopy History of eye surgery History of carpal tunnel repair History of partial colectomy Hx of cholecystectomy H/O heart surgery H/O: hysterectomy History of left heart catheterization (08/17/03) History of coronary artery stent placement (06/23/99) Social History adopted: No household members: children housing: house current occupational status: retired Smoking Status: Never smoker alcohol intake: never substance use type: does not use caffeine: No ROS <EMI Trujillo - Last Filed: 10/02/24 15:58> ROS ED ROS Narrative Unable to obtain because patient cannot speak, but no recent illness according to family EXAM <EMI Trujillo - Last Filed: 10/02/24 15:58> Physical Exam Narrative Exam Narrative: CONST: Patient sitting in no acute distress. EYES: Normal inspection. NECK: Normal inspection. RESP: No respiratory distress, CTAB. CVS: Regular rate and rhythm, no murmur, no gallop. ABD: Soft and nontender, no guarding or rebound, nondistended. SKIN: Color normal, no rash, warm, dry, intact. EXTREMITIES: Normal appearance, no pedal edema. NEURO: Alert and looking around but nonverbal, EOMI, minor left facial droop, left arm contracture and next to the body with complete drift to the bed, left leg drifts to bed, will not move either lower extremity for testing, cannot complete finger-nose or [id number] testing, cannot complete sensation testing, completely mute/aphasic, NIH is 15. PSYCH: Normal affect. Const Vital Signs: 10/02/24 13:43 10/02/24 13:50 10/02/24 13:56 Temperature 98.3 F Temperature Source Oral Pulse Rate 112 H 89 Respiratory Rate 18 27 H Blood Pressure 144/48 H 128/56 H Blood Pressure Mean 80 80 Pulse Ox 93 93 91 Oxygen Delivery Method Room Air Room Air Oxygen Flow Rate (L/min) 10/02/24 14:09 10/02/24 14:12 10/02/24 14:19 Temperature Temperature Source Pulse Rate 95 95 Respiratory Rate 26 H 22 H Blood Pressure 128/56 H 128/56 H Blood Pressure Mean 80 80 Pulse Ox 93 98 85 Oxygen Delivery Method Room Air Oxygen Flow Rate (L/min) 10/02/24 14:19 10/02/24 14:30 10/02/24 15:00 Temperature Temperature Source Pulse Rate 76 75 Respiratory Rate 18 16 Blood Pressure 136/70 H 128/78 H Blood Pressure Mean 92 94 Pulse Ox 90 98 93 Oxygen Delivery Method Nasal Cannula Nasal Cannula Oxygen Flow Rate (L/min) 2 2 10/02/24 15:27 Temperature 98.6 F Temperature Source Pulse Rate 75 Respiratory Rate 16 Blood Pressure 128/78 H Blood Pressure Mean 94 Pulse Ox 93 Oxygen Delivery Method Oxygen Flow Rate (L/min) <Dr. Micky Alcala MD - Last Filed: 10/02/24 15:20> Physical Exam Const Vital Signs: 10/02/24 13:43 10/02/24 13:50 10/02/24 13:56 Temperature 98.3 F Temperature Source Oral Pulse Rate 112 H 89 Respiratory Rate 18 27 H Blood Pressure 144/48 H 128/56 H Blood Pressure Mean 80 80 Pulse Ox 93 93 91 Oxygen Delivery Method Room Air Room Air Oxygen Flow Rate (L/min) 10/02/24 14:09 10/02/24 14:12 10/02/24 14:19 Temperature Temperature Source Pulse Rate 95 95 Respiratory Rate 26 H 22 H Blood Pressure 128/56 H 128/56 H Blood Pressure Mean 80 80 Pulse Ox 93 98 85 Oxygen Delivery Method Room Air Oxygen Flow Rate (L/min) 10/02/24 14:19 10/02/24 14:30 10/02/24 15:00 Temperature Temperature Source Pulse Rate 76 75 Respiratory Rate 18 16 Blood Pressure 136/70 H 128/78 H Blood Pressure Mean 92 94 Pulse Ox 90 98 93 Oxygen Delivery Method Nasal Cannula Nasal Cannula Oxygen Flow Rate (L/min) 2 2 10/02/24 15:27 Temperature 98.6 F Temperature Source Pulse Rate 75 Respiratory Rate 16 Blood Pressure 128/78 H Blood Pressure Mean 94 Pulse Ox 93 Oxygen Delivery Method Oxygen Flow Rate (L/min) [facility] <EMI Trujillo - Last Filed: 10/02/24 15:58> [facility] Narrative Medical decision making narrative: History gathered from: Family, EMS Differential includes but not limited to TIA, CVA, intracranial hemorrhage 89-year-old female brought in for left facial droop, left arm weakness, and complete aphasia that started this morning with last known well 8 PM last night. She has had expressive aphasia over the last month from reportedly prior strokes. See records below. Patient is awake in no distress. Initial NIH 15. She was sent immediately. To the radiology department for CT scans. CT brain negative. CTA shows similar severe stenosis at the right ECA origin otherwise no acute findings. On reassessment patient is improving and is attempting to speak but her speech is dysarthric. She is moving her left arm and both lower extremities. Patient is out of the treatment window for TNK and case was reviewed with [facility] teleneurologist as well who agrees with admission. Labs show white count of 15.2 and chronic anemia with hemoglobin of 11.4. BUN 49, creatinine 1.59. This is elevated from previous at 18/1.05 last month so she was given IV fluids. I discussed the case with the hospitalist for admission. External records reviewed: Records show patient was admitted from 09/09/2024 through 09/10/2024 for expressive aphasia as well as other complaints and MRI showed multiple prior supratentorial and infratentorial infarcts with chronic microvascular ischemic changes. She was also treated for UTI at that time. Family reports she had difficulty expressing herself since then but was talking. 38 minutes of critical care time was consumed by evaluation and assessment of the patient, discussion with family, discussion with consultants, treatment and planning. I have personally performed a face to face assessment of the patient and have reviewed the MONTSE Note. I performed a substantive portion of the visit including all aspects of the following. My sanchez findings include: History is [89-year-old female from home last known well was last night at 8 PM. This morning family realized she was not talking and was not moving her left arm. She had a recent workup about a month ago which they found multiple strokes on imaging. However she was speaking and moving her left arm recently. Family denies any recent fall or head injury. Denies any recent illness or fever. Patient is a limited informant currently because of her inability to speak.] Exam is [ 89-year-old female sitting upright in bed. Vital signs are stable. She is afebrile. Eyes are open. She is trying to talk but it is coming out completely inaudible. HEENT exam pupils round reactive light. No facial droop. No trauma. Speech is very broken up dysarthric and slurred. Really not able to understand. Neck nontender. Lungs clear. Heart regular rhythm rate about 90. Chest wall ribs nontender. Abdomen soft nontender. No peritoneal signs. She is moving both legs and her right arm. The left arm is basically flaccid along her left side. No discoloration. Palpable radial pulses. Neurologically her eyes are open. She is awake. She is alert. She has both an expressive and receptive aphasia. She is not moving her left arm. Her NIH score is around a 15. Some of that may be old from recent strokes in the last month.] Medical Decison Making [stroke evaluation or workup. She is not a thrombolysis candidate due to wake-up stroke, last known well was 8 PM last night and is currently around 2 PM. Around 18 hours ago.] Other additions or changes: [Repeat exam around 3:15 PM. Mild improvement she is showing slight movement of the left arm. Still noncommunicative. Unable to talk. I spoke with the family. She will be admitted. I have already spoken to the hospitalist she will be admitted to the PCU.] Lab Data Labs: Laboratory Results - last 24 hr 10/02/24 13:34 WBC 15.2 H RBC 3.82 L Hgb 11.4 L Hct 34.5 L MCV 90.3 MCH 29.8 MCHC 33.0 RDW Std Deviation 49.2 H RDW Coeff of Franky 14.8 H Plt Count 316 MPV 10.2 Immature Gran % (Auto) 0.400 Neut % (Auto) 80.6 H Lymph % (Auto) 14.1 L [place] % (Auto) 4.6 Eos % (Auto) 0.0 Baso % (Auto) 0.3 Absolute Neuts (auto) 12.2 H Absolute Lymphs (auto) 2.14 Nucleated RBC % 0 PT 14.4 INR 1.1 APTT 27.3 Sodium 138 Potassium 4.8 Chloride 98 Carbon Dioxide 17.0 L Anion Gap 23 H BUN 49 H Creatinine 1.59 H Estim Creat Clear Calc 19.84 L Est GFR (MDRD) Non-Af 31 L BUN/Creatinine Ratio 30.8 H Glucose 214 H Calcium 10.5 Troponin T High Sens 46 H Radiography Diagnostic Testing: Clinical Impression(s) from Imaging Studies Brain CT 10/02/24 13:44 IMPRESSION: 1. No visible acute intracranial findings. If there is persistent concern for an acute intracranial process, consider MRI. 2. Similar findings which are nonspecific but can be seen in the setting of communicating/normal pressure hydrocephalus given the appropriate clinical context. 3. Similar mild paranasal sinus disease. 4. Additional description as above. Red Alert: #1 above The critical information above was relayed directly by me by telephone to Fredrick EUGENE on 10/02/2024 at 12:12 pm with readback verification. Reading Location: [facility] Head/Neck CTA 10/02/24 13:50 IMPRESSION: 1. 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 2. Additional description as above. Reading Location: [facility] EKG Initial EKG: Attestation: I personally reviewed and interpreted this EKG as follows: Comments: Ventricular paced rhythm at 93 bpm <Dr. Micky Alcala MD - Last Filed: 10/02/24 15:20> [facility] Narrative Medical decision making narrative: I have personally performed a face to face assessment of the patient and have reviewed the MONTSE Note. I performed a substantive portion of the visit including all aspects of the following. My sanchez findings include: History is [89-year-old female from home last known well was last night at 8 PM. This morning family realized she was not talking and was not moving her left arm. She had a recent workup about a month ago which they found multiple strokes on imaging. However she was speaking and moving her left arm recently. Family denies any recent fall or head injury. Denies any recent illness or fever. Patient is a limited informant currently because of her inability to speak.] Exam is [ 89-year-old female sitting upright in bed. Vital signs are stable. She is afebrile. Eyes are open. She is trying to talk but it is coming out completely inaudible. HEENT exam pupils round reactive light. No facial droop. No trauma. Speech is very broken up dysarthric and slurred. Really not able to understand. Neck nontender. Lungs clear. Heart regular rhythm rate about 90. Chest wall ribs nontender. Abdomen soft nontender. No peritoneal signs. She is moving both legs and her right arm. The left arm is basically flaccid along her left side. No discoloration. Palpable radial pulses. Neurologically her eyes are open. She is awake. She is alert. She has both an expressive and receptive aphasia. She is not moving her left arm. Her NIH score is around a 15. Some of that may be old from recent strokes in the last month.] Medical Decison Making [stroke evaluation or workup. She is not a thrombolysis candidate due to wake-up stroke, last known well was 8 PM last night and is currently around 2 PM. Around 18 hours ago.] Other additions or changes: [Repeat exam around 3:15 PM. Mild improvement she is showing slight movement of the left arm. Still noncommunicative. Unable to talk. I spoke with the family. She will be admitted. I have already spoken to the hospitalist she will be admitted to the PCU.] History & Record Review Discussion w/independent historian: Patient and Family Additional record(s) reviewed:: Prior inpatient record, Prior outpatient record, Prior ED visit and Prior labs Lab Data Attestation: I reviewed the patient's lab results. Lab results narrative: CBC white count of 15.2. H&H 11.4 [address]. Platelets 316. CT of the brain without contrast chronic changes. CTA results pending. Labs: Laboratory Results - last 24 hr 10/02/24 13:34 WBC 15.2 H RBC 3.82 L Hgb 11.4 L Hct 34.5 L MCV 90.3 MCH 29.8 MCHC 33.0 RDW Std Deviation 49.2 H RDW Coeff of Franky 14.8 H Plt Count 316 MPV 10.2 Immature Gran % (Auto) 0.400 Neut % (Auto) 80.6 H Lymph % (Auto) 14.1 L [place] % (Auto) 4.6 Eos % (Auto) 0.0 Baso % (Auto) 0.3 Absolute Neuts (auto) 12.2 H Absolute Lymphs (auto) 2.14 Nucleated RBC % 0 PT 14.4 INR 1.1 APTT 27.3 Sodium 138 Potassium 4.8 Chloride 98 Carbon Dioxide 17.0 L Anion Gap 23 H BUN 49 H Creatinine 1.59 H Estim Creat Clear Calc 19.84 L Est GFR (MDRD) Non-Af 31 L BUN/Creatinine Ratio 30.8 H Glucose 214 H Calcium 10.5 Troponin T High Sens 46 H Radiography Diagnostic Testing: Clinical Impression(s) from Imaging Studies Brain CT 10/02/24 13:44 IMPRESSION: 1. No visible acute intracranial findings. If there is persistent concern for an acute intracranial process, consider MRI. 2. Similar findings which are nonspecific but can be seen in the setting of communicating/normal pressure hydrocephalus given the appropriate clinical context. 3. Similar mild paranasal sinus disease. 4. Additional description as above. Red Alert: #1 above The critical information above was relayed directly by me by telephone to Fredrick EUGENE on 10/02/2024 at 12:12 pm with readback verification. Reading Location: [id number] Head/Neck CTA 10/02/24 13:50 IMPRESSION: 1. 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 2. Additional description as above. Reading Location: [id number] Discharge Plan Dx/Rx/DC Orders Clinical Impression: Acute stroke due to ischemia, Left bundle branch block, Aphasia due to acute stroke, Left arm weakness, Acute dehydration Disposition Disposition: [facility]
--- NOTE | 2024-10-02 14:14 | CHAPLAIN ---
Type of Pastoral Visit ___ Initial Visit ___ Follow-up Visit ___ On-call Visit ___ General Patient Visit ___ Spiritual Assessment ___ Family Conference ___ Bereavement _x__ Rapid Response ___ Code Blue ___ Other (describe below) Pastoral Care Referral From ___ Patient ___ Family ___ Nurse ___ Physician ___ Paper Tube Cutter ___ [place] _x__ Other (describe below) Sacrament/Intervention _x__ Active listening ___ Anointing ___ Uatsdin ___ Bereavement ___ Communion ___ Taylor exploration ___ ___ Life review ___ Prayer ___ Reconciliation ___ Sacrament of Sick _x__ Supportive presence ___ Wedding ___ Other (describe below) Pastoral Comments responded to stroke alert and awaited the squad to arrive; pt was immediately taken to CT; two daughters arrived shortly and were then escorted by this java sql developer to the room in ED where pt would return; met with the family members; this java sql developer offered presence and support; daughters remember this java sql developer from their mother's previous hospitalization last month; family states no needs but for a prayer to be made for the patient; SW also came to offer support to the family and patient
[2024-10-02 14:22] LABS: Absolute Lymphocyte Count 2.14 X10^3/uL (0.83-4.51); Absolute Neutrophil Count 12.2 X10^3/uL (2.0-7.7); Basophil# 0.05 X10^3/uL; Basophil% 0.3 % (0-1); Hematocrit 34.5 % (37-47); Hemoglobin 11.4 g/dL (12.0-15.0); Lymphocyte # 2.14 X10^3/ul (0.83-4.51); Lymphocyte % 14.1 % (19-41); Mean Corpuscular Hgb 29.8 pg (27.0-32.0); Mean Corpuscular Volume 90.3 fL (81-99); Mean Platelet Vol. 10.2 fl (6.2-12.0); Monocyte% 4.6 % (0-10); NRBC Flagged by Analyzer 0 % (0-5); Neutrophil # 12.22 X10^3/uL (2.7-7.7); Neutrophil % 80.6 % (47-70); Platelet Count 316 K/mm3 (150-450); RBC Distribution Width CV 14.8 % (11.6-14.6); RBC Distribution Width SD 49.2 fl (35.1-43.9); Red Blood Count 3.82 M/mm3 (4.2-5.4); White Blood Count 15.2 K/mm3 (4.4-11.0)
[2024-10-02 14:24] LABS: International Normalized Ratio 1.1; Prothrombin Time (Protime)PT. 14.4 SECONDS (11.7-14.9)
[2024-10-02 14:25] LABS: Partial Thromboplast Time 27.3 Seconds (24.1-36.2)
[2024-10-02 14:48] LABS: Anion Gap 23 (5-15); BUN 49 mg/dL (4-19); BUN/Creat Ratio 30.8 RATIO (10-20); Calcium,Total 10.5 mg/dL (7.6-11.0); Chloride 98 mmol/L (98-108); Creatinine, Serum 1.59 mg/dL (0.70-1.20); EST Glomerular Filtration Rate 31 (>60); Estimated Creatinine Clearance 19.84 ml/min (50-250); Glucose 214 mg/dL (70-99); Potassium 4.8 mmol/L (3.3-5.1); Sodium Level 138 mmol/L (133-145); Troponin T High Sensitivity 46 ng/L (<=14)
--- NOTE | 2024-10-02 15:15 | HP.PCM.HOS_ITS ---
HPI - General General Date of Admission: 10/02/24 HPI Narrative NASH ASTORGA, is a 89 F with a PMH as outlined who presents via the ED On 10/02/2024 with a complaint of stroke like symptoms. Family found her at ~ 8am. She has a history of CVA. Family found her this morning confused and unable to move her left arm; she also had a left facial droop. She was unable to communicate as she was nonverbal at time of review, and this is new for her. Per family, she had no headache, slurred speech, chest pain, palpitations, dizziness, nausea, vomiting or any other symptoms. Review of systems is otherwise negative. Vitals in the ED were BP of 128/78, KS of 75, RR of 16 and temp of 98.6F. She was saturating at 93% on room air. CBC showed hb of 11.4, wbc of 15.2 and platelets of 316. INR ws 1.1. Chemistry showed sodium of 138, potassium of 4.8 and bicarb of 17. Anion gap was 23 and Cr was 1.59, with a baseline of 1.05. Initial troponin was 46. CT of the brain showed no acute intracranial pathology. CTA head and neck showed similar severe stenosis at the right ECA origin as seen on previous imaging, but no high grade stenosis or large vessel occlusion identified. Telestroke neurology reviewed patient and did not recommend TNK as she was out of the window. She is being admitted to be managed for stroke like symptoms to rule out a stroke. [facility], [facility] Medical History Cerebrovascular accident (CVA) involving left cerebral hemisphere Neuropathy Hoarseness COVID-19 Osteoporosis History of complete heart block Postmenopausal History of pacemaker Pacemaker Systolic ejection murmur Scoliosis Intermittent claudication Degenerative arthritis of lumbar spine Bulging lumbar disc Widened pulse pressure Weight loss Weakness Vitamin D deficiency Type 2 diabetes mellitus Tremor of both hands Suprapubic mass Skin cancer of face Skin cancer Secondary hyperparathyroidism Scarring of lung Right foot pain Restless leg Recurrent headache Radiculopathy of arm Peripheral vascular disease Peripheral edema Pars defect with spondylolisthesis Pars defect of lumbar spine Pancreatic cyst Overactive bladder Normocytic anemia Neuropathy of thigh Neck pain Nausea Microalbuminuric diabetic nephropathy Microalbuminuria Lumbar facet arthropathy Lumbar degenerative disc disease Leg pain Left hip pain Iron deficiency anemia Intention tremor Insomnia Hypertension goal BP (blood pressure) < 150/90 GERD (gastroesophageal reflux disease) Eye pain Elevated TSH Diverticulosis of colon Diarrhea Diabetic neuropathy Dextroscoliosis of lumbar spine Degenerative joint disease of left hip Cyst of skin Constipation Colonic stricture CKD stage 3 secondary to diabetes Chronic neck pain Chronic low back pain Chronic kidney disease, stage 3 Coronary artery disease Bilateral leg weakness Back pain Atherosclerosis Anxiety Abdominal aortic atherosclerosis Old inferior wall myocardial infarction Essential (primary) hypertension Hyperlipidemia Atherosclerotic heart disease of poarch coronary artery without angina pectoris Left bundle branch block Home Medications ?Medication ?Instructions ?Recorded ?Last Taken ?Type famotidine 40 mg tablet 40 mg PO DAILY gerd 08/20/23 10/02/24 History aspirin 81 mg tablet,delayed 81 mg PO DAILY heart heal th #90 02/17/24 10/02/24 Rx release (Adult Low Dose Aspirin) tabs blood-glucose meter (Accu-Chek #1 ea 04/27/24 Unknown Rx Guide Glucose Meter) pramipexole 0.5 mg tablet 0.5 mg PO QHS tremors #90 t abs 05/22/24 10/01/24 Rx glimepiride 1 mg tablet 1 mg PO QAM #90 tabs 5 10/02/24 Rx trazodone 100 mg tablet 100 mg PO QHS PRN sleep #90 tabs 06/15/24 10/01/24 Rx lancets 26 gauge (CareTouch Safety #100 ea 07/07/24 Un known Rx Lancets) metoprolol tartrate 25 mg tablet 50 mg (2 x 25 mg) PO BID blood 07/22/24 Unknown Rx pressure #180 tabs oxybutynin chloride 5 mg tablet 5 mg PO DAILY overacti ve bladder 07/22/24 Unknown Rx #90 tabs ramipril 10 mg capsule 10 mg PO DAILY blood pressur e #90 07/22/24 10/02/24 Rx caps lancets (Accu-Chek Softclix 07/24/24 Unknown History Lancets) blood sugar diagnostic (Accu-Chek #100 ea 08/27/24 Unk nown Rx Guide test strips) cholecalciferol (vitamin D3) 50 50 mcg PO DAILY Unknown History mcg (2,000 unit) tablet amitriptyline 10 mg tablet 10 mg PO DAILY #14 tabs 03/2710/02/24 Rx gabapentin 300 mg capsule 300 mg PO TID neuropathy #2 70 caps 09/11/24 10/02/24 Rx pravastatin 40 mg tablet 40 mg PO QHS #90 tabs Unknown Rx amlodipine 5 mg tablet 5 mg PO DAILY blood pressure 10/02/24 10/02/24 History Allergy/AdvReac Type Severity Reaction Status Date / Time codeine Allergy Other Verified 10/02/24 13:48 latex Allergy NEEDS Verified 10/02/24 13:48 FOLLOW-UP meperidine Allergy NEEDS Verified 10/02/24 13:48 FOLLOW-UP metoclopramide HCl (From Allergy Other Verified 10/02/24 13:48 Reglan) morphine Allergy Itching Verified 10/02/24 13:48 Penicillins (PCN) Allergy Hives Verified 10/02/24 13:48 prednisone Allergy Other Verified 10/02/24 13:48 ropinirole HCl (From Requip) Allergy Other Verified 10/02/24 13:48 shrimp Allergy NEEDS Verified 10/02/24 13:48 FOLLOW-UP amoxicillin AdvReac Other Verified 10/02/24 13:48 diazepam (From Valium) AdvReac Other Verified 10/02/24 13:48 pregabalin (From Lyrica) AdvReac Somnolence Verified 10/02/24 13:48 Family History Father , age 62 Sudden cardiac CAD (coronary artery disease) Myocardial infarction Heart disease Son Heart disease Myocardial infarction Surgical History History of surgical removal of skin lesion History of breast biopsy History of colonoscopy History of endoscopy History of eye surgery History of carpal tunnel repair History of partial colectomy Hx of cholecystectomy H/O heart surgery H/O: hysterectomy History of left heart catheterization (08/17/03) History of coronary artery stent placement (06/23/99) Social History adopted: No household members: children housing: house current occupational status: retired Smoking Status: Never smoker alcohol intake: never substance use type: does not use caffeine: No ROS Review of Systems ROS Unobtainable: due to encephalopathy Vital Signs Vital Signs Vital Signs: 10/02/24 13:43 10/02/24 13:50 10/02/24 13:56 Temperature 98.3 F Temperature Source Oral Pulse Rate 112 H 89 Respiratory Rate 18 27 H Blood Pressure 144/48 H 128/56 H Blood Pressure Mean 80 80 Pulse Ox 93 93 91 Oxygen Delivery Method Room Air Room Air Oxygen Flow Rate (L/min) 10/02/24 14:09 10/02/24 14:12 10/02/24 14:19 Temperature Temperature Source Pulse Rate 95 95 Respiratory Rate 26 H 22 H Blood Pressure 128/56 H 128/56 H Blood Pressure Mean 80 80 Pulse Ox 93 98 85 Oxygen Delivery Method Room Air Oxygen Flow Rate (L/min) 10/02/24 14:19 10/02/24 14:30 10/02/24 15:00 Temperature Temperature Source Pulse Rate 76 75 Respiratory Rate 18 16 Blood Pressure 136/70 H 128/78 H Blood Pressure Mean 92 94 Pulse Ox 90 98 93 Oxygen Delivery Method Nasal Cannula Nasal Cannula Oxygen Flow Rate (L/min) 2 2 Weight Weight: 135 lb 9.349 oz Body Mass Index (BMI) 24.0 Physical Exam Const alert and no apparent distress Orientation / Consciousness: confused HEENT normocephalic, head/scalp atraumatic, hearing grossly normal bilaterally, moist oral mucous membranes and oropharynx normal Mouth: oral and palatal mucosa normal Eyes PERRL, EOMs intact bilaterally and conjunctivae normal Neck no lymphadenopathy, supple and no JVD Resp normal respiratory effort, no retractions, no use of accessory muscles and clear to auscultation bilaterally Cardio regular rate, regular rhythm, S1 normal heart sound, S2 normal heart sound and no murmurs GI normal to inspection, nondistended, normoactive bowel sounds, soft to palpation, non-tender and non-distended Extremity normal to inspection, full ROM and no clubbing, cyanosis or edema Neuro Neuro Narrative: flat affect, expressive aphasia, moves all limbs spontaneously Motor Exam: strength 5/5 throughout Psych Psych Narrative: flat affect. Results Lab / Micro Data 10/02/24 13:34 10/02/24 13:34 Labs: Laboratory Results - last 24 hr 10/02/24 13:34: WBC 15.2 H, RBC 3.82 L, Hgb 11.4 L, Hct 34.5 L, MCV 90.3, MCH 29.8, MCHC 33.0, RDW Std Deviation 49.2 H, RDW Coeff of Franky 14.8 H, Plt Count 316, MPV 10.2, Immature Gran % (Auto) 0.400, Neut % (Auto) 80.6 H, Lymph % (Auto) 14.1 L, [place] % (Auto) 4.6, Eos % (Auto) 0.0, Baso % (Auto) 0.3, Absolute Neuts (auto) 12.2 H, Absolute Lymphs (auto) 2.14, Nucleated RBC % 0, PT 14.4, INR 1.1, APTT 27.3, Sodium 138, Potassium 4.8, Chloride 98, Carbon Dioxide 17.0 L, Anion Gap 23 H, BUN 49 H, Creatinine 1.59 H, Estim Creat Clear Calc 19.84 L, Est GFR (MDRD) Non-Af 31 L, BUN/Creatinine Ratio 30.8 H, Glucose 214 H, Calcium 10.5, Troponin T High Sens 46 H Imaging Radiology Impression Brain CT 10/02/24 13:44 IMPRESSION: 1. No visible acute intracranial findings. If there is persistent concern for an acute intracranial process, consider MRI. 2. Similar findings which are nonspecific but can be seen in the setting of communicating/normal pressure hydrocephalus given the appropriate clinical context. 3. Similar mild paranasal sinus disease. 4. Additional description as above. Red Alert: #1 above The critical information above was relayed directly by me by telephone to Fredrick EUGENE on 10/02/2024 at 12:12 pm with readback verification. Reading Location: [id number] Head/Neck CTA 10/02/24 13:50 IMPRESSION: 1. 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 2. Additional description as above. Reading Location: [facility] Assessment & Plan Assessment/Plan (1) Acute dehydration: (2) Left arm weakness: (3) Expressive aphasia: PLAN: Plan #Stroke like symptoms to rule out a stroke * Patient admitted with a complaint of expressive aphasia. She is not a candidate for TNK as the last known well was over 18 hours ago. Family found her this morning at 8 AM with the above-mentioned symptoms. 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 * CT of the brain showed no acute intracranial pathology. 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 * Will get MRI of the brain. Patient already on aspirin as well statin. Will continue. * Get speech therapy consult due to aphasia. Keep n.p.o. until she passes bedside swallow evaluation was evaluated by speech therapy. * PT OT consult. Fall precautions. 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 * Hold BP meds until stroke is ruled in or ruled out per MRI. * #Hypertension: Hold BP meds in light of concern for acute stroke Type 2 diabetes mellitus: * On glimepiride. Insulin sliding scale. Accu-Cheks every 6 hourly until she is able to be put on a diet in light of her aphasia. #Restless leg syndrome: On pramipexole #History of complete heart block: Status post pacemaker DVT prophylaxis: Lovenox CODE STATUS: DNR CCA no intubation * Patient's daughters counseled extensively about different types of CODE STATUS including full code, DNR CCA and DNR CCA. * They elected for patient to be DNRCCA no intubation in line with her previously stated wishes and previous code status. * total face to face time: 17 mins Charges/Coding Visit Charges Inpatient E&M: 49143 Init Hosp L2 Procedures Hospitalists Procedures: 97814 Advncd Care Plan 30 Min
[2024-10-02] MEDS: 0.9% Normal Saline (1000mL) 1,000 ML 999 ML IV (15:26)
[2024-10-02 16:27] LABS: Troponin T High Sens 2 HR 48 ng/L (<=14)
--- NOTE | 2024-10-02 17:32 | ECHOL_ITS ---
Reason For Study Reason For Study: TIA/CVA Procedure This was a limited 2D transthoracic echocardiogram. Exam performed portable in patient room. Left Ventricle Normal left ventricle. The estimated ejection fraction is 55-60 %. Right Ventricle Normal right ventricle. Normal systolic function. MMode/2D Measurements & Calculations LVIDd: 3.4 cm IVSd: 1.5 cm LVOT diam: 2.0 cm LVIDs: 2.6 cm LVPWd: 1.4 cm LVOT area: 3.1 cm2 FS: 24.2 % LAV(MOD-bp): 38.1 ml LA A4 area: 13.2 cm2 LA dimension(2D): 3.5 cm LAV(MOD-bp) Indexed: 23.6 ml/m2 LAV(MOD-sp2): 47.9 ml LAV(MOD-sp4): 29.5 ml RA A4 area: 9.5 cm2 ECHO/Echo, Limited Study Interpretation Summary The estimated ejection fraction is 55-60 %. Limited transthoracic echocardiogram Overall LV systolic function within normal With no significant change from previous. Ordering Physician: Harper Wang Referring Physician: Tita Berger Performed By: Susie Ledesma RCS
[2024-10-02 23:57] LABS: Bedside Glucose 140 mg/dL (74-106)
[2024-10-03] VITALS (8 sets, daily range): BP systolic 106–143; BP diastolic 48–97; PULSE 62–95; RESP 16–20; TEMP 36.1–36.8; O2SAT 92–97; BMI 23.2
[2024-10-03 04:52] LABS: Absolute Lymphocyte Count 3.79 X10^3/uL (0.83-4.51); Absolute Neutrophil Count 9.7 X10^3/uL (2.0-7.7); Basophil# 0.03 X10^3/uL; Basophil% 0.2 % (0-1); Eosinophil# 0.02 X10^3/uL; Eosinophils% 0.1 % (0-5); Hematocrit 31.2 % (37-47); Hemoglobin 10.6 g/dL (12.0-15.0); Lymphocyte # 3.79 X10^3/ul (0.83-4.51); Lymphocyte % 25.9 % (19-41); Mean Corpuscular Hgb 30.6 pg (27.0-32.0); Mean Corpuscular Volume 90.2 fL (81-99); Mean Platelet Vol. 10.3 fl (6.2-12.0); Monocyte# 0.98 X10^3/uL; Monocyte% 6.7 % (0-10); NRBC Flagged by Analyzer 0 % (0-5); Neutrophil # 9.74 X10^3/uL (2.7-7.7); Neutrophil % 66.7 % (47-70); Platelet Count 280 K/mm3 (150-450); RBC Distribution Width CV 15.1 % (11.6-14.6); RBC Distribution Width SD 49.6 fl (35.1-43.9); Red Blood Count 3.46 M/mm3 (4.2-5.4); White Blood Count 14.6 K/mm3 (4.4-11.0)
[2024-10-03 05:18] LABS: Anion Gap 19 (5-15); BUN 39 mg/dL (4-19); BUN/Creat Ratio 32.3 RATIO (10-20); Calcium,Total 9.6 mg/dL (7.6-11.0); Chloride 105 mmol/L (98-108); EST Glomerular Filtration Rate 43 (>60); Estimated Creatinine Clearance 26.29 ml/min (50-250); Glucose 119 mg/dL (70-99); Potassium 4.2 mmol/L (3.3-5.1); Sodium Level 140 mmol/L (133-145)
[2024-10-03 06:35] LABS: Bedside Glucose 136 mg/dL (74-106)
[2024-10-03 06:59] LABS: Cholesterol 134 mg/dL (<=200); High Density Lipoprotein 38 mg/dL; Low Density Lipoprotein Calc. 78 mg/dL; Triglycerides 92 mg/dL; Very Low Density Lipoprotein 18 mg/dL (5-40); cholesterol:hdl ratio screen 3.56
[2024-10-03] MEDS: Lactated Ringers 1,000 ML 100 ML IV (09:39)
--- NOTE | 2024-10-03 11:21 | PN_ITS ---
Subjective Subjective Patient seen and examined. Her daughter and grandchildren were by her bedside. Patient was confused and mumbling incoherently. She has however remained hemodynamically stable and is on room air. She is 14.6 today. Objective Data Objective Data Vital Signs: Vital Signs Temp Pulse Resp BP Pulse Ox O2 Del Method O2 Flow Rate 98.2 F 74 18 106/91 H 96 Room Air 2 10/03/24 10:00 10/03/24 10:00 10/03/24 10:00 10/03/24 10:00 10/03/24 10:00 10/03/24 10:00 10/02/24 17:31 Oxygen Flow Rate (L/min) 2 Oxygen Delivery Method Room Air Weight: 131 lb 2.801 oz Body Mass Index (BMI) 23.2 Intake & Output: Intake and Output for Last 24 Hours 10/01/24 10/02/24 10/03/24 23:59 23:59 23:59 Intake Total 1000 / 1000 0 / 0 Output Total 325 / 325 Balance 1000 / 800 -325 / -325 Lab / Micro Data 10/03/24 04:02 10/03/24 04:02 Labs: Laboratory Results - last 24 hr 10/02/24 13:34: WBC 15.2 H, RBC 3.82 L, Hgb 11.4 L, Hct 34.5 L, MCV 90.3, MCH 29.8, MCHC 33.0, RDW Std Deviation 49.2 H, RDW Coeff of Franky 14.8 H, Plt Count 316, MPV 10.2, Immature Gran % (Auto) 0.400, Neut % (Auto) 80.6 H, Lymph % (Auto) 14.1 L, [place] % (Auto) 4.6, Eos % (Auto) 0.0, Baso % (Auto) 0.3, Absolute Neuts (auto) 12.2 H, Absolute Lymphs (auto) 2.14, Nucleated RBC % 0, PT 14.4, INR 1.1, APTT 27.3, Sodium 138, Potassium 4.8, Chloride 98, Carbon Dioxide 17.0 L, Anion Gap 23 H, BUN 49 H, Creatinine 1.59 H, Estim Creat Clear Calc 19.84 L, Est GFR (MDRD) Non-Af 31 L, BUN/Creatinine Ratio 30.8 H, Glucose 214 H, Calcium 10.5, Troponin T High Sens 46 H 10/02/24 15:50: Troponin T Hi Sens 2 Hr 48 H 10/02/24 23:18: POC Glucose 140 H 10/03/24 04:02: WBC 14.6 H, RBC 3.46 L, Hgb 10.6 L, Hct 31.2 L, MCV 90.2, MCH 30.6, MCHC 34.0, RDW Std Deviation 49.6 H, RDW Coeff of Franky 15.1 H, Plt Count 280, MPV 10.3, Immature Gran % (Auto) 0.400, Neut % (Auto) 66.7, Lymph % (Auto) 25.9, [place] % (Auto) 6.7, Eos % (Auto) 0.1, Baso % (Auto) 0.2, Absolute Neuts (auto) 9.7 H, Absolute Lymphs (auto) 3.79, Nucleated RBC % 0, Sodium 140, Potassium 4.2, Chloride 105, Carbon Dioxide 16.0 L, Anion Gap 19 H, BUN 39 H, Creatinine 1.20, Estim Creat Clear Calc 26.29 L, Est GFR (MDRD) Non-Af 43 L, B UN/Creatinine Ratio 32.3 H, Glucose 119 H, Calcium 9.6, Triglycerides 92, Cholesterol 134, LDL Cholesterol, Calc 78, VLDL Cholesterol 18, HDL Cholesterol 38 L, Cholesterol/HDL Ratio 3.56 10/03/24 06:07: POC Glucose 136 H Radiography Diagnostic Testing: Radiology Impression Brain CT 10/02/24 13:44 IMPRESSION: 1. No visible acute intracranial findings. If there is persistent concern for an acute intracranial process, consider MRI. 2. Similar findings which are nonspecific but can be seen in the setting of communicating/normal pressure hydrocephalus given the appropriate clinical context. 3. Similar mild paranasal sinus disease. 4. Additional description as above. Red Alert: #1 above The critical information above was relayed directly by me by telephone to Fredrick EUGENE on 10/02/2024 at 12:12 pm with readback verification. Reading Location: [facility] Head/Neck CTA 10/02/24 13:50 IMPRESSION: 1. 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 2. Additional description as above. Reading Location: [facility] Physical Exam Const alert and no apparent distress Constitutional Narrative: confused, mumbling incoherently Orientation / Consciousness: confused HEENT normocephalic, head/scalp atraumatic, hearing grossly normal bilaterally, moist oral mucous membranes and oropharynx normal Eyes PERRL, EOMs intact bilaterally and conjunctivae normal Neck no lymphadenopathy, supple and no JVD Resp normal respiratory effort, no retractions, no use of accessory muscles and clear to auscultation bilaterally Cardio regular rate, regular rhythm, S1 normal heart sound, S2 normal heart sound and no murmurs GI normal to inspection, nondistended, normoactive bowel sounds, soft to palpation, non-tender and non-distended Extremity normal to inspection, full ROM and no clubbing, cyanosis or edema Neuro Neuro Narrative: flat affect, confused, mumbling incoherently, moves all extremities spontaneously Motor Exam: general weakness Psych Psych Narrative: confused. Assessment & Plan Assessment/Plan (1) Acute dehydration: (2) Left arm weakness: (3) Expressive aphasia: PLAN: Plan #Stroke like symptoms to rule out a stroke * Patient admitted with a complaint of expressive aphasia. She is not a candidate for TNK as the last known well was over 18 hours ago. Family found her this morning at 8 AM with the above-mentioned symptoms. 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 * CT of the brain showed no acute intracranial pathology. 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 * Will get MRI of the brain. Patient already on aspirin as well statin. Will continue. * Get speech therapy consult due to aphasia. Keep n.p.o. until she passes bedside swallow evaluation was evaluated by speech therapy. * PT OT consult. Fall precautions. 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 * she has a pacemaker, so awaiting verfication to see if it is MRI compatible so she can have the MRI * * #Mild anion gap metabolic acidosis * Anion gap was 23 on admission and is now 19. Bicarb is 16 today. Creatinine is 1.2. Creatinine was 1.59 on admission yesterday. * Etiology is not clear. * Will hydrate with Ringer's lactate today. Patient likely not eating and drinking so starvation ketosis also playing a role. * Monitor anion gap and if it does not improve will consult nephrology. * She does have elevated BUN over creatinine ratio 32.3 today. However hemoglobin is stable so no concerns for occult GI bleed. * Her BUN was elevated at 49 yesterday and is down to 39 today. He has been elevated previously also. Continue hydrating with IV fluids and monitor. * #KRYSTIAN: * Creatinine was 1.59 yesterday and is down to 1.2 today with hydration. * Continue hydration with Ringer's lactate and trend creatinine * #Hypertension: Hold BP meds in light of concern for acute stroke Type 2 diabetes mellitus: * On glimepiride. Insulin sliding scale. * Accu-Cheks every 6 hourly until she is able to be put on a diet in light of her aphasia. * Hold glimepiride #Restless leg syndrome: On pramipexole #History of complete heart block: Status post pacemaker DVT prophylaxis: Lovenox CODE STATUS: DNR CCA no intubation * Charges/Coding Visit Charges Inpatient E&M: 45391 Subs Hosp L2
--- NOTE | 2024-10-03 11:43 | CASEMGMT ---
Social Work Though a stroke has not yet been ruled out, pt is not able to participate in completing a PHQ-9 due to confusion. JONN Ghosh
--- NOTE | 2024-10-03 12:12 | CASEMGMT ---
Social Work SW met w/pt's family in room in regarding to prior level of function and anticipated discharge plan. Pt is mumbling at present, not able to engage pt in conversation at this time. Present in room are: daughter Miranda, daughter Sheryl, daughter Marilyn from [place], granddaughter Jillian, grandson Harshal, and great granddaughter Jessica arrived as SW was speaking w/family. Family confirms there are four children living, Jt, the fourth child, is the POA, he is on his way. Pt lives w/Miranda and Harshal, family in the room were able to give SW pt's history and function level prior to hospital stay. PCP: Dr. Berger Specialists: Dr. Lang, index clerk Insurance: [employer] Medicare, for pharmacy also Pharmacy of Preference: Mail order through insurance. For short term medications, [facility] in [place] LNOK: Pt has four children as named above, several grandchildren and great grandchildren Living arrangements: Pt lives in a one story home w/grandtonny Caputo(son of Marilyn) and daughter Miranda in a one story home, two steps into the home. Harshal and Miranad help pt with all ADLS including cooking, cleaning, personal care. Miranda organizes pt's medications. Pt does not like to shower, she sponge bathes. Transportation: Harshal or Sheryl take pt to where she needs to go. LW/POA: LW on file, Jt is POA, his Niels is the alternate. Jt's number is [phone]. MARGO rearranged the contacts in the demographics so he is listed first. DME: Pt has a walker, rollator and shower chair. HHC/SNF: Pt had home health care, though family under the impression this was discontinued. Pt has not been to SNF in the past. Plan: TBD. As per family, pt has had a decline since , has not been able to talk since then. As per daughter Marilyn, pt was here recently and was diagnosed w/normal pressure hydrocephalus. Harshal states pt has had a big decline in the last several weeks. SW spoke w/family present about pt going somewhere for rehab. Family states pt will want to go home. However Miranda did acknowledge that son Jt is the decision maker as he is the POA. SW did provide to Miranda a list of shelter facilities from [facility] of facilities in network w/pt's insurance, in pt's preferred geographic area and complete w/quality and resource use data. As per family Jt is on his way, MARGO asked Miranda to pass the list on to Jt should it be needed, and put MARGO Talley's number on the list as she will be the SW here on Saturday. Sheryl then stepped out of the room and daughters Miranda and Marilyn informed MARGO that Sheryl tries to act like she is in charge but she is not, Jt is the decision maker. MARGO reiterated if any decisions need made, MARGO/DEEPTI will speak w/Jt. MARGO then stepped out of the room, Sheryl was in the hallway w/her granddaughter, pt's great granddaughter Jessica. Sheryl informed MARGO that the family in the room should not be getting any information, they are not listed as a customer contact sales associate and she is. She states they have not been around. MARGO reiterated with Sheryl and Jessica that if decisions need made it will be Jt, as he is the POA, and explained that MARGO was not giving information but rather getting information from the family. MARGO did then call Jt to speak w/him, since he is POA. MARGO let him know SW had spoken with several family members in the room to learn how pt had been managing at home. MARGO explained spoke w/them about the possibility of pt going somewhere for rehab should it be needed, and let him know MARGO gave a list to Miranda of places that take pt's insurance. MARGO explained to Jt the insurance approval process as well. Jt did let SW know that Miranda(with whom pt lives) does have a learning disability. Jt states pt will not be happy going somewhere for rehab, and thinks that the end may be near. (He states also pt had kicked out the home care). We explored hospice, he may want a hospice referral, but would like to see the MRI results first. MARGO explained will let physician know that he is the main contact, and he may want to explore hospice depending on the MRI results. Son states understanding. MARGO did text physician to ensure she knows son Jt is POA, and that Jt may want to consider hospice depending on the MRI. Plan: TBD SW/CM will continue to follow. JONN Ghosh
--- NOTE | 2024-10-03 12:49 | CASEMGMT ---
RN DEEPTI called son Jt Abernathy to complete RODRIGUEZ Form as patient is confused. RN DEEPTI explained RODRIGUEZ Form to son, son voiced understanding. Son gave telephone consent and original form filed in chart. RN DEEPTI provided copy of RODRIGUEZ Form in patient's room. Son had no further questions or concerns.
--- NOTE | 2024-10-03 12:52 | STROKE.CONS ---
Assessment and Plan: Stroke Assessment/Plan NASH ASTORGA is a 89 F with a history of HTN, PPM, who presents for evaluation of AMS and aphasia and gen weakness. Talking with family, the speech disturbance has been going on for 2 weeks. She has had a progressive cognitive decline since then. Neurological examination shows non focal. Moaning. Not following commands. Does not lift any extremity. 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 Reveiwed previous MRI in Apri. No acute infarct just crhonic microvascular changes. Would not explain these sx. Will get another MRI. IF shows enlarged ventricles based on Wright ratio for NPH, will need eval and LP for NPH. Neruocog follow up outpatient. If MRI looks ok, then will need geriatric consult/neurocog consult to eval for worsening dementia. Check metabolic and infectious labs. IF still not responding and moaning today, then consider EEG Stroke Risk factor Modification - Anti-platelet medication: Aspirin 81 mg daily - Occupational/ Physical therapy consults - NPO until swallow evaluation. IVF until able to take po - DVT prophylaxis with SCDs and heparin SQ - Vascular risk factor modification. The following are the recommended guidelines: LDL Goal < 70 Smoking Cessation Diabetes Management superintendent [employer] blood pressure control should achieve <130/80 mmHg. BP management should aim to achieve intermediate contorl in a reasonable amount of time, taking into consideration the individual patient's requirements and characteristics. Weight Management: Goal for BMI is 18.5 -24.9 kg/m2 Alcohol: No more than 2 drinks/day for men or 1 drink/day for non- women - Promote lifestyle modification: weight control, physical activity, moderation of alcohol intake, moderate sodium intake. Followup with PCP in 1-2 weeks, and in Neurology clinic in 6-12 weeks HPI Consult Data Date of Consult: 10/03/24 HPI Narrative HPI Narrative: NASH ASTORGA, is a 89 F who presents [facility] Medical History Cerebrovascular accident (CVA) involving left cerebral hemisphere Neuropathy Hoarseness COVID-19 Osteoporosis History of complete heart block Postmenopausal History of pacemaker Pacemaker Systolic ejection murmur Scoliosis Intermittent claudication Degenerative arthritis of lumbar spine Bulging lumbar disc Widened pulse pressure Weight loss Weakness Vitamin D deficiency Type 2 diabetes mellitus Tremor of both hands Suprapubic mass Skin cancer of face Skin cancer Secondary hyperparathyroidism Scarring of lung Right foot pain Restless leg Recurrent headache Radiculopathy of arm Peripheral vascular disease Peripheral edema Pars defect with spondylolisthesis Pars defect of lumbar spine Pancreatic cyst Overactive bladder Normocytic anemia Neuropathy of thigh Neck pain Nausea Microalbuminuric diabetic nephropathy Microalbuminuria Lumbar facet arthropathy Lumbar degenerative disc disease Leg pain Left hip pain Iron deficiency anemia Intention tremor Insomnia Hypertension goal BP (blood pressure) < 150/90 GERD (gastroesophageal reflux disease) Eye pain Elevated TSH Diverticulosis of colon Diarrhea Diabetic neuropathy Dextroscoliosis of lumbar spine Degenerative joint disease of left hip Cyst of skin Constipation Colonic stricture CKD stage 3 secondary to diabetes Chronic neck pain Chronic low back pain Chronic kidney disease, stage 3 Coronary artery disease Bilateral leg weakness Back pain Atherosclerosis Anxiety Abdominal aortic atherosclerosis Old inferior wall myocardial infarction Essential (primary) hypertension Hyperlipidemia Atherosclerotic heart disease of [place] coronary artery without angina pectoris Left bundle branch block Home Medications ?Medication ?Instructions ?Recorded ?Last Taken ?Type famotidine 40 mg tablet 40 mg PO DAILY gerd 08/20/23 10/02/24 History aspirin 81 mg tablet,delayed 81 mg PO DAILY heart health #90 02/17/24 10/02/24 Rx release (Adult Low Dose Aspirin) tabs blood-glucose meter (Accu-Chek #1 ea 04/27/24 Unknown Rx Guide Glucose Meter) pramipexole 0.5 mg tablet 0.5 mg PO QHS tremors #90 tabs 05/22/24 10/01/24 Rx glimepiride 1 mg tablet 1 mg PO QAM #90 tabs 06/15/24 10/02/24 Rx trazodone 100 mg tablet 100 mg PO QHS PRN sleep #90 tabs 06/15/24 10/01/24 Rx lancets 26 gauge (CareTouch Safety #100 ea 07/07/24 Unknown Rx Lancets) metoprolol tartrate 25 mg tablet 50 mg (2 x 25 mg) PO BID blood 07/22/24 Unknown Rx pressure #180 tabs oxybutynin chloride 5 mg tablet 5 mg PO DAILY overactive bladder 07/22/24 Unknown Rx #90 tabs ramipril 10 mg capsule 10 mg PO DAILY blood pressure #90 07/22/24 10/02/24 Rx caps lancets (Accu-Chek Softclix 07/24/24 Unknown History Lancets) blood sugar diagnostic (Accu-Chek #100 ea 08/27/24 Unknown Rx Guide test strips) cholecalciferol (vitamin D3) 50 50 mcg PO DAILY 09/08/24 Unknown History mcg (2,000 unit) tablet amitriptyline 10 mg tablet 10 mg PO DAILY #14 tabs 09/10/24 10/02/24 Rx gabapentin 300 mg capsule 300 mg PO TID neuropathy #270 caps 09/11/24 10/02/24 Rx pravastatin 40 mg tablet 40 mg PO QHS #90 tabs 09/28/24 Unknown Rx amlodipine 5 mg tablet 5 mg PO DAILY blood pressure 10/02/24 10/02/24 History Allergy/AdvReac Type Severity Reaction Status Date / Time codeine Allergy Other Verified 10/02/24 13:48 latex Allergy NEEDS Verified 10/02/24 13:48 FOLLOW-UP meperidine Allergy NEEDS Verified 10/02/24 13:48 FOLLOW-UP metoclopramide HCl (From Allergy Other Verified 10/02/24 13:48 Reglan) morphine Allergy Itching Verified 10/02/24 13:48 Penicillins (PCN) Allergy Hives Verified 10/02/24 13:48 prednisone Allergy Other Verified 10/02/24 13:48 ropinirole HCl (From Requip) Allergy Other Verified 10/02/24 13:48 shrimp Allergy NEEDS Verified 10/02/24 13:48 FOLLOW-UP amoxicillin AdvReac Other Verified 10/02/24 13:48 diazepam (From Valium) AdvReac Other Verified 10/02/24 13:48 pregabalin (From Lyrica) AdvReac Somnolence Verified 10/02/24 13:48 Family History Father , age 62 Sudden cardiac CAD (coronary artery disease) Myocardial infarction Heart disease Son Heart disease Myocardial infarction Surgical History History of surgical removal of skin lesion History of breast biopsy History of colonoscopy History of endoscopy History of eye surgery History of carpal tunnel repair History of partial colectomy Hx of cholecystectomy H/O heart surgery H/O: hysterectomy History of left heart catheterization (08/17/03) History of coronary artery stent placement (06/23/99) Social History (Reviewed 10/02/24 @ 13:51 by Jillian Bassett adopted: No household members: children housing: house current occupational status: retired Smoking Status: Never smoker alcohol intake: never substance use type: does not use caffeine: No Vital Signs Vital Signs Vital Signs: 10/02/24 13:43 10/02/24 13:50 10/02/24 13:56 Temperature 98.3 F Temperature Source Oral Pulse Rate 112 H 89 Pulse Strength Respiratory Rate 18 27 H Respiratory Effort Respiratory Depth Respiratory Pattern Blood Pressure 144/48 H 128/56 H Blood Pressure Mean 80 80 Blood Pressure Source Blood Pressure Position Blood Pressure Location Pulse Ox 93 93 91 Oxygen Delivery Method Room Air Room Air Oxygen Flow Rate (L/min) 10/02/24 14:09 10/02/24 14:12 10/02/24 14:19 Temperature Temperature Source Pulse Rate 95 95 Pulse Strength Respiratory Rate 26 H 22 H Respiratory Effort Respiratory Depth Respiratory Pattern Blood Pressure 128/56 H 128/56 H Blood Pressure Mean 80 80 Blood Pressure Source Blood Pressure Position Blood Pressure Location Pulse Ox 93 98 85 Oxygen Delivery Method Room Air Oxygen Flow Rate (L/min) 10/02/24 14:19 10/02/24 14:30 10/02/24 15:00 Temperature Temperature Source Pulse Rate 76 75 Pulse Strength Respiratory Rate 18 16 Respiratory Effort Respiratory Depth Respiratory Pattern Blood Pressure 136/70 H 128/78 H Blood Pressure Mean 92 94 Blood Pressure Source Blood Pressure Position Blood Pressure Location Pulse Ox 90 98 93 Oxygen Delivery Method Nasal Cannula Nasal Cannula Oxygen Flow Rate (L/min) 2 2 10/02/24 15:27 10/02/24 17:20 10/02/24 17:20 Temperature 98.6 F 97.2 F L Temperature Source Temporal Pulse Rate 75 75 Pulse Strength Respiratory Rate 16 16 Respiratory Effort Respiratory Depth Respiratory Pattern Blood Pressure 128/78 H 154/47 H Blood Pressure Mean 94 82 Blood Pressure Source Monitor Blood Pressure Position Sitting Blood Pressure Location Right Arm Pulse Ox 93 100 Oxygen Delivery Method Room Air Room Air Oxygen Flow Rate (L/min) 10/02/24 17:31 10/02/24 19:50 10/02/24 21:30 Temperature 97.2 F L 97.1 F L Temperature Source Temporal Temporal Pulse Rate 75 110 H Pulse Strength Respiratory Rate 16 16 Respiratory Effort Respiratory Depth Respiratory Pattern Blood Pressure 154/47 H 134/47 H Blood Pressure Mean 82 76 Blood Pressure Source Monitor Monitor Blood Pressure Position Sitting Semi-Fowlers Blood Pressure Location Right Arm Right Arm Pulse Ox 100 95 96 Oxygen Delivery Method Nasal Cannula Room Air Room Air Oxygen Flow Rate (L/min) 2 10/02/24 22:00 10/02/24 22:00 10/03/24 03:00 Temperature 97.4 F L Temperature Source Temporal Pulse Rate 95 Pulse Strength Normal (2+) Respiratory Rate 18 Respiratory Effort Normal Non-Labored Respiratory Depth Normal Respiratory Pattern Normal Blood Pressure 134/48 H Blood Pressure Mean 76 Blood Pressure Source Monitor Blood Pressure Position Semi-Fowlers Blood Pressure Location Right Arm Pulse Ox 95 Oxygen Delivery Method Room Air Room Air Oxygen Flow Rate (L/min) 10/03/24 06:00 10/03/24 07:50 10/03/24 08:36 Temperature 97.6 F L Temperature Source Axillary Pulse Rate 65 Pulse Strength Normal (2+) Respiratory Rate 16 Respiratory Effort Respiratory Depth Respiratory Pattern Blood Pressure 129/70 H Blood Pressure Mean 89 Blood Pressure Source Monitor Blood Pressure Position Semi-Fowlers Blood Pressure Location Right Arm Pulse Ox 96 96 Oxygen Delivery Method Room Air Room Air Oxygen Flow Rate (L/min) 10/03/24 08:50 10/03/24 10:00 Temperature 98.2 F Temperature Source Temporal Pulse Rate 74 Pulse Strength Respiratory Rate 18 Respiratory Effort Normal Non-Labored Respiratory Depth Normal Respiratory Pattern Normal Blood Pressure 106/91 H Blood Pressure Mean 96 Blood Pressure Source Monitor Blood Pressure Position Semi-Fowlers Blood Pressure Location Right Arm Pulse Ox 96 Oxygen Delivery Method Room Air Room Air Oxygen Flow Rate (L/min) Weight Weight: 59.5 kg Body Mass Index (BMI) 23.2 EEG Results Procedure Details EEG Procedure Details: NASH ASTORGA is a 89 year old F with a past medical history of , who presents for evaluation of Electroencephalogram on DATE at TIME Lab / Micro Data 10/03/24 04:02 10/03/24 04:02 Labs: Laboratory Results - last 24 hr 10/02/24 13:34: WBC 15.2 H, RBC 3.82 L, Hgb 11.4 L, Hct 34.5 L, MCV 90.3, MCH 29.8, MCHC 33.0, RDW Std Deviation 49.2 H, RDW Coeff of Franky 14.8 H, Plt Count 316, MPV 10.2, Immature Gran % (Auto) 0.400, Neut % (Auto) 80.6 H, Lymph % (Auto) 14.1 L, Redwood % (Auto) 4.6, Eos % (Auto) 0.0, Baso % (Auto) 0.3, Absolute Neuts (auto) 12.2 H, Absolute Lymphs (auto) 2.14, Nucleated RBC % 0, PT 14.4, INR 1.1, APTT 27.3, Sodium 138, Potassium 4.8, Chloride 98, Carbon Dioxide 17.0 L, Anion Gap 23 H, BUN 49 H, Creatinine 1.59 H, Estim Creat Clear Calc 19.84 L, Est GFR (MDRD) Non-Af 31 L, BUN/Creatinine Ratio 30.8 H, Glucose 214 H, Calcium 10.5, Troponin T High Sens 46 H 10/02/24 15:50: Troponin T Hi Sens 2 Hr 48 H 10/02/24 23:18: POC Glucose 140 H 10/03/24 04:02: WBC 14.6 H, RBC 3.46 L, Hgb 10.6 L, Hct 31.2 L, MCV 90.2, MCH 30.6, MCHC 34.0, RDW Std Deviation 49.6 H, RDW Coeff of Franky 15.1 H, Plt Count 280, MPV 10.3, Immature Gran % (Auto) 0.400, Neut % (Auto) 66.7, Lymph % (Auto) 25.9, Redwood % (Auto) 6.7, Eos % (Auto) 0.1, Baso % (Auto) 0.2, Absolute Neuts (auto) 9.7 H, Absolute Lymphs (auto) 3.79, Nucleated RBC % 0, Sodium 140, Potassium 4.2, Chloride 105, Carbon Dioxide 16.0 L, Anion Gap 19 H, BUN 39 H, Creatinine 1.20, Estim Creat Clear Calc 26.29 L, Est GFR (MDRD) Non-Af 43 L, BUN/Creatinine Ratio 32.3 H, Glucose 119 H, Calcium 9.6, Triglycerides 92, Cholesterol 134, LDL Cholesterol, Calc 78, VLDL Cholesterol 18, HDL Cholesterol 38 L, Cholesterol/HDL Ratio 3.56 10/03/24 06:07: POC Glucose 136 H Imaging Radiology Impression Brain CT 10/02/24 13:44 IMPRESSION: 1. No visible acute intracranial findings. If there is persistent concern for an acute intracranial process, consider MRI. 2. Similar findings which are nonspecific but can be seen in the setting of communicating/normal pressure hydrocephalus given the appropriate clinical context. 3. Similar mild paranasal sinus disease. 4. Additional description as above. Red Alert: #1 above The critical information above was relayed directly by me by telephone to Fredrick EUGENE on 10/02/2024 at 12:12 pm with readback verification. Reading Location: [facility] Head/Neck CTA 10/02/24 13:50 IMPRESSION: 1. 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 2. Additional description as above. Reading Location: [facility] Active Medications Active Medications Active Medications: Current Medications Generic Name Dose Route Start Last Admin Trade Name Freq PRN Reason Stop Dose Admin Acetaminophen 650 mg 10/02/24 17:29 Acetaminophen 325 Mg Tablet PO Q6H PRN PRN Pain 1-10 Or Fever >100.7 Amitriptyline HCl 10 mg 10/03/24 10:00 10/03/24 09:48 Amitriptyline 10 Mg Tablet PO Not Given DAILY MARGARITO Aspirin 81 mg 10/03/24 08:00 10/03/24 09:47 Aspirin E.C. 81 Mg Tablet PO Not Given BREAKFAST MARGARITO Cholecalciferol 50 mcg 10/03/24 10:00 10/03/24 09:48 Cholecalciferol (Vit D3) 25 Mcg Tablet (1,000 Units) PO Not Given DAILY MARGARITO Famotidine 40 mg 10/03/24 10:00 10/03/24 09:48 Famotidine 20 Mg Tablet PO Not Given DAILY MARGARITO Gabapentin 300 mg 10/02/24 22:00 10/03/24 06:30 Gabapentin 300 Mg Capsule PO Not Given TID MARGARITO Hydralazine HCl 5 mg 10/02/24 17:29 Hydralazine 20 Mg/Ml Vial IV 10/03/24 17:31 Q30M PRN maintain BP parameters with HR <60 Sodium Chloride 250 mls @ 15 mls/hr 10/02/24 16:39 IV .[id number] PRN Saline Flush Sodium Chloride 250 mls @ 15 mls/hr 10/02/24 16:39 IV .[id number] PRN Additional IVPB Infusion Lactated Ringer's 1,000 mls @ 125 mls/hr 10/03/24 09:00 10/03/24 09:39 IV 100 mls/hr .Q8H MARGARITO Administration Labetalol HCl 20 mg 10/02/24 13:44 Labetalol 20mg/4ml Syringe IV 10/03/24 13:44 X1 PRN BLOOD PRESSURE Labetalol HCl 10 - 20 mg 10/02/24 17:29 Labetalol 20mg/4ml Syringe IV 10/03/24 17:31 Q10M PRN PRN maintain BP parameters with HR >/=60 Nitroglycerin 0.4 mg 10/02/24 17:29 Nitroglycerin (Inpatient Use) 0.4 Mg Tab.Subl SL Q5M PRN CARDIAC/CHEST PAIN Ondansetron HCl 4 mg 10/02/24 17:29 Ondansetron 4 Mg/2 Ml Vial IV Q8H PRN PRN NAUSEA/VOMITING Oxybutynin Chloride 5 mg 10/03/24 10:00 10/03/24 09:47 Oxybutynin 5 Mg Tablet PO Not Given DAILY MARGARITO Pramipexole Dihydrochloride 0.5 mg 10/02/24 22:00 10/02/24 21:50 Pramipexole Di-Hcl 0.5 Mg Tablet PO Not Given QHS MARGARITO Pravastatin Sodium 40 mg 10/02/24 22:00 10/02/24 21:51 Pravastatin 40 Mg Tablet PO Not Given QHS MARGARITO Sodium Chloride 10 - 40 ml 10/02/24 16:39 0.9% Saline Lock 10 Ml Syringe IV UD PRN SALINE FLUSH Trazodone HCl 100 mg 10/02/24 17:28 Trazodone 100 Mg Tablet PO QHS PRN sleep NIHSS NIHSS Nursing Documentation NIHSS Nursing Documentation: NIHSS: Ischemic Stroke/TIA Start: 10/02/24 17:31 Text: For PCU Patients: NIH and Neuro Check every 4 Status: Active hours, PRN and with change in RN caregiver. Freq: [id number] Protocol: Activity Type Activity Date Activity User E-sign Co-sign Detail Recorded Client Recorded Date Recorded By Document 10/03/24 10:00 [email or web address] [id number] 10/03/24 10:44 [email or web address] 10/03/24 10:00 NIH Stroke Scale [NIHSS] A score of 0 is normal or asymptomatic . Total possible score is 42. Inpatient: RN or Physician to activate a stroke alert for onset of new stroke symptoms or with NIHSS increase >/= 3 points. Following change in neurological status, NIHSS will be performed per physician order or more frequently PRN. -1a. Level of Consciousness 0 - Alert; keenly responsive -1b. LOC Questions 2 - Answers NEITHER question correctly -1c. LOC Commands 2 - Performs NEITHER task correctly -2. Best Gaze 0 - Normal -4. Facial Palsy 0 - Normal symmetrical movements -5a. Left Arm UN - Amputation or joint fusion, explain : -'UN' explanation pt. unable to follow commands , pull arms away from nurse during exam -'UN' explanation pt. unable to follow commands , pulls arms away from nurse during exam -6a. Left Leg 3 - No effort against gravity ; leg falls to bed immediately -'UN' explanation pt. unable to follow command -6b. Right Leg 3 - No effort against gravity ; leg falls to bed immediately -'UN' explanation pt. unable to follow command -'UN' explanation pt. unable to follow commands -9. Best Language 2 - Severe aphasia; -10. Dysarthria 1 = Mild-to- moderate dysarthria; -11. Extinction and Inattention 1 - Visual, tactile, auditory, spatial, or personal inattention; -Total 14 Query Text:A score of 0 is normal or asymptomatic. Total possible score is 42 . ED: Notify Physician for NIHSS increase by > / = 3 points. Inpatient: RN or Physician to activate a stroke alert for NIHSS increase of > / = 3 points. Coma Scale [Assess] -Eye Opening Spontaneous -Motor Withdraws to Pain -Verbal Inappropriate [Total] -Coma Scale Total 11
[2024-10-03 14:18] LABS: Bedside Glucose 163 mg/dL (74-106)
[2024-10-03] MEDS: 0.9% Saline Lock 10 ML Syringe IV (15:36)
[2024-10-03 18:24] LABS: Bedside Glucose 129 mg/dL (74-106)
[2024-10-03] MEDS: Lactated Ringers 1,000 ML 125 ML IV (18:52)
--- NOTE | 2024-10-03 20:00 | NURSING ---
Difficult to score NIHSS d/t patient being unable to follow commands or respond appropriately to questions. At this time patient is restless and repetitive with her actions and words. NIHSS scored to the best of this RNs ability. Will continue to monitor.
--- NOTE | 2024-10-03 23:55 | NURSING ---
During 23:50 NIHSS assessment, pt would not follow any commands. Additionally the pt would not open eyes for the exam. Pt was however moving all 4 extremities and repeating the same phrases.
[2024-10-04] VITALS (7 sets, daily range): BP systolic 134–182; BP diastolic 61–82; PULSE 79–99; RESP 18–20; TEMP 36.1–36.7; O2SAT 92–98; BMI 23.2
[2024-10-04 00:07] LABS: Bedside Glucose 137 mg/dL (74-106)
[2024-10-04] MEDS: Acetaminophen 650 MG Suppository RC (05:01)
[2024-10-04 05:55] LABS: Absolute Neutrophil Count 12.2 X10^3/uL (2.0-7.7); Basophil# 0.04 X10^3/uL; Basophil% 0.2 % (0-1); Eosinophil# 0.02 X10^3/uL; Eosinophils% 0.1 % (0-5); Hematocrit 33.1 % (37-47); Hemoglobin 10.9 g/dL (12.0-15.0); Lymphocyte % 19.8 % (19-41); Mean Corp Hgb Conc 32.9 g/dL (32-36); Mean Corpuscular Hgb 30.4 pg (27.0-32.0); Mean Corpuscular Volume 92.5 fL (81-99); Mean Platelet Vol. 10.5 fl (6.2-12.0); Monocyte# 1.05 X10^3/uL; Monocyte% 6.3 % (0-10); NRBC Flagged by Analyzer 0 % (0-5); Neutrophil # 12.15 X10^3/uL (2.7-7.7); Neutrophil % 73.1 % (47-70); Platelet Count 283 K/mm3 (150-450); RBC Distribution Width CV 15.3 % (11.6-14.6); RBC Distribution Width SD 51.9 fl (35.1-43.9); Red Blood Count 3.58 M/mm3 (4.2-5.4); White Blood Count 16.7 K/mm3 (4.4-11.0)
[2024-10-04 06:19] LABS: Anion Gap 19 (5-15); BUN 28 mg/dL (4-19); BUN/Creat Ratio 27.3 RATIO (10-20); Calcium,Total 9.8 mg/dL (7.6-11.0); Carbon Dioxide 14.4 mmol/L (21.0-32.0); Chloride 108 mmol/L (98-108); Creatinine, Serum 1.01 mg/dL (0.70-1.20); EST Glomerular Filtration Rate 53 (>60); Estimated Creatinine Clearance 31.24 ml/min (50-250); Glucose 142 mg/dL (70-99); Potassium 4.5 mmol/L (3.3-5.1); Sodium Level 141 mmol/L (133-145)
[2024-10-04] MEDS: Sodium Bicarbonate 50 MEQ in Dextrose 5%-Water (1000mL Bag) 1,000 ML 100 MEQ IV (08:52)
[2024-10-04 09:31] LABS: Lactic Acid 1.8 mmol/L (0.0-2.0)
--- NOTE | 2024-10-04 10:37 | PN_ITS ---
Subjective Subjective Patient seen and examined. Patient was confused and restless and mumbling incoherently. Unable to do review of systems. She has remained hemodynamically stable and is for MRI of the brain tomorrow. WBC today 16.7. Objective Data Objective Data Vital Signs: Vital Signs Temp Pulse Resp BP Pulse Ox O2 Del Method O2 Flow Rate 97.6 F L 86 18 134/82 H 97 Room Air 2 10/04/24 08:00 10/04/24 08:00 10/04/24 08:00 10/04/24 08:00 10/04/24 08:00 10/04/24 08:43 10/02/24 17:31 Oxygen Flow Rate (L/min) 2 Oxygen Delivery Method Room Air Weight: 131 lb 2.801 oz Body Mass Index (BMI) 23.2 Intake & Output: Intake and Output for Last 24 Hours 10/02/24 10/03/24 10/04/24 23:59 23:59 23:59 Intake Total 1000 / 1000 1120 / 1120 1000 / 1000 Output Total 975 / 975 225 / 225 Balance 1000 / 800 145 / 145 775 / 775 Lab / Micro Data 10/04/24 04:49 10/04/24 04:49 Labs: Laboratory Results - last 24 hr 10/03/24 13:50: POC Glucose 163 H 10/03/24 18:06: POC Glucose 129 H 10/03/24 23:48: POC Glucose 137 H 10/04/24 04:49: WBC 16.7 H, RBC 3.58 L, Hgb 10.9 L, Hct 33.1 L, MCV 92.5, MCH 30.4, MCHC 32.9, RDW Std Deviation 51.9 H, RDW Coeff of Franky 15.3 H, Plt Count 283, MPV 10.5, Immature Gran % (Auto) 0.500, Neut % (Auto) 73.1 H, Lymph % (Auto) 19.8, [place] % (Auto) 6.3, Eos % (Auto) 0.1, Baso % (Auto) 0.2, Absolute Neuts (auto) 12.2 H, Absolute Lymphs (auto) 3.30, Nucleated RBC % 0, Sodium 141, Potassium 4.5, Chloride 108, Carbon Dioxide 14.4 L, Anion Gap 19 H, BUN 28 H, Creatinine 1.01, Estim Creat Clear Calc 31.24 L, Est GFR (MDRD) Non-Af 53 L, B UN/Creatinine Ratio 27.3 H, Glucose 142 H, Calcium 9.8 10/04/24 08:40: Lactic Acid 1.8 Radiography Diagnostic Testing: Radiology Impression Echocardiogram 10/02/24 17:32 Interpretation Summary The estimated ejection fraction is 55-60 %. Limited transthoracic echocardiogram Overall LV systolic function within normal With no significant change from previous. Ordering Physician: Harper Wang Referring Physician: Tita Berger Performed By: Susie Ledesma RCS Physical Exam Const alert Constitutional Narrative: confused, mumbling incoherently Orientation / Consciousness: confused HEENT normocephalic, head/scalp atraumatic, hearing grossly normal bilaterally, moist oral mucous membranes and oropharynx normal Eyes PERRL, EOMs intact bilaterally and conjunctivae normal Neck no lymphadenopathy, supple and no JVD Resp normal respiratory effort, no retractions, no use of accessory muscles and clear to auscultation bilaterally Cardio regular rate, regular rhythm, S1 normal heart sound, S2 normal heart sound and no murmurs GI normal to inspection, nondistended, normoactive bowel sounds, soft to palpation, non-tender and non-distended Extremity normal to inspection, full ROM, normal capillary refill and no clubbing, cyanosis or edema Skin General Skin Exam: no breakdown Neuro Neuro Narrative: flat affect, confused, mumbling incoherently, moves all extremities spontaneously Motor Exam: strength 5/5 throughout and general weakness Psych Psych Narrative: confused. Assessment & Plan Assessment/Plan (1) Acute dehydration: (2) Left arm weakness: (3) Expressive aphasia: PLAN: Plan #Stroke like symptoms to rule out a stroke * Patient admitted with a complaint of expressive aphasia. She is not a candidate for TNK as the last known well was over 18 hours ago. Family found her this morning at 8 AM with the above-mentioned symptoms. 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 * CT of the brain showed no acute intracranial pathology. 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 * Will get MRI of the brain. Patient already on aspirin as well statin. Will continue. * Get speech therapy consult due to aphasia. Keep n.p.o. until she passes bedside swallow evaluation was evaluated by speech therapy. * PT OT consult. Fall precautions. 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 * she has a pacemaker, so awaiting verification to see if it is MRI compatible so she can have the MRI. To have MRI tomorrow * Start on Seroquel due to her agitation * #Leucocytosis * WBC today is up to 16.7. * No clear evidence of infection. * It is mainly neutrophil predominant. Urinalysis and blood cultures ordered. She is on room air. * #Mild anion gap metabolic acidosis * Bicarb today is 14.4 and anion gap is 19. Was 19 yesterday also. Creatinine is 1.01. Lactic acid is not elevated and is 1.8. * Is therefore not clear what could be causing this anion gap metabolic acidosis. Patient has been n.p.o. so I suspect she may be having starvation ketosis. Her blood sugar this morning was however 142. * Will start on bicarb drip for now to help metabolic acidosis resolve. * BUN has trended down. * #KRYSTIAN: * Resolved. Creatinine is 1.01. * #Hypertension: BP held for 48 hours due to concerns for acute stroke. Will resume BP meds now. Type 2 diabetes mellitus: * On glimepiride. Insulin sliding scale. * Accu-Cheks every 6 hourly until she is able to be put on a diet in light of her aphasia. * Hold glimepiride #Restless leg syndrome: On pramipexole #History of complete heart block: Status post pacemaker DVT prophylaxis: Lovenox CODE STATUS: DNR CCA no intubation * Charges/Coding Visit Charges Inpatient E&M: 41166 Subs Hosp L2
[2024-10-04 11:06] LABS: Bacteria 0 SEEN /hpf (None Seen); Mucous, Urine 0 SEEN /hpf (<or=2+); Red Blood Cells-Urine 0 SEEN /hpf (0-5)
[2024-10-04 11:23] LABS: Color, Urine Yellow (Yellow); Glucose, Dipstick 50 mg/dl (Normal); Leukocyte Esterase-Dipstick Negative /ul (Negative); Nitrite-Dipstick Negative (Negative); Occult Blood-Urine 10 /ul (Negative); Urine Bilirubin Dipstick Negative (Negative); Urine Clarity Clear (Clear); Urine Urobilinogen Normal (Normal)
[2024-10-04 11:31] LABS: Ketone-Dipstick 150 mg/dl (Negative)
[2024-10-04 11:32] LABS: Squamous Epithelial Cells - UA 0-5 SEEN /hpf (5-10); White Blood Cells 0-5 SEEN /hpf (0-5)
[2024-10-04 11:36] LABS: Protein, Urine (Random) 50.7 mg/dL (0.0-12.0)
[2024-10-04] MEDS: QUEtiapine 25 MG Tablet PO ×2 (12:16→21:13)
[2024-10-04 12:42] LABS: Bedside Glucose 186 mg/dL (74-106)
[2024-10-04 17:00] LABS: Bedside Glucose 123 mg/dL (74-106)
[2024-10-04] MEDS: Pravastatin 40 MG Tablet PO (21:13)
[2024-10-04] MEDS: Pramipexole Di-HCl 0.5 MG Tablet PO (21:13)
[2024-10-04] MEDS: traZODone 100 MG Tablet PO (21:13)
[2024-10-04] MEDS: Gabapentin 300 MG Capsule PO (21:13)
--- NOTE | 2024-10-04 21:45 | NURSING ---
Telephone update to Daughter Sheryl Ventura. All questions answered to best of this writers ability. Support and education provided. no additional needs of concerns verbalized or identified.
--- NOTE | 2024-10-04 22:49 | NURSING ---
NIHSS assessment completed to best of writers ability. Pt is unable to follow commands, speech is garbled and incomprehensible. This rfp writer is unable to accurately assess facial and visual deficits related to previously stated deficits.
[2024-10-05] VITALS (7 sets, daily range): BP systolic 131–174; BP diastolic 40–96; PULSE 85–104; RESP 16–18; TEMP 36.2–37.1; O2SAT 95–100; BMI 23.2
[2024-10-05 00:41] LABS: Bedside Glucose 155 mg/dL (74-106)
--- NOTE | 2024-10-05 04:11 | NURSING ---
Update to daughter Sheryl Ventura. All questions answered to the best of this writers ability. Support and education provided. Pt has rested comfortably all this shift. No additional needs or concerns verbalized or identified.
[2024-10-05] MEDS: Gabapentin 300 MG Capsule PO (06:00)
--- NOTE | 2024-10-05 06:00 | MRI_ITS ---
PROCEDURE: BRAIN WITHOUT CONTRAST 10/05/2024 REASON FOR EXAM: STROKE LIKE SYMPTOMS TECHNIQUE: Noncontrast brain MRI. Multiplanar and multisequence images were obtained. COMPARISON: CTA head and neck 10/02/2024 FINDINGS: BRAIN/PARENCHYMA: No evidence of acute infarction or acute intracranial hemorrhage. There are subcortical and periventricular white matter FLAIR hyperintensities, likely related to chronic microvascular ischemic disease. Small foci of encephalomalacia and gliosis bilateral cerebellar hemispheres lowery radiata, from prior infarcts. EXTRA-AXIAL SPACES: No abnormal extra-axial fluid collections. Patent basal cisterns and foramen magnum. MIDLINE SHIFT: None. VENTRICLES: No hydrocephalus. SCALP SOFT TISSUES & CALVARIUM: No significant abnormality. VISUALIZED SINUSES & MASTOIDS: No air-fluid levels in the paranasal sinuses. The mastoid air cells are clear. ARTERIAL FLOW VOIDS: Preserved major arterial flow voids indicating gross patency. MRI/Brain without Contrast IMPRESSION: No acute intracranial abnormality. Chronic microvascular ischemia, sequela of multiple prior infarcts and involuti onal changes. Reading Location: [facility]
[2024-10-05 06:52] LABS: Bedside Glucose 135 mg/dL (74-106)
[2024-10-05 07:04] LABS: Absolute Lymphocyte Count 2.46 X10^3/uL (0.83-4.51); Absolute Neutrophil Count 8.4 X10^3/uL (2.0-7.7); Basophil# 0.03 X10^3/uL; Basophil% 0.3 % (0-1); Eosinophil# 0.07 X10^3/uL; Eosinophils% 0.6 % (0-5); Hematocrit 34.8 % (37-47); Hemoglobin 11.4 g/dL (12.0-15.0); Lymphocyte # 2.46 X10^3/ul (0.83-4.51); Mean Corp Hgb Conc 32.8 g/dL (32-36); Mean Corpuscular Hgb 30.2 pg (27.0-32.0); Mean Corpuscular Volume 92.1 fL (81-99); Monocyte# 0.66 X10^3/uL; Monocyte% 5.6 % (0-10); NRBC Flagged by Analyzer 0 % (0-5); Neutrophil # 8.44 X10^3/uL (2.7-7.7); Neutrophil % 72.2 % (47-70); Platelet Count 225 K/mm3 (150-450); RBC Distribution Width CV 15.2 % (11.6-14.6); RBC Distribution Width SD 51.1 fl (35.1-43.9); Red Blood Count 3.78 M/mm3 (4.2-5.4); White Blood Count 11.7 K/mm3 (4.4-11.0)
[2024-10-05 09:13] LABS: Anion Gap 16 (5-15); BUN 22 mg/dL (4-19); Calcium,Total 9.7 mg/dL (7.6-11.0); Carbon Dioxide 18.1 mmol/L (21.0-32.0); Chloride 105 mmol/L (98-108); Creatinine, Serum 0.92 mg/dL (0.70-1.20); EST Glomerular Filtration Rate 60 (>60); Estimated Creatinine Clearance 34.29 ml/min (50-250); Glucose 131 mg/dL (70-99); Sodium Level 138 mmol/L (133-145)
--- NOTE | 2024-10-05 10:02 | NURSING ---
Pt not able to participate in NIHSS at this time. Does not open eyes or follow commands.
--- NOTE | 2024-10-05 13:05 | PCM.PROGNOTE ---
Subjective Subjective Patient seen and examined. Her daughter was by her bedside. She was resting calmly. Unable to do review of systems. She has remained hemodynamically stable. Objective Data Objective Data Vital Signs: Vital Signs Temp Pulse Resp BP Pulse Ox O2 Del Method O2 Flow Rate 97.2 F L 85 16 158/54 H 98 Room Air 2 10/05/24 10:00 10/05/24 12:55 10/05/24 12:55 10/05/24 12:55 10/05/24 12:55 10/05/24 12:55 10/02/24 17:31 Oxygen Flow Rate (L/min) 2 Oxygen Delivery Method Room Air Weight: 131 lb 2.801 oz Body Mass Index (BMI) 23.2 Intake & Output: Intake and Output for Last 24 Hours 10/03/24 10/04/24 10/05/24 23:59 23:59 23:59 Intake Total 1120 / 1120 2049 / 2049 Output Total 975 / 975 575 / 575 250 / 250 Balance 145 / 145 1475 / 1475 -250 / -250 Lab / Micro Data 10/05/24 06:31 10/05/24 06:31 Labs: Laboratory Results - last 24 hr 10/04/24 16:41: POC Glucose 123 H 10/05/24 00:23: POC Glucose 155 H 10/05/24 06:31: WBC 11.7 H, RBC 3.78 L, Hgb 11.4 L, Hct 34.8 L, MCV 92.1, MCH 30.2, MCHC 32.8, RDW Std Deviation 51.1 H, RDW Coeff of Franky 15.2 H, Plt Count 225, MPV 10.0, Immature Gran % (Auto) 0.300, Neut % (Auto) 72.2 H, Lymph % (Auto) 21.0, [place] % (Auto) 5.6, Eos % (Auto) 0.6, Baso % (Auto) 0.3, Absolute Neuts (auto) 8.4 H, Absolute Lymphs (auto) 2.46, Nucleated RBC % 0, Sodium 138, Potassium 4.0, Chloride 105, Carbon Dioxide 18.1 L, Anion Gap 16 H, BUN 22 H, Creatinine 0.92, Estim Creat Clear Calc 34.29 L, Est GFR (MDRD) Non-Af 60, BUN/Creatinine Ratio 24.0 H, Glucose 131 H, Calcium 9.7 10/05/24 06:33: POC Glucose 135 H Physical Exam Const alert Constitutional Narrative: confused, lethargic Orientation / Consciousness: confused HEENT normocephalic, head/scalp atraumatic, hearing grossly normal bilaterally, moist oral mucous membranes and oropharynx normal Eyes PERRL, EOMs intact bilaterally and conjunctivae normal Neck no lymphadenopathy, supple and no JVD Resp normal respiratory effort, no retractions, no use of accessory muscles and clear to auscultation bilaterally Cardio regular rate, regular rhythm, S1 normal heart sound, S2 normal heart sound and no murmurs GI normal to inspection, nondistended, normoactive bowel sounds, soft to palpation, non-tender and non-distended Extremity normal to inspection, full ROM, normal capillary refill and no clubbing, cyanosis or edema Skin General Skin Exam: no breakdown Neuro Neuro Narrative: flat affect, confused, mumbling incoherently, moves all extremities spontaneously Motor Exam: strength 5/5 throughout and general weakness Psych Psych Narrative: confused. Assessment & Plan Assessment/Plan (1) Acute dehydration: (2) Left arm weakness: (3) Expressive aphasia: PLAN: Plan #Stroke like symptoms to rule out a stroke Patient admitted with a complaint of expressive aphasia. She is not a candidate for TNK as the last known well was over 18 hours ago. Family found her this morning at 8 AM with the above-mentioned symptoms. 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 CT of the brain showed no acute intracranial pathology. 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 Will get MRI of the brain. Patient already on aspirin as well statin. Will continue. Get speech therapy consult due to aphasia. Keep n.p.o. until she passes bedside swallow evaluation was evaluated by speech therapy. PT OT consult. Fall precautions. 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 she has a pacemaker, so awaiting verification to see if it is MRI compatible so she can have the MRI. To have MRI tomorrow on seroquel 25mg bid. MRI brain done and read is pending #Leucocytosis WBC today is down to 11.7 No clear evidence of infection. It is mainly neutrophil predominant. Urinalysis and blood cultures ordered. She is on room air. #Mild anion gap metabolic acidosis Bicarb today is 18.1 and anion gap is 16. Was 19 yesterday also. Creatinine is 0.92. Lactic acid is not elevated and is 1.8. Is therefore not clear what could be causing this anion gap metabolic acidosis. Patient has been n.p.o. so I suspect she may be having starvation ketosis. Her blood sugar this morning was however 142. on Bicarb drip BUN has trended down. #KRYSTIAN: Resolved. Creatinine is 1.01. #Hypertension: BP meds resumed. Type 2 diabetes mellitus: On glimepiride. Insulin sliding scale. Accu-Cheks every 6 hourly until she is able to be put on a diet in light of her aphasia. Hold glimepiride #Restless leg syndrome: On pramipexole #History of complete heart block: Status post pacemaker DVT prophylaxis: Lovenox CODE STATUS: DNR CCA no intubation Disposition: I spoke to patient's son who is her POA as well as her 3 daughters extensively. They are on board with hospice and son was the POA said he understood that his mother's time was near and there was nothing else that could be done. They wanted her back home where she would be in a familiar and comfortable environment. They are amenable to hospice consult. Hospice consult therefore placed. Charges/Coding Visit Charges Inpatient E&M: 31626 Subs Hosp L2
[2024-10-05 14:01] LABS: Bedside Glucose 133 mg/dL (74-106)
--- NOTE | 2024-10-05 14:10 | CHAPLAIN ---
Type of Pastoral Visit ___ Initial Visit _x__ Follow-up Visit ___ On-call Visit ___ General Patient Visit ___ Spiritual Assessment ___ Family Conference ___ Bereavement ___ Rapid Response ___ Code Blue ___ Other (describe below) Pastoral Care Referral From ___ Patient _x__ Family ___ Nurse ___ Physician ___ [employer] Driver ___ [employer] ___ Other (describe below) Sacrament/Intervention _x__ Active listening ___ Anointing ___ Mu-Ism ___ Bereavement ___ Communion _x__ Taylor exploration ___ _x__ Life review _x__ Prayer ___ Reconciliation ___ Sacrament of Sick _x__ Supportive presence ___ Wedding ___ Other (describe below) Pastoral Comments patient was seen briefly in the ED on Saturday when she was a stroke alert; pt has declined quite a bit recently per the families comments; family members are present; one daughter and grandchildren are ready to board the elevator and talk to this veneer department manager about 'we can take care of her at home now I think; one daughter asks this veneer department manager to step outside in the hallway so she can talk about her mother and what is happening in her decline; a son and yet another daughter are sitting in the room and are the ones most talkative about the situation and the acknowledged realization that pt is at the end of her life and that this is expected and probably have a good understanding of the life mary's igloo which expectations of for an 89 year old; son with daughter's agreement say that a prayer is fine If you want to, but Mom did not go to a adventist and had her own beliefs and opinions;
--- NOTE | 2024-10-05 14:21 | CASEMGMT ---
Addendum entered by Yuridia Clark 10/05/24 16:10: BONIFACIO TATUM received call back from [facility] and they will be meeting with family in the morning at 0930. RN DEEPTI updated SW and charge nurse. Original Note: BONIFACIO TATUM updated by hospitalist that family is agreeable to hospice consult. BONIFACIO TATUM in to discuss with family preferences for hospice referral, family prefers [facility]. Family had no further questions. BONIFACIO TATUM called [facility] and made referral. Clinical information was faxed [facility].
[2024-10-05 19:15] LABS: Bedside Glucose 116 mg/dL (74-106)
[2024-10-05] MEDS: QUEtiapine 25 MG Tablet PO (23:37)
[2024-10-06 00:40] VITALS: BMI 23.2
[2024-10-06 02:21] LABS: Bedside Glucose 150 mg/dL (74-106)
[2024-10-06 04:15] VITALS: BP 156/61; PULSE 106; RESP 16; TEMP 36.1; O2SAT 95
[2024-10-06 05:11] LABS: Absolute Lymphocyte Count 1.95 X10^3/uL (0.83-4.51); Absolute Neutrophil Count 8.3 X10^3/uL (2.0-7.7); Basophil# 0.04 X10^3/uL; Basophil% 0.4 % (0-1); Eosinophil# 0.03 X10^3/uL; Eosinophils% 0.3 % (0-5); Hematocrit 34.5 % (37-47); Hemoglobin 11.5 g/dL (12.0-15.0); Lymphocyte # 1.95 X10^3/ul (0.83-4.51); Lymphocyte % 18.1 % (19-41); Mean Corp Hgb Conc 33.3 g/dL (32-36); Mean Corpuscular Hgb 30.6 pg (27.0-32.0); Mean Corpuscular Volume 91.8 fL (81-99); Mean Platelet Vol. 10.9 fl (6.2-12.0); Monocyte# 0.47 X10^3/uL; Monocyte% 4.4 % (0-10); NRBC Flagged by Analyzer 0 % (0-5); Neutrophil # 8.27 X10^3/uL (2.7-7.7); Neutrophil % 76.4 % (47-70); Platelet Count 234 K/mm3 (150-450); RBC Distribution Width CV 15.4 % (11.6-14.6); RBC Distribution Width SD 51.8 fl (35.1-43.9); Red Blood Count 3.76 M/mm3 (4.2-5.4); White Blood Count 10.8 K/mm3 (4.4-11.0)
[2024-10-06 05:43] LABS: Anion Gap 18 (5-15); BUN 26 mg/dL (4-19); BUN/Creat Ratio 23.6 RATIO (10-20); Calcium,Total 9.6 mg/dL (7.6-11.0); Carbon Dioxide 19.8 mmol/L (21.0-32.0); Chloride 105 mmol/L (98-108); Creatinine, Serum 1.09 mg/dL (0.70-1.20); EST Glomerular Filtration Rate 49 (>60); Estimated Creatinine Clearance 28.94 ml/min (50-250); Glucose 134 mg/dL (70-99); Sodium Level 143 mmol/L (133-145)
[2024-10-06] MEDS: Gabapentin 300 MG Capsule PO (05:54)
[2024-10-06 06:48] LABS: Bedside Glucose 121 mg/dL (74-106)
[2024-10-06 09:10] VITALS: BMI 23.2
[2024-10-06 10:35] VITALS: BP 133/40; PULSE 96; RESP 20; TEMP 36.6; O2SAT 97
--- NOTE | 2024-10-06 12:37 | PCM.DC.SUM ---
Providers Date of Admission: 10/02/24 Date of Discharge: 10/06/24 Primary Care Physician: Dr. Tita Berger MD Consultations 10/02/24 17:31 Consult: Tele-Neurology Routine Consulting Provider: [facility] Reason for Consult: Acute Ischemic Stroke/TIA EMERGENT Consult: No Notified: Yes Date Notified: 10/02/24 Time Notified: 17:31 Method of Notification: ED Physician Initiated Nursing Unit Staff Notify [facility] of Tele-Neurology Consult: Yes 10/05/24 13:59 Consult: Hospice / Palliative Care Routine Consulting Provider: [facility] Reason for Consult: hospice evaluation EMERGENT Consult: No Notified: Yes Date Notified: 10/05/24 Time Notified: 13:59 Method of Notification: Answering Service Reason For Visit: STROKE LIKE SYMPTOMS Diagnosis Discharge Diagnosis (1) Acute dehydration: Status: Acute Code(s): E86.0 - Dehydration (2) Left arm weakness: Status: Acute Code(s): R29.898 - Other symptoms and signs involving the musculoskeletal system (3) Expressive aphasia: Status: Acute Code(s): R47.01 - Aphasia Medications at Discharge Home Medications pramipexole 0.5 mg tablet 0.5 mg PO QHS tremors #90 tabs 05/22/24 metoprolol tartrate 25 mg tablet 50 mg (2 x 25 mg) PO BID blood pressure #180 tabs 07/22/24 gabapentin 300 mg capsule 300 mg PO TID neuropathy #270 caps 09/11/24 Hospital Course Operations None Procedures 2-D Echocardiogram and - (Pacemaker check/CT brain/CTA head neck/MRI brain) Summary of Care Provided Minutes Spent on Discharge: 25 Hospital Course: Patient is an 89-year-old white female who presented to the emergency department [facility] on 10/02/2024 with a chief complaint of confusion, inability move her left arm, and left facial droop. She was evidently unable to communicate as well and was nonverbal at the time of admission. Vital signs on presentation to the emergency department showed a temperature of 98.3, heart rate 112, respiratory 18, blood pressure of 144/48 and pulse ox was 93% on room air. CBC on presentation showed a white count of 14.6 with a chronic stable anemia hemoglobin of 10.6 that was normocytic and no left shift. Coags were normal. Chemistry panel showed normal electrolytes other than serum bicarb which was 17. Anion gap was elevated at 23 and her BUN and creatinine are elevated from baseline at 49 and 1.59 respectively. Baseline serum creatinine runs between 0.9 and 1.2. Her initial troponin was 46 with a delta of 48. Given her symptoms a stroke team was called. 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 She was admitted for stroke rule out and an echocardiogram, MRI, and neuroconsultation were placed. Patient was placed on high intensity of statin and aspirin. Echocardiogram showed EF of 55 to 60% with no significant valvular abnormalities. Lipid profile was obtained and found a total cholesterol of 134/LDL 78/HDL 38/triglycerides were 92. She had a recent hemoglobin A1c on 09/08/2024 that was 6.2. MRI of the brain showed no acute intercranial abnormality but did show chronic microvascular ischemic changes consistent with multiple prior infarction and involutional changes. Her pacemaker was interrogated. And did not show any significant abnormalities with the rhythm. Clinically she did not improve much as far as her mental status during her hospitalization. There was extensive conversation with the POA as well as her 3 daughters and they were all on board with hospice consultation. They indicated they wanted her not familiar and comfortable environment. Hospice consult was placed on 10/05/2024 and she was evaluated on 10/06/2024. She was felt appropriate for the [facility] and was discharged there with hospice care on 10/06/2024. 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 Leukocytosis Chronic anemia Mild anion gap metabolic acidosis KRYSTIAN Essential hypertension [id number] Restless leg syndrome History of complete heart block Diabetic neuropathy Physical Exam Const no apparent distress and average body habitus; Negative for alert, oriented x3, no limitations, healthy appearing or well nourished Constitutional Narrative: Elderly, sleeping, white female, multiple family members at bedside, appears comfortable, does not appear toxic General Appearance: lethargic and other Orientation / Consciousness: obtunded and lethargic HEENT normocephalic and head/scalp atraumatic HEENT Narrative: Edentulous, Mallampati 2, no thrush Resp normal respiratory effort, no retractions, no use of accessory muscles and clear to auscultation bilaterally Auscultation: Negative for rales, rhonchi or wheezes Cardio regular rate, regular rhythm, S1 normal heart sound, S2 normal heart sound, no murmurs, no rub, no gallops and no clicks GI normal to inspection, nondistended, normoactive bowel sounds, soft to palpation and non-tender Extremity no clubbing, cyanosis or edema Extremity Narrative: Pedal and radial pulses are 2+ Neuro Neuro Narrative: Patient sleeping and appears comfortable, minimal response Psych Psych Narrative: Unable to assess Weight / BMI Weight Weight: 59.5 kg Body Mass Index (BMI) 23.2 ABG / Lab / Microbiology Data 10/06/24 04:17 10/06/24 04:17 Laboratory: Laboratory Results - last 24 hr 10/05/24 13:43: POC Glucose 133 H 10/05/24 18:58: POC Glucose 116 H 10/05/24 23:29: POC Glucose 150 H 10/06/24 04:17: WBC 10.8, RBC 3.76 L, Hgb 11.5 L, Hct 34.5 L, MCV 91.8, MCH 30.6, MCHC 33.3, RDW Std Deviation 51.8 H, RDW Coeff of Franky 15.4 H, Plt Count 234, MPV 10.9, Immature Gran % (Auto) 0.400, Neut % (Auto) 76.4 H, Lymph % (Auto) 18.1 L, Weld % (Auto) 4.4, Eos % (Auto) 0.3, Baso % (Auto) 0.4, Absolute Neuts (auto) 8.3 H, Absolute Lymphs (auto) 1.95, Nucleated RBC % 0, Sodium 143, Potassium 4.0, Chloride 105, Carbon Dioxide 19.8 L, Anion Gap 18 H, BUN 26 H, Creatinine 1.09, Estim Creat Clear Calc 28.94 L, Est GFR (MDRD) Non-Af 49 L, BUN/Creatinine Ratio 23.6 H, Glucose 134 H, Calcium 9.6 10/06/24 05:46: POC Glucose 121 H Microbiology: Microbiology 10/04/24 08:30 Blood Culture (Wb) - Right Wrist Blood Culture - Preliminary No growth in 48 hours. Radiography Diagnostic Testing: Radiology Impression Brain MRI 10/05/24 06:00 IMPRESSION: No acute intracranial abnormality. Chronic microvascular ischemia, sequela of multiple prior infarcts and involutional changes. [facility] Inst[facility] Discharge Diet: No restrictions DC O2, CPAP, BIPAP Needs Home O2 Discharge instructions: No Meaningful Use Info Meaningful Use Meaningful Use Diagnoses (Choose all that apply): None applicable Ischemic Stroke Statin Dosing Therapy Reference: STATIN DOSE THERAPY REFERENCE: * Patients > 75 years receive moderate or high dose statin therapy. * Patients 75 years or YOUNGER should receive HIGH intensity statin dose unless contraindicated. You will be required to document reason for non-treatment if statin daily dose does not meet guidelines. HIGH DOSE STATIN THERAPY DAILY Atorvastatin > than or = to 40 mg Rosuvastatin > than or = to 20 mg Amlodipine + Atorvastatin > than or = to 2.5/40 mg Ezetimibe + Simvastatin 10/80 mg Simvastatin 80mg Discharge Plan Admission Admit Date/Time: 10/02/24 15:42 Primary Reason for Your Visit: Confusion/left arm weakness/left facial droop Attending Provider: Nayana Dumont Primary Care Provider: Tita Berger Consulting Providers: Dylan Loredo; Chuy Man; Taylor Garcia; Teena Hidalgo; Camila Allen; Deejay aPtino; Heidy Alvarado; Masoud Emanuel; Brayden Syed; Trav Cross; Adina Dominguez; Goldy Hager; Margret Saleem; Shawn Platt; Nancy Raymundo Ilya; Alistair Da Silva; Abe Vasquez; Ruben Paulino; Abida Dumont; Luis Floyd; Osmel Marley; Rima Goff; Talia Santos; Nhnug Chaudhary; Narcisa Taylor NP; Samantha Shepard; Harper Wang Discharge Orders/Prescriptions Prescriptions: Continued pramipexole 0.5 mg tablet 0.5 mg PO QHS Qty: 90 1RF metoprolol tartrate 25 mg tablet 50 mg PO BID Qty: 180 1RF Patient Comments: PT UNSURE OF STRENGTH gabapentin 300 mg capsule 300 mg PO TID Qty: 270 1RF Discontinued famotidine 40 mg tablet 40 mg PO DAILY aspirin [Adult Low Dose Aspirin] 81 mg tablet,delayed release (DR/EC) 81 mg PO DAILY Qty: 90 0RF cholecalciferol (vitamin D3) 50 mcg (2,000 unit) tablet 50 mcg PO DAILY amitriptyline 10 mg tablet 10 mg PO DAILY Qty: 14 0RF (DME) lancets [Accu-Chek Softclix Lancets] Misc MISCELLANEOUS amlodipine 5 mg tablet 5 mg PO DAILY (DME) blood-glucose meter [Accu-Chek Guide Glucose Meter] Misc See Rx Instructions .Route Qty: 1 0RF Rx Instructions: As directed glimepiride 1 mg tablet 1 mg PO QAM Qty: 90 1RF trazodone 100 mg tablet 100 mg PO QHS PRN (Reason: sleep ) Qty: 90 0RF (DME) lancets [CareTouch Safety Lancets] 26 gauge misc See Rx Instructions .Route Qty: 100 3RF Rx Instructions: Check blood glucose once per day in the am oxybutynin chloride 5 mg tablet 5 mg PO DAILY Qty: 90 0RF ramipril 10 mg capsule 10 mg PO DAILY Qty: 90 0RF (DME) Accu-Chek Guide test strips Strip See Rx Instructions .Route Qty: 100 2RF Rx Instructions: check blood glucose once a day in the am pravastatin 40 mg tablet 40 mg PO QHS Qty: 90 3RF Referrals / Follow Up: Tita Berger MD [Primary Care Provider] - Disposition Disposition (needs filled in before D/C Order can be placed): Hospice in Medical Facility Charges/Coding Visit Charges Inpatient E&M: 31078 Disch Hosp
--- NOTE | 2024-10-06 12:38 | CASEMGMT ---
Patient will be going to the inpatient [facility] unit. Gerri CONKLIN
[2024-10-06] MEDS: DiphenhydrAMINE 50 MG/ML Syringe 12.5 MG IV (13:10)
[2024-10-06] MEDS: HYDROmorphone 1 MG/ML Syringe IV (13:12)
[2024-10-06] MEDS: 0.9% Saline Lock 10 ML Syringe IV (13:13)
[2024-10-06 13:14] VITALS: PULSE 105; RESP 22; O2SAT 100
== END 2024-10-06 12:43 | disposition hospice, inpatient (51) ==
LOC: ED 15:48 → PCU 16:15
PROVIDERS: Physician Assistant; Admitting Provider Student in an Organized Health Care Education/Training Program; Emergency Provider Emergency Medicine; PCP Internal Medicine; Visit Provider Internal Medicine
DX: R47.01 Aphasia (principal); E11.40 Type 2 diabetes mellitus with diabetic neuropathy, unspecified; E11.51 Type 2 diabetes mellitus with diabetic peripheral angiopathy without gangrene; E11.22 Type 2 diabetes mellitus with diabetic chronic kidney disease; N18.30 Chronic kidney disease, stage 3 unspecified; E86.0 Dehydration; N17.9 Acute kidney failure, unspecified; D64.9 Anemia, unspecified; G47.00 Insomnia, unspecified; D72.829 Elevated white blood cell count, unspecified; Z51.5 Encounter for palliative care; I44.7 Left bundle-branch block, unspecified; Z95.0 Presence of cardiac pacemaker; G93.89 Other specified disorders of brain; Z82.49 Family history of ischemic heart disease and other diseases of the circulatory system; R45.1 Restlessness and agitation; I25.10 Atherosclerotic heart disease of native coronary artery without angina pectoris; G89.29 Other chronic pain; Z90.710 Acquired absence of both cervix and uterus; M54.50 Low back pain, unspecified; E87.20 Acidosis, unspecified; Z79.84 Long term (current) use of oral hypoglycemic drugs; Z86.16 Personal history of COVID-19; E78.5 Hyperlipidemia, unspecified; R29.898 Other symptoms and signs involving the musculoskeletal system; Z79.82 Long term (current) use of aspirin; I12.9 Hypertensive chronic kidney disease with stage 1 through stage 4 chronic kidney disease, or unspecified chronic kidney disease; G25.81 Restless legs syndrome; Z86.73 Personal history of transient ischemic attack (TIA), and cerebral infarction without residual deficits
CPT/HCPCS: 36415; 70450; 70496; 70498; 70551; 80048; 80061; 81001; 82962; 83605; 84156; 84484; 85025; 85610; 85730; 87040; 92526; 92610; 93005; 93306; 93308; 94762; 96361; 96365; 96366; 96375; 97112; 97116; 97162; 97166; 97530; 97535; 97802; 99221; 99285; Q9967; A4216; G0378